=== PATIENT | male | born 1930 | race Caucasian/White ===

== ENCOUNTER → 2016-08-11 | Outpatient (CLI) | payer BC ==
[~2016-08-11] MED LIST: ACET-1256 PO; ACET650T49 PO; AMOX875T PO; ARTISOL12 OP; ASPI81TA28 PO; ATOR-22 PO; BISA-34 PO; CARB25TA12 PO; CLC100 PO; DOCU100C22 PO; ESCI10TA17 PO; FERR1TAB13 PO; FURO-85 PO; LACTCAP3 PO; METO50TA16 PO; MULTTAB5 PO; NTRGSL/4 UT; PANT40TA PO; POLYSOL4 OP; SACC250C11 PO; SENN-63 PO; TRAM-10 PO; VALA1TAB2 PO; ZNTT/150 PO
--- NOTE | 2016-08-11 11:49 | DIAGNOSTIC IMAGING REPORT ---
PET/CT WHOLE BODY CLINICAL HISTORY: PULMONARY NODULE melanoma COMPARISON STUDY: 07/05/2014, CT scan of chest dated 07/23/2016 FINDINGS: The patient was injected with 15.9 mCi of F 18 labeled FDG. Following the standard induction phase, PET/CT scanning is performed from the skull base the upper thigh region. A second acquisition of the legs was then performed. Activity within the neck is felt to be physiologic. Within the thorax, there is an intensely FDG avid 1 cm right upper lobe pulmonary nodule. This has SUV maximum of 4.6. Neoplasm is suspected. There are mildly FDG avid nonpathologically enlarged pretracheal lymph nodes demonstrate SUV maximum of 2.3. There is a nonpathologically enlarged mildly FDG avid subcarinal lymph node with SUV maximum of 3.4. There are no FDG avid hepatic masses. There are no FDG avid adrenal lesions. There is physiologic urinary tract and bowel activity within the abdomen and pelvis. The patient appears status post a prior left nephrectomy. There are minimally FDG avid left external iliac lymph nodes with SUV maximum of 2.3. The largest measures 8 mm in short axis. There are postsurgical changes of bilateral hip arthroplasties. There is a large left hip effusion. The lower legs, there is mild muscular activity, most pronounced involving the right semitendinosus muscle, as well as the medial head of the right gastrocnemius. There are no corresponding masses, and this activity is therefore unlikely to be neoplastic. IMPRESSION: 1. Moderately intense focus of increased FDG activity fusing to a 1 cm right upper lobe pulmonary nodule. This should be presumed neoplastic unless proven otherwise 2. Mildly FDG avid nonpathologically enlarged mediastinal lymph nodes 3. Minimally FDG avid nonpathologically enlarged left external iliac lymph node 4. Postsurgical changes of bilateral hip arthroplasties. Left hip effusion Electronically signed by: Danilo Cedeño M.D. 08/11/2016 11:47 AM Dictated Date/Time: 08/11/2016 11:32 AM
== END | disposition home or self-care (01) ==
LOC: C.PET 07:18
PROVIDERS: ATTEND Internal Medicine Hematology & Oncology
DX: C43.9 Malignant melanoma of skin, unspecified (principal); R91.1 Solitary pulmonary nodule

== ENCOUNTER → 2016-08-12 | Outpatient (CLI) | payer BC ==
[~2016-08-12] MED LIST changes: -AMOX875T PO; -ESCI10TA17 PO
== END | disposition home or self-care (01) ==
LOC: C.PATHSPEC 09:47
PROVIDERS: ATTEND Hospitalist
DX: C79.89 Secondary malignant neoplasm of other specified sites (principal)

== ENCOUNTER 2016-09-03 06:24 | Inpatient (IN) | payer BC, OTHER ==
[2016-08-29 15:59] VITALS: BMI 28.0
[~2016-09-03] VITALS: Ht 170.2 cm; Wt 81.9 kg
[2016-09-03] VITALS (9 sets, daily range): BP systolic 109–136; BP diastolic 60–71; PULSE 66–78; TEMP 36.8; O2SAT 95–100; Ht 170.2 cm; Wt 81.9 kg
[~2016-09-03 06:24] MED LIST changes: -ACET650T49 PO; -CLC100 PO; -DOCU100C22 PO; -FERR1TAB13 PO; +LACTATED RINGER'S 1000ML 1,000 ML IV SCH; -LACTCAP3 PO; -SENN-63 PO; -VALA1TAB2 PO
[2016-09-03] MEDS ORDERED: FENTANYL CITRATE INJ 50 MCG/1 ML 2 ML VIAL ONE ×2 (07:33→13:50)
[2016-09-03] MEDS ORDERED: CLINDAMYCIN 600 MG/54 ML D5W IV ONE (07:52)
--- NOTE | 2016-09-03 08:16 | History & Physical Bridge Note ---
H&P Re-Evaluation Bridge Note: I have examined the patient, reviewed the History & Physical and in the interval since the performance of the History & Physical I have noted the following changes of clinical significance: No changes noted
[2016-09-03] MEDS ORDERED: LIDOCAINE HCL 2% 2 ML VIAL (20MG/ML) ONE (09:13)
[2016-09-03] MEDS ORDERED: SUCCINYLCHOLINE CHLORIDE 20 MG/ML 10 ML VIAL IV ONE (09:13)
[2016-09-03] MEDS ORDERED: EpHEDrine SULFATE 50MG/5ML SYR ONE ×2 (09:13→09:56)
[2016-09-03] MEDS ORDERED: CLINDAMYCIN PHOS 150 MG/ML 2 ML VIAL ONE ×2 (09:13→12:46)
[2016-09-03] MEDS ORDERED: PROPOFOL IV EMULSION 10 MG/ML 20 ML VIAL IV ONE (09:13)
[2016-09-03] MEDS ORDERED: ROCURONIUM BROMIDE 10 MG/ML 5 ML VIAL ONE ×2 (09:13→13:24)
[2016-09-03] MEDS ORDERED: BUPIVACAINE LIPOSOME 1/3% 266 MG/20 ML VIAL INFIL ONE (11:14)
[2016-09-03] MEDS ORDERED: MIX: 266 MG EXPAREL + 40 ML INJ SALINE INJ ONE (11:50)
--- NOTE | 2016-09-03 12:19 | [facility] Operative Report ---
Operative Report Operative Date Sep 03, 2016. Pre-Operative Diagnosis Right upper lobe nodule intraoperative unsuccesful aiken catheter placement Post-Operative Diagnosis mild bladder neck contracture Procedure(s) Performed cystoscopy aiken placement over wire, difficult Surgeon Dr Morrison Special Loan Officer Surgeon(s) none Estimated Blood Loss 0mL Findings 16 fr contracture of bladder neck, small false passage posteriorly Fluids 50mL Specimens none Drains 16 fr [place] tip aiken Anesthesia GET Complication(s) None Disposition remains in OR for thoracotomy Indications I was called by Dr Talley to evaluate patient for difficult aiken. he is to have long procedure and 2 attempts at aiken placement were unsuccessful. We initially wnted to go without Aiken but Dr Marte felt intraoperative urine output monitoring was necessary prior to thoracotomy. Thus after bronch but before the thoracotomy we placed the aiken over a wire. Description of Procedure Patient was under general anesthesia and placed in supine on OR table. Exam of low abdomen reveals an old suprapubic tube scar but no incision for a prostatectomy. His genitals were prepped and draped in sterile fashion. Time out held with team. I placed an 18 fr flexible cystoscope up urethra. He has a few insignificant penile urethral strictures and a 16 fr pale stenosed bladder neck, There is some raw tissue distal and inferior to bladder neck presumably the trauma from recent aiken placements. The prostate is not notable , either very small or mostly resected. The UOs are in normal location. I placed a stiff wire thru the scope to bladder. I removed scope and placed a 16 fr [place] tip catheter over the wire with only a little resistance at bladder neck. I inflated balloon with 10mL of water. The catheter was connected to closed gravity drainage. He remains in OR for his surgery. Plan: void trial in 48-72 hours once pain is well controlled and patient as ambulatory as possible. ASA 4 clean contaminated case I attest to the content of the Intraoperative Record and any orders documented therein. Any exceptions are noted below.
[2016-09-03] MEDS ORDERED: PHENYLEPHRINE HCL INJ 10 MG/ML VIAL ONE ×2 (12:46→14:18)
[2016-09-03] MEDS ORDERED: EpHEDrine SULFATE INJ 50 MG/ML AMP ONE (12:46)
[2016-09-03] MEDS ORDERED: VASOPRESSIN 20 UNIT/ML VIAL ONE (12:46)
[2016-09-03] MEDS ORDERED: ALBUMIN HUMAN 5% 12.5 GM/250 ML VIAL IV ONE (12:58)
[2016-09-03] MEDS ORDERED: CALCIUM CHLORIDE 10% 10 ML SYR ONE (12:59)
[2016-09-03 13:12] LABS: ISTAT CREATININE 1.2 mg/dl (0.6-1.3); ISTAT HEMOGLOBIN 10.2 g/dl (14.0-18.0); ISTAT IONIZED CALCIUM 1.06 mmol/l (1.12-1.32)
[2016-09-03] MEDS ORDERED: ONDANSETRON INJ 2 MG/ML 2 ML VIAL IV PRN ×2 (14:15→14:45)
[2016-09-03] MEDS ORDERED: OXYCODONE/ACETAMINOPHEN 5-325 TAB PO PRN (14:15)
--- NOTE | 2016-09-03 14:28 | DIAGNOSTIC IMAGING REPORT ---
KUB CLINICAL HISTORY: INSTRUMENT COUNT thoracotomy COMPARISON STUDY: 10/29/2015 FINDINGS: 09/03/2016 findings a right axillar dissection as well as right-sided thoracotomy. Right-sided chest tube is noted. No radiopaque foreign bodies other than surgical clips and sternal wires. Small amount of air within the right lateral lower chest wall. Endotracheal tube 3 cm above the yulisa. Secondary to overlying left hilum. IMPRESSION: Postoperative changes as described right hemithorax. No evidence for residual surgical instruments or radiopaque foreign bodies. Electronically signed by: Wilian Clay M.D. 09/03/2016 2:26 PM Dictated Date/Time: 09/03/2016 2:24 PM
[2016-09-03 14:44] LABS: MEAN CELL VOLUME 92.2 fL (80-100); MEAN CORPUSCULAR HEMOGLOBIN 31.3 pg (25-34); MEAN PLATELET VOLUME 9.2 fL (7.4-10.4); PLATELET COUNT 166 K/uL (130-400); RED BLOOD COUNT 3.58 M/uL (4.7-6.1); WHITE BLOOD COUNT 10.61 K/uL (4.8-10.8)
[2016-09-03] MEDS ORDERED: NALOXONE HCL 0.4 MG/1 ML VIAL/CARP IV PRN (14:45)
[2016-09-03] MEDS ORDERED: EpHEDrine SULFATE INJ 50 MG/ML AMP IV PRN (14:45)
[2016-09-03] MEDS ORDERED: ATROPINE SULFATE 0.1 MG/ML 5ML SYR IV PRN (14:45)
[2016-09-03] MEDS ORDERED: PHENYLEPHRINE HCL INJ 20 MG in DEXTROSE 5% 500ML 500 ML IV PRN (14:45)
[2016-09-03 14:50] LABS: MEAN CORPUSCULAR HGB CONC 33.9 g/dl (32-36)
[2016-09-03 15:11] LABS: BUN/CREATININE RATIO 23.6 (10-20); CALCIUM 8.6 mg/dl (8.5-10.1); CREATININE 1.3 mg/dl (0.60-1.40); POTASSIUM 4.6 mmol/L (3.5-5.1)
[2016-09-03 15:18] LABS: ARTERIAL BLD GAS O2 SATURATION 94.1 % (90-95); ARTERIAL BLOOD GAS BASE EXCESS -4.1 mEq/L (-9-1.8); ARTERIAL BLOOD GAS HCO3 22 mmol/L (19-24); ARTERIAL BLOOD GAS PO2 78 mm/Hg (80-95); ARTERIAL BLOOD GAS pH 7.31 (7.35-7.45)
--- NOTE | 2016-09-03 15:18 | DIAGNOSTIC IMAGING REPORT ---
CHEST 1 VIEW FRONTAL CLINICAL HISTORY: NAVIGATIONAL BRONCH WITH FIDUCIAL MARKERS RUL COMPARISON STUDY: PET CT 08/11/2016. FINDINGS: Total fluoroscopy time was 216 seconds. A single fluoroscopic spot image was identified. Bronchoscopy was performed with fiducial markers placed within the right upper lobe adjacent to the right upper lobe nodule. IMPRESSION: Fluoroscopy provided for navigational bronchoscopy. Electronically signed by: Juan Knutson M.D. 09/03/2016 3:17 PM Dictated Date/Time: 09/03/2016 3:16 PM
[2016-09-03 15:19] LABS: O2 ADMINISTRATION 10 LITERS
[2016-09-03 15:21] LABS: BASO % 0.2 %; BASO ABS # 0.02 K/uL (0-0.2); COMPLETE YES; ECHINOCYTES 1+; EOS % 0.7 %; IG% 0.2 %; LYMPH % 8.5 %; MONO % 9.2 %; NEUT % 81.2 %
[2016-09-03] MEDS ORDERED: METOCLOPRAMIDE HCL INJ 5 MG/ML 2 ML VIAL IV. ONE (15:30)
--- NOTE | 2016-09-03 15:39 | Anesthesiology Progress Note ---
Anesthesia Post Op Note Date & Time Sep 03, 2016 at 15:37 Vital Signs Pain Intensity: 5 Vital Signs Past 12 Hours Date Time Temp Pulse Resp B/P Pulse Ox O2 Delivery O2 Flow Rate FiO2 09/03/16 15:15 67 20 94/56 97 Mask 10 96/54 09/03/16 15:10 72 20 111/64 98 Mask 10 09/03/16 15:00 69 20 109/61 98 Mask 10 09/03/16 14:55 65 20 94/56 100 Mask 10 09/03/16 14:45 69 20 87/57 98 Mask 10 09/03/16 14:40 71 20 88/52 98 Mask 10 78/55 09/03/16 14:33 36.1 71 20 85/56 99 Mask 10 09/03/16 07:16 100 Room Air Notes Mental Status: alert / awake / arousable, participated in evaluation Pt Amnestic to Procedure: Yes Nausea / Vomiting: adequately controlled Pain: adequately controlled Airway Patency, RR, SpO2: stable & adequate BP & HR: stable & adequate, see Notes Hydration State: stable & adequate Anesthetic Complications: no major complications apparent Patient on neosynephrine infusion now for BP support. H/H posttransfusion was 11.2/33. Patient being gently hydrated. Patient has pain but tolerable. Currently in stable condition and ready for transfer to ICU.
--- NOTE | 2016-09-03 15:42 | DIAGNOSTIC IMAGING REPORT ---
SINGLE VIEW CHEST CLINICAL HISTORY: Status post right-sided VATS procedure. FINDINGS: An AP, portable, upright chest radiograph is compared to study dated 10/23/2015 and correlated with chest CT dated 07/03/2016. The examination is degraded by portable technique and patient rotation. The patient is status post midline sternotomy. The heart is enlarged and there is atherosclerotic calcification of the thoracic aorta. Mild pulmonary vascular congestion is suspected. Postoperative change is suggested in the right upper lung. There is a moderate to large right apical pneumothorax with a chest tube present the medial right apex. No significant tracheal deviation is seen. Small pleural effusions are suspected and there is bibasilar atelectasis. The skeletal structures are osteopenic. Degenerative change and scoliosis are noted in the thoracic spine. Advanced arthritic change is observed in the shoulders, with surgical anchors present in the right humeral head. An IV catheter is noted in the right internal jugular vein. IMPRESSION: 1. There is a moderate to large right apical pneumothorax with a right-sided chest tube in place. 2. Cardiomegaly with mild pulmonary vascular congestion. 3. Small pleural effusions with bibasilar atelectasis. 4. Suspect postoperative change at the right apex. Electronically signed by: Vahid Alvarenga M.D. 09/03/2016 3:40 PM Dictated Date/Time: 09/03/2016 3:37 PM
[2016-09-03] MEDS ORDERED: D5W AND 1/2NSS 1,000 ML IV SCH (17:00)
[2016-09-03 17:36] LABS: INR 1.1 (0.9-1.1); PARTIAL THROMBOPLASTIN RATIO 0.9; PROTHROMBIN TIME (PATIENT) 11.7 SECONDS (9.0-12.0)
[2016-09-03] MEDS: MoRPHine SULFATE 2 MG/ML CARP IV PRN (18:10)
[2016-09-03] MEDS: METOCLOPRAMIDE HCL INJ 5 MG/ML 2 ML VIAL IV. SCH (18:22)
[2016-09-03] MEDS ORDERED: PHENYLEPHRINE HCL IV PRN (18:45)
[2016-09-03] MEDS ORDERED: DEXTROSE 5% IV PRN (18:45)
[2016-09-03] MEDS: CLINDAMYCIN IV 900 MG in DEXTROSE 5% ADD-VANTAGE 100ML 100 ML IV SCH (19:41)
[2016-09-03] MEDS: METOPROLOL TARTRATE 50 MG TAB PO SCH (21:00)
[2016-09-03] MEDS: CARBIDOPA/LEVODOPA 25/100MG TAB PO SCH (21:09)
[2016-09-03] MEDS: DOCUSATE SODIUM 100 MG CAP PO SCH (21:09)
[2016-09-03] MEDS: ACETAMINOPHEN IV 1,000 MG in EMPTY BAG 0 ML IV SCH (22:14)
[2016-09-03] MEDS ORDERED: PHARMACY GLYCEMIC MGMT CONSULT PRN (23:42)
[2016-09-03] MEDS ORDERED: NURSING VERBAL MED ORDER ONE (23:45)
[2016-09-03] MEDS: SODIUM CHLORIDE 0.45% 1000ML 1,000 ML IV SCH (23:56)
[2016-09-04] VITALS (65 sets, daily range): BP systolic 64–136; BP diastolic 43–72; PULSE 78–107; TEMP 36.8–37.7; O2SAT 92–100
[2016-09-04] MEDS: PHENYLEPHRINE HCL IV PRN ×5 (00:27→20:09)
[2016-09-04] MEDS: SODIUM CHLORIDE 0.9% IV PRN ×5 (00:27→20:09)
[2016-09-04] MEDS: INSULIN ASPART 100 UNITS/ML 3 ML PEN SC SCH ×4 (00:28→16:30)
[2016-09-04] MEDS: CLINDAMYCIN IV 900 MG in DEXTROSE 5% ADD-VANTAGE 100ML 100 ML IV SCH (00:49)
[2016-09-04] MEDS: METOCLOPRAMIDE HCL INJ 5 MG/ML 2 ML VIAL IV. SCH ×2 (00:49→08:00)
[2016-09-04] MEDS ORDERED: LACTATED RINGER'S 1000ML 1,000 ML IV ONE (01:45)
[2016-09-04] MEDS ORDERED: NORMOSOL R 1,000 ML IV ONE (02:00)
[2016-09-04 02:02] LABS: HEMATOCRIT 28.1 % (42-52); MEAN CELL VOLUME 90.4 fL (80-100); MEAN CORPUSCULAR HEMOGLOBIN 30.9 pg (25-34); MEAN CORPUSCULAR HGB CONC 34.2 g/dl (32-36); MEAN PLATELET VOLUME 9.3 fL (7.4-10.4); PLATELET COUNT 164 K/uL (130-400); RED BLOOD COUNT 3.11 M/uL (4.7-6.1); WHITE BLOOD COUNT 5.66 K/uL (4.8-10.8)
[2016-09-04 02:29] LABS: BASO % 0.2 %; BASO ABS # 0.01 K/uL (0-0.2); COMPLETE YES; EOS % 0.2 %; IG% 0.2 %; LYMPH % 15.9 %; MONO % 20.7 %; NEUT % 62.8 %
[2016-09-04 02:37] LABS: BUN/CREATININE RATIO 19.3 (10-20); CALCIUM 7.5 mg/dl (8.5-10.1); CREATININE 1.3 mg/dl (0.60-1.40); POTASSIUM 4.3 mmol/L (3.5-5.1)
[2016-09-04 03:35] LABS: ISTAT ARTERIAL BLOOD GAS HCO3 19 meq/L (19-24); ISTAT ARTERIAL BLOOD GAS PCO2 29 mmHg (35-46); ISTAT ARTERIAL BLOOD GAS PO2 56 mmHg (80-95); ISTAT ARTERIAL BLOOD GAS pH 7.42 (7.35-7.45); ISTAT CARBON DIOXIDE 20 mEq/l (24-31); ISTAT DELIVERY SYSTEM Cannula; ISTAT SITE Art Line
--- NOTE | 2016-09-04 03:56 | OPERATIVE REPORT ---
DATE OF OPERATION: 09/03/2016 PREOPERATIVE DIAGNOSES: 1. Enlarging right upper lobe mass. 2. History of melanoma. POSTOPERATIVE DIAGNOSIS: Apparent metastatic melanoma. PROCEDURE: 1. Endobronchial ultrasound with biopsy. 2. Navigational bronchoscopy with marking of right upper lobe lesion with methylene blue dye and fiducial markers. 3. Right thoracoscopy with extensive lysis of adhesions. 4. Emergent thoracotomy with control of bleeding from right internal mammary artery. 5. Wedge resection right upper lobe mass. 6. Mediastinal lymph node biopsies. SURGEON: Dr. Talley. 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 ANESTHESIA: General anesthesia with endotracheal intubation with double-lumen tube. SPECIFICS OF PROCEDURE: Mr. Razo is an 86-year-old male who has a history of melanoma which has recurred several times over the last few years. He is referred to me by Dr. Atul Steward from the cancer center as he had an enlarging mass in his right upper lobe. Interestingly enough, a PET scan showed hypermetabolic activity in lymph nodes in his mediastinum, which were not enlarged. I had a long talk about this in the office. The patient and two of his sisters and I had a long talk. He is a bit reticent to have it done. However, after discussing this with Dr. Wu as well as me, he elected to proceed. On 09/03/2016, I took the patient to the operating room and did an uncomplicated navigational bronchoscopy. The lymph nodes were tiny. I biopsied about 5 different stations including the left level 4, left level 10, level 7, and right level 10 and right level 4, but we only got lymph node tissue back on 2 of the levels. I then did a navigational bronchoscopy and marked the right upper lobe mass. I felt quite good about this as I could see on the radio ultrasound probe we were close to this. I placed a marker and then injected methylene blue dye. I then turned the patient and did a thoracoscopy and infused CO2 and I was disappointed to see that he had marked adhesions. I had to slowly get into the pleural cavity and then I made very slow but tedious work of taking down these adhesions meticulously. Using a hook cautery, I got these down quite nicely and using Harmonic scalpel. We were able to bring these down nicely, although it was time consuming. Went along the lateral aspect of the chest wall. I was quite happy because we got into very little bleeding with this. I took it down along the mediastinum and along the apex. I the upper lobe from the lower lobe. I was then working on the medial aspect of the upper lobe and we developed brisk bleeding. It was difficult to control this from our thoracoscopic incision, so I opened to my superior incision and put a Tuffier retractor in and then held pressure. This had very brisk bleeding and we lost probably a total of 1000 mL of blood. This was total blood loss for the case. The patient's pressure did drop to the 80s and I was concerned enough about this. We held pressure and got a unit of blood up. I then could see this was from the internal mammary artery, at about the 3rd or 4th interspace. I then was easily able to get clips around this. I then continued the case. With it open, I could feel the mass and wedged it out. It did appear to be a metastatic melanoma. I also dissected out level 2 and level 4 nodes. I saw very little in the way of level 7 node, which was not surprising, although I biopsied this and got lymphocytes back on the endobronchial ultrasound. He also did not have an 8 and 9 node, that was even noticeable when I took down the inferior pulmonary ligament. I meticulously took down every adhesion and then used an Exparel block from the 2nd to the 11th rib. I then closed the patient. He was awakened without difficulty in the OR and extubated. He did have an air leak but there was not a specific area. There were several small areas and he had emphysematous lungs. I think this will stop even though we did have a pneumothorax postop. We kept him on waterseal. Overall, he tolerated it well, though he was on some Ghulam-Synephrine on his way back to the ICU. PROCEDURE IN DETAIL: The patient brought to the operating room and laid in supine position. General anesthesia induced and endotracheal intubation was performed. He has poor IV access, so a central line was placed in the right neck by Dr. Kobe Jean as well as a left arterial A-line. Single lumen tube was placed, I did an endobronchial ultrasound. The patient is interesting in that the mediastinal nodes were hypermetabolic but they were not enlarged. This was seen on the PET scan. Using an endobronchial ultrasound, I could see that the lymph nodes on the right level 4 and right level 10 were not large at all and I did biopsy these. I biopsied each of these with 3 separate needle sticks as well as the level 7 I did several needle sticks. I got lymphocytes back from the level 7. I then went to the right level 10 as well as the right level 4 and biopsied these. With the endotracheal tube in place, it was difficult to get to the level 2s but they were not enlarged. We got in really no bleeding from this. I then removed the endobronchial ultrasound scope and placed a navigational bronchoscopy scope and went out to the right upper lobe mass. I went to place a fiducial marker; however, the catheter moved as we were placing it and I did not feel this was in correct position. For this reason, we placed the navigational probe back in and got out to the lesion again. This was confirmed with the radio ultrasound probe. I then carefully placed another fiducial marker and I felt that this was right where it needed to be, although it was a couple of centimeters away from the original marker. I then went past the lesion a bit and got about a centimeter from the pleura and injected 0.5 mL of methylene blue. I removed the scope and saw very little in the way of any bleeding. I sucked out both the airways and then we went to change him over to a double-lumen tube. Unfortunately, we could not get a Gross catheter in. Regular Gross catheter would not go and then 2 different sizes of coude catheters were tried. We then called Dr. Morrison from urology to perform a cystoscopy. Really did not see much in the way of abnormalities and a Gross catheter was placed. After this, we then turned the patient in the left lateral decubitus position and dressed his right chest. I made an incision at the interspace below the tip of the scapula, a little bit posterior, and then I put a Veress needle and then infused CO2, and upon placing the 5 mm scope, I could see that there were marked adhesions. It did not appear that we entered the lung here. I then was able to use the 5-mm 0-degree scope to break up some of the flimsy adhesions anteriorly. I was able to place another 10 mm port in about the 7th interspace. I then performed taking down of adhesions, much easier with a hook cautery, I was able to take down these adhesions which were fairly firm more laterally. Finally, I was able to get another 10 mm scope at about the 4th interspace. Upon taking these down, I then had to meticulously rotate the scope between the 3 port sites and spinning frame changer to a 30-degree scope and I was able to, with the use of the hook cautery and the Harmonic scalpel, take down these adhesions, although it was difficult. This was time consuming but we were finally able to get this down along the apex. I also got it down along the posterior wall. I was able to separate the lower lobe from the upper lobe as it was really a complete fissure. The lower lobe was quite stuck, however. It was also stuck medially. I was taking the upper lobe down medially as it was extremely adherent at this point. We had good visualization. As I was coming down taking the adhesions down, the hook cautery hit the internal mammary artery. We had brisk bleeding from this. Unfortunately, due to placement of the scope ports, it was difficult to get direct pressure on this. We tried to use a Kitner and simply were unable to do this. For this reason, I quickly opened the chest in the 4th interspace and then it was still a bit difficult to get exactly to the point and we had to finally get it packed and held pressure until we were able to get the chest open. We converted to an open procedure and I finally was able to see this was from the internal mammary artery at about the 3rd or 4th interspace and put Hemoclips on either side of it to stop the bleeding right away but we had lost a good deal of blood. The patient's pressure dipped. He was fluid resuscitated and given vasopressors and this improved. His saturations never dropped. I then suctioned out all the blood, and after having taken down the rest of the upper lobe, I was able to palpate the mass. I fired an Endo-YUDI three times and sent it off. Frozen section came back from Dr. Russel Mckeon and this was a poorly differentiated malignancy. It was possibly consistent with a melanoma. I then dissected out a level 2 and a level 4 node. I dissected out the bifurcation but really did not see much in the way of a node. I took down the inferior pulmonary ligament and I really did not see an 8 or 9 node. These did not really light up on the PET scan. I then meticulously took down all the adhesions between the lower lobe and the diaphragm as well as the mediastinum until we finally freed up all 3 lobes. I was afraid to leave anything attached as I did not want him to have a loculated effusion. I used the Aquamantys to control chest wall bleeding. Really had no bleeding at the conclusion of the case. A 24-Korean chest tube was placed through an inferior stab wound and directed toward the apex, held in place with a heavy silk suture. The patient had multiple small areas of leaking. There were 2 areas that I simply placed a 4-0 Vicryl to reapproximate the pleura but really did not have a major air leak, he just had several small leaks which were diffuse from the takedown of the adhesions and his emphysematous lungs. When we resumed two-lung ventilation, all 3 lobes filled nicely. I then used 266 mg of Exparel mixed in 60 mL total of saline and injected it from the 2nd interspace down to the 11th interspace with about 5 mL in each interspace going above the rib. We saw no bleeding with this. The patient had fractured one of his costicartilage and I removed about 2 cm of this and then reapproximated the ribs with #1 PDS. 0 Vicryl was then used in a running continuous fashion to reapproximate the anterior aspect of the latissimus and then the serratus muscle in 2 layers. 4-0 Monocryl was used in a running subcuticular fashion to approximate the wound edges. He did have an air leak postoperatively but it was not one I would really repair. I think this will stop as we really did not remove much lung. He was not leaking from the staple line. He was able to be extubated in the room. He was still on some inotropes but had been weaned off many. His hemoglobin was stable after 1 unit of blood. I attest to the content of the Intraoperative Record and any orders documented therein. Any exceptio ns are noted below.
[2016-09-04] MEDS: MoRPHine SULFATE 2 MG/ML CARP IV PRN ×2 (04:55→14:02)
[2016-09-04] MEDS ORDERED: NURSING VERBAL MED ORDER ONE (05:00)
[2016-09-04] MEDS ORDERED: CALCIUM GLUCONATE 10% 500 MG in SODIUM CHLORIDE 0.9% 50ML 50 ML IV STA (05:28)
[2016-09-04] MEDS: ACETAMINOPHEN IV 1,000 MG in EMPTY BAG 0 ML IV SCH ×3 (06:10→22:00)
--- NOTE | 2016-09-04 06:59 | DIAGNOSTIC IMAGING REPORT ---
CHEST ONE VIEW PORTABLE CLINICAL HISTORY: s/p thoracotomy post operative COMPARISON STUDY: 09/03/2016 FINDINGS: Near complete reinflation right lung. Small residual right apical and basilar pneumothorax. Right-sided chest tube unchanged in position. Tip is emphysematous change right lateral hemithorax is slightly rest of. Potential developing small parenchymal infiltrate left base. IMPRESSION: 1. Improving post procedural change right hemithorax. 2. Small residual right-sided pneumothorax improved from the prior study. 3. Slightly progressive subcutaneous emphysematous change of the right hemithorax. Progressive infiltrative change left base. Electronically signed by: Wilian Clay M.D. 09/04/2016 6:58 AM Dictated Date/Time: 09/04/2016 6:57 AM
[2016-09-04] MEDS: CARBIDOPA/LEVODOPA 25/100MG TAB PO SCH ×3 (07:57→20:11)
[2016-09-04] MEDS: DOCUSATE SODIUM 100 MG CAP PO SCH ×2 (07:57→20:11)
[2016-09-04] MEDS ORDERED: GLUCAGON FOR INJ 1 MG VIAL SQ PRN (08:00)
[2016-09-04] MEDS ORDERED: DEXTROSE 50% 50 ML SYR IV PRN (08:00)
[2016-09-04] MEDS ORDERED: GLUCOSE 40% GEL 15 GM TUBE PO PRN (08:00)
[2016-09-04] MEDS ORDERED: GLUCOSE 10 TABS/TUBE PO PRN (08:00)
[2016-09-04] MEDS: METOPROLOL TARTRATE 50 MG TAB PO SCH ×2 (08:07→20:13)
[2016-09-04] MEDS ORDERED: LACTATED RINGER'S 1000ML 1,000 ML IV SCH (08:30)
[2016-09-04] MEDS ORDERED: ENOXAPARIN 40 MG/0.4 ML SYR SQ SCH (09:00)
[2016-09-04] MEDS ORDERED: ROPINIROLE HCL 0.25 MG TAB PO ONE (09:14)
--- NOTE | 2016-09-04 09:15 | SURGERY PROGRESS NOTE ---
DATE: 09/04/2016 Mr. Razo was seen this morning. He is awake, alert. He is complaining of pain. Irritated that he had the procedure yesterday with an open chest; however, I feel better about him. He has had some mild temperature elevation at 37.7. His heart rate in the 80s to 90s. On 2 liters pulse oximetry, he is going between 93% and 96%. He is not tachypneic. His lungs actually sound better today. We hooked him up to suction and he has no air leak today. Chest x-ray shows resolution of the postoperative pneumothorax. He has got some pleural changes at the base, but I think it looks better actually. When he was hooked up to suction, he drained about 600 mL of fluid, but this drainage has slowed to a crawl now. He has got good urine output, in fact is pouring urine out this morning. He received another unit of blood last night, even though his hemoglobin was 9.6 because I still feel he is dehydrated, and we were still having trouble with his blood pressure as he is still on Ghulam-Synephrine, and we have been trying to wean this off. He responds to volume. Total intake yesterday was 4667, total output was 1935. His urine output has picked up considerably. ASSESSMENT AND PLAN: Postoperative day #2 status post right thoracotomy with wedge resection of a metastatic melanoma and extensive lysis of adhesions with control of bleeding. He looks very good today. Will see how much his chest tube drains. I am hopeful we can get that out in the next couple of days. Dr. Morrison did insert a Gross catheter. We will keep this Coude catheter in probably for another day or so. I would like to monitor him in the ICU and hopefully we can start removing tubes and getting him out in the next day or 2.
--- NOTE | 2016-09-04 09:18 | Critical Care Consultation ---
Critical Care Consultation Date of Consultation: Sep 04, 2016. Attending Physician: Shakeel Talley MD Reason for Consultation: Vascular Complication during VATS History of Present Illness Mr. Carlisle is an 86-year-old male with a history of recurrent melanoma ; previously resected multiple times particularly the right axilla. His most recent admission to [facility] was resection of a left renal metastasis. Dr. Steward evaluated this patient for right upper lobe mass with hyper-metabolism on a recent PET scan; concerning for metastatic melanoma. He has a significant past medical history as listed below. Most notably Parkinson' s, coronary artery disease requiring CABG, dyslipidemia, hypertension, metastatic melanoma. During his procedure in the OR the cautery HIT the internal mammary artery which began to bleed significantly. The chest had to be opened in order to stop bleeding. Patient's pressures were affected he required fluid resuscitation and vasopressors. According to the operative report oxygen saturations never dropped and his hemoglobin was stable after receiving 1 unit of packed red blood cells intraoperatively. Patient was extubated in the OR without issue and admitted to the ICU. Patient received a second unit of packed red blood cells around 5 PM that evening. Blood pressures systolically have ranged from high 70s to low 100s; requiring a Phenylephrine drip. Patient has a chest tube to the right draining with discomfort of a 6/10. He states he does have a new nonproductive cough, sore throat, and difficulty swallowing. Nursing has been working with him on his incentive spirometry. He denies fevers or chills headaches or lightheadedness. He denies chest pain or discomfort, tachyarrhythmias, shortness of breath. He states he does have minor abdominal pain most likely due to hunger; he tried eat breakfast this morning but swallowing difficulty hindered his appetite. He has no nausea or vomiting. He states his last bowel movement was around 8 PM on Thursday prior to admission. He has no discomfort from the Gross catheter that is in place. He denies numbness and tingling to any extremity. Past Medical/Surgical History Medical Problems: Alzheimers disease CAD DJD Hematuria Lung mass Malignant melanoma C. Diff Diarrhea Basal Cell Carcinoma Dudenal Ulcer with Hemorrhage CHF Renal Calculi HTN Dyslipidemia Surgical Hx: Bilateral Hip Replacement CABG Left. Radical Nephrectomy Family History Diabetes mellitus Heart disease Hypertension Fm Hx of CAD, DM, HTN, AAA, Brain Tumor, Stroke, HF, TB, Malignant Melanoma, Social History Smoking Status: Never Smoker Drug Use: none Marital Status: Housing Status: long term Occupation Status: retired Allergies Coded Allergies: Iodinated Diagnostic Agents (Verified Allergy, Intermediate, HIVES, 09/03/16 ) Promethazine (Verified Allergy, Unknown, unknown, 09/03/16) INFORMATION FROM [facility] Home Medications Scheduled Aspirin (Aspirin Ec), 81 MG PO DAILY Atorvastatin (Lipitor), 20 MG PO HS Carbidopa/Levodopa (Sinemet 25MG/100MG), 1 TAB PO TID Furosemide (Lasix), 20 MG PO QAM Metoprolol Tartrate (Lopressor) (Lopressor), 50 MG PO BID Multiple Vitamins W/ Minerals (Centrum), 1 TAB PO QAM Nitroglycerin (Nitrostat), 0.4 MG UT PRN Pantoprazole (Protonix), 40 MG PO BID Ranitidine (Zantac), 150 MG PO BID Saccharomyces Boulardii (Probiotic), 1 CAP PO QAM Scheduled PRN Acetaminophen (Tylenol), 1,000 MG PO Q4H PRN for Pain Artificial Tear Solution (Artificial Tears), 1 DROPS OP QID PRN for DRYNESS Bisacodyl (Laxative), 1 TAB PO UD PRN for Constipation Polyethylene Glycol-Propylene (Systane), 1 DROPS OP QID PRN for PRN Tramadol (Ultram), 50 MG PO BID PRN for Pain Current Inpatient Medications Current Inpatient Medications Medications (Trade) Dose Ordered Sig/Ashley Route Start Time Stop Time Status Last Admin Dose Admin Carbidopa/Levodopa (Sinemet 25/ 100MG Tab) 1 tab TID PO 09/03/16 21:00 10/03/16 20:59 09/04/16 07:57 1 TAB Metoprolol Tartrate 50 mg 50 mg BID PO 09/03/16 21:00 10/03/16 20:59 Acetaminophen/ Empty Bag (Ofirmev Iv/ Empty Iv Bag 100ml) 100 ml @ 400 mls/hr Q8H IV 09/03/16 22:00 10/03/16 14:14 09/04/16 06:10 400 MLS/HR Enoxaparin Sodium (Lovenox Inj) 40 mg DAILY SQ 09/04/16 09:00 10/04/16 08:59 09/04/16 07:58 40 MG Ondansetron HCl (Zofran Inj) 4 mg Q4H PRN IV 09/03/16 14:15 10/03/16 14:14 Docusate Sodium (coLACE CAP) 100 mg BID PO 09/03/16 21:00 10/03/16 20:59 09/04/16 07:57 100 MG Oxycodone/ Acetaminophen (Percocet 5-325mg Tab) Q3H PRN PO 09/03/16 14:15 09/17/16 14:14 09/04/16 02:38 1 TAB Morphine Sulfate (MoRPHine SULFATE INJ) Q1H PRN IV 09/03/16 14:15 09/17/16 14:14 09/04/16 04:55 2 MG Atropine Sulfate (Atropine Sulfate 0.1MG/Ml Inj) 0.5 mg Q1M PRN IV 09/03/16 14:45 09/04/16 14:44 Miscellaneous Information 1 ea 1 ea UD PRN N/A 09/03/16 23:42 10/03/16 23:41 Sodium Chloride 1,000 ml @ 100 mls/hr Q10H IV 09/03/16 23:45 10/03/16 23:44 09/03/16 23:56 100 MLS/HR Phenylephrine HCl/ Sodium Chloride (Ghulam-Synephrine Inj/Nss 1000ml) 1,004 ml @ 0 mls/hr Q0M PRN IV 09/03/16 23:45 10/03/16 23:44 09/04/16 05:02 243 MLS/HR Insulin Aspart (novoLOG ASPART) SLIDING SCALE ACHS SC 09/04/16 00:00 10/04/16 00:00 09/04/16 00:28 4 UNITS Glucose (Glucose 40% Gel) 15-30 GRAMS 15 GRAMS... UD PRN PO 09/04/16 08:00 10/04/16 07:59 Glucose (Glucose Chew Tab) 4-8 Tablets 4 Tabl... UD PRN PO 09/04/16 08:00 10/04/16 07:59 Dextrose (Dextrose 50% 50ML Syringe) 25-50ML OF 50% DW IV FOR... UD PRN IV 09/04/16 08:00 10/04/16 07:59 Glucagon 1 mg 1 mg UD PRN SQ 09/04/16 08:00 10/04/16 07:59 Lactated Ringer's (Lr 1000ml) 1,000 ml @ 999 mls/hr Q1H1M IV 09/04/16 08:30 09/04/16 09:30 Physical Exam Date Time Temp Pulse Resp B/P Pulse Ox O2 Delivery O2 Flow Rate FiO2 09/04/16 07:45 Nasal Cannula 2.0 09/04/16 06:15 37.7 81 14 116/58 93 09/04/16 05:45 37.6 80 12 101/56 94 2.0 09/04/16 05:30 37.5 79 15 119/61 93 2.0 09/04/16 05:15 37.6 97 17 104/53 96 2.0 09/04/16 05:00 37.6 90 15 104/53 93 Nasal Cannula 2.0 09/04/16 04:00 37.5 85 23 99/57 94 Nasal Cannula 2.0 09/04/16 04:00 Nasal Cannula 2.0 09/04/16 03:00 82 14 111/55 93 Nasal Cannula 2.0 09/04/16 02:00 87 23 113/55 97 Nasal Cannula 2.0 09/04/16 01:30 91 16 107/66 97 Nasal Cannula 2.0 09/04/16 01:08 94 25 85/55 99 Nasal Cannula 2.0 09/04/16 01:00 86 18 90/63 97 Nasal Cannula 2.0 09/04/16 00:00 95 Nasal Cannula 2.0 09/04/16 00:00 37.0 78 18 112/59 97 Nasal Cannula 2.0 09/03/16 23:00 77 23 111/60 95 Nasal Cannula 2.0 09/03/16 22:00 77 18 115/66 95 Nasal Cannula 2.0 09/03/16 21:00 76 12 109/64 97 Nasal Cannula 2.0 09/03/16 20:00 36.8 78 14 122/66 97 Nasal Cannula 2.0 09/03/16 20:00 97 Nasal Cannula 2.0 09/03/16 19:30 75 16 122/61 96 09/03/16 19:00 72 19 122/68 97 09/03/16 18:43 66 14 136/71 97 09/03/16 18:19 67 18 124/63 97 Nasal Cannula 3.0 09/03/16 16:00 36 64 18 118/65 94 Nasal Cannula 3 111/55 09/03/16 15:45 63 20 120/66 94 Nasal Cannula 3 112/55 09/03/16 15:35 61 20 118/59 92 Nasal Cannula 3 113/56 09/03/16 15:25 64 18 113/62 93 Nasal Cannula 3 09/03/16 15:15 67 20 94/56 97 Mask 10 96/54 09/03/16 15:10 72 20 111/64 98 Mask 10 09/03/16 15:00 69 20 109/61 98 Mask 10 09/03/16 14:55 65 20 94/56 100 Mask 10 09/03/16 14:45 69 20 87/57 98 Mask 10 09/03/16 14:40 71 20 88/52 98 Mask 10 78/55 09/03/16 14:33 36.1 71 20 85/56 99 Mask 10 Vital Signs - as noted Laboratory Data - as noted Physical Exam: General - NAD, resting in bed with Nasal Cannula in place Eyes - PERRL, EOMI in right eye only; Blindness in left eye, No icterus, gaze conjugate. ENT - Mucosa moist, no lesions or candidiasis Neck - Supple, trachea midline, no masses or lymphadenopathy, no JVD or bruits Lungs - No paradoxical chest wall movement, coarse to auscultation bilaterally, Rhonchi to left base, no wheezes, rales Heart - Reg rate and rhythm, No murmur, rubs, clicks, or gallops appreciated Abdomen - BS present, no bruits noted, tympanic to percussion, soft, mild tenderness radiating from chest incision site, nondistended, no organomegaly Extremities - No edema, pedal pulses intact Neuro - A&OX4 Strength extremities equal and appropriate bilaterally Reflexes: Bicep, brachioradialis, patellar, and plantar normal and equal CN:PERRL, EOMI, no facial asymmetry, uvula/tongue midline Laboratory Results Last 24 Hours Test 09/03/16 12:54 09/03/16 14:30 09/03/16 15:00 09/03/16 17:02 Bedside Hemoglobin 10.2 g/dl Bedside Hematocrit 30 % Bedside Sodium 143 mEq/L Bedside Potassium 3.6 mEq/L Bedside Chloride 105 mEq/L Bedside Total CO2 22 mEq/l Anion Gap 21.0 mmol/L 13.0 mmol/L Bedside Blood Urea Nitrogen 28 mg/dl Bedside Creatinine 1.2 mg/dl Bedside Glucose (other) 226 mg/dl Bedside Ionized Calcium (Esequiel) 1.06 mmol/l White Blood Count 10.61 K/uL Red Blood Count 3.58 M/uL Hemoglobin 11.2 g/dL Hematocrit 33.0 % Mean Corpuscular Volume 92.2 fL Mean Corpuscular Hemoglobin 31.3 pg Mean Corpuscular Hemoglobin Concent 33.9 g/dl Platelet Count 166 K/uL Mean Platelet Volume 9.2 fL Neutrophils (%) (Auto) 81.2 % Lymphocytes (%) (Auto) 8.5 % Monocytes (%) (Auto) 9.2 % Eosinophils (%) (Auto) 0.7 % Basophils (%) (Auto) 0.2 % Neutrophils # (Auto) 8.62 K/uL Lymphocytes # (Auto) 0.90 K/uL Monocytes # (Auto) 0.98 K/uL Eosinophils # (Auto) 0.07 K/uL Basophils # (Auto) 0.02 K/uL RDW Standard Deviation 48.6 fL RDW Coefficient of Variation 14.2 % Immature Granulocyte % (Auto) 0.2 % Immature Granulocyte # (Auto) 0.02 K/uL Echinocytes 1+ Sodium Level 142 mmol/L Potassium Level 4.6 mmol/L Chloride Level 110 mmol/L Carbon Dioxide Level 19 mmol/L Blood Urea Nitrogen 31 mg/dl Creatinine 1.30 mg/dl Est Creatinine Clear Calc Drug Dose 43.1 ml/min Estimated GFR () 58.1 Estimated GFR (Non- 50.1 BUN/Creatinine Ratio 23.6 Random Glucose 197 mg/dl Calcium Level 8.6 mg/dl Arterial Blood pH 7.31 Arterial Blood Partial Pressure CO2 44 mmHg Arterial Blood Partial Pressure O2 78 mm/Hg Arterial Blood HCO3 22 mmol/L Arterial Blood Oxygen Saturation 94.1 % Arterial Blood Base Excess -4.1 mEq/L Arterial Blood Gas Delivery 10 LITERS Gilles Test Prothrombin Time 11.7 SECONDS Prothromb Time International Ratio 1.1 Activated Partial Thromboplast Time 24.5 SECONDS Partial Thromboplastin Ratio 0.9 Test 09/03/16 23:28 09/04/16 01:51 09/04/16 03:21 09/04/16 06:30 Bedside Glucose 296 mg/dl 106 mg/dl White Blood Count 5.66 K/uL Red Blood Count 3.11 M/uL Hemoglobin 9.6 g/dL Hematocrit 28.1 % Mean Corpuscular Volume 90.4 fL Mean Corpuscular Hemoglobin 30.9 pg Mean Corpuscular Hemoglobin Concent 34.2 g/dl Platelet Count 164 K/uL Mean Platelet Volume 9.3 fL Neutrophils (%) (Auto) 62.8 % Lymphocytes (%) (Auto) 15.9 % Monocytes (%) (Auto) 20.7 % Eosinophils (%) (Auto) 0.2 % Basophils (%) (Auto) 0.2 % Neutrophils # (Auto) 3.56 K/uL Lymphocytes # (Auto) 0.90 K/uL Monocytes # (Auto) 1.17 K/uL Eosinophils # (Auto) 0.01 K/uL Basophils # (Auto) 0.01 K/uL RDW Standard Deviation 47.6 fL RDW Coefficient of Variation 14.4 % Immature Granulocyte % (Auto) 0.2 % Immature Granulocyte # (Auto) 0.01 K/uL Sodium Level 136 mmol/L Potassium Level 4.3 mmol/L Chloride Level 104 mmol/L Carbon Dioxide Level 21 mmol/L Anion Gap 11.0 mmol/L Blood Urea Nitrogen 25 mg/dl Creatinine 1.30 mg/dl Est Creatinine Clear Calc Drug Dose 43.5 ml/min Estimated GFR () 58.1 Estimated GFR (Non- 50.1 BUN/Creatinine Ratio 19.3 Random Glucose 217 mg/dl Lactic Acid Level 3.0 mmol/L Calcium Level 7.5 mg/dl Blood Gas Sample Site Art Line Bedside Blood Gas pH (LAB) 7.42 Bedside Blood Gas pCO2 (LAB) 29 mmHg Bedside Blood Gas pO2 (LAB) 56 mmHg Bedside Blood Gas HCO3 (LAB) 19 meq/L Bedside Blood Gas Total CO2 20 mEq/l Bedside Blood Gas Base Excess (LAB) -6.0 meq/L Bedside Blood Gas O2 Saturation 90.0 % Gilles Test NA Oxygen Delivery Device Cannula Diagnostic Results CHEST ONE VIEW PORTABLE CLINICAL HISTORY: s/p thoracotomy post operative COMPARISON STUDY: 09/03/2016 FINDINGS: Near complete reinflation right lung. Small residual right apical and basilar pneumothorax. Right-sided chest tube unchanged in position. Tip is emphysematous change right lateral hemithorax is slightly rest of. Potential developing small parenchymal infiltrate left base. IMPRESSION: 1. Improving post procedural change right hemithorax 2. Small residual right-sided pneumothorax improved from the prior study. 3. Slightly progressive subcutaneous emphysematous change of the right hemithorax. Progressive infiltrative change left base. Electronically signed by: Wilian Clay M.D. 09/04/2016 6:58 AM Assessment & Plan (1) Lung mass POD #1 right thoracotomy with wedge resection of a metastatic melanoma and extensive lysis of adhesions with control of bleeding Right Chest tube draining daya red drainage: Chest Tube Management Per Dr. Talley Spoke with Dr. Talley. Happy with progress. Will remain in ICU for 1 more day pending improvement of BP Incisional Pain Control * Hold Percocet while receiving IV Tylenol * Tylenol IV 1,000mg q8hrs * Morphine IV PRN Pain (2) Hypotension SBP 90's -110 Currently received 2L Lactated Ringer Fluid Bolus BP does not tolerate titration down from 2mcg of Phenylephrine Arterial Line in place and correlates with Peripheral Cuff Pt denies any symptoms Continue titration of Phenylephrine as BP allows Monitor on telemetry Avoid further fluid bolus (PMHx of CHF; Early Fluid overload per CXR) (3) Postoperative anemia Bleeding per postop report after trauma to internal mammary artery Continued bright red blood per chest tube drainage (725 mL since operation) Patient has now received 2 units of packed red blood cells admission Patient is also 6 L positive Repeat H&H this afternoon Concentrate intravenous fluids to avoid dilution Follow daily labs (4) CAD (coronary artery disease) of artery bypass graft Previous history of coronary artery bypass grafting Patient denies chest pain today Home medications include aspirin 81 mg, nitroglycerin 0.4 mg, Lopressor 50 mg, atorvastatin 20 mg 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 Morrison (6) Ulcer History of gastric ulcer with hemorrhage Home medications include Protonix 40 mg tab PO BID and Zantac 150 mg tab PO BID Restart Home Protonix Dose Diet started, advance as tolerated (7) Parkinson disease A&O x4 Continue Home Anti Parkinson Medications * Sinemet 25/100mg PO TID I.D: WBC: 5.66, TMAX 37 7 Reviewed CXR (09/04): Progressive infiltrative change left base Gross in place to gravity Right chest tube in place Multiple for referral vascular accesses: Including art line and central internal jugular line Received clindamycin 900 mg every 62 intraoperatively * Check procalcitonin/Lactic Acid with afternoon labs * Repeat CXR tomorrow a.m. * Monitor fever curve Respiratory: As Per Mass Above Pt Stable on 2L Nasal Cannula at this time * Monitor for fluid overload (hx of CHF requiring Lasix at home) Endocrine Glucose: 106-296 Monitor according to protocol Electrolytes: WNL Follow Daily Labs GI prophylaxis: Restart home Protonix dosing DVT prophylaxis: Postop day 1 avoid anticoagulation chemically; SCDs in place Access: * Right Central catheter * Left arterial line * Left AC PIV CCT: 45 minutes; Not including any billable procedures. Thank you for including us in the care of this patient. Please review Dr. Estrada's addendum for further recommendations. I have personally evaluated and examined this patient. I agree with assessment and plan of Daniel Devlin PA-C. Continued postoperative oozing, 2 units packed red blood cells, continue to monitor H&H
--- NOTE | 2016-09-04 09:28 | Anesthesiology Progress Note ---
Anesthesia Post Op Note Date & Time Sep 04, 2016 at 09:28 Vital Signs Pain Intensity: 8.0 Vital Signs Past 12 Hours Date Time Temp Pulse Resp B/P Pulse Ox O2 Delivery O2 Flow Rate FiO2 09/04/16 07:45 Nasal Cannula 2.0 09/04/16 06:15 37.7 81 14 116/58 93 09/04/16 05:45 37.6 80 12 101/56 94 2.0 09/04/16 05:30 37.5 79 15 119/61 93 2.0 09/04/16 05:15 37.6 97 17 104/53 96 2.0 09/04/16 05:00 37.6 90 15 104/53 93 Nasal Cannula 2.0 09/04/16 04:00 37.5 85 23 99/57 94 Nasal Cannula 2.0 09/04/16 04:00 Nasal Cannula 2.0 09/04/16 03:00 82 14 111/55 93 Nasal Cannula 2.0 09/04/16 02:00 87 23 113/55 97 Nasal Cannula 2.0 09/04/16 01:30 91 16 107/66 97 Nasal Cannula 2.0 09/04/16 01:08 94 25 85/55 99 Nasal Cannula 2.0 09/04/16 01:00 86 18 90/63 97 Nasal Cannula 2.0 09/04/16 00:00 95 Nasal Cannula 2.0 09/04/16 00:00 37.0 78 18 112/59 97 Nasal Cannula 2.0 09/03/16 23:00 77 23 111/60 95 Nasal Cannula 2.0 09/03/16 22:00 77 18 115/66 95 Nasal Cannula 2.0 Notes Mental Status: alert / awake / arousable, participated in evaluation Pt Amnestic to Procedure: Yes Nausea / Vomiting: adequately controlled Pain: adequately controlled Airway Patency, RR, SpO2: stable & adequate BP & HR: stable & adequate Hydration State: stable & adequate Anesthetic Complications: no major complications apparent
--- NOTE | 2016-09-04 10:15 | Pharmacy Progress Note ---
Glycemic Control Intl Consult Date of Service Sep 04, 2016. Scope Glycemic Pharmacist consulted by Dr Talley on 09/03/16 for glycemic control and to write orders per [facility] inpatient glycemic control protocol Objective Weight (Kilograms): 82.600 Accuchecks BSG (last 24hrs): Test 09/03/16 14:30 09/03/16 23:28 09/04/16 01:51 09/04/16 06:30 Random Glucose 197 mg/dl (70-99) 217 mg/dl (70-99) Bedside Glucose 296 mg/dl (70-99) 106 mg/dl (70-99) Laboratory Data (last 24hrs) Test 09/03/16 12:54 09/03/16 14:30 09/04/16 01:51 Anion Gap 21.0 mmol/L 13.0 mmol/L 11.0 mmol/L BUN/Creatinine Ratio 23.6 19.3 Blood Urea Nitrogen 31 mg/dl 25 mg/dl Creatinine 1.30 mg/dl 1.30 mg/dl Potassium Level 4.6 mmol/L 4.3 mmol/L Sodium Level 142 mmol/L 136 mmol/L White Blood Count 10.61 K/uL 5.66 K/uL Red Blood Count 3.58 M/uL 3.11 M/uL Hemoglobin 11.2 g/dL 9.6 g/dL Hematocrit 33.0 % 28.1 % Mean Corpuscular Volume 92.2 fL 90.4 fL Mean Corpuscular Hemoglobin 31.3 pg 30.9 pg Mean Corpuscular Hemoglobin Concent 33.9 g/dl 34.2 g/dl Platelet Count 166 K/uL 164 K/uL Mean Platelet Volume 9.2 fL 9.3 fL Neutrophils (%) (Auto) 81.2 % 62.8 % Lymphocytes (%) (Auto) 8.5 % 15.9 % Monocytes (%) (Auto) 9.2 % 20.7 % Eosinophils (%) (Auto) 0.7 % 0.2 % Basophils (%) (Auto) 0.2 % 0.2 % Neutrophils # (Auto) 8.62 K/uL 3.56 K/uL Lymphocytes # (Auto) 0.90 K/uL 0.90 K/uL Monocytes # (Auto) 0.98 K/uL 1.17 K/uL Eosinophils # (Auto) 0.07 K/uL 0.01 K/uL Basophils # (Auto) 0.02 K/uL 0.01 K/uL Recent Pertinent Medications Outpatient Anti-diabetic Regimen: * none The patient is currently receiving: * none at time of consult Risk Factors for Insulin Resistance: * Infection: clindamycin perioperatively * Pressors: phenylephrine gtt * IVF: D5W1/2NS @ 100mL/hr --> 1/2NSS @ 100mL around 22 @ 00:00 * Recent Surgery: POD #1 thoracic surgery with [place] * Diet: NPO --> Regular diet today Assessment & Plan ASSESSMENT: * ADA & AACE recommend a goal blood sugar range 140-180 mg/dl for the majority of critically ill & non-critically ill patients. However, more stringent targets may be selected in individual cases. 09/04/16 * No history of DM * elevated BSG on admission secondary to stress of procedure, dextrose infusion , etc * The patient received one dose of NovoLog last evening (when BSG 296mg/dL) and this AM BSG 106mg/dL with Accu-check * continue with NovoLog SSI alone at this time (prandial and basal insulin not yet required) PLAN FOR INPATIENT GLYCEMIC CONTROL: * NovoLog AC and HS * Correction factor: 35mg/dL/unit * Goal range: 140-180mg/dL per ADA recommendations * Please note that the plan above was derived based on current level of insulin resistance and hospital stress. These recommendations are appropriate for inpatient admission only. Plan of care upon discharge will need to be reassessed to avoid potential outpatient hypo/hyperglycemia. Thank you.
[2016-09-04 13:23] LABS: HEMATOCRIT 25.9 % (42-52)
--- NOTE | 2016-09-04 13:34 | Clinical Documentation Query ---
QUERY 1 OF [address] LOVE, In your clinical opinion is this patient being managed for: ( x ) Postprocedural hypovolemic shock ( ) Other explanation of clinical findings (Please Explain) ( ) Unable to determine (Please Define) ( ) Need to Discuss ( ) Not Agree The medical record reflects the following clinical findings, treatment, and risk factors. Clinical Indicators: 86 yo male presenting for treatment of metastatic melanoma. Pt had a 1000 cc EBL during surgery. Pt hypotensive required emergent thoracotomy for bleeding control. 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 Clinical Indicators: Anesthesia record indicates internal mammary artery cut Treatment: IV fluids, transfusion 2 U PRBC, IV pressors, ICU, emergent thoracotomy, O2 support, Risk Factors: thoracic surgery Please clarify and document your clinical opinion in the progress notes and discharge summary. Terms such as "probable", "suspected", "likely", "questionable", "possible", or "still to be ruled out" are acceptable. IF IN AGREEMENT, YOU MUST DOCUMENT ABOVE DIAGNOSTIC STATEMENT IN DAILY PROGRESS NOTES AND DISCHARGE SUMMARY. This document is not part of the patient's record. Thank You, Rochelle Valentino, TALITA [phone]
[2016-09-04] MEDS ORDERED: CALCIUM GLUCONATE 10% 1,000 MG in SODIUM CHLORIDE 0.9% 50ML 50 ML IV ONE (14:00)
[2016-09-04] MEDS: SODIUM CHLORIDE 0.45% 1000ML 1,000 ML IV SCH ×2 (14:08→20:08)
[2016-09-04] MEDS: PSYLLIUM 58.6% PWD PACK S\\F PO SCH (16:21)
[2016-09-04 19:56] LABS: HEMATOCRIT 23.7 % (42-52)
[2016-09-04] MEDS: PANTOprazole SOD 40 MG TAB PO SCH (20:10)
[2016-09-04] MEDS: ROPINIROLE HCL 0.25 MG TAB PO SCH (20:11)
[2016-09-04] MEDS ORDERED: CALCIUM GLUCONATE 10% 1,000 MG in SODIUM CHLORIDE 0.9% 50ML 50 ML IV STA (21:51)
[2016-09-05] VITALS (49 sets, daily range): BP systolic 82–142; BP diastolic 42–79; PULSE 87–112; TEMP 36.4–37.6; O2SAT 89–96
[2016-09-05] MEDS ORDERED: PHENYLEPHRINE HCL INJ 20 MG in SODIUM CHLORIDE 0.9% 500ML 500 ML IV PRN (01:00)
[2016-09-05 03:24] LABS: HEMATOCRIT 20.8 % (42-52)
[2016-09-05] MEDS: ACETAMINOPHEN IV 1,000 MG in EMPTY BAG 0 ML IV SCH ×4 (03:38→22:25)
--- NOTE | 2016-09-05 07:00 | DIAGNOSTIC IMAGING REPORT ---
CHEST ONE VIEW PORTABLE CLINICAL HISTORY: Postop thoracotomy. Chest tube. COMPARISON STUDY: 217 FINDINGS: The heart is borderline enlarged. There are postsurgical changes of midline sternotomy. There is no change the position right-sided chest tube. There is persistent subcutaneous emphysema present on the right. There are progressive right lung airspace opacities. An element of congestive failure/fluid overload is suspected. There is a tiny right-sided pneumothorax. There is a right internal jugular central venous catheter present.[ IMPRESSION: 1. Progressive right lung airspace opacities 2. Developing congestive failure/fluid overload. 3. No change in the position right-sided chest tube. Suspected trace right-sided pneumothorax. Electronically signed by: Danilo Cedeño M.D. 09/05/2016 6:59 AM Dictated Date/Time: 09/05/2016 6:56 AM
[2016-09-05] MEDS: INSULIN ASPART 100 UNITS/ML 3 ML PEN SC SCH (08:21)
[2016-09-05] MEDS: PANTOprazole SOD 40 MG TAB PO SCH ×2 (08:34→21:04)
[2016-09-05] MEDS: CARBIDOPA/LEVODOPA 25/100MG TAB PO SCH ×3 (08:34→21:04)
[2016-09-05] MEDS: HEPARIN SOD 5000 UNIT/0.5 ML CARP SQ SCH ×2 (09:14→13:49)
[2016-09-05] MEDS ORDERED: FUROSEMIDE INJ 20 MG in SYRINGE 0 ML IV ONE (09:15)
[2016-09-05] MEDS: DOCUSATE SODIUM 100 MG CAP PO SCH ×2 (09:16→21:04)
[2016-09-05] MEDS: SODIUM CHLORIDE 0.45% 1000ML 1,000 ML IV SCH (09:22)
--- NOTE | 2016-09-05 10:20 | DIAGNOSTIC IMAGING REPORT ---
CHEST ONE VIEW PORTABLE HISTORY: s/p thoracotomy COMPARISON: Chest 09/05/2016. FINDINGS: Right-sided chest tube terminates in the right lung apex. This remains unchanged. Suture material within the right lung apex persists. There is a basilar component to the right pneumothorax, unchanged. Right chest wall subcutaneous emphysema is stable. There are poststernotomy changes. The heart remains mildly enlarged. Left lower lobe airspace opacities and right lung airspace opacities persist. Suspect a right pleural effusion. There may be a component of mild pulmonary edema. There appears to be a right external jugular central venous catheter. This appears to terminate at the SVC. IMPRESSION: 1. No change in the right sided chest tube and suspected trace right pneumothorax. 2. Bilateral airspace opacities persist. 3. There may be component of superimposed pulmonary edema. 4. Small right pleural effusion. Electronically signed by: Juan Knutson M.D. 09/05/2016 10:19 AM Dictated Date/Time: 09/05/2016 10:16 AM
[2016-09-05] MEDS ORDERED: THIAMINE HCL 100 MG/ML 2 ML VIAL IM STA (10:30)
[2016-09-05] MEDS ORDERED: THIAMINE HCL INJ 100 MG in SODIUM CHLORIDE 0.9% 50ML 50 ML IV STA (10:39)
[2016-09-05] MEDS: PSYLLIUM 58.6% PWD PACK S\\F PO SCH ×2 (10:40→17:01)
[2016-09-05] MEDS ORDERED: METOPROLOL TARTRATE 25 MG TAB PO ONE (11:00)
[2016-09-05] MEDS: METOPROLOL TARTRATE 50 MG TAB PO SCH (11:07)
[2016-09-05 12:00] LABS: HEMATOCRIT 25.5 % (42-52); MEAN CORPUSCULAR HGB CONC 34.5 g/dl (32-36); RED BLOOD COUNT 2.93 M/uL (4.7-6.1); WHITE BLOOD COUNT 4.25 K/uL (4.8-10.8)
[2016-09-05 12:10] LABS: ANISOCYTOSIS PRESENT; BASO % 0.2 %; BASO ABS # 0.01 K/uL (0-0.2); COMPLETE YES; EOS % 2.4 %; IG% 0.2 %; LYMPH % 11.3 %; LYMPH ABS # 0.48 K/uL (1.2-3.4); MEAN PLATELET VOLUME 9.2 fL (7.4-10.4); MONO % 16.9 %; PLATELET COUNT 81 K/uL (130-400); PLT ESTIMATE DECREASED
[2016-09-05 12:17] LABS: BUN/CREATININE RATIO 14.2 (10-20); CALCIUM 7.5 mg/dl (8.5-10.1); CREATININE 1.2 mg/dl (0.60-1.40); MAGNESIUM 1.8 mg/dl (1.8-2.4); POTASSIUM 3.7 mmol/L (3.5-5.1)
[2016-09-05] MEDS: ALBUMIN 25% IV SCH ×4 (13:09→13:14)
[2016-09-05] MEDS: FUROSEMIDE IV SCH ×4 (13:09→13:14)
[2016-09-05] MEDS: MoRPHine SULFATE 2 MG/ML CARP IV PRN (14:48)
--- NOTE | 2016-09-05 15:23 | Critical Care Progress Note ---
Critical Care Progress Note Date of Service Sep 05, 2016. ICU Day ICU Day Number: [address] Sean Stanton Mr. Razo is an 86-year-old male who presented to the ICU after rupture of his internal mammary artery during thoracic surgery for metastatic melanoma lung cancer. Postoperative anemia and hypotension continue to keep Mr. Razo in the ICU. His hemoglobin continued to trend down overnight to 7.1 , he was ordered 2 units of packed red blood cells and one of cryoprecipitate. His vasopressor is turned back to 0.4 mcg/kg/m today. He is resting in bed comfortably, states he is not doing the best. He was still receiving blood this morning when I visited him. At which point he did state that he had minimal incisional pain still remaining. He denied fevers and chills denied chest pain or pressure, or awareness of tachyarrhythmias. He denied upset stomach, nausea, irritation or burning for the Gross. He did state he was experiencing some shortness of breath and he was notably edematous throughout all 4 extremities; however, he still remained on 2 L via nasal cannula with adequate saturations. He is currently +10.3 L. Patient's chest tube is still in place, output is still bloody. Output appears to have slowed from yesterday. Dr. Talley has spoken with myself and the skip operator, plans to reassess patient later this afternoon to see if he may need to go back to the operating room. 12 systems reviewed and negative other than previously mentioned in the HPI. 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 Otherwise no adventitious sounds noted Heart - Reg rate and rhythm, No murmur, rubs, clicks, or gallops appreciated Abdomen - BS present, no bruits noted, tympanic to percussion, soft, nontender, nondistended, no organomegaly Extremities -edema noted throughout all 4 extremities, pedal pulses intact Neuro - A&O X4 Strength extremities equal and appropriate bilaterally CN:PERRL, right EOMI, no facial asymmetry, uvula/tongue midline Assessment & Plan (1) Lung mass POD #2 right thoracotomy with wedge resection of a metastatic melanoma and extensive lysis of adhesions with control of bleeding Right Chest tube draining bloody drainage: 150mL since midnight; Chest Tube Management Per Dr. Gerri Talley declined taking pt back to O.R. at the present time, will revisit this afternoon * Pt was NPO, restarted diet Incisional Pain Control * Hold Percocet while receiving IV Tylenol * Tylenol IV 1,000mg q8hrs * Morphine IV PRN Pain (2) Hypotension SBP 90's -110 Currently received 3L Lactated Ringer Fluid Bolus, 4 units of packed red blood cells, 15 pack of cryoprecipitate Phenylephrine currently titrated back to 0.[address] and correlates with Peripheral Cuff Pt denies any symptoms Attempt to titrate off vasopressor Monitor on telemetry Avoid further fluid bolus (PMHx of CHF; Early Fluid overload per CXR, patient complaining of shortness of breath) (3) Postoperative anemia Bleeding per postop report after trauma to internal mammary artery Continued bloody drainage per chest tube (1120 mL since operation) Patient has now received 4 units of packed red blood cells and one (5-pack) of cryoprecipitate admission Patient is also 10.3 L positive; H&H is most likely multifactorial, plan to diurese patient as well today. 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 Morrison (6) Ulcer History of gastric ulcer with hemorrhage Home medications include Protonix 40 mg tab PO BID and Zantac 150 mg tab PO BID Restart Home Protonix Dose Full liquid Diet restarted (7) Parkinson disease A&O x4 Continue Home Anti Parkinson Medications * Sinemet 25/100mg PO TID Other Neuro: * Pain Controlled as listed above ID: Lactic acid trending down 3.5, WBCs 4.25, afebrile Received clindamycin intraoperatively Thiamine 100 mg IV now; will metabolize lactic acid Gross, chest tube, multiple peripheral vascular accesses * Monitor daily CBC and fever curve Endo: Blood sugars running 90-102 * Monitor per protocol Electrolytes: Currently within normal limits * Monitor daily PRP * Replete as necessary GI No BM for 3 days * Continue bowel regimen via Colace and Metamucil Heme H&H 8.8/25.5, plts 81K Received 4 units PRBCs, and 1 (5pck) cryoprecipitate DVT prophylaxis: * Hold Heparin pre Dr. Talley * SCDs in place Access: R EJ Single Lumen Central Line Left Artline Left PIV CCT: 45 minutes; Not including any billable procedures. Thank you for including us in the care of this patient. Please review Dr. Estrada's addendum for further recommendations. I have personally evaluated and examined this patient. I agree with assessment and plan of Daniel Devlin PA-C. Continued postoperative oozing, continue to monitor Consults & Procedures Consultants: Glycemic Control Urology: Dr. Morrison Data Medications: Current Inpatient Medications Medications (Trade) Dose Ordered Sig/Ashley Route Start Time Stop Time Status Last Admin Dose Admin Carbidopa/Levodopa (Sinemet 25/ 100MG Tab) 1 tab TID PO 09/03/16 21:00 10/03/16 20:59 09/05/16 08:34 1 TAB Metoprolol Tartrate 50 mg 50 mg BID PO 09/03/16 21:00 10/03/16 20:59 Future Hold Acetaminophen/ Empty Bag (Ofirmev Iv/ Empty Iv Bag 100ml) 100 ml @ 400 mls/hr Q8H IV 09/03/16 22:00 10/03/16 14:14 09/05/16 13:12 400 MLS/HR Ondansetron HCl (Zofran Inj) 4 mg Q4H PRN IV 09/03/16 14:15 10/03/16 14:14 Docusate Sodium (coLACE CAP) 100 mg BID PO 09/03/16 21:00 10/03/16 20:59 09/05/16 09:16 100 MG Oxycodone/ Acetaminophen (Percocet 5-325mg Tab) Q3H PRN PO 09/03/16 14:15 09/17/16 14:14 Future Hold 09/04/16 02:38 1 TAB Morphine Sulfate Q1H PRN IV 09/03/16 14:15 09/17/16 14:14 09/04/16 14:02 1 MG Sodium Chloride (08/04 Nss 1000ml) 1,000 ml @ 15 mls/hr Q24H IV 09/03/16 23:45 10/03/16 23:44 09/05/16 09:22 100 MLS/HR Glucose (Glucose 40% Gel) 15-30 GRAMS 15 GRAMS... UD PRN PO 09/04/16 08:00 10/04/16 07:59 Glucose (Glucose Chew Tab) 4-8 Tablets 4 Tabl... UD PRN PO 09/04/16 08:00 10/04/16 07:59 Dextrose (Dextrose 50% 50ML Syringe) 25-50ML OF 50% DW IV FOR... UD PRN IV 09/04/16 08:00 10/04/16 07:59 Glucagon (Glucagon Inj) 1 mg UD PRN SQ 09/04/16 08:00 10/04/16 07:59 Ropinirole HCl (Requip Tab) 0.25 mg HS PO 09/04/16 21:00 10/04/16 20:59 09/04/16 20:11 0.25 MG Pantoprazole Sodium (Protonix Tab) 40 mg BID PO 09/04/16 21:00 10/04/16 20:59 09/05/16 08:34 40 MG Psyllium Hydrophilic Mucilloid 1 pkt 1 pkt DAILY PO 09/04/16 15:15 10/04/16 15:14 09/04/16 16:21 1 PKT Phenylephrine HCl/ Sodium Chloride (Ghulam-Synephrine Inj/Nss 500ml) 502 ml @ 0 mls/hr Q0M PRN IV 09/05/16 01:00 10/05/16 00:59 09/05/16 02:58 97 MLS/HR I & O: 24-Hour Column 09/05/16 07:59 Intake Total 8701 ml Output Total 2930 ml Balance 5771 ml Vital Signs: Date Time Temp Pulse Resp B/P Pulse Ox O2 Delivery O2 Flow Rate FiO2 09/05/16 14:15 102 24 101/55 94 Nasal Cannula 2.0 09/05/16 13:30 103 22 109/65 91 Nasal Cannula 2.0 09/05/16 12:00 Nasal Cannula 2.0 91 09/05/16 12:00 36.9 97 23 93/63 91 Nasal Cannula 2.0 09/05/16 11:15 36.9 112 112/64 09/05/16 09:50 36.4 107 24 122/60 09/05/16 09:30 36.9 101 21 133/66 94 2.0 09/05/16 09:15 101 23 142/79 93 Nasal Cannula 2.0 09/05/16 09:00 37.0 103 22 135/73 95 2.0 09/05/16 08:30 37.1 103 23 92/75 95 2.0 09/05/16 08:00 37.3 104 22 134/64 94 Nasal Cannula 2.0 09/05/16 08:00 Nasal Cannula 09/05/16 08:00 Nasal Cannula 2.0 94 09/05/16 07:30 37.3 102 20 110/56 94 2.0 09/05/16 07:15 37.4 105 20 140/76 91 2.0 09/05/16 07:00 37.4 103 16 113/65 92 2.0 09/05/16 06:30 37.5 101 16 117/62 94 2.0 09/05/16 06:15 37.5 100 18 132/67 93 2.0 09/05/16 06:00 37.4 94 19 116/56 94 2.0 09/05/16 05:00 37.4 97 18 110/59 95 2.0 09/05/16 04:30 37.4 100 22 122/58 93 2.0 09/05/16 04:15 37.6 99 19 118/55 95 2.0 09/05/16 04:00 Nasal Cannula 2.0 09/05/16 03:59 37.6 104 18 113/59 94 2.0 09/05/16 03:00 99 20 111/57 92 Nasal Cannula 2.0 09/05/16 02:00 101 22 118/63 95 Nasal Cannula 2.0 09/05/16 01:00 95 17 122/62 96 Nasal Cannula 2.0 09/05/16 00:00 Nasal Cannula 2.0 09/05/16 00:00 36.9 95 18 109/55 96 Nasal Cannula 2.0 09/04/16 23:00 94 20 110/55 92 Nasal Cannula 2.0 09/04/16 22:10 91 16 119/58 96 Nasal Cannula 2.0 09/04/16 21:16 92 21 115/57 96 09/04/16 21:15 90 19 108/50 96 09/04/16 21:00 93 21 117/53 94 09/04/16 20:45 96 19 122/59 09/04/16 20:30 93 23 121/58 09/04/16 20:29 90 16 117/66 09/04/16 20:15 94 19 112/53 09/04/16 20:00 Nasal Cannula 2.0 09/04/16 20:00 36.8 94 26 120/60 09/04/16 19:30 93 20 117/58 97 09/04/16 19:15 90 23 127/62 98 09/04/16 19:00 89 17 104/54 98 09/04/16 17:58 92 18 106/58 98 Nasal Cannula 2.0 09/04/16 17:30 100 26 111/59 100 09/04/16 17:28 95 23 126/62 100 09/04/16 17:00 96 22 127/64 99 09/04/16 16:59 97 23 114/67 98 09/04/16 16:30 107 18 70/49 95 09/04/16 16:16 105 13 101/53 98 09/04/16 16:00 37.0 102 9 80/48 98 Nasal Cannula 2.0 09/04/16 16:00 Nasal Cannula 2.0 09/04/16 15:58 91 18 104/55 97 09/04/16 15:30 84 0 95/50 99 09/04/16 15:28 81 0 115/57 98 09/04/16 15:00 85 21 91/52 98 09/04/16 14:58 92 21 98/59 98 Laboratory Results: Last 24 Hours Test 09/04/16 16:26 09/04/16 19:30 09/05/16 01:47 09/05/16 08:19 Bedside Glucose 96 mg/dl 102 mg/dl Hemoglobin 8.0 g/dL 7.1 g/dL Hematocrit 23.7 % 20.8 % Troponin I 0.025 ng/ml Test 09/05/16 11:11 09/05/16 11:34 Bedside Glucose 90 mg/dl White Blood Count 4.25 K/uL Red Blood Count 2.93 M/uL Hemoglobin 8.8 g/dL Hematocrit 25.5 % Mean Corpuscular Volume 87.0 fL Mean Corpuscular Hemoglobin 30.0 pg Mean Corpuscular Hemoglobin Concent 34.5 g/dl Platelet Count 81 K/uL Mean Platelet Volume 9.2 fL Neutrophils (%) (Auto) 69.0 % Lymphocytes (%) (Auto) 11.3 % Monocytes (%) (Auto) 16.9 % Eosinophils (%) (Auto) 2.4 % Basophils (%) (Auto) 0.2 % Neutrophils # (Auto) 2.93 K/uL Lymphocytes # (Auto) 0.48 K/uL Monocytes # (Auto) 0.72 K/uL Eosinophils # (Auto) 0.10 K/uL Basophils # (Auto) 0.01 K/uL RDW Standard Deviation 52.3 fL RDW Coefficient of Variation 16.3 % Immature Granulocyte % (Auto) 0.2 % Immature Granulocyte # (Auto) 0.01 K/uL Platelet Estimate DECREASED Anisocytosis PRESENT Sodium Level 143 mmol/L Potassium Level 3.7 mmol/L Chloride Level 113 mmol/L Carbon Dioxide Level 19 mmol/L Anion Gap 11.0 mmol/L Blood Urea Nitrogen 17 mg/dl Creatinine 1.20 mg/dl Est Creatinine Clear Calc Drug Dose 47.1 ml/min Estimated GFR () 64.0 Estimated GFR (Non- 55.2 BUN/Creatinine Ratio 14.2 Random Glucose 91 mg/dl Lactic Acid Level 0.9 mmol/L Calcium Level 7.5 mg/dl Phosphorus Level 2.0 mg/dl Magnesium Level 1.8 mg/dl
[2016-09-05 16:38] LABS: HEMATOCRIT 22.9 % (42-52)
--- NOTE | 2016-09-05 17:29 | SURGERY PROGRESS NOTE ---
DATE: 09/05/2016 Mr. Razo was seen today on 09/05/16. I was very concerned about him this morning. His hemoglobin dropped. His chest x-ray looked worse. Hemoglobin went from 8.7 yesterday morning to 7.1. He put out very little to his chest tube but his chest x-ray showed increasing fluid in the right base. Held the patient n.p.o. as I was very concerned about him. He received 2 units of blood and I prepared to take him back to the operating room. However, he began improving. He get off of all alpha agents completely. He was tolerating diet. His blood pressure improved. He is still on 2 liters of O2 sat. He also appeared to be in a little bit of failure and diuresed tremendously with Lasix putting out 3700 mL since midnight last night over the last 12 hours or so. He sounds better on auscultation, although he does have decreased breath sounds on the right. I had a long talk with the patient and his family. I think he responded to cryoprecipitate. I am a bit concerned about his apparent bleeding into his chest; however, his x-ray really did not change much over several hours. As he was much more stable hemodynamically I decided to hold off. We will check labs and repeat labs and we will see what his x-ray looks like in the morning. I remain concerned about him however, he is better. On a brighter note, all of his lymph nodes are negative for metastatic melanoma. He does have metastatic melanoma of the right upper lobe with clean resection margins. I will discuss this of course with his oncologist.
[2016-09-05] MEDS ORDERED: HEPARIN SOD 5000 UNIT/0.5 ML CARP SQ SCH ×2 (18:00→22:00)
[2016-09-05 18:04] LABS: BUN/CREATININE RATIO 12.3 (10-20); CALCIUM 7.5 mg/dl (8.5-10.1); CREATININE 1.4 mg/dl (0.60-1.40); POTASSIUM 3.7 mmol/L (3.5-5.1)
[2016-09-05] MEDS: ROPINIROLE HCL 0.25 MG TAB PO SCH (21:04)
[2016-09-05] MEDS: METOPROLOL TARTRATE 25 MG TAB PO SCH (21:04)
[2016-09-05 22:16] LABS: HEMATOCRIT 23.1 % (42-52)
[2016-09-05] MEDS ORDERED: ALBUMIN 25% 50 ML with FUROSEMIDE INJ 40 MG IV STA ×2 (22:24)
[2016-09-05] MEDS ORDERED: POTASSIUM CHLORIDE 10 MEQ TABCR PO STA (22:24)
[2016-09-06] VITALS (12 sets, daily range): BP systolic 102–165; BP diastolic 51–88; PULSE 84–96; TEMP 36.4–37.6; O2SAT 92–97
[2016-09-06] MEDS: ACETAMINOPHEN IV 1,000 MG in EMPTY BAG 0 ML IV SCH ×3 (05:35→21:53)
[2016-09-06 05:45] LABS: HEMATOCRIT 23.9 % (42-52); MEAN CELL VOLUME 88.2 fL (80-100); MEAN CORPUSCULAR HEMOGLOBIN 29.9 pg (25-34); MEAN CORPUSCULAR HGB CONC 33.9 g/dl (32-36); RED BLOOD COUNT 2.71 M/uL (4.7-6.1); WHITE BLOOD COUNT 4.67 K/uL (4.8-10.8)
[2016-09-06 05:48] LABS: MEAN PLATELET VOLUME 9.4 fL (7.4-10.4); PLATELET COUNT 90 K/uL (130-400)
[2016-09-06 05:59] LABS: BUN/CREATININE RATIO 11.8 (10-20); CREATININE 1.3 mg/dl (0.60-1.40); MAGNESIUM 2.1 mg/dl (1.8-2.4); PHOSPHORUS 1.9 mg/dl (2.5-4.9); POTASSIUM 3.4 mmol/L (3.5-5.1)
[2016-09-06 06:36] LABS: BASO % 0.2 %; BASO ABS # 0.01 K/uL (0-0.2); COMPLETE YES; EOS % 4.5 %; IG% 0.2 %; LYMPH % 11.6 %; LYMPH ABS # 0.54 K/uL (1.2-3.4); MONO % 14.3 %; NEUT % 69.2 %; POLYCHROMASIA 1+
--- NOTE | 2016-09-06 07:28 | DIAGNOSTIC IMAGING REPORT ---
CHEST ONE VIEW PORTABLE CLINICAL HISTORY: thoracotomy postoperative evaluation COMPARISON STUDY: 09/05/2016 FINDINGS: Slight improvement in aeration left lung base. Unchanging postoperative changes right hemithorax. Trace subcutaneous emphysema unchanged. No significant postprocedural pneumothorax. Slight improvement in aeration right base. IMPRESSION: Slight improvement in aeration of both lung bases with unchanging postoperative changes right hemithorax. Electronically signed by: Wilian Clay M.D. 09/06/2016 7:26 AM Dictated Date/Time: 09/06/2016 7:25 AM
[2016-09-06] MEDS: CARBIDOPA/LEVODOPA 25/100MG TAB PO SCH ×3 (08:13→20:46)
[2016-09-06] MEDS: MAGNESIUM OXIDE 400 MG TAB PO SCH (08:13)
[2016-09-06] MEDS: PANTOprazole SOD 40 MG TAB PO SCH ×2 (08:13→20:46)
[2016-09-06] MEDS: METOPROLOL TARTRATE 25 MG TAB PO SCH ×2 (08:14→20:46)
[2016-09-06] MEDS ORDERED: POTASSIUM PHOS 3 MMOL/1 ML INFUSION IV STA (09:26)
[2016-09-06] MEDS ORDERED: POTASSIUM PHOSPHATE INJ 12 MMOL in SODIUM CHLORIDE 0.9% 250ML 250 ML IV ONE (10:00)
[2016-09-06] MEDS: PSYLLIUM 58.6% PWD PACK S\\F PO SCH (10:52)
[2016-09-06] MEDS: DOCUSATE SODIUM 100 MG CAP PO SCH ×2 (10:52→20:45)
--- NOTE | 2016-09-06 10:52 | SURGERY PROGRESS NOTE ---
DATE: 09/06/2016 DATE: 09/06/2016. Mr. Razo was seen today on 09/06/2016. I was very concerned about him yesterday, however he seemed to settle down. His hemoglobin has remained stable at 8 to 8.1. He has not received blood in a few days. His BUN and creatinine are 15 and 1.3. His weight is up to 83.1 kilograms. He does have decreased breath sounds on the right, but he sounds a bit better than he did yesterday. He is moving air well on the left. His heart rate has been in the 80s and 90s. Blood pressure stable off of vasopressors. Saturations 95% on 3 liters and that is an improvement. His sodium is 144, potassium 3.4, chloride 110, bicarbonate 24, BUN and creatinine are 15 and 1.3. Phosphorus is down to 1.9. His white count is 4,670, hemoglobin 8.1, platelet count is 90,000 which is actually up a bit. I thought his x-ray looked a little bit better in the base. I thought there had been some clearing in the right. Definitely still has postoperative changes. At this point I would leave his chest tube in 1 more day and I am probably going to remove it tomorrow. I will put him on waterseal today. I would like to get him up and moving. Hopefully, we will be able to get his Gross catheter and chest tube out in the next day or so and mobilize him. JUSTIN
--- NOTE | 2016-09-06 14:56 | Critical Care Progress Note ---
Critical Care Progress Note Date of Service Sep 06, 2016. ICU Day ICU Day Number: [address] Estrada Subjective No chest pain during my evaluation, shortness of breath only with exertion. 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 Otherwise no adventitious sounds noted Heart - Reg rate and rhythm, No murmur, rubs, clicks, or gallops appreciated Abdomen - BS present, no bruits noted, tympanic to percussion, soft, nontender, nondistended, no organomegaly Extremities -edema noted throughout all 4 extremities, pedal pulses intact Neuro - A&O X4 Strength extremities equal and appropriate bilaterally CN:PERRL, right EOMI, no facial asymmetry, uvula/tongue midline Assessment & Plan (1) Lung mass POD #3 right thoracotomy with wedge resection of a metastatic melanoma and extensive lysis of adhesions with control of bleeding Right Chest tube draining bloody drainage: 150mL since midnight; Chest Tube Management Per Dr. Gerri Talley declined taking pt back to O.R. at the present time, will revisit this afternoon * Pt was NPO, restarted diet Incisional Pain Control * Hold Percocet while receiving IV Tylenol * Tylenol IV 1,000mg q8hrs * Morphine IV PRN Pain (2) Hypotension SBP 90's -110 Currently received 3L Lactated Ringer Fluid Bolus, 4 units of packed red blood cells, 15 pack of cryoprecipitate Phenylephrine currently titrated back to 0.[address] and correlates with Peripheral Cuff Pt denies any symptoms Attempt to titrate off vasopressor Monitor on telemetry Avoid further fluid bolus (PMHx of CHF; Early Fluid overload per CXR, patient complaining of shortness of breath) Cough vasoactive medication, diuresis as the patient can tolerate (3) Postoperative anemia Bleeding per postop report after trauma to internal mammary artery Continued bloody drainage per chest tube (1120 mL since operation) Patient has now received 4 units of packed red blood cells and one (5-pack) of cryoprecipitate admission Patient is also 10.3 L positive; H&H is most likely multifactorial, plan to diurese patient as well today. 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 Morrison (6) Ulcer History of gastric ulcer with hemorrhage Home medications include Protonix 40 mg tab PO BID and Zantac 150 mg tab PO BID Restart Home Protonix Dose Full liquid Diet restarted (7) Parkinson disease A&O x4 Continue Home Anti Parkinson Medications * Sinemet 25/100mg PO TID Other Neuro: * Pain Controlled as listed above Goals the patient care today is to get up and out of bed, chest tube placed to waterseal. Still having trouble mobilizing his secretions, diuresis the patient can tolerate with considerations given 2 single kidney. Consults & Procedures Consultants: Glycemic Control Urology: Dr. Morrison Data Medications: Current Inpatient Medications Medications (Trade) Dose Ordered Sig/Ashley Route Start Time Stop Time Status Last Admin Dose Admin Carbidopa/Levodopa (Sinemet 25/ 100MG Tab) 1 tab TID PO 09/03/16 21:00 10/03/16 20:59 09/06/16 08:13 1 TAB Metoprolol Tartrate 50 mg 50 mg BID PO 09/03/16 21:00 10/03/16 20:59 Future Hold Acetaminophen/ Empty Bag (Ofirmev Iv/ Empty Iv Bag 100ml) 100 ml @ 400 mls/hr Q8H IV 09/03/16 22:00 10/03/16 14:14 09/06/16 05:35 400 MLS/HR Ondansetron HCl (Zofran Inj) 4 mg Q4H PRN IV 09/03/16 14:15 10/03/16 14:14 Docusate Sodium (coLACE CAP) 100 mg BID PO 09/03/16 21:00 10/03/16 20:59 09/06/16 10:52 100 MG Oxycodone/ Acetaminophen (Percocet 5-325mg Tab) Q3H PRN PO 09/03/16 14:15 09/17/16 14:14 Future Hold 09/04/16 02:38 1 TAB Morphine Sulfate Q1H PRN IV 09/03/16 14:15 09/17/16 14:14 09/05/16 14:48 2 MG Sodium Chloride (08/04 Nss 1000ml) 1,000 ml @ 15 mls/hr Q24H IV 09/03/16 23:45 10/03/16 23:44 09/05/16 09:22 100 MLS/HR Glucose (Glucose 40% Gel) 15-30 GRAMS 15 GRAMS... UD PRN PO 09/04/16 08:00 10/04/16 07:59 Glucose (Glucose Chew Tab) 4-8 Tablets 4 Tabl... UD PRN PO 09/04/16 08:00 10/04/16 07:59 Dextrose (Dextrose 50% 50ML Syringe) 25-50ML OF 50% DW IV FOR... UD PRN IV 09/04/16 08:00 10/04/16 07:59 Glucagon (Glucagon Inj) 1 mg UD PRN SQ 09/04/16 08:00 10/04/16 07:59 Ropinirole HCl (Requip Tab) 0.25 mg HS PO 09/04/16 21:00 10/04/16 20:59 09/05/16 21:04 0.25 MG Pantoprazole Sodium (Protonix Tab) 40 mg BID PO 09/04/16 21:00 10/04/16 20:59 09/06/16 08:13 40 MG Psyllium Hydrophilic Mucilloid 1 pkt 1 pkt DAILY PO 09/04/16 15:15 10/04/16 15:14 09/06/16 10:52 1 PKT Phenylephrine HCl/ Sodium Chloride (Ghulam-Synephrine Inj/Nss 500ml) 502 ml @ 0 mls/hr Q0M PRN IV 09/05/16 01:00 10/05/16 00:59 09/05/16 02:58 97 MLS/HR Metoprolol Tartrate (Lopressor Tab) 25 mg BID PO 09/05/16 21:00 10/05/16 20:59 09/06/16 08:14 25 MG Magnesium Oxide (Mag-Ox Tab) 400 mg QAM PO 09/06/16 09:00 10/06/16 08:59 09/06/16 08:13 400 MG I & O: 24-Hour Column 09/06/16 07:59 Intake Total 2427 ml Output Total 7590 ml Balance -5163 ml Vital Signs: Date Time Temp Pulse Resp B/P Pulse Ox O2 Delivery O2 Flow Rate FiO2 09/06/16 12:00 Nasal Cannula 2.0 97 09/06/16 12:00 37.0 90 16 117/56 97 Nasal Cannula 2.0 102/51 09/06/16 10:00 84 18 131/58 96 Nasal Cannula 2.0 117/56 09/06/16 08:00 Nasal Cannula 2.0 09/06/16 08:00 36.4 89 20 114/88 95 Nasal Cannula 2.0 115/54 09/06/16 06:00 95 20 110/66 95 Nasal Cannula 3.0 09/06/16 04:00 36.8 89 20 136/69 95 Nasal Cannula 4.0 09/06/16 04:00 Nasal Cannula 3.0 09/06/16 02:00 89 22 122/66 93 Nasal Cannula 4.0 09/06/16 00:01 36.8 90 20 113/57 92 Nasal Cannula 4.0 09/05/16 23:59 Nasal Cannula 4.0 09/05/16 22:00 102 24 104/52 93 09/05/16 21:45 37.1 99 22 131/61 92 4.0 09/05/16 21:00 93 22 123/52 91 09/05/16 21:00 93 22 123/52 91 4.0 09/05/16 20:00 93 22 111/53 91 4.0 09/05/16 20:00 Nasal Cannula 4.0 09/05/16 19:58 37.1 96 22 119/61 91 110/51 09/05/16 19:30 96 20 107/53 94 4.0 09/05/16 19:10 93 21 99/49 93 2/3/17 19:00 94 24 110/55 93 90/45 09/05/16 18:57 37.1 93 22 110/55 92 4.0 09/05/16 18:00 99 23 90/46 90 09/05/16 18:00 97 22 97/49 92 Nasal Cannula 4.0 09/05/16 17:58 99 19 97/49 90 09/05/16 17:00 94 24 92 09/05/16 16:00 100 23 82/42 92 09/05/16 16:00 37.0 96 22 96/50 91 Nasal Cannula 2.0 09/05/16 15:58 96 20 96/50 89 09/05/16 15:42 88 21 91 09/05/16 15:25 Nasal Cannula 2.0 92 09/05/16 15:09 96 23 101/55 91 09/05/16 15:00 99 17 98/52 90 Laboratory Results: Last 24 Hours Test 09/05/16 16:26 09/05/16 16:29 09/05/16 22:00 09/06/16 05:16 Hemoglobin 8.0 g/dL 8.0 g/dL 8.1 g/dL Hematocrit 22.9 % 23.1 % 23.9 % Sodium Level 143 mmol/L 144 mmol/L Potassium Level 3.7 mmol/L 3.4 mmol/L Chloride Level 112 mmol/L 110 mmol/L Carbon Dioxide Level 23 mmol/L 24 mmol/L Anion Gap 8.0 mmol/L 10.0 mmol/L Blood Urea Nitrogen 17 mg/dl 15 mg/dl Creatinine 1.40 mg/dl 1.30 mg/dl Est Creatinine Clear Calc Drug Dose 40.4 ml/min 43.5 ml/min Estimated GFR () 53.1 58.1 Estimated GFR (Non- 45.8 50.1 BUN/Creatinine Ratio 12.3 11.8 Random Glucose 110 mg/dl 108 mg/dl Calcium Level 7.5 mg/dl 8.0 mg/dl Bedside Glucose 114 mg/dl White Blood Count 4.67 K/uL Red Blood Count 2.71 M/uL Mean Corpuscular Volume 88.2 fL Mean Corpuscular Hemoglobin 29.9 pg Mean Corpuscular Hemoglobin Concent 33.9 g/dl Platelet Count 90 K/uL Mean Platelet Volume 9.4 fL Neutrophils (%) (Auto) 69.2 % Lymphocytes (%) (Auto) 11.6 % Monocytes (%) (Auto) 14.3 % Eosinophils (%) (Auto) 4.5 % Basophils (%) (Auto) 0.2 % Neutrophils # (Auto) 3.23 K/uL Lymphocytes # (Auto) 0.54 K/uL Monocytes # (Auto) 0.67 K/uL Eosinophils # (Auto) 0.21 K/uL Basophils # (Auto) 0.01 K/uL RDW Standard Deviation 52.8 fL RDW Coefficient of Variation 16.4 % Immature Granulocyte % (Auto) 0.2 % Immature Granulocyte # (Auto) 0.01 K/uL Polychromasia 1+ Phosphorus Level 1.9 mg/dl Magnesium Level 2.1 mg/dl
[2016-09-06] MEDS: ROPINIROLE HCL 0.25 MG TAB PO SCH (20:45)
[2016-09-07] VITALS (11 sets, daily range): BP systolic 110–156; BP diastolic 66–80; PULSE 76–99; TEMP 36.5–37; O2SAT 90–97
[2016-09-07] MEDS: ACETAMINOPHEN IV 1,000 MG in EMPTY BAG 0 ML IV SCH (05:40)
[2016-09-07 05:53] LABS: BASO % 0.2 %; BASO ABS # 0.01 K/uL (0-0.2); EOS % 7.1 %; IG% 0.2 %; LYMPH % 12.4 %; LYMPH ABS # 0.61 K/uL (1.2-3.4); MEAN CELL VOLUME 89.2 fL (80-100); MEAN CORPUSCULAR HEMOGLOBIN 29.7 pg (25-34); MEAN CORPUSCULAR HGB CONC 33.3 g/dl (32-36); MEAN PLATELET VOLUME 9.3 fL (7.4-10.4); MONO % 14.4 %; NEUT % 65.7 %; PLATELET COUNT 103 K/uL (130-400); RED BLOOD COUNT 2.69 M/uL (4.7-6.1); WHITE BLOOD COUNT 4.93 K/uL (4.8-10.8)
[2016-09-07 06:18] LABS: COMPLETE YES
[2016-09-07 06:21] LABS: BUN/CREATININE RATIO 11.7 (10-20); CREATININE 1.1 mg/dl (0.60-1.40); MAGNESIUM 2.2 mg/dl (1.8-2.4); PHOSPHORUS 2.1 mg/dl (2.5-4.9); POTASSIUM 3.6 mmol/L (3.5-5.1)
--- NOTE | 2016-09-07 06:38 | Progress Note ---
Subjective Date of Service: Sep 07, 2016. Subjective Pt evaluation today including: conversation w/ patient, physical exam, chart review Voiding: aiken catheter in place No acute events overnight. Aiken in place. Urine clear. No issues with drainage. No bleeding around catheter. No scrotal edema. Problem List Medical Problems: (1) Abscess or cellulitis of perineum Status: Acute (2) Acute urinary retention Status: Acute (3) Catheter (urine) change required Status: Acute (4) Gross hematuria Status: Acute (5) Hematuria Status: Acute (6) Hematuria Status: Acute (7) Hydronephrosis of left kidney Status: Acute (8) Left renal mass Status: Acute (9) Malfunction of Aiken catheter Status: Acute (10) Renal hemorrhage, left Status: Acute (11) Sciatica Status: Acute Social History Problems: (1) Status post biopsy of kidney Status: Acute Review of Systems All Other Systems: Reviewed and Negative Objective Vital Signs Date Time Temp Pulse Resp B/P Pulse Ox O2 Delivery O2 Flow Rate FiO2 09/07/16 06:00 77 20 156/77 97 Nasal Cannula 2.0 09/07/16 04:00 Nasal Cannula 2.0 09/07/16 04:00 36.9 79 20 131/72 94 Nasal Cannula 2.0 09/07/16 02:00 76 16 137/71 95 Nasal Cannula 3.0 09/07/16 00:01 37.0 78 20 116/66 93 Nasal Cannula 3.0 09/06/16 23:59 Nasal Cannula 3.0 09/06/16 22:00 84 20 128/77 92 Nasal Cannula 3.0 09/06/16 20:00 37.6 96 20 159/77 93 Nasal Cannula 3.0 09/06/16 20:00 Nasal Cannula 3.0 09/06/16 18:00 96 22 142/72 94 Nasal Cannula 4.0 154/74 09/06/16 16:00 Nasal Cannula 4.0 95 09/06/16 16:00 37.0 90 16 141/77 97 Nasal Cannula 2.0 165/76 09/06/16 14:00 84 18 131/58 96 Nasal Cannula 2.0 117/56 09/06/16 12:00 Nasal Cannula 2.0 97 09/06/16 12:00 37.0 90 16 117/56 97 Nasal Cannula 2.0 102/51 09/06/16 10:00 84 18 131/58 96 Nasal Cannula 2.0 117/56 09/06/16 08:00 Nasal Cannula 2.0 09/06/16 08:00 36.4 89 20 114/88 95 Nasal Cannula 2.0 115/54 Physical Exam General Appearance: no apparent distress Skin: normal color Comments: Aiken in place. Urine clear. No edema. Laboratory Results Last 24 Hours Test 09/07/16 05:36 White Blood Count 4.93 K/uL Red Blood Count 2.69 M/uL Hemoglobin 8.0 g/dL Hematocrit 24.0 % Mean Corpuscular Volume 89.2 fL Mean Corpuscular Hemoglobin 29.7 pg Mean Corpuscular Hemoglobin Concent 33.3 g/dl Platelet Count 103 K/uL Mean Platelet Volume 9.3 fL Neutrophils (%) (Auto) 65.7 % Lymphocytes (%) (Auto) 12.4 % Monocytes (%) (Auto) 14.4 % Eosinophils (%) (Auto) 7.1 % Basophils (%) (Auto) 0.2 % Neutrophils # (Auto) 3.24 K/uL Lymphocytes # (Auto) 0.61 K/uL Monocytes # (Auto) 0.71 K/uL Eosinophils # (Auto) 0.35 K/uL Basophils # (Auto) 0.01 K/uL RDW Standard Deviation 51.6 fL RDW Coefficient of Variation 16.1 % Immature Granulocyte % (Auto) 0.2 % Immature Granulocyte # (Auto) 0.01 K/uL Nucleated RBC Absolute Count (auto) 0.02 K/uL Nucleated Red Blood Cells % 0.4 % Red Blood Cell Morphology Unremarkable Sodium Level 143 mmol/L Potassium Level 3.6 mmol/L Chloride Level 108 mmol/L Carbon Dioxide Level 26 mmol/L Anion Gap 9.0 mmol/L Blood Urea Nitrogen 13 mg/dl Creatinine 1.10 mg/dl Est Creatinine Clear Calc Drug Dose 51.2 ml/min Estimated GFR () 71.1 Estimated GFR (Non- 61.3 BUN/Creatinine Ratio 11.7 Random Glucose 104 mg/dl Calcium Level 8.0 mg/dl Phosphorus Level 2.1 mg/dl Magnesium Level 2.2 mg/dl Assessment and Plan (1) BPH (benign prostatic hypertrophy) Status: Acute (2) Aiken catheter problem s/p cysto in OR to place aiken. Rec leaving aiken in place until more stable. Can irrigate PRN with 60cc of NS if there is limited drainage.
--- NOTE | 2016-09-07 07:03 | DIAGNOSTIC IMAGING REPORT ---
CHEST ONE VIEW PORTABLE CLINICAL HISTORY: CHF postoperative evaluation COMPARISON STUDY: 09/06/2016 FINDINGS: Right-sided chest tube unchanged in position. Diffuse increase in density right hemithorax in general similar. Slight accentuation left basilar markings unchanged. No postprocedural pneumothorax. Post right axillary dissection. Trace subcutaneous emphysema unchanged. IMPRESSION: Unchanging postoperative evaluation of the chest. Electronically signed by: Wilian Clay M.D. 09/07/2016 7:02 AM Dictated Date/Time: 09/07/2016 7:01 AM
[2016-09-07] MEDS: CARBIDOPA/LEVODOPA 25/100MG TAB PO SCH ×3 (08:39→20:44)
[2016-09-07] MEDS: PANTOprazole SOD 40 MG TAB PO SCH ×2 (08:40→20:44)
[2016-09-07] MEDS: MAGNESIUM OXIDE 400 MG TAB PO SCH (08:41)
[2016-09-07] MEDS: DOCUSATE SODIUM 100 MG CAP PO SCH ×2 (08:41→20:43)
[2016-09-07] MEDS: PSYLLIUM 58.6% PWD PACK S\\F PO SCH (08:41)
[2016-09-07] MEDS: METOPROLOL TARTRATE 25 MG TAB PO SCH (08:41)
[2016-09-07] MEDS ORDERED: BISACODYL 5 MG TABEC PO PRN (10:15)
[2016-09-07] MEDS ORDERED: NITROGLYCERIN 0.4 MG SL PER TAB CHARGE UT PRN (10:15)
--- NOTE | 2016-09-07 10:59 | DIAGNOSTIC IMAGING REPORT ---
CHEST ONE VIEW PORTABLE CLINICAL HISTORY: s/p chest tube removal dyspnea COMPARISON STUDY: 09/07/2016 6:49 AM FINDINGS: Interval removal right-sided chest tube. No evidence for significant postprocedural pneumothorax. All remaining findings are similar. IMPRESSION: No significant pneumothorax status post right-sided chest tube removal Electronically signed by: Wilian Clay M.D. 09/07/2016 10:57 AM Dictated Date/Time: 09/07/2016 10:57 AM
--- NOTE | 2016-09-07 11:07 | SURGERY PROGRESS NOTE ---
DATE: 09/07/2016 Mr. Razo was seen today on 09/07/2016. He looks much better. Chest x-ray has not really changed. He drained very little. I removed the chest tube at bedside. His incisions are all clean. We removed his Gross catheter, his arterial line and his monitor. We are going to move him up to third floor. We stood him up at the bedside and he is much stronger. Physical and occupational therapy will be paramount in this man's recovery. I have ordered the nurses to ambulate him in the hallway every shift. He may require stay at a rehab center, but overall I am happy that we have gotten him to this point. We will check a chest x-ray and labs again tomorrow. His hemoglobin has been stable.
[2016-09-07] MEDS: ATORVASTATIN 20 MG TAB PO SCH (20:43)
[2016-09-07] MEDS: RANITIDINE HCL 150 MG TAB PO SCH (20:43)
[2016-09-07] MEDS: ROPINIROLE HCL 0.25 MG TAB PO SCH (20:44)
[2016-09-07] MEDS ORDERED: PANTOprazole SOD 40 MG TAB PO SCH (21:00)
[2016-09-08] MEDS: TRAMADOL HCL 50 MG TAB PO PRN ×2 (00:04→17:00)
[2016-09-08 07:53] VITALS: BP 131/74; PULSE 88; TEMP 36.6; O2SAT 95
[2016-09-08 07:56] VITALS: O2SAT 95
[2016-09-08] MEDS: SACCHAROMYCES BOUL (FLORASTOR) 250 MG CAP PO SCH (08:38)
[2016-09-08] MEDS: ASPIRIN 81 MG ECTAB PO SCH (08:38)
[2016-09-08] MEDS: MAGNESIUM OXIDE 400 MG TAB PO SCH (08:39)
[2016-09-08] MEDS: CEROVITE ADV FORMULA TAB PO SCH (08:39)
[2016-09-08] MEDS: POLYETHYLENE (MIRALAX) 17 GM PACK PO SCH (08:39)
[2016-09-08] MEDS: FUROSEMIDE 20 MG TAB PO SCH (08:39)
[2016-09-08] MEDS: PSYLLIUM 58.6% PWD PACK S\\F PO SCH (08:39)
[2016-09-08] MEDS: PANTOprazole SOD 40 MG TAB PO SCH ×2 (08:39→20:50)
[2016-09-08] MEDS: DOCUSATE SODIUM 100 MG CAP PO SCH ×2 (08:39→20:50)
[2016-09-08] MEDS: CARBIDOPA/LEVODOPA 25/100MG TAB PO SCH ×3 (08:40→20:50)
[2016-09-08] MEDS: RANITIDINE HCL 150 MG TAB PO SCH ×2 (08:40→20:50)
--- NOTE | 2016-09-08 09:30 | DIAGNOSTIC IMAGING REPORT ---
CHEST 2 VIEWS ROUTINE CLINICAL HISTORY: s/p lung resection postoperative evaluation COMPARISON STUDY: 09/07/2016 FINDINGS: Unchanging increase in density right hemithorax. No postprocedural pneumothorax. Stable postoperative changes right axilla. Left lung remains clear. IMPRESSION: Stable postoperative change with unchanging increase in density right hemithorax. No postprocedural pneumothorax. Electronically signed by: Wilian Clay M.D. 09/08/2016 9:28 AM Dictated Date/Time: 09/08/2016 9:28 AM
[2016-09-08] MEDS: ENOXAPARIN 40 MG/0.4 ML SYR SQ SCH (10:00)
[2016-09-08 15:26] VITALS: BP 131/85; PULSE 94; TEMP 36.8; O2SAT 98
[2016-09-08] MEDS: ATORVASTATIN 20 MG TAB PO SCH (20:50)
[2016-09-08] MEDS: ROPINIROLE HCL 0.25 MG TAB PO SCH (20:50)
[2016-09-08 21:10] VITALS: BP 134/83; PULSE 96; TEMP 36.7; O2SAT 94
[2016-09-08 23:41] VITALS: BP 130/73; PULSE 97; TEMP 36.8; O2SAT 93
[2016-09-09 08:03] VITALS: BP 144/73; TEMP 36.7; O2SAT 92
--- NOTE | 2016-09-09 08:10 | SURGERY PROGRESS NOTE ---
DATE: 09/09/2016 Mr. Razo was seen this morning. He is off of oxygen. His right side sounds much better on auscultation. His chest x-ray shows some clearing, although he still has postoperative changes which are significant on the right. We are going to check labs on him again today. I hope to get him to [facility] or another rehabilitation center later this week. JUSTIN
--- NOTE | 2016-09-09 08:12 | DIAGNOSTIC IMAGING REPORT ---
CHEST ONE VIEW PORTABLE CLINICAL HISTORY: Status post thoracotomy. COMPARISON STUDY: Chest radiograph September 08, 2016. FINDINGS: There are median sternotomy wires. Postsurgical findings within the right hemithorax are noted. No pneumothorax is identified. There is gas within the right chest wall. Skin aj within the right chest wall are noted. Asymmetric right lung airspace opacity persists. There is also a small to moderate right pleural effusion which may be loculated. IMPRESSION: 1. Persistent asymmetric right lung airspace opacity which may reflect consolidation or atelectasis. 2. Small to moderate right pleural effusion which may be loculated. Possible slight interval decrease in size since prior exam. 3. No pneumothorax identified. Electronically signed by: Luis Angel Reyes M.D. 09/09/2016 8:10 AM Dictated Date/Time: 09/09/2016 8:05 AM
--- NOTE | 2016-09-09 08:17 | SURGERY PROGRESS NOTE ---
DATE: 09/09/2016 Mr. Razo was seen today on 09/08/2016. His vital signs have been stable. He has been afebrile. He is on 1 liter of oxygen. He did sleep a bit better being on the floor. He still has decreased breath sounds in the right. His incisions are clean. We are going to get him up and moving today. He is probably going to require rehabilitation and will have him evaluated for such prior to going home. He lives alone.
[2016-09-09 08:22] VITALS: O2SAT 93
[2016-09-09 08:48] LABS: BASO % 0.4 %; BASO ABS # 0.02 K/uL (0-0.2); EOS % 8.4 %; HEMATOCRIT 26.1 % (42-52); IG% 0.4 %; LYMPH % 12.4 %; LYMPH ABS # 0.66 K/uL (1.2-3.4); MEAN CELL VOLUME 89.4 fL (80-100); MEAN CORPUSCULAR HEMOGLOBIN 30.1 pg (25-34); MEAN PLATELET VOLUME 8.8 fL (7.4-10.4); MONO % 12.9 %; NEUT % 65.5 %; PLATELET COUNT 134 K/uL (130-400); RED BLOOD COUNT 2.92 M/uL (4.7-6.1); WHITE BLOOD COUNT 5.33 K/uL (4.8-10.8)
[2016-09-09 09:02] LABS: BUN/CREATININE RATIO 16.4 (10-20); CALCIUM 8.1 mg/dl (8.5-10.1); CREATININE 1.1 mg/dl (0.60-1.40); MAGNESIUM 2.4 mg/dl (1.8-2.4)
[2016-09-09] MEDS: FUROSEMIDE 20 MG TAB PO SCH (09:25)
[2016-09-09] MEDS: DOCUSATE SODIUM 100 MG CAP PO SCH (09:25)
[2016-09-09] MEDS: ASPIRIN 81 MG ECTAB PO SCH (09:25)
[2016-09-09] MEDS: CARBIDOPA/LEVODOPA 25/100MG TAB PO SCH ×2 (09:25→13:29)
[2016-09-09] MEDS: CEROVITE ADV FORMULA TAB PO SCH (09:25)
[2016-09-09] MEDS: SACCHAROMYCES BOUL (FLORASTOR) 250 MG CAP PO SCH (09:25)
[2016-09-09] MEDS: PANTOprazole SOD 40 MG TAB PO SCH (09:25)
[2016-09-09] MEDS: RANITIDINE HCL 150 MG TAB PO SCH (09:25)
[2016-09-09] MEDS: MAGNESIUM OXIDE 400 MG TAB PO SCH (09:25)
[2016-09-09] MEDS: PSYLLIUM 58.6% PWD PACK S\\F PO SCH (09:26)
[2016-09-09] MEDS: POLYETHYLENE (MIRALAX) 17 GM PACK PO SCH (09:26)
[2016-09-09] MEDS: ENOXAPARIN 40 MG/0.4 ML SYR SQ SCH (09:26)
[2016-09-09 09:35] LABS: COMPLETE YES; MEAN CORPUSCULAR HGB CONC 33.7 g/dl (32-36)
[2016-09-09 09:52] LABS: POLYCHROMASIA 1+
[2016-09-09 10:58] VITALS: BP 115/69; PULSE 118; O2SAT 95
--- NOTE | 2016-09-09 13:30 | DIAGNOSTIC IMAGING REPORT ---
LEFT WRIST 2 VIEW CLINICAL HISTORY: Left wrist pain COMPARISON: None. DISCUSSION: There are no acute fractures. There is an 8 mm subchondral cyst within the distal ulna. There is chondrocalcinosis. There is calcific debris posterior to the proximal carpal row. There is dorsal soft tissue swelling. IMPRESSION: 1. No acute fractures. 2. Chondrocalcinosis and arthritic change. 3. Dorsal soft tissue swelling Electronically signed by: Danilo Cedeño M.D. 09/09/2016 1:29 PM Dictated Date/Time: 09/09/2016 1:28 PM
[2016-09-09 15:38] VITALS: BP 135/78; PULSE 103; TEMP 37.7; O2SAT 90
[2016-09-09] MEDS: TRAMADOL HCL 50 MG TAB PO PRN (15:47)
[2016-09-09 16:00] VITALS: O2SAT 90
[2016-09-09] MEDS: MoRPHine SULFATE 2 MG/ML CARP IV PRN ×2 (17:01→18:30)
[2016-09-09 23:03] VITALS: BP 126/62; PULSE 104; TEMP 37.2; O2SAT 93
[2016-09-10] MEDS: MoRPHine SULFATE 2 MG/ML CARP IV PRN (00:51)
[2016-09-10] MEDS: PANTOprazole SOD 40 MG TAB PO SCH ×3 (03:02→21:30)
[2016-09-10] MEDS: ATORVASTATIN 20 MG TAB PO SCH ×2 (03:02→21:29)
[2016-09-10] MEDS: DOCUSATE SODIUM 100 MG CAP PO SCH ×3 (03:02→21:29)
[2016-09-10] MEDS: ROPINIROLE HCL 0.25 MG TAB PO SCH ×2 (03:03→21:30)
[2016-09-10] MEDS: CARBIDOPA/LEVODOPA 25/100MG TAB PO SCH ×4 (03:03→21:30)
[2016-09-10] MEDS: RANITIDINE HCL 150 MG TAB PO SCH ×3 (03:04→21:29)
[2016-09-10 08:03] VITALS: BP 146/66; PULSE 110; TEMP 36.9; O2SAT 94
[2016-09-10 08:10] VITALS: O2SAT 94
[2016-09-10] MEDS: MAGNESIUM OXIDE 400 MG TAB PO SCH (09:53)
[2016-09-10] MEDS: TRAMADOL HCL 50 MG TAB PO PRN ×2 (09:53→14:16)
[2016-09-10] MEDS: ASPIRIN 81 MG ECTAB PO SCH (09:54)
[2016-09-10] MEDS: FUROSEMIDE 20 MG TAB PO SCH (09:54)
[2016-09-10] MEDS: CEROVITE ADV FORMULA TAB PO SCH (09:54)
[2016-09-10] MEDS: ENOXAPARIN 40 MG/0.4 ML SYR SQ SCH (09:54)
[2016-09-10] MEDS: SACCHAROMYCES BOUL (FLORASTOR) 250 MG CAP PO SCH (09:54)
[2016-09-10] MEDS: PSYLLIUM 58.6% PWD PACK S\\F PO SCH (09:55)
[2016-09-10] MEDS: POLYETHYLENE (MIRALAX) 17 GM PACK PO SCH (09:55)
--- NOTE | 2016-09-10 15:05 | Psychiatric Consultation ---
Consultation Identifying Data 86-year-old white male with a history of 86-year-old white male who lives alone in [facility], has no psychiatric history, but multiple medical problems including coronary artery disease, congestive heart failure, Parkinson's disease, and current admission for right thoracotomy with wedge resection of the metastatic melanoma, which was performed on 09/04/2016. Psychiatry was consulted for depression. Chief Complaint "I'm depressed and here, I wasn't before I came in". History of Present Illness The patient was admitted 09/03/2016 for resection of a right upper lobe nodule, thought to be metastatic melanoma, as he has a history of recurrent melanoma. Outpatient records indicate that he was not initially sure whether he wanted to go through with the surgical procedure, but that extensive discussion was held with the patient and his 2 sisters, and he ultimately decided to proceed. During his procedure there was significant bleeding, his chest had to be opened , and he had to receive a transfusion. He has been hypotensive in the hospital , and has a chest tube which has been painful. His mobility is increasing, and he has been accepted to [facility] for inpatient rehabilitation. My assessment, the patient admits that his mood is down, and attributes this to being in the hospital and being in pain. He states that his mood was good and stable prior to his hospitalization. He also reports poor sleep here in the hospital, limited by pain. He reports low energy and has been tearful at times. He denies thoughts of suicide, impaired focus, distractibility, and anhedonia. He reports hope that his mood will improve as his physical condition improves. He states that he enjoys spending time with family, going to his nephew's farm, and has had visits from family here. He denies symptoms of angela, panic attacks, OCD, PTSD, and psychosis. He does worry about his medical problems, but does not feel the worry is excessive or uncontrollable. He is glad that he is alive, and glad that he survived his surgery. Past Psychiatric History Current OP Treatment: no current treatment Prior OP Treatment: no prior treatment No history of mental illness, psychiatric hospitalization, suicide attempts, self-injurious behavior, or violence to others. 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 He has never been on psychotropic medications. 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 (6) BPH (benign prostatic hypertrophy) (7) Ulcer Allergies Allergies: Coded Allergies: Iodinated Diagnostic Agents (Verified Allergy, Intermediate, HIVES, 09/03/16 ) Promethazine (Verified Allergy, Unknown, unknown, 09/03/16) INFORMATION FROM [facility] Home Medications Scheduled Aspirin (Aspirin Ec), 81 MG PO DAILY Atorvastatin (Lipitor), 20 MG PO HS Carbidopa/Levodopa (Sinemet 25MG/100MG), 1 TAB PO TID Furosemide (Lasix), 20 MG PO QAM Metoprolol Tartrate (Lopressor) (Lopressor), 50 MG PO BID Multiple Vitamins W/ Minerals (Centrum), 1 TAB PO QAM Nitroglycerin (Nitrostat), 0.4 MG UT PRN Pantoprazole (Protonix), 40 MG PO BID Ranitidine (Zantac), 150 MG PO BID Saccharomyces Boulardii (Probiotic), 1 CAP PO QAM Scheduled PRN Acetaminophen (Tylenol), 1,000 MG PO Q4H PRN for Pain Artificial Tear Solution (Artificial Tears), 1 DROPS OP QID PRN for DRYNESS Bisacodyl (Laxative), 1 TAB PO UD PRN for Constipation Polyethylene Glycol-Propylene (Systane), 1 DROPS OP QID PRN for PRN Tramadol (Ultram), 50 MG PO BID PRN for Pain Family History Diabetes mellitus Heart disease Hypertension No family history of mental illness, substance abuse, or suicide. Alcohol Use Alcohol Use In Past 12 Months: No Substance History Substance Use Past 12 Months: Hx of Inhalent Use: No Hx of Organic Substance Use: No Hx of Illegal/Street Drug Use: No Hx of Over the Counter Med Use: No Hx of Prescription Med Use: No Has never used tobacco products. 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 Was for 27 years, in 1999 (although told the liaison nurse he was still ?) ( ex-?) lives at [facility], while he lives alone in [place]. Has good support from 2 sisters and nephews Review of Systems Constitutional: see HPI Cardiovascular: reports: chest pain Respiratory: reports: short of breath Musculoskeletal: joint pain Examination Vital Signs Vital Signs Past 12 Hours Date Time Temp Pulse Resp B/P Pulse Ox O2 Delivery O2 Flow Rate FiO2 09/10/16 08:54 Room Air 09/10/16 08:10 94 Room Air 09/10/16 08:03 36.9 110 12 146/66 94 Room Air Mental Examination During interview pt is: alert and oriented, cooperative Appearance: appropriately dressed (gown), appropriately groomed, appeared stated age Eye contact is: good Motor behavior is: no abnormal motor movements Speech: normal in rate, rhythm & volume Affect: blunted Mood is: depressed Thought process: goal directed, clear, coherent Thought content: reality based without delusions Suicidal thought are: denied Homicidal thoughts are: denied Hallucinations: denies auditory, denies visual Cognition: memory grossly intact, attention grossly intact, language grossly intact Intelligence estimated to be: average Insight: fair Judgement: fair Impression / Recommendations Impression 86-year-old white male with no psychiatric history who is admitted after wedge resection of metastatic melanoma; psychiatry consulted for a question of depression. Patient admits to depressed mood, however states that this developed over the past week in the context of hospitalization and postoperative pain. He does not meet criteria for clinical depression at this time and psychotropic medications are not indicated, although his mood symptoms certainly warrant ongoing monitoring. Recommendations (1) Adjustment disorder with depressed mood Patient reports about one week of depressive symptoms, including low mood, energy, decreased sleep, tearfulness, and decreased appetite in the context of hospitalization and surgery. He denies that he was having any of the symptoms prior to hospitalization, and is hopeful that things will improve as his physical state improves. He does not meet criteria for major depressive disorder, and antidepressant medication is not indicated at this time. If his mood and neurovegetative symptoms did not improve as his pain and physical symptoms improved, recommend reevaluation, which could occur at [facility] if he is there for rehabilitation.
[2016-09-10 15:13] VITALS: BP 156/86; PULSE 104; TEMP 36.7; O2SAT 96
--- NOTE | 2016-09-10 15:52 | SURGERY PROGRESS NOTE ---
DATE: 09/10/2016 DATE: 09/10/2016. Mr. Razo was seen today on 09/10/2016. One week ago I did a thoracoscopic wedge resection and we developed bleeding. Eventually got over this, however he is elderly at 86. He is complaining of terrible wrist pain today. His A-a gradient has been getting better. His saturation is 96% on room air. His heart rate is in the low 100s. He has been afebrile. He is making good urine. He has moved his bowels. Problem is he is so weak he is not walking well. They tried to get him up to walk today and it has been an issue. We are going to continue to push Mr. Razo in physical therapy.
[2016-09-10 16:30] VITALS: O2SAT 96
[2016-09-10 16:44] VITALS: BP 115/73; PULSE 104
[2016-09-10 23:34] VITALS: BP 137/72; PULSE 105; TEMP 37.1; O2SAT 92
[2016-09-11] MEDS: TRAMADOL HCL 50 MG TAB PO PRN ×2 (00:22→18:29)
[2016-09-11] MEDS: ACETAMINOPHEN 500 MG TAB PO PRN (04:28)
[2016-09-11 07:13] VITALS: BP 112/65; PULSE 92; TEMP 36.7; O2SAT 93
[2016-09-11] MEDS: SACCHAROMYCES BOUL (FLORASTOR) 250 MG CAP PO SCH (07:31)
[2016-09-11] MEDS: PANTOprazole SOD 40 MG TAB PO SCH ×2 (07:31→20:41)
[2016-09-11] MEDS: POLYETHYLENE (MIRALAX) 17 GM PACK PO SCH (07:31)
[2016-09-11] MEDS: CARBIDOPA/LEVODOPA 25/100MG TAB PO SCH ×3 (07:31→20:40)
[2016-09-11] MEDS: MAGNESIUM OXIDE 400 MG TAB PO SCH (07:31)
[2016-09-11] MEDS: PSYLLIUM 58.6% PWD PACK S\\F PO SCH (07:31)
[2016-09-11] MEDS: FUROSEMIDE 20 MG TAB PO SCH (07:32)
[2016-09-11] MEDS: ASPIRIN 81 MG ECTAB PO SCH (07:32)
[2016-09-11] MEDS: RANITIDINE HCL 150 MG TAB PO SCH ×2 (07:32→20:40)
[2016-09-11] MEDS: CEROVITE ADV FORMULA TAB PO SCH (07:32)
[2016-09-11] MEDS: DOCUSATE SODIUM 100 MG CAP PO SCH ×2 (07:32→20:40)
[2016-09-11] MEDS: ENOXAPARIN 40 MG/0.4 ML SYR SQ SCH (07:33)
--- NOTE | 2016-09-11 08:49 | SURGERY PROGRESS NOTE ---
DATE: 09/11/2016 Mr. Razo was seen today. He is better today. Psychiatry saw him and feel this is a reactive depression, which does not need medications. He sounds better to me. His oxygenation is better. We are going to check a chest x-ray on him tomorrow and then let him go to [facility]. He needs rehab before he goes home. He did walk yesterday, which is a definite improvement.
[2016-09-11 08:54] LABS: BASO % 0.4 %; BASO ABS # 0.02 K/uL (0-0.2); EOS % 8.4 %; HEMATOCRIT 24.1 % (42-52); IG% 0.5 %; LYMPH % 13.5 %; LYMPH ABS # 0.74 K/uL (1.2-3.4); MEAN CELL VOLUME 89.6 fL (80-100); MEAN CORPUSCULAR HEMOGLOBIN 29.7 pg (25-34); MEAN PLATELET VOLUME 8.9 fL (7.4-10.4); MONO % 10.7 %; NEUT % 66.5 %; PLATELET COUNT 177 K/uL (130-400); RED BLOOD COUNT 2.69 M/uL (4.7-6.1)
[2016-09-11 08:55] LABS: MEAN CORPUSCULAR HGB CONC 33.2 g/dl (32-36)
[2016-09-11 09:21] LABS: COMPLETE YES; POLYCHROMASIA 1+
[2016-09-11 09:38] LABS: BUN/CREATININE RATIO 17.1 (10-20); CALCIUM 7.7 mg/dl (8.5-10.1); CREATININE 1.3 mg/dl (0.60-1.40); MAGNESIUM 2.5 mg/dl (1.8-2.4); POTASSIUM 4.2 mmol/L (3.5-5.1)
--- NOTE | 2016-09-11 11:46 | ORTHOPEDIC CONSULTATION REPORT ---
DATE OF CONSULTATION: 09/11/2016 CHIEF COMPLAINT: Left wrist pain. HISTORY OF PRESENT ILLNESS: The patient is an 86-year-old gentleman who has been hospitalized since 09/03/16. He had thoracoscopy by Dr. Talley and has been an inpatient since that time. Apparently, more recently the patient has been complaining of left wrist pain. An orthopedics consult was asked for. Currently, the patient is resting in bed, appears fairly comfortable. He is alert and oriented and has appropriate conversation. There is an Sam wrap around the left wrist/hand region which is causing some obvious swelling distally in the fingers. He denies any recent trauma or fall. He denies any history of gout. The Sam wrap was removed and the wrist looks fairly benign. There is no significant swelling or erythema. There is some diffuse ecchymosis on the volar forearm region which I am not sure is related to his wrist or just this current hospitalization. He does have discomfort with any attempted flexion/extension or pronation/supination of the wrist. He seems to localize the pain more in the mid wrist region. The Sam wrap was reapplied after the examination. His x-rays were reviewed. There does not appear to be any acute findings. He does have an approximately 1 cm cyst in the distal ulna. He does have some degenerative changes at the distal radial ulnar joint. ASSESSMENT: Nonspecific left wrist pain. PLAN: I reassured the patient that there does not appear to be a significant issue at this time. There does not appear to be any acute septic wrist. I will discuss this with Dr. Edwards and ask him to evaluate the patient as well. Possible consideration for intraarticular wrist injection if indicated.
[2016-09-11 15:29] VITALS: BP 136/75; PULSE 93; TEMP 36.8; O2SAT 96
[2016-09-11] MEDS: ROPINIROLE HCL 0.25 MG TAB PO SCH (20:40)
[2016-09-11] MEDS: ATORVASTATIN 20 MG TAB PO SCH (20:40)
[2016-09-11 23:32] VITALS: BP 116/66; PULSE 101; TEMP 36.8; O2SAT 91
[2016-09-12] VITALS (7 sets, daily range): BP systolic 100–135; BP diastolic 64–79; PULSE 89–93; TEMP 36.6–36.9; O2SAT 91–95
[2016-09-12 06:48] LABS: CREATININE 1.3 mg/dl (0.60-1.40)
--- NOTE | 2016-09-12 08:00 | DIAGNOSTIC IMAGING REPORT ---
CHEST ONE VIEW PORTABLE CLINICAL HISTORY: thorac edwin postoperative evaluation COMPARISON STUDY: 09/09/2016 FINDINGS: Improved aeration right mid and lower lung. Small right lateral basilar pneumothorax. Postoperative changes right axilla. Left lung remains clear. IMPRESSION: Improved aeration right hemithorax. Small right basilar pneumothorax. Electronically signed by: Wilian Clay M.D. 09/12/2016 7:59 AM Dictated Date/Time: 09/12/2016 7:58 AM
[2016-09-12] MEDS ORDERED: CLC100 PO (08:21)
--- NOTE | 2016-09-12 08:27 | Discharge Instructions ---
Discharge Instructions Admission Reason for Admission: Right Lung Nodule, Mediastinal Adenopathy Discharge Discharge Diagnosis / Problem: Metastatic Melanoma Discharge Goals Goal(s): Learn about illness Activity Recommendations Activity Level: Up Ad Melissa, Assistance Required Therapies: Physical Therapy, Weight Bearing Status (as tolerated), Occupational Therapy Lifting Limitations: none 1. Pt. may shower and clean incisions with soap and water. No tub baths. 2. Do not fly until cleared to do so by Dr. Talley. . Additional Information Patient informed of condition: Yes Advance Directives: No DNR: No Level of Care: Acute Rehab Communicable Disease: No Prognosis: Improving Aiken Catheter: No Instructions / Follow-Up Instructions / Follow-Up 1. Appointment with Dr. Talley in 1-2 weeks. Office will call with date and time of appointment. A chest x-ray should be obtained prior to appointment. Current Hospital Diet Patient's current hospital diet: Diabetes Type 2 Diet Discharge Diet Recommended Diet: Regular Diet Procedures Procedures Performed: Endobronchial Ultrasound, Navigational Bronchoscopy with Fiducial Markers and Dye, Right Video Assisted Thoracoscopy for Extensive Lysis of Adhesions with Right Upper Lobe Wedge Resection and Lymph Node Biopsy, Emergent Thoracotomy control bleeding of Mammary Artery Cystoscopy difficulty aiken placement by Dr Morrison Pending Studies Studies pending at discharge: no Physician Orders On Transfer Dressing Changes: 1. If any drainage noted from incision, pleased cover with aquacel and dry sterile dressing, otherwise they may be left open to air. Additional Orders: 1. Please check a CBC on Thursday, September 15, 2016. Medical Emergencies . Who to Call and When: Medical Emergencies: If at any time you feel your situation is an emergency, please call 911 immediately. . Non-Emergent Contact Non-Emergency issues call your: Surgeon Call Non-Emergent contact if: temperature is above 101, your pain is not controlled, wound has increased drainage . . "Provider Documentation" section prepared by Thomas Medley. Core Measure Problem Core Measures: None
--- NOTE | 2016-09-12 08:57 | DISCHARGE SUMMARY ---
DATE OF DISCHARGE: 09/12/2016. DISCHARGE DIAGNOSES: 1. Metastatic melanoma right upper lobe. 2. Anemia of blood loss. 3. History of metastatic melanoma. HOSPITAL COURSE: Orestes Razo is a delightful 86-year-old male who has a history of melanoma with multiple resections and in fact had a partial nephrectomy done for metastatic disease to his kidney. He came in with a metastatic lesion to his right upper lobe and surprisingly had hypermetabolic mediastinal lymph nodes, but really had no enlargement of these nodes. I took the patient to the operating room and did endobronchial ultrasound and we saw no evidence of malignancy in these nodes. I then marked this mass and turned the patient and did a right thoracoscopy. He had marked adhesions. We meticulously took these adhesions down. However, we developed bleeding from the internal mammary artery on the right and we had to do a limited anterior thoracotomy to control the bleeding from this. We then completed the case and wedged this mass out and indeed this was a metastatic melanoma and we had clean resection margins. I removed level 2 and level 4 nodes and these were negative for carcinoma. The patient was extubated in the room. We did not have to give him some blood. He did not really put out any blood from his chest tube, but I was concerned about his findings on x-ray. Eventually he settled down and he got his chest tube out. His x-ray continued to improve and in fact the day of discharge looked quite good with very little in the way of a pleural effusion. He is going to be discharged to [facility] for further rehab as he is 86 and lives by himself. I inspected his incision the day of discharge and he does not need any dressings. His incision is clean. The most important thing for him to ambulate him. We will see him back in the office in 2 weeks with a chest x-ray.
[2016-09-12] MEDS: SACCHAROMYCES BOUL (FLORASTOR) 250 MG CAP PO SCH (09:02)
[2016-09-12] MEDS: PANTOprazole SOD 40 MG TAB PO SCH ×2 (09:03→20:45)
[2016-09-12] MEDS: DOCUSATE SODIUM 100 MG CAP PO SCH ×2 (09:03→20:44)
[2016-09-12] MEDS: MAGNESIUM OXIDE 400 MG TAB PO SCH (09:03)
[2016-09-12] MEDS: FUROSEMIDE 20 MG TAB PO SCH (09:04)
[2016-09-12] MEDS: POLYETHYLENE (MIRALAX) 17 GM PACK PO SCH (09:05)
[2016-09-12] MEDS: ASPIRIN 81 MG ECTAB PO SCH (09:05)
[2016-09-12] MEDS: PSYLLIUM 58.6% PWD PACK S\\F PO SCH (09:06)
[2016-09-12] MEDS: CEROVITE ADV FORMULA TAB PO SCH (09:07)
[2016-09-12] MEDS: CARBIDOPA/LEVODOPA 25/100MG TAB PO SCH ×3 (09:11→20:47)
[2016-09-12] MEDS: RANITIDINE HCL 150 MG TAB PO SCH ×2 (09:12→20:46)
[2016-09-12] MEDS: ENOXAPARIN 40 MG/0.4 ML SYR SQ SCH (09:36)
--- NOTE | 2016-09-12 10:43 | Psychiatric Progress Notes ---
Psychiatric Progress Note Date of Service Sep 12, 2016. Notes ID: Patient reviewed with liaison nurse. Initial consult by Dr. Katz completed on 09/10, felt primarily adjustment issues to CA dx. CC: "I'm OK" HPI: denies issues over night, states he is feeling a bit better over past 24 hours and is hoping to be discharged soon. ROS: denies pain, sleep was a bit restless, still some sore throat pain from tube, poor appetite MSE: alert, cooperative, thoughts organized, oriented, no evidence of SI/HI/gregory Imp: adjustment disorder bordering on unspecified depression Plan: continue to monitor mood, likely Remeron candidate if appetite doesn't improve.
[2016-09-12] MEDS: TRAMADOL HCL 50 MG TAB PO PRN ×2 (11:05→20:45)
[2016-09-12] MEDS: ACETAMINOPHEN 500 MG TAB PO PRN (14:20)
[2016-09-12] MEDS: ATORVASTATIN 20 MG TAB PO SCH (20:45)
[2016-09-12] MEDS: ROPINIROLE HCL 0.25 MG TAB PO SCH (20:46)
[2016-09-13 07:57] VITALS: BP 144/75; PULSE 93; TEMP 36.3; O2SAT 95
[2016-09-13] MEDS: ENOXAPARIN 40 MG/0.4 ML SYR SQ SCH (08:59)
[2016-09-13] MEDS: CEROVITE ADV FORMULA TAB PO SCH (08:59)
[2016-09-13] MEDS: PANTOprazole SOD 40 MG TAB PO SCH (08:59)
[2016-09-13] MEDS: ASPIRIN 81 MG ECTAB PO SCH (09:00)
[2016-09-13] MEDS: PSYLLIUM 58.6% PWD PACK S\\F PO SCH (09:00)
[2016-09-13] MEDS: FUROSEMIDE 20 MG TAB PO SCH (09:00)
[2016-09-13] MEDS: DOCUSATE SODIUM 100 MG CAP PO SCH (09:00)
[2016-09-13] MEDS: POLYETHYLENE (MIRALAX) 17 GM PACK PO SCH (09:00)
[2016-09-13] MEDS: SACCHAROMYCES BOUL (FLORASTOR) 250 MG CAP PO SCH (09:00)
[2016-09-13] MEDS: CARBIDOPA/LEVODOPA 25/100MG TAB PO SCH ×2 (09:01→13:30)
[2016-09-13] MEDS: MAGNESIUM OXIDE 400 MG TAB PO SCH (09:01)
[2016-09-13] MEDS: RANITIDINE HCL 150 MG TAB PO SCH (09:01)
[2016-09-13 10:46] VITALS: BP 144/75; PULSE 93; TEMP 36.3; O2SAT 95
--- NOTE | 2016-09-13 12:48 | DISCHARGE SUMMARY ---
Mr. Razo was seen today on postop day #11. He looks much better. He walked more yesterday. His left wrist still hurts but feels better. He has no edema of his hand at all today. His lungs sound better. His incisions are clean without dressings. He does have some swelling at the incision sites and probably has some postoperative swelling and hematoma, but this is stable. I was very happy with his x-ray yesterday. [facility] states they will take the patient today. He is being discharged today. For specifics of his hospital course, please refer to my discharge summary from 09/12/2016.
== END 2016-09-13 14:10 | DRG 164 ==
LOC: ENRESERVTM → ENRESERVDT → C.ACU 06:24 → C.MSICU 14:11 → UNDOADMIN 14:11 → C.MSN 09-07 10:41
PROVIDERS: ADMIT Surgery; ATTEND Surgery
PROC: 0BNN4ZZ Release Right Pleura, Percutaneous Endoscopic Approach (ICD-10-PCS; principal; 2016-09-03 08:00)
PROC: 0BJ08ZZ Inspection of Tracheobronchial Tree, Via Natural or Artificial Opening Endoscopic (ICD-10-PCS; principal; 2016-09-03 08:00)
PROC: 07B73ZX Excision of Thorax Lymphatic, Percutaneous Approach, Diagnostic (ICD-10-PCS; principal; 2016-09-03 08:00)
PROC: 0W9930Z Drainage of Right Pleural Cavity with Drainage Device, Percutaneous Approach (ICD-10-PCS; principal; 2016-09-03 08:00)
PROC: 0BBC0ZX Excision of Right Upper Lung Lobe, Open Approach, Diagnostic (ICD-10-PCS; principal; 2016-09-03 08:00)
PROC: 0T7C8ZZ Dilation of Bladder Neck, Via Natural or Artificial Opening Endoscopic (ICD-10-PCS; 2016-09-03 08:00)
PROC: 0T9B70Z Drainage of Bladder with Drainage Device, Via Natural or Artificial Opening (ICD-10-PCS; 2016-09-03 08:00)
PROC: 0T7D8ZZ Dilation of Urethra, Via Natural or Artificial Opening Endoscopic (ICD-10-PCS; 2016-09-03 08:00)
DX: C78.01 Secondary malignant neoplasm of right lung (principal); D62 Acute posthemorrhagic anemia; J94.8 Other specified pleural conditions; J95.811 Postprocedural pneumothorax; Z53.32 Thoracoscopic surgical procedure converted to open procedure; R93.8 Abnormal findings on diagnostic imaging of other specified body structures; N32.0 Bladder-neck obstruction; F43.21 Adjustment disorder with depressed mood; N35.014 Post-traumatic urethral stricture, male, unspecified; I95.9 Hypotension, unspecified; M25.532 Pain in left wrist; I25.10 Atherosclerotic heart disease of native coronary artery without angina pectoris; I50.9 Heart failure, unspecified; I11.0 Hypertensive heart disease with heart failure; E78.5 Hyperlipidemia, unspecified; N40.0 Benign prostatic hyperplasia without lower urinary tract symptoms; K21.9 Gastro-esophageal reflux disease without esophagitis; G20 Parkinson's disease; Z79.899 Other long term (current) drug therapy; Z85.820 Personal history of malignant melanoma of skin; Z85.528 Personal history of other malignant neoplasm of kidney; Z98.890 Other specified postprocedural states; Z95.1 Presence of aortocoronary bypass graft; Z91.81 History of falling; Z87.11 Personal history of peptic ulcer disease; Z91.89 Other specified personal risk factors, not elsewhere classified; Z80.8 Family history of malignant neoplasm of other organs or systems; Z82.49 Family history of ischemic heart disease and other diseases of the circulatory system; Z83.3 Family history of diabetes mellitus; Z82.3 Family history of stroke; Z83.1 Family history of other infectious and parasitic diseases; Z84.89 Family history of other specified conditions

== ENCOUNTER → 2016-09-23 | Outpatient (CLI) | payer OTHER, BC ==
[~2016-09-23] MED LIST changes: +ACET650T49 PO; +AMOX875T PO; +CLC100 PO; +DOCU100C22 PO; +ESCI10TA17 PO; +FERR1TAB13 PO; -LACTATED RINGER'S 1000ML 1,000 ML IV SCH; +LACTCAP3 PO; +SENN-63 PO; +VALA1TAB2 PO
--- NOTE | 2016-09-23 10:53 | DIAGNOSTIC IMAGING REPORT ---
CHEST 2 VIEWS ROUTINE CLINICAL HISTORY: Metastatic melanoma. Recent thoracotomy. COMPARISON STUDY: Chest radiograph September 12, 2016. FINDINGS: Mediastinal surgical clips, median sternotomy wires and right axillary surgical clips are noted. There are post surgical findings within the right hemithorax. No pneumothorax is identified. A small right pleural effusion is slightly decreased in size. Hazy multifocal right lung airspace opacity is noted. This has slightly improved. There is no evidence of pulmonary edema. Mild cardiomegaly is unchanged. IMPRESSION: Resolving postsurgical findings within the right hemithorax with interval decrease in the right pleural effusion and improved right lung aeration. No pneumothorax identified. Electronically signed by: Luis Angel Reyes M.D. 09/23/2016 10:52 AM Dictated Date/Time: 09/23/2016 10:45 AM
== END | disposition home or self-care (01) ==
LOC: C.RAD 10:15
PROVIDERS: ATTEND Surgery
DX: C79.9 Secondary malignant neoplasm of unspecified site (principal); R59.1 Generalized enlarged lymph nodes

== ENCOUNTER → 2016-09-30 | Outpatient (CLI) | payer BC ==
--- NOTE | 2016-09-30 15:43 | DIAGNOSTIC IMAGING REPORT ---
TWO VIEW CHEST CLINICAL HISTORY: Dyspnea. Recent right thoracotomy. FINDINGS: PA and lateral chest radiographs are compared to study dated 09/23/2016 and correlated with chest CT dated 07/23/2016. The PA view is degraded by patient rotation. The patient is status post midline sternotomy. The heart is enlarged and there is atherosclerotic calcification of the thoracic aorta. The pulmonary vasculature is noncongested. Postoperative change is again noted in the right upper lung with suture material projecting over the right apex. There is pleural fluid at the right lung base and bibasilar atelectasis. No left pleural effusion is seen. A calcified granuloma is again noted in the right upper lobe. No pneumothorax is identified. Retrosternal density seen on the lateral view is unchanged. The skeletal structures are osteopenic. Degenerative change and scoliosis are noted in the thoracic spine. Arthritic changes present in the shoulders, with surgical anchors seen in the right humeral head. Surgical clips are noted in the right axilla. IMPRESSION: 1. Again seen are post surgical changes in the right hemithorax with pleural fluid at the right lung base. This is similar in appearance to the 09/23/2016 examination. 2. There is no evidence of superimposed pneumonia. 3. Cardiomegaly without radiographic evidence of congestive failure. Electronically signed by: Vahid Alvarenga M.D. 09/30/2016 3:41 PM Dictated Date/Time: 09/30/2016 3:36 PM
== END | disposition home or self-care (01) ==
LOC: C.RAD1850 15:26
PROVIDERS: ATTEND Internal Medicine
DX: R06.00 Dyspnea, unspecified (principal); I51.7 Cardiomegaly; Z98.890 Other specified postprocedural states

== ENCOUNTER → 2016-09-30 | Outpatient (CLI) | payer BC ==
[2016-09-30 17:34] LABS: ALT/SGPT 31 U/L (12-78); BASO % 0.5 %; BASO ABS # 0.03 K/uL (0-0.2); BLOOD UREA NITROGEN 26 mg/dl (7-18); BUN/CREATININE RATIO 18.9 (10-20); CALCIUM 8.7 mg/dl (8.5-10.1); CARBON DIOXIDE 24 mmol/L (21-32); CHLORIDE 104 mmol/L (98-107); CHOLESTEROL 84 mg/dl (0-200); COMPLETE YES; GLUCOSE 104 mg/dl (70-99); HEMATOCRIT 32.4 % (42-52); IG% 0.3 %; LYMPH % 19.2 %; LYMPH ABS # 1.25 K/uL (1.2-3.4); MEAN CELL VOLUME 90.3 fL (80-100); MEAN CORPUSCULAR HEMOGLOBIN 28.7 pg (25-34); MEAN CORPUSCULAR HGB CONC 31.8 g/dl (32-36); MEAN PLATELET VOLUME 9.3 fL (7.4-10.4); MONO % 12.4 %; NEUT % 57.6 %; PLATELET COUNT 329 K/uL (130-400); POTASSIUM 4.1 mmol/L (3.5-5.1); RED BLOOD COUNT 3.59 M/uL (4.7-6.1); SODIUM 138 mmol/L (136-145); WHITE BLOOD COUNT 6.52 K/uL (4.8-10.8)
[2016-09-30 17:37] LABS: ALB/GLOB RATIO 0.7 (0.9-2); ALKALINE PHOSPHATASE 58 U/L (45-117); AST/SGOT 27 U/L (15-37); CHOLESTEROL/HDL RATIO 2.7; HDL CHOLESTEROL 31 mg/dl; LDL CHOLESTEROL CALCULATED 35 mg/dl; TRIGLYCERIDES 88 mg/dl (0-150); VERY LOW DENSITY LIPOPROT CALC 18 mg/dl
== END | disposition home or self-care (01) ==
LOC: C.LABBFT 14:42
PROVIDERS: ATTEND Internal Medicine
DX: I25.10 Atherosclerotic heart disease of native coronary artery without angina pectoris (principal); D64.9 Anemia, unspecified; R06.00 Dyspnea, unspecified; I51.7 Cardiomegaly; Z98.890 Other specified postprocedural states

== ENCOUNTER 2016-10-12 16:26 | Emergency (ER) | payer BC ==
[~2016-10-12] VITALS: Ht 172.7 cm; Wt 77.7 kg
[~2016-10-12 16:26] MED LIST changes: -ACET650T49 PO; -AMOX875T PO; -DOCU100C22 PO; -ESCI10TA17 PO; -FERR1TAB13 PO; -LACTCAP3 PO; -SENN-63 PO; -VALA1TAB2 PO
[2016-10-12 16:30] VITALS: Ht 172.7 cm; Wt 77.7 kg
[2016-10-12] MEDS ORDERED: SODIUM CHLORIDE 0.9% 1000ML 1,000 ML IV STA (16:56)
[2016-10-12] MEDS ORDERED: SODIUM CHLORIDE 0.9% 1000ML 250 ML IV STA (16:56)
--- NOTE | 2016-10-12 17:02 | EMERGENCY ROOM VISIT NOTE ---
History Report prepared by Sandy: Adelso Marcial Under the Supervision of: Dr. Kobe Pearson M.D. First contact with patient: 16:45 Chief Complaint: ABDOMINAL PAIN Stated Complaint: BLACK STOOL, SLIGHT ABDOMINAL PAIN History of Present Illness The patient is a 86 year old male who presents to the Emergency Room with complaints of abdominal pain that began 2 weeks ago. He rates his pain a 3/10 in severity. The patient has a history of melanoma that metastasized to his lymph which spread to his left kidney and upper right lobe in his lung. He has had both of these organs removed. His lung surgery was one month ago. While he was at rehabilitation two weeks ago, he began to have darkening stools which have progressed to melena. This has only ever happened after his kidney surgery. He had a stomach ulcer that was darkening his stools. He had two bowel movements today that he stated were hard. He denies any lightheadedness, dizziness, or pain or swelling in his legs. The patient also has a past medical history of Parkinson's, a CABG, and HTN. He has been using Tylenol to help his pain. Source of History: patient Onset: 2 weeks ago Position: abdomen Symptom Intensity: 3/10 Quality: sharp Timing: worsening Modifying Factors (Relieving): tylenol Associated Symptoms: + melena Note: He denies any lightheadedness, dizziness, or pain or edema in his legs. Review of Systems See HPI for pertinent positives & negatives. A total of 10 systems reviewed and were otherwise negative. Past Medical & Surgical Medical Problems: (1) Adjustment disorder with depressed mood (2) Alzheimers disease (3) CAD (coronary artery disease) of artery bypass graft (4) Degenerative joint disease (5) Gross catheter problem (6) Heart disease (7) Hematuria (8) Hypercholesterolemia (9) Hypertension (10) Hypotension (11) Lung mass (12) Malignant melanoma (13) Parkinson disease (14) Postoperative anemia (15) Stomach problems (16) Ulcer Old medical records were reviewed. Nurse's notes were reviewed and I agree with. Family History Diabetes mellitus Heart disease Hypertension Social History Smoking Status: Never Smoker Alcohol Use: none Drug Use: none Marital Status: Housing Status: prison Occupation Status: retired Current/Historical Medications Scheduled Acetaminophen (Arthritis Pain Relief), 1,300 MG PO BID Artificial Tear Solution (Artificial Tears), 1 DROPS OP BID Aspirin (Aspirin Ec), 81 MG PO DAILY Atorvastatin (Lipitor), 20 MG PO HS Carbidopa/Levodopa (Sinemet 25MG/100MG), 1 TAB PO TID Docusate Sodium (Docqlace), 100 MG PO BID Ferrous Sulfate (Kp Ferrous Sulfate), 1 TAB PO BID Furosemide (Lasix), 20 MG PO 3XWK Lactobacillus (Acidophilus), 1 CAP PO QDB Metoprolol Tartrate (Lopressor) (Lopressor), 50 MG PO BID Multiple Vitamins W/ Minerals (Centrum), 1 TAB PO QAM Nitroglycerin (Nitrostat), 0.4 MG UT PRN Pantoprazole (Protonix), 40 MG PO BID Ranitidine (Zantac), 150 MG PO BID Scheduled PRN Acetaminophen (Tylenol), 1,000 MG PO Q4H PRN for Pain Sennosides (Senokot), 1 TAB PO DAILY PRN for Constipation Tramadol (Ultram), 50 MG PO Q12 PRN for Pain Allergies Coded Allergies: Iodinated Diagnostic Agents (Verified Allergy, Intermediate, HIVES, ) Promethazine (Verified Allergy, Unknown, unknown, 10/12/16) INFORMATION FROM [facility] Physical Exam Vital Signs Date Time Temp Pulse Resp B/P Pulse Ox O2 Delivery O2 Flow Rate FiO2 10/12/16 19:56 36.5 62 20 145/65 98 10/12/16 19:32 62 20 145/65 98 Room Air 10/12/16 19:01 60 20 129/82 98 Room Air 10/12/16 18:19 63 20 142/78 98 Room Air 10/12/16 17:51 65 10/12/16 16:30 36.5 71 20 104/49 98 Room Air Physical Exam General: Non-ill appearing older male. Well developed well nourished in no acute distress, breathing comfortably on room air. Normal speech. HEENT: Normal cephalic atraumatic. Pupils are equal round and reactive to light. Extraocular movements are intact. However, left eye has decreased movement secondary to childhood injury. Oropharynx is pink with moist mucous membranes. No swelling of the mouth lips or tongue. Neck: Supple with a midline trachea. No meningeal signs or stiffness, no JVD or bruits. No Stridor. Chest: Clear to auscultation bilaterally. No wheezes or rhonchi. No increased work of breathing. Heart: regular rate and rhythm. Well healing scars from recent surgery. No evidence of infection. Abdomen: Soft, minimal tenderness to the central abdomen, nondistended without rebound guarding or rigidity. Extremities: No cyanosis clubbing or edema. No calf tenderness or assymetry Rectum: Dark stool, guaiac negative. Spine/Back. Non tender to palpation. No CVA tenderness Skin: Good turgor without rashes. Neurologic exam: Cranial nerves two through 12 are intact. Motor and sensation are intact and symmetrical throughout. Medical Decision & Procedures ER Provider Diagnostic Interpretation: X-ray results as stated below per interpretation by me and the radiologist: SINGLE VIEW CHEST CLINICAL HISTORY: Atypical chest pain. FINDINGS: An AP, portable, upright chest radiograph is compared to study dated 09/30/2016 and correlated with chest CT dated 07/23/2016. The examination is degraded by portable technique and patient rotation. The patient is status post midline sternotomy. The heart is enlarged and there is atherosclerotic calcification of the thoracic aorta. The pulmonary vasculature is noncongested. Postoperative change is again noted in the right upper lung with suture material projecting over the right apex. There is pleural fluid at the right lung base and bibasilar atelectasis. No left pleural effusion is seen. A fiducial is again noted in the right suprahilar region. A calcified granuloma is again noted in the right upper lobe. No pneumothorax is identified. The skeletal structures are osteopenic. Degenerative change and scoliosis are noted in the thoracic spine. Arthritic changes present in the shoulders, with surgical anchors seen in the right humeral head. Surgical clips are noted in the right axilla. IMPRESSION: 1. Again seen are post surgical changes in the right hemithorax with pleural fluid at the right lung base. This is similar in appearance to the 09/30/2016 examination. 2. There is no evidence of superimposed pneumonia. 3. Cardiomegaly without radiographic evidence of congestive failure. Electronically signed by: Vahid Alvarenga M.D. 10/12/2016 6:57 PM Dictated Date/Time: 10/12/2016 6:54 PM Laboratory Results 10/12/16 17:20 Red Blood Count 3.62, Mean Corpuscular Volume 89.2, Mean Corpuscular Hemoglobin 28.5, Mean Corpuscular Hemoglobin Concent 31.9, Mean Platelet Volume 8.8, Neutrophils (%) (Auto) 63.7, Lymphocytes (%) (Auto) 16.0, Monocytes (%) (Auto) 12.8, Eosinophils (%) (Auto) 6.9, Basophils (%) (Auto) 0.4, Neutrophils # (Auto ) 3.23, Lymphocytes # (Auto) 0.81, Monocytes # (Auto) 0.65, Eosinophils # (Auto ) 0.35, Basophils # (Auto) 0.02 10/12/16 17:20 Test 10/12/16 17:20 10/12/16 17:35 White Blood Count 5.07 K/uL (4.8-10.8) Red Blood Count 3.62 M/uL (4.7-6.1) Hemoglobin 10.3 g/dL (14.0-18.0) Hematocrit 32.3 % (42-52) Mean Corpuscular Volume 89.2 fL (80-100) Mean Corpuscular Hemoglobin 28.5 pg (25-34) Mean Corpuscular Hemoglobin Concent 31.9 g/dl (32-36) Platelet Count 199 K/uL (130-400) Mean Platelet Volume 8.8 fL (7.4-10.4) Neutrophils (%) (Auto) 63.7 % Lymphocytes (%) (Auto) 16.0 % Monocytes (%) (Auto) 12.8 % Eosinophils (%) (Auto) 6.9 % Basophils (%) (Auto) 0.4 % Neutrophils # (Auto) 3.23 K/uL (1.4-6.5) Lymphocytes # (Auto) 0.81 K/uL (1.2-3.4) Monocytes # (Auto) 0.65 K/uL (0.11-0.59) Eosinophils # (Auto) 0.35 K/uL (0-0.5) Basophils # (Auto) 0.02 K/uL (0-0.2) RDW Standard Deviation 57.0 fL (36.4-46.3) RDW Coefficient of Variation 17.3 % (11.5-14.5) Immature Granulocyte % (Auto) 0.2 % Immature Granulocyte # (Auto) 0.01 K/uL (0.00-0.02) Prothrombin Time 10.7 SECONDS (9.0-12.0) Prothromb Time International Ratio 1.0 (0.9-1.1) Activated Partial Thromboplast Time 26.1 SECONDS (21.0-31.0) Partial Thromboplastin Ratio 1.0 Anion Gap 11.0 mmol/L (3-11) Est Creatinine Clear Calc Drug Dose 40.9 ml/min Estimated GFR () 58.1 Estimated GFR (Non- 50.1 BUN/Creatinine Ratio 16.6 (10-20) Calcium Level 8.8 mg/dl (8.5-10.1) Total Bilirubin 0.7 mg/dl (0.2-1) Direct Bilirubin 0.2 mg/dl (0-0.2) Aspartate Amino Transf (AST/SGOT) 18 U/L (15-37) Alanine Aminotransferase (ALT/SGPT) 6 U/L (12-78) Alkaline Phosphatase 49 U/L (45-117) Total Protein 7.1 gm/dl (6.4-8.2) Albumin 3.1 gm/dl (3.4-5.0) Lipase 102 U/L (73-393) Urine Color YELLOW Urine Appearance CLEAR (CLEAR) Urine pH 5.0 (4.5-7.5) Urine Specific [place] 1.024 (1.000-1.030) Urine Protein NEG (NEG) Urine Glucose (UA) NEG (NEG) Urine Ketones TRACE (NEG) Urine Occult Blood NEG (NEG) Urine Nitrite NEG (NEG) Urine Bilirubin NEG (NEG) Urine Urobilinogen NEG (NEG) Urine Leukocyte Esterase TRACE (NEG) Urine WBC (Auto) 1-5 /hpf (0-5) Urine RBC (Auto) 0-4 /hpf (0-4) Urine Hyaline Casts (Auto) 1-5 /lpf (0-5) Urine Epithelial Cells (Auto) 5-10 /lpf (0-5) Urine Bacteria (Auto) NEG (NEG) Laboratory studies as stated above per my review. Medications Administered Medications (Trade) Dose Ordered Sig/Ashley Route Start Time Stop Time Status Last Admin Dose Admin Sodium Chloride 250 ml @ 999 mls/hr Q16M STAT IV 10/12/16 16:56 10/12/16 17:11 DC 10/12/16 17:31 999 MLS/HR Sodium Chloride (Nss 1000ml) 1,000 ml @ 100 mls/hr Q10H STAT IV 10/12/16 16:56 10/12/16 20:07 DC 10/12/16 17:31 100 MLS/HR ECG Indication: abdominal pain Rate (beats per minute): 66 Rhythm: normal sinus Findings: no acute ischemic change, no ectopy Comparison ECG Date: 05 Sep 2016 Change: no significant change ED Course 1644: Past medical records reviewed. The patient was evaluated in room B11B, and a complete history and physical examination were performed. 1655: Ordered Sodium Chloride 1000 ml @ 100 mls/hr IV, Sodium Chloride 250 ml @ 999 mls/hr IV 1925: The patient told me that he is taking iron supplements. His rectal exam was guaiac negative. 1944: Upon reevaluation, the patient is resting. I discussed the results and treatment plan with him. He verbalized agreement of the treatment plan. The patient was discharged home. Medical Decision Differentials include, but are not limited to; GI bleed, UTI, infection, colitis , and electrolyte or metabolic abnormality. This patient comes in as described above. He was placed in room B 11. He comes in after having dark stool. He looks well . he's had 2 hard stools today' s had no diarrhea. He is not on any blood thinners . he does have a history of peptic ulcer disease in the past. IV access established and blood work was obtained. EKG was obtained he was hydrated with IV normal saline and a rectal exam was also performed. Stool did look dark/melanotic however he was guaiac negative. I reviewed his med list and he is on iron. This is most likely was causing this. His hemoglobin is stable at 10 when I compared to the old labs. His chest x-ray has stable findings status post surgery. He has no acute electrolyte or metabolic abnormalities. He has no white count or fever to suggest sepsis. His abdomen is benign. He feels good and would like to go home. I encouraged him to follow-up with his regular doctor this week for recheck. At this point, he has no evidence of any significant GI bleed. He will follow-up with his doctor this week for recheck. Impression Primary Impression: Melena Additional Impressions: Iron Use Guaiac negative stool Scribe Attestation The scribe's documentation has been prepared under my direction and personally reviewed by me in its entirety. I confirm that the note above accurately reflects all work, treatment, procedures, and medical decision making performed by me. Departure Information Dispostion Home / Self-Care Referrals Burton Wu M.D. (PCP) Forms HOME CARE DOCUMENTATION FORM, IMPORTANT VISIT INFORMATION Patient Instructions My [facility] [address] Additional Instructions Rest. Drink plenty of fluids. Return if: Increasing pain, shortness of breath, chest pain, lightheadedness or dizziness, fever, worsening of symptoms, fever or chills, any new problems or concerns Follow-up with doctor this week for recheck Problem Qualifiers
[2016-10-12] MEDS ORDERED: DOCU100C22 PO (17:16)
[2016-10-12] MEDS ORDERED: LACTCAP3 PO (17:16)
[2016-10-12] MEDS ORDERED: ACET650T49 PO (17:16)
[2016-10-12] MEDS ORDERED: SENN-63 PO (17:16)
[2016-10-12] MEDS ORDERED: FERR1TAB13 PO (17:16)
[2016-10-12 17:42] LABS: BASO % 0.4 %; BASO ABS # 0.02 K/uL (0-0.2); COMPLETE YES; EOS % 6.9 %; HEMATOCRIT 32.3 % (42-52); IG% 0.2 %; LYMPH ABS # 0.81 K/uL (1.2-3.4); MEAN CELL VOLUME 89.2 fL (80-100); MEAN CORPUSCULAR HEMOGLOBIN 28.5 pg (25-34); MEAN CORPUSCULAR HGB CONC 31.9 g/dl (32-36); MEAN PLATELET VOLUME 8.8 fL (7.4-10.4); MONO % 12.8 %; NEUT % 63.7 %; PLATELET COUNT 199 K/uL (130-400); RED BLOOD COUNT 3.62 M/uL (4.7-6.1); WHITE BLOOD COUNT 5.07 K/uL (4.8-10.8)
[2016-10-12 17:49] LABS: URINE APPEARANCE CLEAR (CLEAR); URINE BILIRUBIN NEG (NEG); URINE COLOR YELLOW; URINE NITRITE NEG (NEG); URINE SPECIFIC GRAVITY 1.024 (1.000-1.030); UROBILINOGEN NEG (NEG)
[2016-10-12 17:51] LABS: MANUAL MICROSCOPIC REQUIRED? NO; REVIEW REQ? NO
[2016-10-12 17:52] LABS: PROTHROMBIN TIME (PATIENT) 10.7 SECONDS (9.0-12.0)
[2016-10-12 17:57] LABS: BUN/CREATININE RATIO 16.6 (10-20); CALCIUM 8.8 mg/dl (8.5-10.1); CREATININE 1.3 mg/dl (0.60-1.40); POTASSIUM 4.4 mmol/L (3.5-5.1)
--- NOTE | 2016-10-12 18:59 | DIAGNOSTIC IMAGING REPORT ---
SINGLE VIEW CHEST CLINICAL HISTORY: Atypical chest pain. FINDINGS: An AP, portable, upright chest radiograph is compared to study dated 09/30/2016 and correlated with chest CT dated 07/23/2016. The examination is degraded by portable technique and patient rotation. The patient is status post midline sternotomy. The heart is enlarged and there is atherosclerotic calcification of the thoracic aorta. The pulmonary vasculature is noncongested. Postoperative change is again noted in the right upper lung with suture material projecting over the right apex. There is pleural fluid at the right lung base and bibasilar atelectasis. No left pleural effusion is seen. A fiducial is again noted in the right suprahilar region. A calcified granuloma is again noted in the right upper lobe. No pneumothorax is identified. The skeletal structures are osteopenic. Degenerative change and scoliosis are noted in the thoracic spine. Arthritic changes present in the shoulders, with surgical anchors seen in the right humeral head. Surgical clips are noted in the right axilla. IMPRESSION: 1. Again seen are post surgical changes in the right hemithorax with pleural fluid at the right lung base. This is similar in appearance to the 09/30/2016 examination. 2. There is no evidence of superimposed pneumonia. 3. Cardiomegaly without radiographic evidence of congestive failure. Electronically signed by: Vahid Alvarenga M.D. 10/12/2016 6:57 PM Dictated Date/Time: 10/12/2016 6:54 PM
[2016-10-12 19:56] VITALS: BP 145/65; PULSE 62; TEMP 36.5; O2SAT 98
== END 2016-10-12 19:58 | disposition home or self-care (01) ==
LOC: C.EDB 16:29
DX: K92.1 Melena (principal); E78.00 Pure hypercholesterolemia, unspecified; I25.10 Atherosclerotic heart disease of native coronary artery without angina pectoris; M19.90 Unspecified osteoarthritis, unspecified site; G20 Parkinson's disease; F02.80 Dementia in other diseases classified elsewhere, unspecified severity, without behavioral disturbance, psychotic disturbance, mood disturbance, and anxiety; G30.9 Alzheimer's disease, unspecified; I10 Essential (primary) hypertension; Z87.11 Personal history of peptic ulcer disease; Z85.820 Personal history of malignant melanoma of skin; Z85.118 Personal history of other malignant neoplasm of bronchus and lung; Z85.528 Personal history of other malignant neoplasm of kidney; Z90.2 Acquired absence of lung [part of]; Z90.5 Acquired absence of kidney; Z95.1 Presence of aortocoronary bypass graft; Z79.82 Long term (current) use of aspirin; Z83.3 Family history of diabetes mellitus; Z82.49 Family history of ischemic heart disease and other diseases of the circulatory system; Z79.899 Other long term (current) drug therapy

== ENCOUNTER → 2016-10-22 | Outpatient (CLI) | payer BC ==
[~2016-10-22] MED LIST changes: +ACET650T49 PO; +AMOX875T PO; -BISA-34 PO; -CLC100 PO; +DOCU100C22 PO; +ESCI10TA17 PO; +FERR1TAB13 PO; +LACTCAP3 PO; -POLYSOL4 OP; -SACC250C11 PO; +SENN-63 PO; +VALA1TAB2 PO
[2016-10-22 08:49] LABS: MEAN CORPUSCULAR HGB CONC 31.6 g/dl (32-36); MEAN PLATELET VOLUME 10.1 fL (7.4-10.4); PLATELET COUNT 201 K/uL (130-400); RED BLOOD COUNT 3.48 M/uL (4.7-6.1); WHITE BLOOD COUNT 4.14 K/uL (4.8-10.8)
--- NOTE | 2016-10-28 10:42 | CODING QUERY NO DIAGNOSIS ---
TREATMENT RENDERED WITHOUT A DIAGNOSIS To promote full compliance with coding requirements relating to patient care, physician participation is requested in all cases of certified procedural coder uncertainty. Please assist us with providing a diagnosis/symptom for the test(s) below: A diagnosis/symptom was not documented on your Order. A valid diagnosis/symptom is required to bill all insurances. Please remember that we are unable to code a diagnosis of rule out, probable, possible, questionable, or suspected. Tests that require a diagnosis: * CBC W/O DIFF DIAGNOSIS: Provider Signature: Date: Thank you Jigna [facility] [employer] Once completed, please kindly fax back to [phone] For questions please call [phone]
== END | disposition home or self-care (01) ==
LOC: C.LABSPEC 07:55
PROVIDERS: ATTEND Nurse Practitioner
DX: D64.9 Anemia, unspecified (principal)

== ENCOUNTER → 2016-11-13 | Outpatient (CLI) | payer BC ==
--- NOTE | 2016-11-13 09:24 | DIAGNOSTIC IMAGING REPORT ---
CHEST 2 VIEWS ROUTINE CLINICAL HISTORY: J90 Pleural effusion on [id number] dyspnea COMPARISON STUDY: 10/12/2016 FINDINGS: Improved aeration both lung bases. Unchanging parenchymal density right pulmonary apex. Left lung is considered clear. IMPRESSION: Stable postoperative change. Improved aeration both lung bases Electronically signed by: Wilian Clay M.D. 11/13/2016 9:22 AM Dictated Date/Time: 11/13/2016 9:16 AM
[2016-11-13 10:21] LABS: BASO % 0.7 %; BASO ABS # 0.04 K/uL (0-0.2); COMPLETE YES; EOS % 6.3 %; HEMATOCRIT 39.2 % (42-52); IG% 0.2 %; LYMPH % 22.3 %; MEAN CELL VOLUME 92.2 fL (80-100); MEAN CORPUSCULAR HEMOGLOBIN 30.1 pg (25-34); MEAN CORPUSCULAR HGB CONC 32.7 g/dl (32-36); MEAN PLATELET VOLUME 9.8 fL (7.4-10.4); MONO % 14.9 %; NEUT % 55.6 %; PLATELET COUNT 195 K/uL (130-400); RED BLOOD COUNT 4.25 M/uL (4.7-6.1); WHITE BLOOD COUNT 5.37 K/uL (4.8-10.8)
== END | disposition home or self-care (01) ==
LOC: C.RAD1850 09:01
PROVIDERS: ATTEND Internal Medicine
DX: J90 Pleural effusion, not elsewhere classified (principal); D64.9 Anemia, unspecified

== ENCOUNTER → 2017-01-20 | Outpatient (CLI) | payer BC ==
--- NOTE | 2017-01-20 11:13 | DIAGNOSTIC IMAGING REPORT ---
CHEST CT WITHOUT CONTRAST CT DOSE: 270.85 mGycm HISTORY: Melanoma. MELANOMA TECHNIQUE: Multiaxial CT images of the chest were performed without contrast. COMPARISON: 07/23/2016 FINDINGS: Interval resection of a nodular density right upper lung. Moderate surrounding postprocedural scarring. Central associated nodularity transaxial image 13 measuring 1 cm which may be postoperative versus recurrent disease. Interval 3 mm nodular density superior segment right lower lobe. Postprocedural scarring versus potential additional nodularity peripheral aspect right midlung. Mild chronic bibasilar parenchymal scarring. Potential pleural-based nodule measuring 2 mm transaxial image 34 lateral aspect right midlung. Moderate stable cardiomegaly. Prior median sternotomy. No significant mediastinal or hilar adenopathy. IMPRESSION: 1. Interval resection of the nodular density right pulmonary apex. 2. Postoperative parenchymal scarring versus recurrent nodularity right pulmonary apex and lateral right midlung. 3. Possible early micronodularity at several additional sites. Electronically signed by: Wilian Clay M.D. 01/20/2017 11:12 AM Dictated Date/Time: 01/20/2017 11:04 AM
--- NOTE | 2017-01-20 11:16 | DIAGNOSTIC IMAGING REPORT ---
CORRECTED REPORT CT SCAN OF THE ABDOMEN AND PELVIS WITHOUT CONTRAST CLINICAL HISTORY: MELANOMA HISTORY OF LEFT NEPHRECTOMY COMPARISON STUDY: 07/23/2016 TECHNIQUE: CT scan of the abdomen and pelvis was performed from the lung bases to the proximal femurs. Images are reviewed in the axial, sagittal, and coronal planes. IV contrast was not administered for this examination. CT DOSE: 715.52 mGycm FINDINGS: Lower chest: The heart is enlarged. There are bibasal atelectatic changes. Liver: There are few too small to characterize tiny hepatic hypodensities Gallbladder: Cholelithiasis Spleen: Normal in size and attenuation. Pancreas: Unremarkable. Adrenal glands: Unremarkable. Kidneys: The left kidney is surgically absent. There is a punctate nonobstructing lower pole right renal calculus. No right renal masses are visualized on this noncontrast study. There is no hydronephrosis Bowel: There are no transition zones indicate bowel obstruction. The appendix appears normal. There is moderate colonic diverticulosis. No acute peridiverticular inflammatory changes are visualized. Peritoneum: There is no intraperitoneal free air or abdominal ascites. Vasculature: The abdominal aorta is normal in course and caliber. Adenopathy: None. Pelvic viscera: Visualization of the pelvis is limited due to artifact from bilateral hip prostheses. Skeletal structures: There is a left hip joint effusion. There is fluid within the left iliopsoas bursa. There is also fluid posterior to the left hip which could be extracapsular. There are bony lytic changes anterior to the acetabular cup. IMPRESSION: 1. There are few tiny too small to characterize hepatic hypodensities 2. Cholelithiasis 3. Surgically absent left kidney 4. Diverticulosis. No evidence of acute diverticulitis 5. Punctate lower pole right renal calculus 6. Left hip joint effusion. Iliopsoas bursal fluid collection. Fluid collection posterior to the left hip which could be extracapsular. These collections remain similar. There are lytic changes anterior to the left acetabular cup Electronically signed by: Danilo Cedeño M.D. 01/20/2017 11:30 AM Dictated Date/Time: 01/20/2017 11:06 AM
== END | disposition home or self-care (01) ==
LOC: C.CTS 08:58
PROVIDERS: ATTEND Internal Medicine Hematology & Oncology
DX: C43.9 Malignant melanoma of skin, unspecified (principal); R93.2 Abnormal findings on diagnostic imaging of liver and biliary tract; Z90.5 Acquired absence of kidney; K57.90 Diverticulosis of intestine, part unspecified, without perforation or abscess without bleeding; N20.0 Calculus of kidney; M25.452 Effusion, left hip

== ENCOUNTER 2017-03-14 05:28 | Emergency (ER) | payer BC ==
[~2017-03-14] VITALS: Ht 172.7 cm; Wt 77.8 kg
[~2017-03-14 05:28] MED LIST changes: -AMOX875T PO; -ESCI10TA17 PO; -VALA1TAB2 PO
[2017-03-14 05:33] VITALS: BP 145/77; PULSE 77; TEMP 36.6; O2SAT 98; Ht 172.7 cm; Wt 77.8 kg
[2017-03-14] MEDS ORDERED: VALA1TAB2 PO (05:50)
--- NOTE | 2017-03-14 05:55 | EMERGENCY ROOM VISIT NOTE ---
History Report prepared by Sandy: Fred Araujo Under the Supervision of: Dr. Lawson Drake M.D. First contact with patient: 05:37 Chief Complaint: SKIN PROBLEM Stated Complaint: ITCHY ALL OVER History of Present Illness The patient is a 86 year old male who presents to the Emergency Room with complaints of worsening itchiness for the past couple of weeks. The patient states that he has been itching on his head, eyes, ears, and nose. He states that the itching is on both sides, and it itches so much that he has started to bleed from the scratching. He additionally states that he feels like there is a rash on his head. The patient states that he is no diabetic. He states that he took Benadryl, and it has not helped. Source of History: patient Onset: three weeks ago Position: head, ear, eye Quality: other (itching) Timing: worsening Associated Symptoms: + rash Review of Systems See HPI for pertinent positives & negatives. A total of 10 systems reviewed and were otherwise negative. Past Medical & Surgical Medical Problems: (1) Adjustment disorder with depressed mood (2) Alzheimers disease (3) CAD (coronary artery disease) of artery bypass graft (4) Degenerative joint disease (5) Gross catheter problem (6) Heart disease (7) Hematuria (8) Hypercholesterolemia (9) Hypertension (10) Hypotension (11) Lung mass (12) Malignant melanoma (13) Parkinson disease (14) Postoperative anemia (15) Stomach problems (16) Ulcer Family History Diabetes mellitus Heart disease Hypertension Social History Smoking Status: Never Smoker Alcohol Use: none Drug Use: none Marital Status: Housing Status: pen[facility]entiary Occupation Status: retired Current/Historical Medications Scheduled Acetaminophen (Arthritis Pain Relief), 1,300 MG PO BID Artificial Tear Solution (Artificial Tears), 1 DROPS OP BID Aspirin (Aspirin Ec), 81 MG PO DAILY Atorvastatin (Lipitor), 20 MG PO HS Carbidopa/Levodopa (Sinemet 25MG/100MG), 1 TAB PO TID Docusate Sodium (Docqlace), 100 MG PO BID Ferrous Sulfate (Kp Ferrous Sulfate), 1 TAB PO BID Furosemide (Lasix), 20 MG PO 3XWK Lactobacillus (Acidophilus), 1 CAP PO QDB Metoprolol Tartrate (Lopressor) (Lopressor), 50 MG PO BID Multiple Vitamins W/ Minerals (Centrum), 1 TAB PO QAM Nitroglycerin (Nitrostat), 0.4 MG UT PRN Pantoprazole (Protonix), 40 MG PO BID Ranitidine (Zantac), 150 MG PO BID Valacyclovir Hcl (Valtrex), 1,000 MG PO TID Scheduled PRN Acetaminophen (Tylenol), 1,000 MG PO Q4H PRN for Pain Sennosides (Senokot), 1 TAB PO DAILY PRN for Constipation Tramadol (Ultram), 50 MG PO Q12 PRN for Pain Allergies Coded Allergies: Iodinated Diagnostic Agents (Verified Allergy, Intermediate, HIVES, ) Promethazine (Verified Allergy, Unknown, unknown, 10/12/16) INFORMATION FROM [facility] Physical Exam Vital Signs Date Time Temp Pulse Resp B/P (MAP) Pulse Ox O2 Delivery O2 Flow Rate FiO2 03/14/17 05:33 36.6 77 18 145/77 98 Room Air Physical Exam GENERAL: Patient is a healthy-appearing well-nourished male HEAD: Normocephalic atraumatic EYES: Ocular movements intact pupils equal and react to light OROPHARYNX mucous membranes are moist no exudates present no erythema or edema present NECK: Supple no nuchal rigidity CHEST: Good equal expansion LUNGS: Clear and equal to auscultation CARDIAC: Normal S1 and S2 ABDOMEN: Soft nontender no guarding BACK: No CVA tenderness EXTREMITIES: No pain upon palpation normal muscle strength in all groups no clubbing cyanosis or edema NEURO: Patient is following commands and answering questions appropriately. Alert and oriented x3 Cranial Nerves 2-12 grossly intact SKIN: Blister-like rash that does not cross the midline to the right side of his head. Medical Decision & Procedures Medications Administered Medications (Trade) Dose Ordered Sig/Ashley Route Start Time Stop Time Status Last Admin Dose Admin Valacyclovir HCl (Valtrex Tab) 1,000 mg NOW STAT PO 03/14/17 05:48 03/14/17 05:50 DC 03/14/17 05:53 1,000 MG ED Course 0537: Past medical records reviewed. The patient was evaluated in room B10. A complete history and physical examination was performed. 0548: Valtrex Tab 1000mg PO 0557: Upon reexamination the patient is feeling well. I discussed results and treatment plan with the patient. He verbalizes agreement and understanding. The patient is ready for discharge. Medical Decision Differential diagnosis: Etiologies such as contact dermatitis, viral exanthem, urticaria, allergic reaction, León-Praneeth syndrome, toxic epidermal necrolysis, erythema multiforme, cellulitis, scabies, HSV, varicella, zoster, eczema, staph scalded skin syndrome, fungal infection, as well as others were entertained. This is an 86-year-old male who presents emergency department with a blisterlike rash to the back of his head. The patient appears to have shingles on examination. For this reason I will place the patient on Valtrex. 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 I do feel he is well enough to be discharged home until that follow-up. Patient was in agreement with the treatment plan. Medication Reconcilliation Current Medication List: was personally reviewed by me Blood Pressure Screening Patient's blood pressure: Elevated blood pressure Blood pressure disposition: Referred to PCP Impression Primary Impression: Shingles Scribe Attestation The scribe's documentation has been prepared under my direction and personally reviewed by me in its entirety. I confirm that the note above accurately reflects all work, treatment, procedures, and medical decision making performed by me. Departure Information Dispostion Home / Self-Care Prescriptions Valacyclovir Hcl (VALTREX) 1 Gm Tab 1000 MG PO TID, #21 TAB Prov: Lawson Drake MD 03/14/17 Referrals Burton Wu M.D. (PCP) Forms HOME CARE DOCUMENTATION FORM, IMPORTANT VISIT INFORMATION, WORK / SCHOOL INSTRUCTIONS Patient Instructions My [facility] Additional Instructions Follow up with Utilization Management Manager Follow up with PCP for elevated BP. You have been examined and treated today on an emergency basis only. This is not a substitute for, or an effort to provide, complete comprehensive medical care. It is impossible to recognize and treat all injuries or illnesses in a single emergency department visit. It is therefore important that you follow up closely with Dr Wu. Call as soon as possible for an appointment. Thank you for your time and consideration. I look forward to speaking with you again soon. Please don't hesitate to call us if you have any questions. Problem Qualifiers Primary Impression: Shingles Herpes zoster complications: without complications Qualified Codes: B02.9 - Zoster without complications
== END 2017-03-14 05:58 | disposition home or self-care (01) ==
LOC: C.EDB 05:28
DX: B02.9 Zoster without complications (principal); F43.21 Adjustment disorder with depressed mood; G30.9 Alzheimer's disease, unspecified; I25.10 Atherosclerotic heart disease of native coronary artery without angina pectoris; M19.90 Unspecified osteoarthritis, unspecified site; E78.00 Pure hypercholesterolemia, unspecified; I10 Essential (primary) hypertension; Z85.820 Personal history of malignant melanoma of skin; Z83.3 Family history of diabetes mellitus; Z82.49 Family history of ischemic heart disease and other diseases of the circulatory system; Z79.82 Long term (current) use of aspirin; Z79.899 Other long term (current) drug therapy; G20 Parkinson's disease

== ENCOUNTER → 2017-04-09 | Outpatient (CLI) | payer BC ==
[~2017-04-09] MED LIST changes: +AMOX875T PO; +ESCI10TA17 PO
--- NOTE | 2017-04-09 12:48 | DIAGNOSTIC IMAGING REPORT ---
CT SCAN OF THE ABDOMEN AND PELVIS WITHOUT IV CONTRAST CLINICAL HISTORY: Malignant melanoma. COMPARISON STUDY: Prior abdominal CT scans, most recently dated 01/20/2017. TECHNIQUE: CT scan of the abdomen and pelvis is performed from the lung bases to the proximal femora. Images are reviewed in the axial, sagittal, and coronal planes. IV contrast was not administered for this examination as per the referring clinician. Note that the examination was performed in suboptimal fashion without IV contrast. Automated dose control exposure was utilized. CT DOSE: 927.19 mGycm FINDINGS: Lung bases: The patient is status post midline sternotomy. The heart is enlarged and without pericardial effusion. The coronary arteries are densely calcified. There is a small hiatal hernia. Chronic changes are present at the lung bases. No airspace consolidation or pleural effusion is identified. Liver: The unenhanced liver is normal in size, contour, and attenuation. There is no intrahepatic biliary ductal dilatation. Scattered subcentimeter hepatic hypodensities may represent cysts but are too small for definitive characterization. Gallbladder: There are calcified gallstones. There is no CT evidence of cholecystitis. Spleen: Normal in size and attenuation. There are calcified splenic granulomas. Pancreas: Atrophic. Adrenal glands: Unremarkable. Kidneys: The left kidney is not identified and presumed surgically absent. The unenhanced right kidney demonstrates mild cortical atrophy and is without hydronephrosis. There is a 3 mm nonobstructing calculus in the right lower pole. There is no evidence of contour deforming renal mass.. Abdominal vasculature: The abdominal aorta is normal in course and caliber noting moderate to advanced atherosclerotic calcification. Bowel: The small bowel and colon are normal in course and caliber. There is mild to moderate sigmoid diverticulosis without CT evidence of acute diverticulitis. The appendix is well-visualized and normal. Peritoneum: There is no intraperitoneal free air or abdominal ascites. Lymphadenopathy: None. Pelvic viscera: Evaluation of the pelvis is significantly degraded by streak artifact from bilateral hip arthroplasties. The bladder is grossly unremarkable but not well assessed. The prostate gland is not visualized. There is a fat-containing left inguinal hernia. There is asymmetric atrophy of the left iliopsoas and gluteal musculature as compared to the right. Skeletal structures: The skeletal structures are osteopenic. No lytic or blastic lesions are seen. There is mild to moderate lumbosacral spondylosis and scoliosis. Degenerative changes are seen involving the sacroiliac joints. Bilateral hip arthroplasties are in place. A left hip joint effusion is identified. Extensive bursal fluid surrounds the left hip, and extends into the left iliopsoas musculature as well as the left hip musculature. IMPRESSION: 1. Suboptimal examination without IV contrast. 2. There is no evidence of metastatic disease in the abdomen and pelvis on this unenhanced examination. 3. Cholelithiasis without CT evidence of acute cholecystitis. 4. The left kidney is not identified and presumed surgically absent. 5. Mild to moderate sigmoid diverticulosis without CT evidence of acute diverticulitis. 6. Cardiomegaly. 7. Nonobstructing right renal calculus. 8. Left hip joint effusion and bursal fluid surrounding the left hip are similar to previous. 9. Additional changes as above. Electronically signed by: Vahid Alvarenga M.D. 04/09/2017 12:47 PM Dictated Date/Time: 04/09/2017 12:40 PM
--- NOTE | 2017-04-09 12:56 | DIAGNOSTIC IMAGING REPORT ---
(CHEST) THORAX WITHOUT CT DOSE: 492.06 mGycm CLINICAL HISTORY: 86 years-old Male with history of metastatic melanoma with prior resection. TECHNIQUE: Multiaxial CT images of the chest were performed without contrast. A dose lowering technique was utilized adhering to the principles of ALARA. COMPARISON: CT chest 01/20/[address] 08/11/2016. FINDINGS: No focal thyroid nodule. Heart is moderately enlarged with coronary arterial calcifications, evidence of prior CABG. Prior median sternotomy. Mildly enlarged subcarinal lymph node is again seen, 10 mm in short axis which is unchanged and nonspecific. No new adenopathy about the chest is identified. There is moderate atherosclerotic plaquing of the thoracic aorta and proximal great vessels. There is no pneumothorax or pleural effusion. Bibasilar atelectatic changes are noted. There is evidence of prior wedge resection of the right upper lobe. Focal spiculated nodularity surrounding the suture material is again seen, 1.8 x 1.1 cm as seen on image 92 of series 4, previously 2.0 x 1.3 cm on study dated 01/20/2017. Additionally, there is nodularity along the minor fissure on the right measuring up to 4 mm transversely, unchanged from 01/20/2017 suggesting perifissural lymph nodes. No new focal pulmonary nodules are identified. The central airways are patent. 5 mm area of nodularity is seen involving the proximal aspect of the left mainstem bronchus on image 146 which is new from prior study suggesting mucosal debris. Air is seen at the base of this focus. Imaged upper abdominal structures demonstrate no acute abnormality. Gallstones are seen within the gallbladder lumen. Soft tissues are unremarkable. Postsurgical changes involve the right humeral head. No suspicious lytic bone lesions are seen to suggest metastasis. There is convex right curvature of the midthoracic spine. IMPRESSION: 1. Evidence of prior wedge resection of the right upper lobe with persistent spiculated nodularity surrounding the suture material measuring up to 1.8 cm, unchanged from 01/20/2017. Pleural parenchymal scarring versus recurrent or residual disease are again differential considerations. Close attention at follow-up is recommended. 2. Areas of nodularity involving the fissures on the right are compatible with perifissural lymph nodes and are unchanged. 3. No suspicious appearing adenopathy. 4. Cardiomegaly with prior median sternotomy and CABG. 5. Cholelithiasis. Electronically signed by: Zay Hurt M.D. 04/09/2017 12:55 PM Dictated Date/Time: 04/09/2017 12:39 PM
== END | disposition home or self-care (01) ==
LOC: C.CTS 12:06
PROVIDERS: ATTEND Internal Medicine Hematology & Oncology
DX: C43.9 Malignant melanoma of skin, unspecified (principal); K80.20 Calculus of gallbladder without cholecystitis without obstruction; I51.7 Cardiomegaly; N20.0 Calculus of kidney; M25.452 Effusion, left hip; Z90.2 Acquired absence of lung [part of]; Z95.1 Presence of aortocoronary bypass graft

== ENCOUNTER 2017-04-30 04:02 | Emergency (ER) | payer BC ==
[~2017-04-30] VITALS: Ht 172.7 cm; Wt 82.0 kg
[~2017-04-30 04:02] MED LIST changes: -AMOX875T PO; -ESCI10TA17 PO
[2017-04-30 04:08] VITALS: TEMP 36.8; Ht 172.7 cm; Wt 82.0 kg
[2017-04-30 04:39] LABS: BASO % 0.4 %; BASO ABS # 0.02 K/uL (0-0.2); COMPLETE YES; EOS % 5.7 %; HEMATOCRIT 41.7 % (42-52); IG% 0.2 %; LYMPH % 26.4 %; LYMPH ABS # 1.21 K/uL (1.2-3.4); MEAN CELL VOLUME 95.6 fL (80-100); MEAN CORPUSCULAR HEMOGLOBIN 33.3 pg (25-34); MEAN CORPUSCULAR HGB CONC 34.8 g/dl (32-36); MEAN PLATELET VOLUME 9.6 fL (7.4-10.4); MONO % 11.6 %; NEUT % 55.7 %; PLATELET COUNT 119 K/uL (130-400); RED BLOOD COUNT 4.36 M/uL (4.7-6.1); WHITE BLOOD COUNT 4.58 K/uL (4.8-10.8)
--- NOTE | 2017-04-30 04:39 | EMERGENCY ROOM VISIT NOTE ---
History Report prepared by Sandy: Bogdan Max Under the Supervision of: Dr. Lizz Crocker M.D. First contact with patient: 04:13 Chief Complaint: HYPERTENSION Stated Complaint: HYPERTENSION History of Present Illness The patient is an 86 year old male who presents to the Emergency Room with complaints of constant hypertension beginning prior to arrival. The patient states he woke up in the night with a headache and sweats. He reports he took his blood pressure, and it was 198/98. The patient notes EMS did not give him anything. He states his headache has resolved after two hours because his blood pressure lowered slightly. The patient reports he started cutting his Lopressor in half this weekend, and he started Effexor for his nerves. He denies chest pain. The patient notes he sleeps with an air conditioner. He states he has a history of melanoma and has had multiple surgeries. Source of History: patient Onset: prior to arrival Position: other (global) Quality: other (HTN) Timing: constant Associated Symptoms: + headache, No chest pain Note: Associated symptoms: sweats Review of Systems See HPI for pertinent positives & negatives. A total of 10 systems reviewed and were otherwise negative. Past Medical & Surgical Medical Problems: (1) Adjustment disorder with depressed mood (2) Alzheimers disease (3) CAD (coronary artery disease) of artery bypass graft (4) Degenerative joint disease (5) Gross catheter problem (6) Heart disease (7) Hematuria (8) Hypercholesterolemia (9) Hypertension (10) Hypotension (11) Lung mass (12) Malignant melanoma (13) Parkinson disease (14) Postoperative anemia (15) Stomach problems (16) Ulcer Family History Diabetes mellitus Heart disease Hypertension Social History Smoking Status: Never Smoker Alcohol Use: none Drug Use: none Marital Status: Housing Status: senior care Occupation Status: retired Current/Historical Medications Scheduled Acetaminophen (Arthritis Pain Relief), 1,300 MG PO BID Artificial Tear Solution (Artificial Tears), 1 DROPS OP BID Aspirin (Aspirin Ec), 81 MG PO DAILY Atorvastatin (Lipitor), 20 MG PO HS Carbidopa/Levodopa (Sinemet 25MG/100MG), 1 TAB PO TID Docusate Sodium (Docqlace), 100 MG PO BID Ferrous Sulfate (Kp Ferrous Sulfate), 1 TAB PO BID Furosemide (Lasix), 20 MG PO 3XWK Lactobacillus (Acidophilus), 1 CAP PO QDB Metoprolol Tartrate (Lopressor) (Lopressor), 50 MG PO BID Multiple Vitamins W/ Minerals (Centrum), 1 TAB PO QAM Nitroglycerin (Nitrostat), 0.4 MG UT PRN Pantoprazole (Protonix), 40 MG PO BID Ranitidine (Zantac), 150 MG PO BID Scheduled PRN Acetaminophen (Tylenol), 1,000 MG PO Q4H PRN for Pain Sennosides (Senokot), 1 TAB PO DAILY PRN for Constipation Tramadol (Ultram), 50 MG PO Q12 PRN for Pain Allergies Coded Allergies: Iodinated Diagnostic Agents (Verified Allergy, Intermediate, HIVES, ) Promethazine (Verified Allergy, Unknown, unknown, 04/30/17) INFORMATION FROM [facility] Physical Exam Vital Signs Date Time Temp Pulse Resp B/P (MAP) Pulse Ox O2 Delivery O2 Flow Rate FiO2 04/30/17 06:20 62 18 155/89 98 Room Air 04/30/17 05:27 59 18 164/82 98 Room Air 04/30/17 04:08 36.8 67 18 172/88 98 Room Air 04/30/17 04:07 64 Physical Exam Vital signs reviewed. General: Well-appearing 86 year old male, in no significant distress. Noted to be hypertension. HEENT: No scleral icterus, PERRLA, neck supple. Atraumatic. Cardiovascular: Regular rate and rhythm, no extra sounds. Pulmonary: Clear to auscultation bilaterally, normal work of breathing. Abdomen: Soft, nontender, nondistended, positive bowel sounds. Musculoskeletal: Atraumatic, no peripheral edema. Neurologic: Patient awake alert and oriented x 3, full strength in all 4 extremities. Cranial nerves 2 through 12 grossly intact. Skin: Warm, dry, no rash Medical Decision & Procedures ER Provider Diagnostic Interpretation: X-ray results as stated below per interpretation by me: One view chest: Post-surgical change noted, right perihilar density - consistent with previous images, chronic change noted. No failure or evidence of new infiltrate. Laboratory Results 04/30/17 04:20 Red Blood Count 4.36, Mean Corpuscular Volume 95.6, Mean Corpuscular Hemoglobin 33.3, Mean Corpuscular Hemoglobin Concent 34.8, Mean Platelet Volume 9.6, Neutrophils (%) (Auto) 55.7, Lymphocytes (%) (Auto) 26.4, Monocytes (%) (Auto) 11.6, Eosinophils (%) (Auto) 5.7, Basophils (%) (Auto) 0.4, Neutrophils # (Auto ) 2.55, Lymphocytes # (Auto) 1.21, Monocytes # (Auto) 0.53, Eosinophils # (Auto ) 0.26, Basophils # (Auto) 0.02 04/30/17 04:20 Test 04/30/17 04:20 White Blood Count 4.58 K/uL (4.8-10.8) Red Blood Count 4.36 M/uL (4.7-6.1) Hemoglobin 14.5 g/dL (14.0-18.0) Hematocrit 41.7 % (42-52) Mean Corpuscular Volume 95.6 fL (80-100) Mean Corpuscular Hemoglobin 33.3 pg (25-34) Mean Corpuscular Hemoglobin Concent 34.8 g/dl (32-36) Platelet Count 119 K/uL (130-400) Mean Platelet Volume 9.6 fL (7.4-10.4) Neutrophils (%) (Auto) 55.7 % Lymphocytes (%) (Auto) 26.4 % Monocytes (%) (Auto) 11.6 % Eosinophils (%) (Auto) 5.7 % Basophils (%) (Auto) 0.4 % Neutrophils # (Auto) 2.55 K/uL (1.4-6.5) Lymphocytes # (Auto) 1.21 K/uL (1.2-3.4) Monocytes # (Auto) 0.53 K/uL (0.11-0.59) Eosinophils # (Auto) 0.26 K/uL (0-0.5) Basophils # (Auto) 0.02 K/uL (0-0.2) RDW Standard Deviation 47.4 fL (36.4-46.3) RDW Coefficient of Variation 13.5 % (11.5-14.5) Immature Granulocyte % (Auto) 0.2 % Immature Granulocyte # (Auto) 0.01 K/uL (0.00-0.02) Anion Gap 9.0 mmol/L (3-11) Est Creatinine Clear Calc Drug Dose 40.9 ml/min Estimated GFR () 58.1 Estimated GFR (Non- 50.1 BUN/Creatinine Ratio 18.6 (10-20) Calcium Level 8.5 mg/dl (8.5-10.1) Magnesium Level 2.2 mg/dl (1.8-2.4) Total Bilirubin 0.9 mg/dl (0.2-1) Direct Bilirubin 0.2 mg/dl (0-0.2) Aspartate Amino Transf (AST/SGOT) 17 U/L (15-37) Alanine Aminotransferase (ALT/SGPT) 16 U/L (12-78) Alkaline Phosphatase 52 U/L (45-117) Total Creatine Kinase 70 U/L (39-308) Creatine Kinase MB 1.3 ng/ml (0.5-3.6) Creatine Kinase MB Ratio 1.9 (0-3.0) Troponin I < 0.015 ng/ml (0-0.045) Total Protein 7.3 gm/dl (6.4-8.2) Albumin 3.8 gm/dl (3.4-5.0) Laboratory results per my review. Medications Administered Medications (Trade) Dose Ordered Sig/Ashley Route Start Time Stop Time Status Last Admin Dose Admin Metoprolol Tartrate (Lopressor Tab) 50 mg NOW STAT PO 04/30/17 06:03 04/30/17 06:04 DC 04/30/17 06:30 50 MG Carbidopa/Levodopa (Sinemet 25/ 100MG Tab) 1 tab NOW STAT PO 04/30/17 06:03 04/30/17 06:04 DC 04/30/17 06:29 1 TAB Pantoprazole Sodium (Protonix Tab) 40 mg NOW STAT PO 04/30/17 06:03 04/30/17 06:04 DC 04/30/17 06:29 40 MG ECG Indication: other (hypertension) Rate (beats per minute): 62 Rhythm: sinus rhythm Findings: PAC, no acute ischemic change, other (Poor quality baseline for interpretation) ED Course 0429: Past medical records reviewed. The patient was evaluated in room B11B. A complete history and physical examination was performed. 0603: Ordered Protonix Tab 40mg PO, Carbidopa/Levodopa 1 tab PO, Lopressor Tab 50mg PO 0628: Upon reevaluation, the patient appeared to have improvement of his symptoms. I discussed findings with him. He verbalized agreement of the treatment plan. The patient was discharged home. Medical Decision Differential diagnosis includes: Intracranial hemorrhage, intracranial mass, migraine headache, tension headache , sinusitis, meningitis, hypertension urgency. This patient was evaluated and appeared to be in no significant distress. IV access was obtained and laboratory work was drawn. The patient was placed on the cardiac surgeon. Patient recently cut his metoprolol in half. He was advised to go back to his usual metoprolol tartrate 50 mg twice a day. He was given a dose now along with his Sinemet and Protonix per his request. The patient's headache has resolved. Chest x-ray is negative for acute findings. EKG reveals no evidence of acute ischemia. The patient was advised to follow- up with his physician this week. They may need to adjust the metoprolol and added a new agent if symptoms persist. For now the patient is stable and will be discharged. He will return to the ER for worsening of symptoms or any medical concerns. Medication Reconcilliation Current Medication List: was personally reviewed by me Blood Pressure Screening Patient's blood pressure: Elevated blood pressure Blood pressure disposition: Referred to PCP Impression Primary Impression: Hypertension Scribe Attestation The scribe's documentation has been prepared under my direction and personally reviewed by me in its entirety. I confirm that the note above accurately reflects all work, treatment, procedures, and medical decision making performed by me. Departure Information Dispostion Home / Self-Care Referrals Burton Wu M.D. (PCP) Forms HOME CARE DOCUMENTATION FORM, IMPORTANT VISIT INFORMATION, WORK / SCHOOL INSTRUCTIONS Patient Instructions My [facility] Additional Instructions Diagnosis: Hypertension Please resume your full dose of blood pressure medication, metoprolol tartrate 50 mg twice daily. Continue other medications as prescribed. Contact your doctor today to schedule a follow-up blood pressure check. Return to the emergency department for worsening of symptoms or any medical concerns.
[2017-04-30 04:57] LABS: BUN/CREATININE RATIO 18.6 (10-20); CALCIUM 8.5 mg/dl (8.5-10.1); CREATININE 1.3 mg/dl (0.60-1.40); MAGNESIUM 2.2 mg/dl (1.8-2.4); POTASSIUM 4.1 mmol/L (3.5-5.1)
[2017-04-30 05:00] LABS: CKMB/CK RATIO 1.9 (0-3.0)
[2017-04-30] MEDS ORDERED: METOPROLOL TARTRATE 50 MG TAB PO STA (06:03)
[2017-04-30] MEDS ORDERED: CARBIDOPA/LEVODOPA 25/100MG TAB PO STA (06:03)
[2017-04-30] MEDS ORDERED: PANTOprazole SOD 40 MG TAB PO STA (06:03)
[2017-04-30 06:20] VITALS: BP 155/89; PULSE 62; O2SAT 98
--- NOTE | 2017-04-30 07:31 | DIAGNOSTIC IMAGING REPORT ---
CHEST ONE VIEW PORTABLE CLINICAL HISTORY: 86 years-old Male presenting with HTN, diaphoresis. TECHNIQUE: Portable upright AP view of the chest was obtained. COMPARISON: 11/13/2016. FINDINGS: Median sternotomy wires and mediastinal surgical clips again noted. Atherosclerosis of aortic arch. Cardiac silhouette normal in size. Calcified granuloma suspected in the right upper lung. Minimal linear irregular opacities in the peripheral right mid and upper lung, unchanged. Minimal left basilar opacity, unchanged. No new focal infiltrate. Right axillary surgical clips noted. Anchors noted in the right humeral head. Upper abdomen normal. IMPRESSION: 1. Few scattered areas of scarring, unchanged from prior. No new focal infiltrate to suggest acute cardiopulmonary disease.. Electronically signed by: Vineet Giordano M.D. 04/30/2017 7:08 AM Dictated Date/Time: 04/30/2017 7:06 AM
== END 2017-04-30 06:43 | disposition home or self-care (01) ==
LOC: EDBD 04:02 → C.EDB 04:04
DX: I10 Essential (primary) hypertension (principal); F43.21 Adjustment disorder with depressed mood; G30.9 Alzheimer's disease, unspecified; F02.80 Dementia in other diseases classified elsewhere, unspecified severity, without behavioral disturbance, psychotic disturbance, mood disturbance, and anxiety; I25.10 Atherosclerotic heart disease of native coronary artery without angina pectoris; M19.90 Unspecified osteoarthritis, unspecified site; E78.5 Hyperlipidemia, unspecified; R91.8 Other nonspecific abnormal finding of lung field; G20 Parkinson's disease; Z85.820 Personal history of malignant melanoma of skin; Z83.3 Family history of diabetes mellitus; Z82.49 Family history of ischemic heart disease and other diseases of the circulatory system; Z79.82 Long term (current) use of aspirin

== ENCOUNTER 2017-05-04 21:04 | Emergency (ER) | payer BC ==
[~2017-05-04] VITALS: Ht 172.7 cm; Wt 78.1 kg
[2017-05-04 21:07] VITALS: TEMP 36.4; Ht 172.7 cm; Wt 78.1 kg
--- NOTE | 2017-05-04 21:31 | EMERGENCY ROOM VISIT NOTE ---
History Report prepared by Heronibpatricio: Pamella Dozier Under the Supervision of: Dr. Kyle Cruz D.O. First contact with patient: 21:10 Chief Complaint: RESPIRATORY PROBLEMS Stated Complaint: CAN'T BREATHE Nursing Triage Summary: Pt states he has been feeling more SOB the last several weeks History of Present Illness The patient is a 86 year old male who presents to the Emergency Room with complaints of worsening respiratory problems for the past several weeks. He states he tries to cough and "bring something up" but is not always able too. He has not noticed any hemoptysis. He admits to some shortness of breath while laying flat. He denies any symptoms on exertion. He denies any recent fevers or pain or swelling in his legs. He also complains of a sore throat, rating his pain as an 8/10 in severity. The patient was recently seen here in the ED for his blood pressure and states he had his hypertension medication dose "cut in half" by his PCP on follow up. He notes he has undergone a right sided lobectomy in the past due to a history of lung cancer. He denies any history of COPD. He did receive a flu shot this year. He denies any new medication changes. Source of History: patient Onset: past several weeks [employer] Position: chest Timing: worsening Associated Symptoms: + sorethroat, + cough, No fevers Review of Systems See HPI for pertinent positives & negatives. A total of 10 systems reviewed and were otherwise negative. Past Medical & Surgical Medical Problems: (1) Adjustment disorder with depressed mood (2) Alzheimers disease (3) CAD (coronary artery disease) of artery bypass graft (4) Degenerative joint disease (5) Gross catheter problem (6) Heart disease (7) Hematuria (8) Hypercholesterolemia (9) Hypertension (10) Hypotension (11) Lung mass (12) Malignant melanoma (13) Parkinson disease (14) Postoperative anemia (15) Stomach problems (16) Ulcer Family History Diabetes mellitus Heart disease Hypertension Social History Smoking Status: Never Smoker Alcohol Use: none Drug Use: none Marital Status: Housing Status: lives with family Occupation Status: retired Current/Historical Medications Scheduled Amoxicillin & Pot Clavulanate (Augmentin 875-125 mg), 875 MG PO BID Artificial Tear Solution (Artificial Tears), 1 DROPS OP BID Aspirin (Aspirin Ec), 81 MG PO DAILY Atorvastatin (Lipitor), 20 MG PO HS Carbidopa/Levodopa (Sinemet 25MG/100MG), 1 TAB PO TID Escitalopram (Lexapro), 10 MG PO DAILY Ferrous Sulfate (Kp Ferrous Sulfate), 325 MG PO BID Furosemide (Lasix), 20 MG PO 3XWK Lactobacillus (Acidophilus), 1 CAP PO QDB Metoprolol Tartrate (Lopressor) (Lopressor), 50 MG PO BID Multiple Vitamins W/ Minerals (Centrum), 1 TAB PO QAM Nitroglycerin (Nitrostat), 0.4 MG UT PRN Pantoprazole (Protonix), 40 MG PO BID Ranitidine (Zantac), 150 MG PO BID Scheduled PRN Acetaminophen (Tylenol), 1,000 MG PO Q4H PRN for Pain Docusate Sodium (Docqlace), 100 MG PO BID PRN for Constipation Sennosides (Senokot), 1 TAB PO DAILY PRN for Constipation Tramadol (Ultram), 50 MG PO Q12 PRN for Pain Allergies Coded Allergies: Iodinated Diagnostic Agents (Verified Allergy, Intermediate, HIVES, ) Promethazine (Verified Allergy, Unknown, unknown, 04/30/17) INFORMATION FROM [facility] Physical Exam Vital Signs Date Time Temp Pulse Resp B/P (MAP) Pulse Ox O2 Delivery O2 Flow Rate FiO2 05/05/17 00:11 55 18 153/90 96 05/04/17 23:05 52 18 144/74 98 Room Air 05/04/17 22:27 60 05/04/17 22:15 95 Room Air 05/04/17 22:15 Room Air 05/04/17 21:17 Room Air 99 05/04/17 21:07 36.4 83 22 146/78 98 Room Air Physical Exam GENERAL: Patient is awake, alert, in no acute distress, patient is resting comfortably and showing no signs of anxiety EYES: The conjunctivae are clear. The pupils are round and reactive. EARS, NOSE, MOUTH AND THROAT: The nose is without any evidence of any deformity. Mucous membranes are moist, tongue is midline NECK: The neck is nontender and supple. RESPIRATORY: Lung sounds diminished in the right lung field. Rales at the right base, no significant tachypnea or conversational dyspnea. CARDIOVASCULAR: Regular rate and rhythm noted, there are no murmurs, rubs or gallops normal S1 normal S2 GASTROINTESTINAL: The abdomen is soft. Bowel sounds are present in all quadrants. Abdomen is nontender MUSCULOSKELETAL/EXTREMITIES: There is no evidence of gross deformity full range of motion is noted in the hips and shoulders SKIN: There is no obvious evidence of any rash. There are no petechiae, pallor or cyanosis noted. NEUROLOGIC: Patient is awake alert and oriented x3 Medical Decision & Procedures ER Provider Diagnostic Interpretation: Radiology results as stated below per my review and radiologist interpretation: CHEST ONE VIEW PORTABLE CLINICAL HISTORY: Respiratory distress. Dyspnea. COMPARISON STUDY: Chest CT April 09, 2017 and chest radiograph April 30, 2017. FINDINGS: There are median sternotomy wires and clips from bypass grafting. Right apical nodular opacity is unchanged since exam of April 30, 2017. Lower lung interstitial thickening is noted. There is no evidence for pulmonary edema. Mild cardiomegaly is unchanged. There is no pneumothorax or pleural effusion. Old right-sided rib fractures are noted as well as right axillary surgical clips. IMPRESSION: 1. Mild lower lung interstitial thickening which likely reflects atelectasis. An infectious process could appear similar although is considered less likely. 2. Stable cardiomegaly without evidence of pulmonary edema. 3. No change in the right apical nodular opacity which could reflect postsurgical change however should be assessed on subsequent exams to ensure stability. Electronically signed by: Luis Angel Reyes M.D. 05/04/2017 9:54 PM SOFT TISSUE NECK CLINICAL HISTORY: Sore throat. Difficulty swallowing. COMPARISON STUDY: PET/CT August 11, 2016. FINDINGS: Epiglottis is normal. Prevertebral soft tissues are unremarkable by radiography. There is moderate vascular calcification. Post surgical changes within the right lung apex with associated nodular opacity is better depicted on the chest radiograph performed concurrently. IMPRESSION: No significant abnormality within the neck by radiography. Electronically signed by: Luis Angel Reyes M.D. 05/04/2017 9:59 PM Laboratory Results 05/04/17 21:50 Red Blood Count 4.07, Mean Corpuscular Volume 96.6, Mean Corpuscular Hemoglobin 32.7, Mean Corpuscular Hemoglobin Concent 33.8, Mean Platelet Volume 9.5, Neutrophils (%) (Auto) 54.1, Lymphocytes (%) (Auto) 24.2, Monocytes (%) (Auto) 15.2, Eosinophils (%) (Auto) 5.9, Basophils (%) (Auto) 0.4, Neutrophils # (Auto ) 2.66, Lymphocytes # (Auto) 1.19, Monocytes # (Auto) 0.75, Eosinophils # (Auto ) 0.29, Basophils # (Auto) 0.02 05/04/17 21:50 Test 05/04/17 21:50 05/04/17 22:17 White Blood Count 4.92 K/uL (4.8-10.8) Red Blood Count 4.07 M/uL (4.7-6.1) Hemoglobin 13.3 g/dL (14.0-18.0) Hematocrit 39.3 % (42-52) Mean Corpuscular Volume 96.6 fL (80-100) Mean Corpuscular Hemoglobin 32.7 pg (25-34) Mean Corpuscular Hemoglobin Concent 33.8 g/dl (32-36) Platelet Count 126 K/uL (130-400) Mean Platelet Volume 9.5 fL (7.4-10.4) Neutrophils (%) (Auto) 54.1 % Lymphocytes (%) (Auto) 24.2 % Monocytes (%) (Auto) 15.2 % Eosinophils (%) (Auto) 5.9 % Basophils (%) (Auto) 0.4 % Neutrophils # (Auto) 2.66 K/uL (1.4-6.5) Lymphocytes # (Auto) 1.19 K/uL (1.2-3.4) Monocytes # (Auto) 0.75 K/uL (0.11-0.59) Eosinophils # (Auto) 0.29 K/uL (0-0.5) Basophils # (Auto) 0.02 K/uL (0-0.2) RDW Standard Deviation 49.0 fL (36.4-46.3) RDW Coefficient of Variation 13.9 % (11.5-14.5) Immature Granulocyte % (Auto) 0.2 % Immature Granulocyte # (Auto) 0.01 K/uL (0.00-0.02) Prothrombin Time 10.6 SECONDS (9.0-12.0) Prothromb Time International Ratio 1.0 (0.9-1.1) Activated Partial Thromboplast Time 26.8 SECONDS (21.0-31.0) Partial Thromboplastin Ratio 1.0 Anion Gap 9.0 mmol/L (3-11) Est Creatinine Clear Calc Drug Dose 28.0 ml/min Estimated GFR () 36.7 Estimated GFR (Non- 31.7 BUN/Creatinine Ratio 17.7 (10-20) Calcium Level 9.0 mg/dl (8.5-10.1) Total Bilirubin 0.6 mg/dl (0.2-1) Aspartate Amino Transf (AST/SGOT) 17 U/L (15-37) Alanine Aminotransferase (ALT/SGPT) 8 U/L (12-78) Alkaline Phosphatase 51 U/L (45-117) Troponin I < 0.015 ng/ml (0-0.045) Total Protein 7.3 gm/dl (6.4-8.2) Albumin 3.7 gm/dl (3.4-5.0) Globulin 3.6 gm/dl (2.5-4.0) Albumin/Globulin Ratio 1.0 (0.9-2) Urine Color DK YELLOW Urine Appearance CLEAR (CLEAR) Urine pH 5.0 (4.5-7.5) Urine Specific [place] 1.026 (1.000-1.030) Urine Protein NEG (NEG) Urine Glucose (UA) NEG (NEG) Urine Ketones TRACE (NEG) Urine Occult Blood NEG (NEG) Urine Nitrite NEG (NEG) Urine Bilirubin NEG (NEG) Urine Urobilinogen NEG (NEG) Urine Leukocyte Esterase NEG (NEG) Laboratory results per my review. Medications Administered Medications (Trade) Dose Ordered Sig/Ashley Route Start Time Stop Time Status Last Admin Dose Admin Sodium Chloride 500 ml @ 999 mls/hr Q31M STAT IV 05/04/17 23:10 05/04/17 23:40 DC 05/04/17 23:23 999 MLS/HR Amoxicillin/ Clavulanate Potassium (Augmentin 875MG Home Pack) 1 homepack UD ONCE PO 05/04/17 23:45 05/04/17 23:46 DC 05/05/17 00:05 1 HOMEPACK Amoxicillin/ Clavulanate Potassium (Augmentin Tab) 875 mg NOW ONCE PO 05/04/17 23:45 05/04/17 23:46 DC 05/05/17 00:05 875 MG ED Course 8: The patient was evaluated in room B12. A complete history and physical examination were performed. 2310: NSS 500 ml @ 999 mls/hr IV. 2330: I reevaluated the patient. He is feeling well and resting comfortably. I discussed his results and discharge instructions and he verbalized complete understanding and agreement. 2345: Augmentin 875 mg PO, Augmentin 875 mg 1 homepack PO. Medical Decision Prior records/ancillary studies reviewed. Triage Nursing notes reviewed. The patient's history was concerning for respiratory difficulties. Differential diagnosis: Etiologies such as infections, reactive airway disease, pneumonia, pneumothorax , COPD, CHF, cardiac ischemia, pulmonary embolism, musculoskeletal, gastrointestinal, as well as others were entertained. The patient is an 86-year-old male who presented to the emergency department for evaluation of cough and sore throat. The patient did not have significant dyspnea or hypoxia. The patient was treated with IV fluids in the emergency department. He was also started on an oral antibiotic. I discussed the patient' s laboratory and radiographic studies with him. I recommended that he continue all medications as prescribed and follow-up with his primary care physician this week. He was also encouraged to rest and avoid any strenuous activity. He was also encouraged to return the emergency Department immediately if symptoms change worsen or the need arises. Medication Reconcilliation Current Medication List: was personally reviewed by me Blood Pressure Screening Patient's blood pressure: Normal blood pressure Blood pressure disposition: Did not require urgent referral Impression Primary Impression: SINGH (acute kidney injury) Additional Impression: Bronchitis Scribe Attestation The scribe's documentation has been prepared under my direction and personally reviewed by me in its entirety. I confirm that the note above accurately reflects all work, treatment, procedures, and medical decision making performed by me. Departure Information Dispostion Home / Self-Care Prescriptions Amoxicillin & Pot Clavulanate (Augmentin 875-125 mg) 1 Tab Tab 875 MG PO BID for 7 Days, #14 TAB Prov: Kyle Cruz, DO 05/04/17 Referrals Burton Wu M.D. (PCP) Patient Instructions Bronchitis Acute, My [facility] Additional Instructions Continue all medications as prescribed. Drink plenty clear liquids. Follow-up with your family this week for reevaluation. Return to the emergency department immediately if symptoms change worsen or the need arises. Problem Qualifiers
[2017-05-04] MEDS ORDERED: ESCI10TA17 PO (21:35)
--- NOTE | 2017-05-04 21:55 | DIAGNOSTIC IMAGING REPORT ---
CHEST ONE VIEW PORTABLE CLINICAL HISTORY: Respiratory distress. Dyspnea. COMPARISON STUDY: Chest CT April 09, 2017 and chest radiograph April 30, 2017. FINDINGS: There are median sternotomy wires and clips from bypass grafting. Right apical nodular opacity is unchanged since exam of April 30, 2017. Lower lung interstitial thickening is noted. There is no evidence for pulmonary edema. Mild cardiomegaly is unchanged. There is no pneumothorax or pleural effusion. Old right-sided rib fractures are noted as well as right axillary surgical clips. IMPRESSION: 1. Mild lower lung interstitial thickening which likely reflects atelectasis. An infectious process could appear similar although is considered less likely. 2. Stable cardiomegaly without evidence of pulmonary edema. 3. No change in the right apical nodular opacity which could reflect postsurgical change however should be assessed on subsequent exams to ensure stability. Electronically signed by: Luis Angel Reyes M.D. 05/04/2017 9:54 PM Dictated Date/Time: 05/04/2017 9:51 PM
--- NOTE | 2017-05-04 22:00 | DIAGNOSTIC IMAGING REPORT ---
SOFT TISSUE NECK CLINICAL HISTORY: Sore throat. Difficulty swallowing. COMPARISON STUDY: PET/CT August 11, 2016. FINDINGS: Epiglottis is normal. Prevertebral soft tissues are unremarkable by radiography. There is moderate vascular calcification. Post surgical changes within the right lung apex with associated nodular opacity is better depicted on the chest radiograph performed concurrently. IMPRESSION: No significant abnormality within the neck by radiography. Electronically signed by: Luis Angel Reyes M.D. 05/04/2017 9:59 PM Dictated Date/Time: 05/04/2017 9:57 PM
[2017-05-04 22:04] LABS: BASO % 0.4 %; BASO ABS # 0.02 K/uL (0-0.2); COMPLETE YES; EOS % 5.9 %; HEMATOCRIT 39.3 % (42-52); IG% 0.2 %; LYMPH % 24.2 %; LYMPH ABS # 1.19 K/uL (1.2-3.4); MEAN CELL VOLUME 96.6 fL (80-100); MEAN CORPUSCULAR HEMOGLOBIN 32.7 pg (25-34); MEAN CORPUSCULAR HGB CONC 33.8 g/dl (32-36); MEAN PLATELET VOLUME 9.5 fL (7.4-10.4); MONO % 15.2 %; NEUT % 54.1 %; PLATELET COUNT 126 K/uL (130-400); RED BLOOD COUNT 4.07 M/uL (4.7-6.1); WHITE BLOOD COUNT 4.92 K/uL (4.8-10.8)
[2017-05-04 22:14] LABS: PROTHROMBIN TIME (PATIENT) 10.6 SECONDS (9.0-12.0)
[2017-05-04 22:15] VITALS: O2SAT 95
[2017-05-04 22:21] LABS: ALT/SGPT 8 U/L (12-78); BLOOD UREA NITROGEN 34 mg/dl (7-18); BUN/CREATININE RATIO 17.7 (10-20); CARBON DIOXIDE 24 mmol/L (21-32); CHLORIDE 106 mmol/L (98-107); GLUCOSE 114 mg/dl (70-99); POTASSIUM 4.1 mmol/L (3.5-5.1); SODIUM 139 mmol/L (136-145)
[2017-05-04 22:26] LABS: ALKALINE PHOSPHATASE 51 U/L (45-117); AST/SGOT 17 U/L (15-37)
[2017-05-04 22:37] LABS: URINE APPEARANCE CLEAR (CLEAR); URINE BILIRUBIN NEG (NEG); URINE COLOR DK YELLOW; URINE NITRITE NEG (NEG); URINE SPECIFIC GRAVITY 1.026 (1.000-1.030); UROBILINOGEN NEG (NEG)
[2017-05-04 22:38] LABS: MANUAL MICROSCOPIC REQUIRED? NO; REVIEW REQ? NO
[2017-05-04] MEDS ORDERED: SODIUM CHLORIDE 0.9% 500ML 500 ML IV STA (23:10)
[2017-05-04] MEDS ORDERED: AMOX875T PO (23:39)
[2017-05-04] MEDS ORDERED: AMOXICILLIN/CLAVULANATE TAB 875 MG TAB PO ONE (23:45)
[2017-05-04] MEDS ORDERED: AMOXICIL/CLAVU 875MG HOME PACK PO ONE (23:45)
[2017-05-05 00:11] VITALS: BP 153/90; PULSE 55; O2SAT 96
== END 2017-05-05 00:13 | disposition home or self-care (01) ==
LOC: C.EDB 21:06
DX: N17.9 Acute kidney failure, unspecified (principal); J40 Bronchitis, not specified as acute or chronic; Z85.118 Personal history of other malignant neoplasm of bronchus and lung; Z90.2 Acquired absence of lung [part of]; G30.9 Alzheimer's disease, unspecified; F02.80 Dementia in other diseases classified elsewhere, unspecified severity, without behavioral disturbance, psychotic disturbance, mood disturbance, and anxiety; M19.90 Unspecified osteoarthritis, unspecified site; E78.00 Pure hypercholesterolemia, unspecified; I10 Essential (primary) hypertension; Z85.820 Personal history of malignant melanoma of skin; G20 Parkinson's disease; Z83.3 Family history of diabetes mellitus; Z82.49 Family history of ischemic heart disease and other diseases of the circulatory system; Z79.82 Long term (current) use of aspirin; Z79.899 Other long term (current) drug therapy

== ENCOUNTER → 2017-05-25 | Outpatient (CLI) | payer BC ==
[~2017-05-25] MED LIST changes: -ACET650T49 PO; +ESCI10TA17 PO
[2017-05-25 12:14] LABS: BASO % 0.2 %; BASO ABS # 0.01 K/uL (0-0.2); COMPLETE YES; EOS % 6.5 %; HEMATOCRIT 42.1 % (42-52); LYMPH % 23.1 %; LYMPH ABS # 1.11 K/uL (1.2-3.4); MEAN CELL VOLUME 97.9 fL (80-100); MEAN CORPUSCULAR HEMOGLOBIN 33.3 pg (25-34); MEAN PLATELET VOLUME 10.2 fL (7.4-10.4); MONO % 14.2 %; PLATELET COUNT 141 K/uL (130-400)
[2017-05-25 12:42] LABS: ALT/SGPT 17 U/L (12-78); AST/SGOT 15 U/L (15-37); BLOOD UREA NITROGEN 30 mg/dl (7-18); BUN/CREATININE RATIO 20.5 (10-20); CALCIUM 8.9 mg/dl (8.5-10.1); CARBON DIOXIDE 25 mmol/L (21-32); CHLORIDE 109 mmol/L (98-107); CREATININE 1.47 mg/dl (0.60-1.40); GLUCOSE 106 mg/dl (70-99); POTASSIUM 4.9 mmol/L (3.5-5.1); SODIUM 141 mmol/L (136-145)
[2017-05-25 12:45] LABS: ALKALINE PHOSPHATASE 47 U/L (45-117); CHOLESTEROL 100 mg/dl (0-200); CHOLESTEROL/HDL RATIO 2.4; HDL CHOLESTEROL 41 mg/dl; LDL CHOLESTEROL CALCULATED 40 mg/dl; TRIGLYCERIDES 94 mg/dl (0-150); VERY LOW DENSITY LIPOPROT CALC 19 mg/dl
== END | disposition home or self-care (01) ==
LOC: C.LABBFT 07:42
PROVIDERS: ATTEND Internal Medicine
DX: I25.10 Atherosclerotic heart disease of native coronary artery without angina pectoris (principal)

== ENCOUNTER → 2017-07-14 | Outpatient (CLI) | payer BC ==
--- NOTE | 2017-07-14 11:05 | DIAGNOSTIC IMAGING REPORT ---
CT SCAN OF THE ABDOMEN AND PELVIS WITHOUT CONTRAST CLINICAL HISTORY: MELANOMA COMPARISON STUDY: 04/09/2017 TECHNIQUE: CT scan of the abdomen and pelvis was performed from the lung bases to the proximal femurs. Images are reviewed in the axial, sagittal, and coronal planes. IV contrast was not administered for this examination. A dose lowering technique was utilized adhering to the principles of ALARA. CT DOSE: FINDINGS: Lower chest: The heart is enlarged. There are coronary artery calcifications. There are dependent atelectatic changes. Liver: The unenhanced liver is normal in size, contour, and attenuation. There is no intrahepatic biliary ductal dilatation. Gallbladder: Cholelithiasis Spleen: Normal in size and attenuation. Pancreas: Unremarkable. Adrenal glands: Unremarkable. Kidneys: The left kidney is surgically absent. No right renal masses are visualized in this noncontrast study. There are nonobstructing right renal calculi Bowel: There are no transition zones indicate bowel obstruction. There is colonic diverticulosis. There are no acute peridiverticular inflammatory changes. The appendix appears normal. Peritoneum: There is no intraperitoneal free air or abdominal ascites. Vasculature: There is ectasia of the infrarenal abdominal aorta which measures 20 mm in maximal diameter. Adenopathy: None. Pelvic viscera: Imaging of the pelvis is limited due to beam hardening artifact from bilateral total hip arthroplasties. Skeletal structures: There are postsurgical changes of bilateral total hip arthroplasties. There are large fluid collections adjacent to the left hip. Posteriorly, the collection measures in excess of 9 cm. Anteriorly, the fluid collection extends into the iliopsoas. It is bilobed and measures 8 cm in transverse diameter. IMPRESSION: 1. No evidence of metastatic disease given the limitations of a noncontrast study 2. Cholelithiasis 3. Surgically absent left kidney 4. Diverticulosis. No evidence of acute diverticulitis 5. Right-sided nephrolithiasis. 6. Persistent left hip joint effusion. There is fluid in the left iliopsoas bursa. There is also fluid posterior to the left hip which could be extracapsular. There are persistent lytic changes involving the bone anterior to the acetabular cup Electronically signed by: Danilo Cedeño M.D. 07/14/2017 11:04 AM Dictated Date/Time: 07/14/2017 10:56 AM
--- NOTE | 2017-07-14 11:11 | DIAGNOSTIC IMAGING REPORT ---
(CHEST) THORAX WITHOUT CT DOSE: 1316.23 mGy.cm CLINICAL HISTORY: 87 years-old Male with MELANOMA. Follow-up study in a patient with prior wedge resection of the right upper lobe TECHNIQUE: Multiaxial CT images of the chest were performed without contrast. A dose lowering technique was utilized adhering to the principles of ALARA. COMPARISON: CT abdomen and pelvis of same day, CT chest 04/09/2017, CT chest 01/20/2017. FINDINGS: No dominant thyroid nodule identified. Scattered calcified mediastinal and hilar lymph nodes redemonstrated. Mildly enlarged subcarinal lymph node measures 10 mm in short axis, image 141 series 6 which is unchanged. Heart is moderately enlarged with coronary arterial calcifications. Prior median sternotomy and CABG. Moderate atherosclerotic plaquing of the thoracic aorta. No pneumothorax or pleural effusion. Mild dependent bibasilar atelectasis. Mild biapical pleural-parenchymal scarring. Calcified granuloma the right upper lobe is again noted, unchanged. Benign-appearing Perifissural lymph nodes are seen adjacent to the right upper lobe on image 137 series 6 measuring up to 5 mm which are unchanged. Postoperative changes compatible with prior wedge resection of the right upper lobe redemonstrated with persistent spiculated soft tissue attenuating nodularity with ill-defined margins again seen surrounding the suture material measuring up to 2.0 x 1.4 cm which appears generally stable in size and appearance dating back to 01/20/2017. These findings are nicely seen on image 66 series 6. There is associated pleural-parenchymal scarring within this distribution. Central airways are patent. No acute process of the imaged upper abdomen. Soft tissues are unremarkable. No suspicious lytic or blastic bony lesions to suggest metastasis. Postsurgical changes of the right humeral head. Initial scoliosis of the thoracic spine. IMPRESSION: 1. Stable exam with evidence of prior wedge resection of the right upper lobe with persistent spiculated soft tissue attenuating nodularity surrounding the suture material measuring up to 2.0 cm. This appears generally stable in size and appearance dating back to study dated 01/20/2017. This would favor pleural-parenchymal scarring, however continued follow-up is recommended to exclude residual or recurrent disease. 2. No acute intrathoracic abnormality identified. 3. No suspicious appearing adenopathy. 4. Cardiomegaly with prior median sternotomy and CABG. Electronically signed by: Zay Hurt M.D. 07/14/2017 11:10 AM Dictated Date/Time: 07/14/2017 10:56 AM
== END | disposition home or self-care (01) ==
LOC: C.CTS 07:54
PROVIDERS: ATTEND Internal Medicine Hematology & Oncology
DX: C43.9 Malignant melanoma of skin, unspecified (principal); K80.20 Calculus of gallbladder without cholecystitis without obstruction; Z90.5 Acquired absence of kidney; N20.0 Calculus of kidney; M25.452 Effusion, left hip

== ENCOUNTER → 2017-07-17 | Outpatient (CLI) | payer BC ==
[2017-07-17 12:20] LABS: BASO % 0.3 %; BASO ABS # 0.02 K/uL (0-0.2); COMPLETE YES; HEMATOCRIT 43.3 % (42-52); IG% 0.2 %; LYMPH % 20.1 %; LYMPH ABS # 1.25 K/uL (1.2-3.4); MEAN CELL VOLUME 101.2 fL (80-100); MEAN CORPUSCULAR HEMOGLOBIN 33.6 pg (25-34); MEAN CORPUSCULAR HGB CONC 33.3 g/dl (32-36); MEAN PLATELET VOLUME 10.2 fL (7.4-10.4); MONO % 16.1 %; NEUT % 59.3 %; PLATELET COUNT 155 K/uL (130-400); RED BLOOD COUNT 4.28 M/uL (4.7-6.1); WHITE BLOOD COUNT 6.21 K/uL (4.8-10.8)
[2017-07-17 12:39] LABS: ALKALINE PHOSPHATASE 49 U/L (45-117); ALT/SGPT 12 U/L (12-78); AST/SGOT 18 U/L (15-37); BLOOD UREA NITROGEN 35 mg/dl (7-18); BUN/CREATININE RATIO 23.5 (10-20); CALCIUM 9.3 mg/dl (8.5-10.1); CARBON DIOXIDE 26 mmol/L (21-32); CHLORIDE 106 mmol/L (98-107); GLUCOSE 76 mg/dl (70-99); SODIUM 136 mmol/L (136-145)
== END | disposition home or self-care (01) ==
LOC: C.LABBFT 08:41
PROVIDERS: ATTEND Internal Medicine Hematology & Oncology
DX: C43.9 Malignant melanoma of skin, unspecified (principal)

== ENCOUNTER 2017-09-17 11:08 | Emergency (ER) | payer BC ==
[~2017-09-17] VITALS: Ht 171.5 cm; Wt 77.2 kg
[~2017-09-17 11:08] MED LIST changes: -ARTISOL12 OP; +ARTISOL12 OPB; +RANI150T85 PO; -ZNTT/150 PO
[2017-09-17 11:34] VITALS: Ht 171.5 cm; Wt 77.2 kg
--- NOTE | 2017-09-17 12:41 | DIAGNOSTIC IMAGING REPORT ---
CHEST 2 VIEWS ROUTINE HISTORY: 87 years-old Male eval for pna acute cough with flulike symptoms COMPARISON: Chest radiograph 05/04/2017, chest CT 07/14/2017 TECHNIQUE: PA and lateral views of the chest FINDINGS: Cardiac silhouette is again enlarged. Atherosclerosis of the aorta. Mild pulmonary vascular congestion. Prior median sternotomy and CABG. Calcified granuloma the right upper lobe is noted. Biapical pleural-parenchymal scarring is again seen without pneumothorax, pleural effusion or focal airspace consolidation. Chronic bibasilar reticular opacities again noted suggesting comminution of atelectasis and scarring. Suture material with fiducial marker is noted within the right upper lobe with persistent focal ill-defined opacity. The bones appear grossly intact. Postsurgical changes of the right humeral head. Surgical clips project over the right axilla. IMPRESSION: 1. Cardiomegaly with mild pulmonary vascular congestion. 2. Unchanged interstitial opacities of the bilateral lung bases suggest combination of atelectasis and fibrosis. 3. Suture material and fiducial marker of the right upper lobe with persistent focal ill-defined opacity, better seen on comparison chest CT 07/14/2017. The above report was generated using voice recognition software. It may contain grammatical, syntax or spelling errors. Electronically signed by: Zay Hurt M.D. 09/17/2017 12:39 PM Dictated Date/Time: 09/17/2017 12:36 PM
[2017-09-17 13:21] VITALS: BP 133/75; PULSE 88; TEMP 37.2; O2SAT 98
[2017-09-17 13:28] LABS: INFLUENZA A PCR POS for Influ A (NEG); INFLUENZA B PCR Neg for Influ B (NEG)
[2017-09-17] MEDS ORDERED: OSELTAMIVIR PHOSPHATE 75 MG CAP PO STA (13:36)
[2017-09-17] MEDS ORDERED: OSEL75CA23 PO (13:38)
--- NOTE | 2017-09-17 18:28 | EMERGENCY ROOM VISIT NOTE ---
History Report prepared by Sandy: Fred Araujo Under the Supervision of: Dr. Long Urias M.D. First contact with patient: 12:09 Chief Complaint: FLU LIKE SX Stated Complaint: FLU LIKE History of Present Illness The patient is an 87 year old male who presents to the Emergency Room with complaints of persistent flu like symptoms starting yesterday. The patient is complaining of body aches, self-reported fever, cough, congestion, and a headache. He denies any vomiting, diarrhea, abdominal pain, and problems urinating. The patient reports that he got his flu shot this year. Source of History: patient Onset: yesterday Position: other (global) Symptom Intensity: moderate Quality: other (flu like symptoms) Timing: other (persistent) Associated Symptoms: + headache, + cough, No vomiting, No abdominal pain, No diarrhea Note: Associated symptoms: Body ache and congestion Review of Systems See HPI for pertinent positives & negatives. A total of 10 systems reviewed and were otherwise negative. Past Medical & Surgical Medical Problems: (1) Adjustment disorder with depressed mood (2) Alzheimers disease (3) CAD (coronary artery disease) of artery bypass graft (4) Degenerative joint disease (5) Gross catheter problem (6) Heart disease (7) Hematuria (8) Hypercholesterolemia (9) Hypertension (10) Hypotension (11) Lung mass (12) Malignant melanoma (13) Parkinson disease (14) Postoperative anemia (15) Stomach problems (16) Ulcer Family History Diabetes mellitus Heart disease Hypertension Social History Smoking Status: Never Smoker Alcohol Use: none Drug Use: none Marital Status: Housing Status: lives with family Occupation Status: retired Current/Historical Medications Scheduled Artificial Tear Solution (Artificial Tears), 1 DROPS OPB BID Aspirin (Aspirin Ec), 81 MG PO QAM Atorvastatin (Lipitor), 20 MG PO HS Carbidopa/Levodopa (Sinemet 25MG/100MG), 1 TAB PO TID Docusate Sodium (Docqlace), 100 MG PO HS Escitalopram (Lexapro), 10 MG PO QAM Ferrous Sulfate (Kp Ferrous Sulfate), 325 MG PO BID Furosemide (Lasix), 20 MG PO 3XWK Metoprolol Tartrate (Lopressor) (Lopressor), 50 MG PO BID Multiple Vitamins W/ Minerals (Centrum), 1 TAB PO QAM Nitroglycerin (Nitrostat), 0.4 MG UT PRN Oseltamivir Phosphate (Tamiflu), 75 MG PO BID Pantoprazole (Protonix), 40 MG PO BID Scheduled PRN Acetaminophen (Tylenol), 1,000 MG PO Q4H PRN for Pain Sennosides (Senokot), 1 TAB PO DAILY PRN for Constipation Allergies Coded Allergies: Iodinated Diagnostic Agents (Verified Allergy, Intermediate, HIVES, ) Promethazine (Verified Allergy, Unknown, unknown, 09/17/17) INFORMATION FROM [facility] Physical Exam Vital Signs Date Time Temp Pulse Resp B/P (MAP) Pulse Ox O2 Delivery O2 Flow Rate FiO2 09/17/17 13:21 37.2 88 16 133/75 98 Room Air 09/17/17 11:34 36.5 88 20 144/85 97 Room Air Physical Exam Constitutional: Vital signs reviewed. Eyes: Pupils are equal round reactive to light. Conjunctiva are noninjected. ENT: Pharynx is clear without erythema or exudate. Mucous membranes are moist. Neck supple without meningeal signs. Respiratory: Clear to auscultation bilaterally. Breath sounds are equal bilaterally. Cardiovascular: Regular rate and rhythm. No rubs or gallops. GI: Soft, nondistended and nontender. Bowel sounds are present. Musculoskeletal: No peripheral edema. No lower extremity tenderness. Integumentary: No cyanosis. Neurological: The patient is awake and alert. No focal deficits. Psychiatric: Normal affect. Medical Decision & Procedures ER Provider Diagnostic Interpretation: Radiology results as stated below per my review and the radiologist's interpretation: CHEST 2 VIEWS ROUTINE HISTORY: 87 years-old Male eval for pna acute cough with flulike symptoms COMPARISON: Chest radiograph 05/04/2017, chest CT 07/14/2017 TECHNIQUE: PA and lateral views of the chest FINDINGS: Cardiac silhouette is again enlarged. Atherosclerosis of the aorta. Mild pulmonary vascular congestion. Prior median sternotomy and CABG. Calcified granuloma the right upper lobe is noted. Biapical pleural-parenchymal scarring is again seen without pneumothorax, pleural effusion or focal airspace consolidation. Chronic bibasilar reticular opacities again noted suggesting comminution of atelectasis and scarring. Suture material with fiducial marker is noted within the right upper lobe with persistent focal ill-defined opacity. The bones appear grossly intact. Postsurgical changes of the right humeral head. Surgical clips project over the right axilla. IMPRESSION: 1. Cardiomegaly with mild pulmonary vascular congestion. 2. Unchanged interstitial opacities of the bilateral lung bases suggest combination of atelectasis and fibrosis. 3. Suture material and fiducial marker of the right upper lobe with persistent focal ill-defined opacity, better seen on comparison chest CT 07/14/2017. The above report was generated using voice recognition software. It may contain grammatical, syntax or spelling errors. Electronically signed by: Zay Hurt M.D. 09/17/2017 12:39 PM Dictated Date/Time: 09/17/2017 12:36 PM Laboratory Results Test 09/17/17 12:10 Influenza Type A (RT-PCR) POS for Influ A (NEG) Influenza Type B (RT-PCR) Neg for Influ B (NEG) Laboratory results as reviewed by me. Medications Administered Medications (Trade) Dose Ordered Sig/Ashley Route Start Time Stop Time Status Last Admin Dose Admin Oseltamivir Phosphate (Tamiflu Cap) 75 mg NOW STAT PO 09/17/17 13:36 09/17/17 13:37 DC 09/17/17 13:36 75 MG ED Course 1209: The patient was evaluated in room A2. A complete history and physical exam was performed. 1336: Tamiflu Cap 75mg PO 1339: I reevaluated the patient and discussed his test results with him. The patient is ready for discharge. Medical Decision This is an 87-year-old male presents with flulike symptoms. Differential diagnosis includes influenza, viral syndrome, bronchitis, pneumonia. I did perform a limited focused review of portions of the patient's old chart on the electronic medical record. The patient has had no recent pertinent visits to this hospital. I did evaluate the patient as noted above. The patient is presenting with very typical flulike symptoms. I did order and personally review the patient's chest x-ray as described above. This did not show any evidence of pneumonia. I did obtain a PCR flu test which was positive for influenza A. I did discuss the test results with the patient. He was treated with Tamiflu and discharged with a prescription for Tamiflu. He was advised to follow-up with his doctor and discharged in good condition. Medication Reconcilliation Current Medication List: was personally reviewed by me Blood Pressure Screening Patient's blood pressure: Elevated blood pressure Blood pressure disposition: Elevated BP felt to be situational Impression Primary Impression: Influenza A Scribe Attestation The scribe's documentation has been prepared under my direct and personally reviewed by me in its entirety. I confirm that the note above accurately reflects all work, treatment, procedures, and medical decision making performed by me. Departure Information Dispostion Home / Self-Care Prescriptions Oseltamivir Phosphate (Tamiflu) 75 Mg Cap 75 MG PO BID, #10 CAP Prov: Long Urias M.D. 09/17/17 Referrals Burton Wu M.D. (PCP) Forms HOME CARE DOCUMENTATION FORM, IMPORTANT VISIT INFORMATION Patient Instructions ED Flu, My [facility] Additional Instructions You have been examined and treated today on an emergency basis only. This is not a substitute for, or an effort to provide, complete comprehensive medical care. It is impossible to recognize and treat all injuries or illnesses in a single emergency department visit. It is therefore important that you follow up closely with your physician. Call as soon as possible for an appointment. Return for worsening symptoms or if you develop chest pain, shortness of breath , vomiting, or any other concerning symptoms.
== END 2017-09-17 13:49 | disposition home or self-care (01) ==
LOC: C.EDB 11:11 → C.EDA 13:49
DX: J11.1 Influenza due to unidentified influenza virus with other respiratory manifestations (principal); F43.21 Adjustment disorder with depressed mood; G30.9 Alzheimer's disease, unspecified; F02.80 Dementia in other diseases classified elsewhere, unspecified severity, without behavioral disturbance, psychotic disturbance, mood disturbance, and anxiety; G20 Parkinson's disease; M19.90 Unspecified osteoarthritis, unspecified site; I25.10 Atherosclerotic heart disease of native coronary artery without angina pectoris; E78.00 Pure hypercholesterolemia, unspecified; I10 Essential (primary) hypertension; Z85.820 Personal history of malignant melanoma of skin; Z79.82 Long term (current) use of aspirin; Z83.3 Family history of diabetes mellitus; Z82.49 Family history of ischemic heart disease and other diseases of the circulatory system

== ENCOUNTER → 2017-09-24 | Outpatient (CLI) | payer BC ==
[~2017-09-24] MED LIST changes: -LACTCAP3 PO; +OSEL75CA23 PO; -RANI150T85 PO; -TRAM-10 PO
--- NOTE | 2017-09-24 15:14 | DIAGNOSTIC IMAGING REPORT ---
ULTRASOUND RIGHT LOWER EXTREMITY VENOUS CLINICAL HISTORY: Right lower extremity hematoma. COMPARISON STUDY: No priors. TECHNIQUE: Real-time, grayscale, and color Doppler sonography of the deep veins of the right lower extremity was performed from the inguinal crease to the calf. Compression and augmentation were utilized. FINDINGS: There is no sonographic evidence of deep venous thrombosis identified in the right lower extremity. The common femoral, superficial femoral, and popliteal veins are patent and normally compressible. The greater saphenous vein and the profunda femoris vein at the junction with the common femoral vein are clear. The visualized calf veins are patent. There is a complex nonvascular hypoechoic fluid collection seen in the distal inner thigh. This measures 4.7 x 1.9 x 2.0 cm. IMPRESSION: 1. There is no sonographic evidence of deep venous thrombosis identified in the right lower extremity. 2. A complex nonvascular fluid collection in the inner thigh likely represents a small hematoma as clinically suspected. Clinical follow-up to resolution is recommended. Electronically signed by: Vahid Alvarenga M.D. 09/24/2017 3:13 PM Dictated Date/Time: 09/24/2017 3:12 PM
[2017-09-24 15:36] LABS: BASO % 0.2 %; BASO ABS # 0.01 K/uL (0-0.2); EOS % 2.9 %; EOS ABS # 0.17 K/uL (0-0.5); HEMATOCRIT 38.2 % (42-52); HEMOGLOBIN 13.1 g/dL (14.0-18.0); LYMPH % 20.4 %; LYMPH ABS # 1.19 K/uL (1.2-3.4); MEAN CELL VOLUME 97.4 fL (80-100); MEAN CORPUSCULAR HEMOGLOBIN 33.4 pg (25-34); MEAN CORPUSCULAR HGB CONC 34.3 g/dl (32-36); MEAN PLATELET VOLUME 9.6 fL (7.4-10.4); MONO % 14.6 %; MONO ABS # 0.85 K/uL (0.11-0.59); NEUT % 61.9 %; PLATELET COUNT 176 K/uL (130-400); RED CELL DISTRIBUTION WIDTH CV 13.1 % (11.5-14.5); WHITE BLOOD COUNT 5.82 K/uL (4.8-10.8)
[2017-09-24 16:00] LABS: ALBUMIN 3.8 gm/dl (3.4-5.0); ALT/SGPT 17 U/L (12-78); AST/SGOT 20 U/L (15-37); BLOOD UREA NITROGEN 27 mg/dl (7-18); CALCIUM 9.4 mg/dl (8.5-10.1); CARBON DIOXIDE 27 mmol/L (21-32); CREATININE 1.39 mg/dl (0.60-1.40); GLUCOSE 102 mg/dl (70-99); POTASSIUM 4.4 mmol/L (3.5-5.1); SODIUM 136 mmol/L (136-145)
[2017-09-24 16:02] LABS: ALKALINE PHOSPHATASE 41 U/L (45-117); TOTAL PROTEIN 7.9 gm/dl (6.4-8.2)
--- NOTE | 2017-10-02 13:24 | CODING QUERY MEDICAL NECESSITY ---
SUPPORTING DIAGNOSIS NEEDED A supporting diagnosis is required for the test/procedure performed on this patient in order for us to be reimbursed by the patient's insurance. Please provide a supporting diagnosis for the following test/procedure listed below next to the test name along with your signature. *If there is no additional diagnosis for this patient that would support the following test/procedure please document that below next to the test/procedure. Test(s)/Procedure(s) that require a supporting diagnosis: DOS: 09/24/17 * US VENOUS UNIL LWR EXT DOPPLER DIAGNOSIS: Provider Signature: Date: Thank you Jigna Quiros [employer] Information Management Once completed, please kindly fax back to [phone] For questions please call [phone]
== END | disposition home or self-care (01) ==
LOC: C.ULTR 14:16
PROVIDERS: ATTEND Physician Assistant Medical
DX: S80.10XA Contusion of unspecified lower leg, initial encounter (principal); X58.XXXA Exposure to other specified factors, initial encounter

== ENCOUNTER → 2017-10-08 | Outpatient (CLI) | payer BC ==
--- NOTE | 2017-10-08 08:56 | DIAGNOSTIC IMAGING REPORT ---
CHEST 2 VIEWS ROUTINE HISTORY: Cough. COMPARISON: Chest 09/17/2017. FINDINGS: Emphysema. The heart remains borderline enlarged. There are post sternotomy changes. Right basilar hazy airspace opacity has resolved. Improved aeration within the left basilar hazy airspace opacity. No new focal lung consolidations. No evidence for pulmonary edema. Focal right upper lobe density persists. Lucency within the right lateral chest wall is likely due to overlapping soft tissues. Old, healed right-sided rib fractures. No pneumothorax. Suture material and a fiducial marker again noted within the right upper lobe. Stable blunting of the right lateral costophrenic sulcus. This may represent a trace right pleural effusion. IMPRESSION: 1. Improved aeration within the lung bases. No new focal lung consolidations to suggest pneumonia. 2. Postoperative changes within the right hemithorax are again noted. Stable focal density within the right lung apex which is better appreciated on the prior chest CT. 3. Suspect a trace right pleural effusion. Electronically signed by: Juan Knutson M.D. 10/08/2017 8:54 AM Dictated Date/Time: 10/08/2017 8:50 AM
== END | disposition home or self-care (01) ==
LOC: C.RAD1850 08:29
PROVIDERS: ATTEND Physician Assistant Medical
DX: R05 Cough (principal)

== ENCOUNTER → 2017-10-12 | Outpatient (CLI) | payer BC ==
[2017-10-12 17:37] LABS: BASO % 0.3 %; BASO ABS # 0.02 K/uL (0-0.2); EOS % 2.7 %; EOS ABS # 0.16 K/uL (0-0.5); HEMATOCRIT 41.3 % (42-52); HEMOGLOBIN 13.8 g/dL (14.0-18.0); IG# 0.02 K/uL (0.00-0.02); LYMPH % 23.5 %; LYMPH ABS # 1.38 K/uL (1.2-3.4); MEAN CELL VOLUME 100.5 fL (80-100); MEAN CORPUSCULAR HEMOGLOBIN 33.6 pg (25-34); MEAN CORPUSCULAR HGB CONC 33.4 g/dl (32-36); MEAN PLATELET VOLUME 9.8 fL (7.4-10.4); MONO % 12.8 %; MONO ABS # 0.75 K/uL (0.11-0.59); NEUT % 60.4 %; NEUT ABS # 3.54 K/uL (1.4-6.5); PLATELET COUNT 216 K/uL (130-400); RED CELL DISTRIBUTION WIDTH CV 14.1 % (11.5-14.5); RED CELL DISTRIBUTION WIDTH SD 51.4 fL (36.4-46.3); WHITE BLOOD COUNT 5.87 K/uL (4.8-10.8)
[2017-10-12 17:47] LABS: ALBUMIN 3.6 gm/dl (3.4-5.0); ALT/SGPT 14 U/L (12-78); BLOOD UREA NITROGEN 25 mg/dl (7-18); CARBON DIOXIDE 26 mmol/L (21-32); CREATININE 1.63 mg/dl (0.60-1.40); GLUCOSE 107 mg/dl (70-99); POTASSIUM 4.3 mmol/L (3.5-5.1); SODIUM 137 mmol/L (136-145)
[2017-10-12 17:49] LABS: ALKALINE PHOSPHATASE 45 U/L (45-117); AST/SGOT 17 U/L (15-37); TOTAL PROTEIN 7.7 gm/dl (6.4-8.2)
== END | disposition home or self-care (01) ==
LOC: C.LABBFT 12:03
PROVIDERS: ATTEND Internal Medicine Hematology & Oncology
DX: C43.9 Malignant melanoma of skin, unspecified (principal)

== ENCOUNTER → 2017-10-13 | Outpatient (CLI) | payer BC ==
--- NOTE | 2017-10-13 07:55 | DIAGNOSTIC IMAGING REPORT ---
CT SCAN OF THE CHEST WITHOUT IV CONTRAST CLINICAL HISTORY: Melanoma. COMPARISON STUDY: Chest CT scans dated 07/14/2017 and 04/17/2014. TECHNIQUE: CT scan of the thorax was performed from the thoracic inlet to the upper abdomen. Images are reviewed in the axial, sagittal, and coronal planes. IV contrast was not administered for this examination as per the referring clinician. Note that the examination was performed in suboptimal fashion without IV contrast. A dose lowering technique was utilized adhering to the principles of ALARA. CT DOSE: 675.99 mGy.cm FINDINGS: Thyroid: Imaged portions of the thyroid gland are normal in size and attenuation. Thoracic aorta: There is atherosclerotic calcification of the thoracic aorta. There is ectasia of the ascending thoracic aorta which measures up to 4.6 cm in diameter. The remainder of the thoracic aorta is normal in caliber. The arch demonstrates standard 3-vessel anatomy. Heart: The patient is status post midline sternotomy. The heart is enlarged and without pericardial effusion. The coronary arteries are densely calcified. The main pulmonary arteries appear dilated suggesting pulmonary artery hypertension. Lungs and pleural spaces: There is biapical scarring. Postoperative change is again seen at the right apex. Numerous small calcified granulomas are identified. Patchy airspace consolidation nodularity is seen at the left lung base. No pleural effusion is identified. Foci of perifissural nodularity in the right lung (image #140) is unchanged from previous. Mediastinum: There are scattered subcentimeter mediastinal lymph nodes. These are not pathologically enlarged by size criteria. Several of these nodes contain coarse calcifications. Caitlin: Not well assessed without IV contrast. Axillae: There is no axillary lymphadenopathy. Surgical clips are seen in the right axilla. Upper abdomen: There is a 2.5 x 1.9 cm lesion in the left upper quadrant below the diaphragm seen on image #254. A calcified splenic granuloma is noted. Skeletal structures: The skeletal structures are osteopenic. No lytic or blastic bony lesions are seen. Postoperative change is noted in the right shoulder. Degenerative change and kyphoscoliosis are noted in the thoracic spine. Advanced arthritic change is present in both shoulders. Calcified joint bodies are suggested on the left. There are healed right-sided rib fractures. IMPRESSION: 1. There is a new 2.5 cm lesion identified below the left hemidiaphragm. This should be considered metastatic disease until proven otherwise. 2. There is patchy consolidative change with nodularity identified at the left lung base. Correlate clinically for evidence of pneumonia/aspiration pneumonitis. Follow-up chest CT in 3 months time is recommended to document resolution. 3. Postoperative change with surrounding scarring is again seen at the right apex, and perifissural nodularity in the right lung is similar to previous. No new pulmonary lesion is identified. 4. Cardiomegaly. 5. Ectasia of the ascending thoracic aorta measuring up to 4.6 cm is similar to previous. 6. Additional findings as above. Electronically signed by: Vahid Alvarenga M.D. 10/13/2017 7:53 AM Dictated Date/Time: 10/13/2017 7:41 AM
--- NOTE | 2017-10-13 07:56 | DIAGNOSTIC IMAGING REPORT ---
ABDOMEN AND PELVIS CT WITHOUT CONTRAST HISTORY: Melanoma follow-up. MELONOMA TECHNIQUE: Multiaxial CT images of the abdomen and pelvis were performed without contrast. A dose lowering technique was utilized adhering to the principles of ALARA. COMPARISON STUDY: CT abdomen and pelvis 07/14/2017, CT chest of same day, CT abdomen and pelvis 04/09/2017. FINDINGS: Scattered groundglass and nodular opacities of the imaged lung base are seen with nodules measuring up to 12 mm. Minimal right basilar dependent subsegmental atelectasis. There is no pneumatosis or pneumoperitoneum identified. The imaged inferior cardiac chambers are unremarkable. Coronary arterial disease with prior median sternotomy. Cholelithiasis without CT evidence of acute cholecystitis. Liver appears unremarkable without intrahepatic biliary ductal dilation or focal hepatic mass lesion. There is a 2.2 x 1.6 cm ovoid soft tissue attenuating lesion of the left upper abdomen interposed between the left diaphragmatic dalton and medial aspect of the spleen, nicely seen on image 83 of series 7, previously measuring 0.8 x 0.8 cm. This lesion appears to be superior to the left adrenal gland which is seen on image 123 of series 7. The right adrenal gland is unremarkable. Moderate generalized pancreatic atrophy. Scattered punctate calcifications throughout the spleen suggest prior granulomatous disease. Nonobstructing punctate calculus of the inferior pole right kidney. No ureteral calculi or obstructive uropathy. Left kidney is surgically absent. The urinary bladder appears partially decompressed. Pelvic structures are not well seen secondary to streak artifact from bilateral hip arthroplasties. Moderate atherosclerosis of the aorta without aneurysm. Ectasia of the infrarenal abdominal aorta measures 2.4 x 2.6 cm. There is no bowel obstruction or focal bowel wall thickening identified. Moderate colonic diverticulosis without CT evidence of acute diverticulitis. Appendix appears normal. Fluid distending the left iliopsoas bursa redemonstrated measuring up to 6.4 cm in greatest dimension compatible with iliopsoas bursitis. Fluid collections lateral and posterior to the left hip are also redemonstrated, measuring up to 8.0 x 3.6 cm laterally and measuring up to 5.1 x 2.7 cm posteriorly. No suspicious lytic or blastic bony lesions are identified. The bones appear mildly demineralized. Levoscoliosis of the lumbar spine with multilevel discogenic degenerative changes. Remodeling changes noted about the bilateral hip arthroplasties. IMPRESSION: 1. Circumscribed ovoid soft tissue attenuating lesion of the left upper abdomen adjacent to the medial spleen measuring up to 2.2 cm is suspicious for a metastatic nodule, possibly reflecting a lymph node. No definite additional evidence of metastatic disease within the abdomen or pelvis. 2. Groundglass and nodular opacities of the left lung base with nodules measuring up to 12 mm. Differential considerations include infectious or inflammatory pneumonitis or metastatic disease. Please see separately dictated CT of the chest of same day for further details. 3. Left hip iliopsoas bursitis with unchanged fluid collections about the lateral and posterior left hip. 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 4. Cholelithiasis without CT evidence of acute cholecystitis. 5. Colonic diverticulosis without diverticulitis. 6. Surgically absent left kidney. Electronically signed by: Zay Hurt M.D. 10/13/2017 7:54 AM Dictated Date/Time: 10/13/2017 7:36 AM
== END | disposition home or self-care (01) ==
LOC: C.CTS 07:09
PROVIDERS: ATTEND Internal Medicine Hematology & Oncology
DX: C43.9 Malignant melanoma of skin, unspecified (principal); R19.00 Intra-abdominal and pelvic swelling, mass and lump, unspecified site; R91.8 Other nonspecific abnormal finding of lung field; M76.12 Psoas tendinitis, left hip; Z96.642 Presence of left artificial hip joint; K80.20 Calculus of gallbladder without cholecystitis without obstruction; K57.90 Diverticulosis of intestine, part unspecified, without perforation or abscess without bleeding; Z90.5 Acquired absence of kidney; I51.7 Cardiomegaly; I77.810 Thoracic aortic ectasia

== ENCOUNTER → 2017-10-21 | Outpatient (CLI) | payer BC ==
--- NOTE | 2017-10-21 11:21 | DIAGNOSTIC IMAGING REPORT ---
PET/CT FULL BODY HISTORY: Melanoma MALIGNANT MELOMA TECHNIQUE: PET/CT was performed from the base of the skull through the pelvis following the intravenous administration of mCi of F18-FDG. Non-contrast CT imaging was performed over the same range without breath-hold for attenuation correction of PET images and anatomic correlation, but not for primary interpretation as it is not of standard diagnostic quality. CT DOSE: COMPARISON: 08/11/2016 FINDINGS: HEAD AND NECK: There is no FDG-avid disease or significant lymphadenopathy in the imaged portions of the head and the neck. CHEST: Interval resection of a right apical nodule. Moderate postprocedural scar formation combined with a postoperative suture line. This demonstrates an increase in SUV to 1.5 which is unremarkable and a postoperative state. Mild degenerative activity of the right shoulder and anterior chest wall presumably secondary to a combination of degenerative change and muscle motion during the study. Mild increase in hilar activity bilaterally felt to be secondary to atherosclerotic change of the pulmonary vasculature.. Subcarinal nodes continue to demonstrate a minimal increase in activity to an SUV of 2.9. This is slightly increased in the prior study. Several small hilar nodes are present at these are at the limits of resolution of the scanner. Small focus of mild increased activity medial aspect left arm with no anatomic correlate. This potentially is muscular. Left posterior chest wall activity image -530.5 and 24.8 SUV. A poorly defined soft tissue nodule may be present. Mildly progressive interstitial and nodular changes primarily at the left base showing only a minimal increase in SUV activity to 2.7. ABDOMEN/PELVIS: Nodular density medial to the spleen. A be an interval finding. This measures 2.4 cm at maximum and has an increased SUV to 4.8. Unremarkable urinary tracts and bowel activity. Bilateral total hip arthroplasties. Muscular activity about the soft tissue pelvis. MUSCULOSKELETAL: There is no FDG-avid or destructive bone lesion. Lower extremities: Diffuse muscular activity bilaterally. This presumably secondary to patient motion. Interval development of a soft tissue mass posterior to the distal right femur. This measures 2.3 cm maximum dimension with SUV characteristics of 5.8 IMPRESSION: 1. Developing/progressive metastatic disease within the chest, chest wall, abdomen, and lower right thigh. 2. There are findings of somewhat progressive pulmonary nodularity, stable mediastinal and hilar adenopathy, nodularity medial to the spleen, scattered abnormal soft tissue foci of the chest and abdominal wall, as well as a 2.3 cm mass posterior to the distal femur. 3. Interval resection of the patient's right apical nodule with moderate residual postoperative scar. The above report was generated using voice recognition software. It may contain grammatical, syntax or spelling errors. Electronically signed by: Wilian Caly M.D. 10/21/2017 11:19 AM Dictated Date/Time: 10/21/2017 10:51 AM
== END | disposition home or self-care (01) ==
LOC: C.PET 08:08
PROVIDERS: ATTEND Internal Medicine Hematology & Oncology
DX: C43.9 Malignant melanoma of skin, unspecified (principal)

== ENCOUNTER → 2017-12-22 | Outpatient (CLI) | payer BC ==
[2017-12-22 12:18] LABS: BASO % 0.4 %; BASO ABS # 0.02 K/uL (0-0.2); EOS % 4.4 %; EOS ABS # 0.24 K/uL (0-0.5); HEMATOCRIT 41.9 % (42-52); IG# 0.01 K/uL (0.00-0.02); LYMPH % 22.3 %; LYMPH ABS # 1.22 K/uL (1.2-3.4); MEAN CELL VOLUME 97.9 fL (80-100); MEAN CORPUSCULAR HEMOGLOBIN 32.7 pg (25-34); MEAN CORPUSCULAR HGB CONC 33.4 g/dl (32-36); MONO % 14.5 %; MONO ABS # 0.79 K/uL (0.11-0.59); NEUT % 58.2 %; NEUT ABS # 3.18 K/uL (1.4-6.5); PLATELET COUNT 172 K/uL (130-400); RED CELL DISTRIBUTION WIDTH CV 13.6 % (11.5-14.5); RED CELL DISTRIBUTION WIDTH SD 48.7 fL (36.4-46.3); WHITE BLOOD COUNT 5.46 K/uL (4.8-10.8)
[2017-12-22 12:33] LABS: ALBUMIN 3.6 gm/dl (3.4-5.0); ALKALINE PHOSPHATASE 53 U/L (45-117); ALT/SGPT 13 U/L (12-78); AST/SGOT 17 U/L (15-37); BLOOD UREA NITROGEN 21 mg/dl (7-18); CARBON DIOXIDE 29 mmol/L (21-32); CREATININE 1.34 mg/dl (0.60-1.40); GLUCOSE 91 mg/dl (70-99); POTASSIUM 4.7 mmol/L (3.5-5.1); SODIUM 137 mmol/L (136-145); TOTAL PROTEIN 7.6 gm/dl (6.4-8.2)
== END | disposition home or self-care (01) ==
LOC: C.LABBFT 09:32
PROVIDERS: ATTEND Internal Medicine Hematology & Oncology
DX: C43.9 Malignant melanoma of skin, unspecified (principal)

== ENCOUNTER → 2018-03-17 | Outpatient (CLI) | payer BC ==
[~2018-03-17] MED LIST changes: -ARTISOL12 OPB; -DOCU100C22 PO; -ESCI10TA17 PO; -FERR1TAB13 PO; +LACT1CAP6 PO; -OSEL75CA23 PO; +POLY1SOL6 OPB; +RANI150T3 PO; +SENN-61 PO
[2018-03-17 12:45] LABS: BASO % 0.4 %; BASO ABS # 0.02 K/uL (0-0.2); EOS % 3.5 %; EOS ABS # 0.19 K/uL (0-0.5); HEMATOCRIT 42.1 % (42-52); HEMOGLOBIN 13.7 g/dL (14.0-18.0); IG# 0.01 K/uL (0.00-0.02); LYMPH % 23.6 %; LYMPH ABS # 1.27 K/uL (1.2-3.4); MEAN CELL VOLUME 96.8 fL (80-100); MEAN CORPUSCULAR HEMOGLOBIN 31.5 pg (25-34); MEAN CORPUSCULAR HGB CONC 32.5 g/dl (32-36); MEAN PLATELET VOLUME 10.4 fL (7.4-10.4); MONO % 16.5 %; MONO ABS # 0.89 K/uL (0.11-0.59); NEUT % 55.8 %; NEUT ABS # 3.01 K/uL (1.4-6.5); PLATELET COUNT 169 K/uL (130-400); RED CELL DISTRIBUTION WIDTH CV 13.8 % (11.5-14.5); RED CELL DISTRIBUTION WIDTH SD 49.3 fL (36.4-46.3); WHITE BLOOD COUNT 5.39 K/uL (4.8-10.8)
[2018-03-17 13:20] LABS: ALBUMIN 3.8 gm/dl (3.4-5.0); ALKALINE PHOSPHATASE 51 U/L (45-117); ALT/SGPT 15 U/L (12-78); AST/SGOT 17 U/L (15-37); BLOOD UREA NITROGEN 25 mg/dl (7-18); CALCIUM 9.3 mg/dl (8.5-10.1); CARBON DIOXIDE 27 mmol/L (21-32); CREATININE 1.33 mg/dl (0.60-1.40); GLUCOSE 92 mg/dl (70-99); POTASSIUM 4.7 mmol/L (3.5-5.1); SODIUM 137 mmol/L (136-145); TOTAL PROTEIN 7.8 gm/dl (6.4-8.2)
== END | disposition home or self-care (01) ==
LOC: C.LABBFT 10:08
PROVIDERS: ATTEND Internal Medicine Hematology & Oncology
DX: C43.9 Malignant melanoma of skin, unspecified (principal)

== ENCOUNTER 2019-02-02 20:41 | Observation (INO) ==
[2019-02-02] MEDS ORDERED: methylPREDNISolone 125 MG/2 ML VIAL IV STA (22:23)
[2019-02-02] MEDS ORDERED: DiphenhydrAMINE HCL 50 MG/ML VIAL IV STA (22:23)
[2019-02-02] MEDS: SODIUM CHLORIDE 0.9% 1000ML 1,000 ML IV SCH (22:27)
[2019-02-02 22:29] LABS: Basophils # (auto) 0.02 K/uL (0-0.2); Basophils % (auto) 0.3 %; Eosinophils # (auto) 0.08 K/uL (0-0.5); Hematocrit (blood only) 37.6 % (42-52); Hemoglobin 12.2 g/dL (14.0-18.0); Immature Granulocytes # (auto) 0.03 K/uL (0.00-0.02); Immature Granulocytes % (auto) 0.4 %; Mean Corpuscular Hgb Conc 32.4 g/dL (32-36); Mean Corpuscular Volume 103.6 fL (80-100); Mean Platelet Volume 9.4 fL (7.4-10.4); Monocytes % (auto) 12.5 %; Neutrophils # (auto) 6.04 K/uL (1.4-6.5); Neutrophils % (auto) 75.8 %; Nucleated RBC # (auto) 0.03 K/uL (0-0); Nucleated RBC % (auto) 0.4 %; Platelet Count 189 K/uL (130-400); RDW Coefficient of Variation 16.8 % (11.5-14.5); RDW Standard Deviation 63.2 fL (36.4-46.3); Red Blood Count 3.63 M/uL (4.7-6.1); White Blood Count 7.97 K/uL (4.8-10.8)
[2019-02-02 22:49] LABS: Alanine Aminotransferase 9 U/L (12-78); Albumin Level 3.3 gm/dl (3.4-5.0); BUN Creatinine Ratio 19.6 (10-20); Blood Urea Nitrogen 35 mg/dl (7-18); Calcium 8.8 mg/dl (8.5-10.1); Carbon Dioxide 28 mmol/L (21-32); Chloride 102 mmol/L (98-107); Est GFR (African American) 39.2; Est GFR (Non-African American) 33.8; Glucose 93 mg/dl (70-99); Sodium 142 mmol/L (136-145)
[2019-02-02 22:59] LABS: Albumin Globulin Ratio 0.9 (0.9-2); Alkaline Phosphatase 41 U/L (45-117); Bilirubin,Total 1.3 mg/dl (0.2-1); Globulin 3.7 gm/dl (2.5-4.0); NT Pro B Type Natriuretic Pept 1044 pg/ml (0-1800); Troponin I 0.021 ng/ml (0-0.045)
[2019-02-02 23:02] LABS: Potassium 4.2 mmol/L (3.5-5.1)
[2019-02-02 23:07] LABS: Aspartate Aminotransferase 56 U/L (15-37); Magnesium 2.4 mg/dl (1.8-2.4)
[2019-02-02] MEDS ORDERED: OPTIRAY 320 125ml IV PRN (23:54)
--- NOTE | 2019-02-03 03:12 | History & Physical Report ---
Date of Service February 03, 2019 Assessment & Plan (1) Lower abdominal pain: 88-year-old male was admitted on 03 February 2019 for lower abdominal pain. Lower abdominal pain: Reportedly beginning the evening of arrival. Mild nausea, no vomiting, and a question of some loose stools. - In ED, afebrile, not tachycardic, mildly hypertensive. WBC 8. POC lactate 2.23. Minimal elevations of LFTs. Overnight CT a/p read mentions 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 Enlarging mesenteric large mass in the left lower abdomen and pelvis up to 15.1 cm. Large mass in left lower chest wall measuring up to 17.8 cm. No free air or free fluid, no bowel obstruction, positive diverticulosis without evidence of diverticulitis. - Patient's symptoms apparently spontaneously resolved without acute pain meds in the ED. Minimally ttp in bilateral lower quadrants. - Monitor for now. Recheck lactate in a.m. Shortness of breath: Reported mild exertional SOB earlier in the evening. History of right pulmonary nodule resection in September 2016. - In ED, not tachypneic and normal room SpO2. TNI 0.021. BNP 1044. Overnight CTA chest read mentions no evidence of PE; 2.7 cm right upper lobe mass that is new; Likely concurrent atelectasis; Right apex postsurgical scarring; 4.3 cm ascending aortic aneurysm and 4.1 cm descending aorta without evidence of dissection. - In ED, treated with Benadryl, Solu-Medrol, and normal saline IVF. At time of H&P, patient was speaking comfortably on room air with no shortness of breath. - Monitor for now. Acute on chronic renal failure: Admit Cr 1.78, increased from baseline roughly Cr 1.5. BUN 35. History of left kidney hemorrhage now s/p nephrectomy. Patient admits to decreased fluid intake due to difficulties with baseline ambulation. - Provided IVF in ED, will maintain maintenance IVF. Recheck creatinine in a.m. Metastatic melanoma: Unknown primary, diagnosed in 2013. 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 Has had radiation therapy. Is previously declined further therapy. Sees palliative monthly as outpatient. Chronic pain controlled at home with fentanyl patch and oxycodone. Restarted chemotherapy, third round on 02Jul. Gets it through a PIV. - Consult palliative care. Elevated TSH: Admit TSH 5.2. Unclear if any history of thyroid dysfunction. Ongoing medical issues: - Hypertension, hyperlipidemia, CAD s/p CABG: Continue home atorvastatin, metoprolol. 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 On chronic dexamethasone. - Chronic peripheral edema: Thought to be due to chronic dexamethasone therapy. Continue home Lasix. - GERD, history of gastric ulcer and GI bleed: Continue home pantoprazole, ranitidine. - Chronic anemia: Admit Hb 12, MCV 103. - Parkinsonism: Continue home carbidopa levodopa. - Dysphasia, lumbar radiculopathy, varicose veins, diverticulosis, blind in left eye, urinary retention, lumbar spinal stenosis. Code status: Confirmed with patient that he is DNR/DNI. Diet: Heart healthy. DVT prophy: Lovenox. PT/OT: Deferred. Disbo: Admit to med surg for observation. Usually lives in [facility]. (2) Shortness of breath: (3) Acute on chronic renal failure: (4) Malignant melanoma: (5) Metastatic disease: (6) Elevated TSH: (7) Hypertension: (8) Hypercholesterolemia: (9) CAD (coronary artery disease) of artery bypass graft: (10) Adrenal hemorrhage: (11) Peripheral edema: (12) GERD (gastroesophageal reflux disease): (13) History of gastric ulcer: (14) History of GI bleed: (15) Chronic anemia: (16) Parkinsonism: History of Present Illness Primary Care Provider: [facility], [facility] 88-year-old male presented to the emergency department initially complaining of some worsening generalized lower abdominal pain that began around 1600 on the evening of arrival. Per the ED note, the patient's accompanying friend mentioned that he was more short of breath after a brief exertion which is new for him. There is also some report of some loose stools a period of constipation. For this H&P, found patient a bit tired now after midnight. He wakes easily and is pleasantly conversational. He states that his previous abdominal bloating feeling has resolved. Continues to say that his [pointing to] low bilateral lower abdominal quadrants are still uncomfortable. He says he had some mild nausea but at this time denies he ever had any vomiting or diarrhea. Regarding the shortness of breath, he says right now his breathing is "pretty good" and denies any difficulties. Denies any current chest pain. Says he had a little bit of a cough. No known recent fevers or illness. He does not volunteer any other particular complaints. - Past medical history includes metastatic melanoma, hypertension, hyperlipidemia, CAD, left adrenal hemorrhage, chronic peripheral edema, GERD, gastric ulcer, GI bleed, chronic anemia, parkinsonism, dysphasia, lumbar radiculopathy, varicose veins, diverticulosis, left eye blindness, urinary retention, lumbar spinal stenosis. - Past surgical history includes left nephrectomy, bilateral total hip arthroplasties, four-vessel CABG 2001, cataracts, thoracotomy with right lung wedge resection, right axillary lymph node dissection. - Social history includes never smoked. Retired. . Allergies Allergy/AdvReac Type Severity Reaction Status Date / Time Iodinated Contrast- Oral and Allergy Intermediate HIVES Verified 02/03/19 02:14 IV Dye promethazine Allergy Unknown unknown Verified 02/03/19 02:14 Home Medications Home Medications Medication Instructions Recorded Confirmed Type acetaminophen [Acetaminophen Extra 1,000 mg PO Q8H PRN 04/21/18 02/03/19 History Strength] atorvastatin [Lipitor] 20 mg PO QPM 04/21/18 02/03/19 History carbidopa-levodopa 1 tab PO TID 04/21/18 02/03/19 History furosemide 40 mg PO DAILY 04/21/18 02/03/19 History metoprolol tartrate 50 mg PO BID 04/21/18 02/03/19 History nitroglycerin 1 tab SUBLINGUAL Q5M PRN 04/21/18 02/03/19 History pantoprazole 40 mg PO BID 04/21/18 02/03/19 History ranitidine HCl 150 mg PO QAM 04/21/18 02/03/19 History sennosides 8.6 mg PO DAILY 04/21/18 02/03/19 History fentanyl 1 patch TRANSDERMAL Q3D 07/09/18 02/03/19 History ondansetron HCl 8 mg PO Q8H PRN 07/09/18 02/03/19 History polyethylene glycol 3350 [Miralax] 17 g PO QAM 07/09/18 02/03/19 History Systane (PF) 1 drp OPB QAM 11/02/18 02/03/19 History dexamethasone 0.5 tab PO QAM 11/02/18 02/03/19 History hydroxyzine HCl 25 mg PO BID PRN 11/02/18 02/03/19 History oxycodone 5 mg PO Q6H PRN 11/02/18 02/03/19 History Therems-M 1 tab PO QAM 11/17/18 02/03/19 History magnesium hydroxide 400 mg/5 mL 30 ml PO .COMPLEX 01/06/19 02/03/19 History oral suspension bromfenac 1 drp OPR DAILY 02/03/19 02/03/19 History prednisolone acetate 1 drp OPR DAILY 02/03/19 02/03/19 History sennosides 8.6 mg PO DAILY PRN 02/03/19 02/03/19 History Past Med/Surg History Medical History Alzheimer disease (Chronic) BPH (benign prostatic hyperplasia) (Chronic) CAD (coronary artery disease) (Chronic) MULTIPLE VESSEL, S/P CABG 2001. HOWELL-LAD, SVG-LCx, 1st marginal and OM bridge graft, SVG-LAD and Dx. Normal EF, negative stress echo in 2006. 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 Orig dx 2013, had lymphadenectomy and 9 radiation treatments. Has now spread significantly, and patient has elected to forgo further treatment except for palliative care. Fentanyl patch for abdominal pain, Decadron daily for appetite stimulation. Abdominal mass, LUQ (left upper quadrant) Metastatic melanoma, found on CT 04/2018. Anemia Anxiety Axillary mass Bladder neck contracture Cerebrovascular disease Denies h/o CVA Claustrophobia Dyspnea GERD (gastroesophageal reflux disease) Hydronephrosis LEFT KIDNEY Renal dysfunction Urinary retention Surgical History History of cataract surgery LEFT Status post excisional biopsy LEFT FLANK, [facility], 12/10/18, [facility] H/O radical nephrectomy 2/2 mets from melanoma History of bronchoscopy History of colonoscopy History of hip surgery EMELINA and revision History of lung surgery R lung nodule wedge resection 08/2016 Hx of CABG PER DR. CARO RECORDS Family History Other No pertinent family history Social History Preferred Language: Urdu Communication Ability: Effective Beliefs That Will Affect Care: None marital status: / Current Living Situation: Personal Care Facility Current Living Situation Comment: [facility] current occupational status: retired Feels Safe at Home: Yes Smoking Status: Never smoker Cigarettes Per Day: 0 Second Hand Exposure: No Hx Alcohol Use: No Hx Substance Use: No Review of Systems Review of Systems: ROS is limited due to the patient's current fatigue, but is as noted in the HPI. Physical Exam Physical Exam: GENERAL: Appears appropriately tired for this time of day. Awakens easily, alert, oriented, and does not appear in any acute distress. HENT: Normocephalic, atraumatic. Oropharynx dry. Left eye remains closed. EYES: Normal conjunctiva. Sclera non-icteric. NECK: Inspection normal. Non-tender. Supple and full ROM. CARDIAC: +S1S2 RRR, no murmurs. Well-healed sternotomy scar. RESPIRATORY: Clear to auscultation. No wheezes or rales. Normal respiratory effort. GI: +BS, soft, non-distended. Very mild tenderness to palpation in the bilateral low lower quadrants. No rebound or guarding. EXTREMITIES: 3+ bilateral burdick edema. No noted acute erythema or obvious breaks in the skin. Right upper extremity venous access restricted due to history of right axillary lymph node dissection. NEURO: No gross neuro deficits. Results & Data Vital Signs (Past 12 Hours) Vital Signs Temp Pulse Pulse Resp BP Pulse Ox 02/03/19 02:26 71 18 107/66 94 02/03/19 00:58 83 18 108/62 94 02/03/19 00:06 79 18 97/56 L 94 02/02/19 20:59 36.9 C 89 16 93 Laboratory Results 02/02/19 02/02/19 02/02/19 Range/Units 22:25 22:20 22:20 WBC 7.97 (4.8-10.8) K/uL RBC 3.63 L (4.7-6.1) M/uL Hgb 12.2 L (14.0-18.0) g/dL Hct 37.6 L (42-52) % MCV 103.6 H (80-100) fL MCH 33.6 (25-34) pg MCHC 32.4 (32-36) g/dL RDW Std Deviation 63.2 H (36.4-46.3) fL RDW Coeff of Shiva 16.8 H (11.5-14.5) % Plt Count 189 (130-400) K/uL MPV 9.4 (7.4-10.4) fL Immature Gran % (Auto) 0.4 % Neut % (Auto) 75.8 % Lymph % (Auto) 10.0 % Mccracken % (Auto) 12.5 % Eos % (Auto) 1.0 % Baso % (Auto) 0.3 % Immature Gran # (Auto) 0.03 H (0.00-0.02) K/uL Neut # (Auto) 6.04 (1.4-6.5) K/uL Lymph # (Auto) 0.80 L (1.2-3.4) K/uL Mccracken # (Auto) 1.00 H (0.11-0.59) K/uL Eos # (Auto) 0.08 (0-0.5) K/uL Baso # (Auto) 0.02 (0-0.2) K/uL Absolute Nucleated RBC 0.03 H (0-0) K/uL Nucleated RBC % (auto) 0.4 % Sodium 142 (136-145) mmol/L Potassium 4.2 (3.5-5.1) mmol/L Chloride 102 (98-107) mmol/L Carbon Dioxide 28 (21-32) mmol/L Anion Gap 12.0 H (3-11) BUN 35 H (7-18) mg/dl Creatinine 1.78 H (0.6-1.4) mg/dl Est Cr Clr Drug Dosing Not Reportable Est GFR ( Amer) 39.2 Est GFR (Non-Af Amer) 33.8 BUN/Creatinine Ratio 19.6 (10-20) Glucose 93 (70-99) mg/dl POC Lactic Acid Brendan 2.23 H (0.90-1.70) mmol/L Calcium 8.8 (8.5-10.1) mg/dl Magnesium 2.4 (1.8-2.4) mg/dl Total Bilirubin 1.3 H (0.2-1) mg/dl AST 56 H (15-37) U/L ALT 9 L (12-78) U/L Alkaline Phosphatase 41 L (45-117) U/L Troponin I 0.021 (0-0.045) ng/ml NT-Pro-B Natriuret Pep 1044 (0-1800) pg/ml Total Protein 7.0 (6.4-8.2) gm/dl Albumin 3.3 L (3.4-5.0) gm/dl Globulin 3.7 (2.5-4.0) gm/dl Albumin/Globulin Ratio 0.9 (0.9-2) Lipase 63 L (73-393) U/L TSH 5.260 H (0.300-4.500) uIu/ml Medications Administered Sodium Chloride (Nss 1000ml) 1,000 mls @ 200 mls/hr IV .Q5H DEXTER Stop: 03/04/19 21:59 Last Admin: 02/02/19 22:27 Dose: 200 mls/hr Documented by: [id number] Ioversol (Optiray 320 125ml) 119 ml IV ONCE PRN PRN Reason: Interaction Checking Stop: 02/06/19 23:53 Last Admin: 02/02/19 23:54 Dose: 119 ml Documented by: [id number] Discontinued Medications Diphenhydramine HCl (Benadryl) 25 mg IV NOW STA Stop: 02/02/19 22:24 Last Admin: 02/02/19 23:20 Dose: 25 mg Documented by: [id number] Methylprednisolone (Solumedrol) 60 mg IV NOW STA Stop: 02/02/19 22:24 Last Admin: 02/02/19 23:21 Dose: 60 mg Documented by: [id number] Code Status & VTE Plan Code Status DNR/DNI VTE Prophylaxis Plan VTE Prophylaxis will be ordered: Yes Supervising Physician Co-Signing Physician Notes Patient seen and examined, chart reviewed, case discussed with Dr. Farias and I agree with his assessment and plan as documented above. PG Care Time/CCT Total # of Minutes Spent Total Time Spent with Patient: Total time spent is greater than 50% in coordination of care (as documented) at patient's floor/unit and/or counseling patient: Resident Activity Tracking Resident Involvement: Resident Care Provided Care Provided: Adult Hospital Medicine
[2019-02-03] MEDS ORDERED: OXYCODONE HCL IR 5 MG TAB (IMMEDIATE RELEASE) PO PRN (04:35)
[2019-02-03] MEDS ORDERED: SENNA 8.6 MG TAB PO PRN (04:35)
[2019-02-03] MEDS ORDERED: ONDANSETRON 8 MG TABLET PO PRN (04:35)
[2019-02-03] MEDS ORDERED: LACTATED RINGER'S 1,000 ML IV SCH (04:35)
[2019-02-03] MEDS ORDERED: NITROGLYCERIN SL 0.4 MG/TAB TAB SL PRN (04:35)
[2019-02-03] MEDS ORDERED: ACETAMINOPHEN 500 MG TAB PO PRN (04:35)
[2019-02-03] MEDS ORDERED: ACETAMINOPHEN 325 MG TAB PO PRN (04:35)
[2019-02-03 05:51] LABS: INR 1.1 (0.9-1.1); Prothrombin Time 10.8 Seconds (9.0-12.0)
[2019-02-03 06:05] LABS: BUN Creatinine Ratio 22.6 (10-20); Calcium 8.3 mg/dl (8.5-10.1); Creatinine Clr Calc Pharmacy 39.6 ml/min; Est GFR (African American) 51.5; Est GFR (Non-African American) 44.4; Potassium 4.4 mmol/L (3.5-5.1)
[2019-02-03 06:58] LABS: Appearance Urine Clear (Clear); Bacteria Urine Automated Negative (Negative); Bilirubin Urine Negative (Negative); Blood Urine Negative (Negative); Cast Urine Automated 0 /lpf (0-5); Color Urine Dark Yellow; Glucose Urine UA Negative (Negative); Ketones Urine Trace (Negative); Leukocyte Esterase Urine Negative (Negative); Nitrite Urine Negative (Negative); Protein Urine 1+ (Negative); RBC Urine Automated 0-4 /hpf (0-4); Specific Gravity Urine > 1.045 (1.000-1.030); Urobilinogen Urine Negative (Negative); pH Urine 6.5 (4.5-7.5)
[2019-02-03] MEDS ORDERED: PNEUMOCOCCAL ADMINISTRATION CHARGE ONE (07:45)
[2019-02-03] MEDS ORDERED: PNEUMOCOCCAL POLYSACCHARIDES 25 MCG/0.5 ML VIAL/SYR IM ONE (07:45)
[2019-02-03] MEDS ORDERED: BROMFENAC~ORDER AWAITING ACTION SCH (08:00)
[2019-02-03] MEDS: CARBIDOPA/LEVODOPA 25/100MG TAB PO SCH ×2 (08:16→14:27)
[2019-02-03] MEDS ORDERED: CEROVITE ADV FORMULA TAB PO SCH (09:00)
[2019-02-03] MEDS ORDERED: prednisoLONE acetate 1% OP SUSP 5 ML BTL OPR SCH (09:00)
[2019-02-03] MEDS ORDERED: POLYETHYLENE (MIRALAX) 17 GM PACK PO SCH (09:00)
[2019-02-03] MEDS ORDERED: ARTIFICIAL TEARS OPB SCH (09:00)
[2019-02-03] MEDS ORDERED: dexAMETHasone 1 MG TAB PO SCH (09:00)
[2019-02-03] MEDS ORDERED: fentaNYL 25 MCG/HR TDSY TD SCH (09:00)
[2019-02-03] MEDS ORDERED: ENOXAPARIN INJ 30 MG/0.3 ML SYR SQ SCH (09:00)
[2019-02-03] MEDS ORDERED: METOPROLOL TARTRATE 50 MG TAB PO SCH (09:00)
[2019-02-03] MEDS ORDERED: FUROSEMIDE 40 MG TAB PO SCH (09:00)
[2019-02-03] MEDS ORDERED: SENNA 8.6 MG TAB PO SCH (09:00)
[2019-02-03] MEDS ORDERED: PANTOprazole 40 MG TAB PO SCH (09:00)
[2019-02-03] MEDS: SODIUM CHLORIDE 0.9% 1000ML 1,000 ML IV SCH (10:02)
--- NOTE | 2019-02-03 10:44 | CT Scan Report ---
CT angio chest PE protocol, CT abd pelvis IV con only CT DOSE: 1924.77 mGy.cm HISTORY: 88 years-old Male with PE. Acute shortness of breath with acute generalized abdominal pain and known malignancy TECHNIQUE: Multiple CTA images of the chest were obtained after the intravenous administration of 119 ml Optiray 320. Coronal and sagittal MIPS were obtained from the axial data set and were submitted for review. CT abdomen and pelvis was also obtained with IV contrast only. All measurements were obta ined according to NASCET criteria. A dose lowering technique was utilized adhering to the principles of ALARA. COMPARISON: CT chest, abdomen and pelvis 12/06/2018 FINDINGS: CTA: Moderate cardiomegaly. Median sternotomy and CABG. Extensive three-vessel distribution of coronary arterial calcifications. Fusiform aneurysmal dilation about the ascending thoracic aorta measures up to 4.2 cm. Ascending thor acic aorta measures up to 4.1 cm. No definite dissection, however evaluation is limited secondary to contrast bolus timing. Patency of the imaged great vessels. Pulmonary arterial tree is opacified to t he level of the segmental branches and demonstrates no focal filling defects to suggest pulmonary thr omboembolic disease. CT CHEST: No new mediastinal or hilar adenopathy identified. Prominent subcarinal lymph nodes are present measu ring up to 9 mm. There is a 1.4 x 1.0 cm subpleural nodule in the left, image 66 series 4 suggestive of a pathologic lymph node. Large left posterior lateral chest wall mass is again noted measuring up to approximate 17.8 x 6.5 cm, previously measuring up to 15.7 x 5.4 cm. Central airways appear patent . There is no pneumothorax or pleural effusion. Pleural-parenchymal scarring with postoperative mcgee es of the right lung apex appears unchanged. 2.6 x 2.4 cm ovoid circumscribed solid nodule of the rig ht upper lobe, image 140 series 4 previously measured 2.3 x 2.0 cm. Subsegmental bibasilar opacities suggest atelectasis. No definite new metastasis identified. No overt pulmonary edema or definite evid ence of pneumonia. Secretions are noted about the right mainstem bronchus. No definite suspicious lyt ic or blastic bony lesions. Degenerative changes of the shoulders and spine. Postoperative changes of the right humeral head. CT ABDOMEN/PELVIS: No pneumatosis or pneumoperitoneum. Indeterminate 5 mm hypodense lesion of the right hepatic lobe, im age 18 series 5. Cholelithiasis with mild gallbladder distention. No significant biliary ductal dilat ion or gallbladder wall thickening. Scattered calcified granulomata about the spleen. Pancreas and ri ght adrenal gland appear normal. There is a large heterogeneous mass of the abdominal left upper quadrant demonstrating enhancing mura l nodularity and central necrosis overall measuring approximately 11.8 x 10.0 x 11.0 cm in AP, transv erse and craniocaudal dimensions. On prior study from 12/06/2018 this mass measured 10.1 x 8.6 x 8.5 cm . The mass abuts the fundus and proximal gastric body with possible loss of the fat plane. Large mass of the left lower quadrant mesentery demonstrating solid enhancement and central necrosis redemonstr ated, 11.7 x 8.6 x 12.6 cm, previously measuring 13.0 x 8.0 x 8.5 cm. Probable cyst of the superior p ole right kidney. Left kidney appears surgically absent. No hydronephrosis. Streak artifact from hip arthroplasties limits evaluation of the pelvic structures. Urinary bladder is unremarkable. There is a small fat filled hernia about the abdominal left lower quadrant. Inguinal canal. Extensive calcifie d plaque of the abdominal aorta with ectasia measuring up to 2.5 cm. No bowel obstruction. Colonic diverticulosis without acute diverticulitis. Possible additional mass o f the abdominal right lower quadrant measuring 2.3 cm. Tiny fat filled periumbilical hernia. Deminera lized appearance of the bones. No new suspicious bone lesions. Complex collection surrounding the lef t hip total joint arthroplasty is unchanged. Asymmetric atrophy of the left psoas and iliopsoas muscu lature is also on a chronic basis. IMPRESSION: 1. Fusiform aneurysmal dilation of the ascending thoracic aorta with cardiomegaly. No dissection or e vidence of pulmonary thromboembolic disease. 2. No bowel obstruction or pneumoperitoneum. 3. Findings compatible with progressive metastatic disease which includes enlargement of the right up per lobe nodule, left posterior lateral flank soft tissue mass, left upper quadrant abdominal mass an d lower mesenteric mass as described above. 4. Cholelithiasis without CT evidence of acute cholecystitis. 5. Additional findings as above. The above report was generated using voice recognition software. It may contain grammatical, syntax o r spelling errors. Electronically signed by: Zay Hurt M.D. 02/03/2019 10:42 AM
--- NOTE | 2019-02-03 14:41 | Discharge Summary ---
Date of Service February 03, 2019 Admission HPI Per Admitting Provider 88-year-old male presented to the emergency department initially complaining of some worsening generalized lower abdominal pain that began around 1600 on the evening of arrival. Per the ED note, the patient's accompanying friend mentioned that he was more short of breath after a brief exertion which is new for him. There is also some report of some loose stools a period of constipation. For this H&P, found patient a bit tired now after midnight. He wakes easily and is pleasantly conversational. He states that his previous abdominal bloating feeling has resolved. Continues to say that his [pointing to] low bilateral lower abdominal quadrants are still uncomfortable. He says he had some mild nausea but at this time denies he ever had any vomiting or diarrhea. Regarding the shortness of breath, he says right now his breathing is "pretty good" and denies any difficulties. Denies any current chest pain. Says he had a little bit of a cough. No known recent fevers or illness. He does not volunteer any other particular complaints. - Past medical history includes metastatic melanoma, hypertension, hyperlipidemia, CAD, left adrenal hemorrhage, chronic peripheral edema, GERD, gastric ulcer, GI bleed, chronic anemia, parkinsonism, dysphasia, lumbar radiculopathy, varicose veins, diverticulosis, left eye blindness, urinary retention, lumbar spinal stenosis. - Past surgical history includes left nephrectomy, bilateral total hip arthroplasties, four-vessel CABG 2001, cataracts, thoracotomy with right lung wedge resection, right axillary lymph node dissection. - Social history includes never smoked. Retired. . Admission Exam Per Admitting Provider GENERAL: Appears appropriately tired for this time of day. Awakens easily, alert, oriented, and does not appear in any acute distress. HENT: Normocephalic, atraumatic. Oropharynx dry. Left eye remains closed. EYES: Normal conjunctiva. Sclera non-icteric. NECK: Inspection normal. Non-tender. Supple and full ROM. CARDIAC: +S1S2 RRR, no murmurs. Well-healed sternotomy scar. RESPIRATORY: Clear to auscultation. No wheezes or rales. Normal respiratory e ffort. GI: +BS, soft, non-distended. Very mild tenderness to palpation in the bilateral low lower quadrants. No rebound or guarding. EXTREMITIES: 3+ bilateral burdick edema. No noted acute erythema or obvious breaks in the skin. Right upper extremity venous access restricted due to history of right axillary lymph node dissection. NEURO: No gross neuro deficits. Principal Diagnosis Abdominal Pain, Resolved Discharge Exam Constitutional cooperative and comfortable; no acute distress Resting comfortably sitting on edge of the bed drinking coffee Respiratory Breathing easily, saturating well on room air, equal chest expansion, Difficult to auscultate on left lung base due to deformation from tumor but otherwise vesicular breath sounds throughout. Cardiovascular Heart Sounds dual, no murmurs, rubs, skips, or gallops appreciated. Regular rate and rhythm Gastrointestinal (Abdomen) Soft non tender abdomen Discharge Data Allergies Allergy/AdvReac Type Severity Reaction Status Date / Time Iodinated Contrast- Oral and Allergy Intermediate HIVES Verified 02/03/19 02:14 IV Dye promethazine Allergy Unknown unknown Verified 02/03/19 02:14 Consultations 02/03/19 01:21 ED Decision to Admit Stat 02/03/19 04:35 Consult Case Management - Discharge Planning Routine Consult Palliative Care Stat Ordered Studies 02/02/19 21:56 CT abd pelvis IV con only Urgent CT angio chest PE protocol Urgent Hospital Course (1) Elevated TSH: Orestes Razo presented initially for abdominal pain which appeared to improve on admission Abdominal Pain Likely secondary to tumor burden in his abdomen, vs constipation/gas Completely improved without pain medication by time of discharge with benign exam Already on heavy pain regimen at home with fentanyl, oxycodone, and tylenol Melanoma Patient with widely metastatic melanoma, large tumors in abdomen CT a/p read mentions 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 Enlarging mesenteric large mass in the left lower abdomen and pelvis up to 15.1 cm. Large mass in left lower chest wall measuring up to 17.8 cm. No free air or free fluid, no bowel obstruction, positive diverticulosis without evidence of diverticulitis. TSH TSH elevated from previous TSH measurement which was only two days ago 5.26 from 1.09 may be erroneous measurement Free T4 is within normal limits Recheck TSH as outpatient. (2) Lower abdominal pain: Total Time Total Time Spent Total Time Spent (In Minutes): 30 Total Time Includes: Examination of the Patient, Discharge Planning, Medication Reconciliation and Communication With Other Providers Discharge Plan Discharge Items Patient Disposition: Home - Self-Care Reason For Visit: ABD PAIN,SOB,ACUTE RENAL FAILURE Discharge Diagnosis: Abdominal Pain Resolved Discharge Goals: Decrease discomfort Activity: Resume your previous activity Non-emergency contact: Primary Care Provider Call non-emergency contact if: your symptoms worsen, your pain is not controlled and your temperature is above 100.5 Follow-up/Referrals: [facility] [Primary Care Provider] - Diet: Regular Addtl Provider Instructions: Anastasiia Danni, it was our pleasure to evaluate you here at [facility]. You unfortunately had some bad abdominal pain that we believe is due to your abdominal tumors from your melanoma. The fact that it has been completely resolved all day makes me confident in discharging you back to home on your current pain regimen of fentanyl, tylenol and oxycodone. If you have further issues do not hesitate to contact your primary care doctor and return to medical care. Prescriptions: Continued fentanyl 25 mcg/hr patch 72 hour 1 patch Transdermal Q3D RF: 0 polyethylene glycol 3350 [Miralax] 17 gram Powder In Packet 17 g PO QAM RF: 0 ondansetron HCl 8 mg tablet 8 mg PO Q8H PRN (Reason: Nausea) RF: 0 dexamethasone 4 mg Tablet 0.5 tab PO QAM RF: 0 hydroxyzine HCl 25 mg Tablet 25 mg PO BID PRN (Reason: Anxiety) RF: 0 oxycodone 5 mg Tablet 5 mg PO Q6H PRN (Reason: Breakthrough Pain) RF: 0 Systane (PF) 0.4-0.3 % Dropperette 1 drp OPB QAM RF: 0 magnesium hydroxide [Milk of Magnesia] 400 mg/5 mL suspension 30 ml PO .COMPLEX RF: 0 sennosides 8.6 mg Tablet 8.6 mg PO DAILY PRN (Reason: Constipation) RF: 0 prednisolone acetate 1 % drops,suspension 1 drp OPR DAILY RF: 0 bromfenac 0.09 % drops 1 drp OPR DAILY RF: 0 sennosides 8.6 mg Tablet 8.6 mg PO DAILY RF: 0 atorvastatin [Lipitor] 20 mg tablet 20 mg PO QPM RF: 0 acetaminophen [Acetaminophen Extra Strength] 500 mg Tablet 1,000 mg PO Q8H PRN (Reason: Pain) RF: 0 pantoprazole 20 mg tablet,delayed release (DR/EC) 40 mg PO BID RF: 0 ranitidine HCl 150 mg Tablet 150 mg PO QAM RF: 0 metoprolol tartrate 50 mg tablet 50 mg PO BID RF: 0 nitroglycerin 0.4 mg tablet, sublingual 1 tab Sublingual Q5M PRN (Reason: Chest Pain) RF: 0 furosemide 20 mg tablet 40 mg PO DAILY RF: 0 carbidopa-levodopa 25-100 mg tablet 1 tab PO TID RF: 0 Therems-M 27-0.4 mg Tablet 1 tab PO QAM RF: 0 Stand-Alone Forms: [facility] Discharge Orders: Discharge Order (Routine); Ordered 02/03/19 Ordered By: Jj Adam Admission Data Admit Date/Time: 02/03/19 03:07 Attending Provider: Angelica Hardin Admit Provider: Zay Farias Primary Care Provider: William Gould,[facility] Other Providers: Rosanna Keller ; Alexandra aCn Service: Medical Other Interventions: Discharge Summary Assessment (RN) Last Done: 02/03/19 14:17 DC Date/Time DO NOT enter until pt leaves facility: 02/03/19 15:10 Supervising Physician Co-Signing Physician Notes Resident Physician Supervision Note: I independently interviewed and examined the patient and verified the ortiz history and physical, reviewed labs and image studies, discussed the case with the resident Dr. Adam and agree with the findings and care plan. Resident Activity Tracking Resident Involvement: Resident Care Provided Care Provided: Adult Hospital Medicine
[2019-02-03] MEDS ORDERED: CHECK FENTANYL PATCH PLACEMENT SCH (16:00)
[2019-02-03] MEDS ORDERED: ATORVASTATIN 20 MG TAB PO SCH (21:00)
--- NOTE | 2019-02-04 00:33 | Emergency Department Note ---
Entered by Fiona Sheikh acting as a scribe for History of Present Illness General Chief complaint: Shortness of Breath/Dyspnea Stated complaint: SOB, NOT FEELING WELL, HAD CANCER TREATMENT YESTER Time Seen by Provider: 02/02/19 21:26 Source: patient and friends History of Present Illness Onset (ago): hour(s) (5.5) Location: abdomen (lower) Pain Consistency: + other (persistent ) Maximum Pain Intensity: 7 Quality: + other (soreness) Associated symptoms: + nausea/vomiting (positive nausea; negative vomiting), + shortness of breath and + other (positive bloating; positive intermittent leg swelling; negative change in urination; positive difficulty with urination; positive lower abdominal pain with urination); no chest pain and no fever/chills The patient is a 88 year old male who presents to the Emergency Room with complaints of persistent lower abdominal pain that began at about 1600 today, about 5.5 hours prior to arrival. The patient describes this pain as soreness. He states that he feels bloated. The patient reports feeling nauseous today, but denies vomiting. Per the patient's friend, the patient became short of breath today after walking five steps. The patient's friend states that the patient is usually able to walk on his own, but states that he was not able to today. The patient reports intermittent leg swelling. The patient denies fever, chills, chest pain, and change in urination. The patient states that he has not been drinking as much as he should today. He states that he had his third chemotherapy treatment yesterday, and states that he gets these treatments every 3 weeks. The patient states that he had his third chemotherapy treatment yesterday, and states that he is initially constipated followed by diarrhea. The patient states that he has not had a bowel movement since before his chemotherapy treatment yesterday. Per the patient's friend, the patient was in [place] about one year ago for internal bleeding following a procedure. The patient states that he has difficulty and pain in his lower abdomen with urination that has been going on for several months. The patient states that his PCP is reducing his water pills. The patient denies prostate issues. Home Medications Home Medications Medication Instructions Recorded Confirmed Type acetaminophen [Acetaminophen Extra 1,000 mg PO Q8H PRN 04/21/18 02/03/19 History Strength] atorvastatin [Lipitor] 20 mg PO QPM 04/21/18 02/03/19 History carbidopa-levodopa 1 tab PO TID 04/21/18 02/03/19 History furosemide 40 mg PO DAILY 04/21/18 02/03/19 History metoprolol tartrate 50 mg PO BID 04/21/18 02/03/19 History nitroglycerin 1 tab SUBLINGUAL Q5M PRN 04/21/18 02/03/19 History pantoprazole 40 mg PO BID 04/21/18 02/03/19 History ranitidine HCl 150 mg PO QAM 04/21/18 02/03/19 History sennosides 8.6 mg PO DAILY 04/21/18 02/03/19 History fentanyl 1 patch TRANSDERMAL Q3D 07/09/18 02/03/19 History ondansetron HCl 8 mg PO Q8H PRN 07/09/18 02/03/19 History polyethylene glycol 3350 [Miralax] 17 g PO QAM 07/09/18 02/03/19 History Systane (PF) 1 drp OPB QAM 11/02/18 02/03/19 History dexamethasone 0.5 tab PO QAM 11/02/18 02/03/19 History hydroxyzine HCl 25 mg PO BID PRN 11/02/18 02/03/19 History oxycodone 5 mg PO Q6H PRN 11/02/18 02/03/19 History Therems-M 1 tab PO QAM 11/17/18 02/03/19 History magnesium hydroxide 400 mg/5 mL 30 ml PO .COMPLEX 01/06/19 02/03/19 History oral suspension bromfenac 1 drp OPR DAILY 02/03/19 02/03/19 History prednisolone acetate 1 drp OPR DAILY 02/03/19 02/03/19 History sennosides 8.6 mg PO DAILY PRN 02/03/19 02/03/19 History Allergies Allergy/AdvReac Type Severity Reaction Status Date / Time Iodinated Contrast- Oral and Allergy Intermediate HIVES Verified 02/03/19 02:14 IV Dye promethazine Allergy Unknown unknown Verified 02/03/19 02:14 Past Med/Surg History Medical History Alzheimer disease (Chronic) BPH (benign prostatic hyperplasia) (Chronic) CAD (coronary artery disease) (Chronic) MULTIPLE VESSEL, S/P CABG 2002. HOWELL-LAD, SVG-LCx, 1st marginal and OM bridge graft, SVG-LAD and Dx. Normal EF, negative stress echo in 2006. 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 Orig dx 2013, had lymphadenectomy and 9 radiation treatments. Has now spread significantly, and patient has elected to forgo further treatment except for palliative care. Fentanyl patch for abdominal pain, Decadron daily for appetite stimulation. Abdominal mass, LUQ (left upper quadrant) Metastatic melanoma, found on CT 04/2018. Anemia Anxiety Axillary mass Bladder neck contracture Cerebrovascular disease Denies h/o CVA Claustrophobia Dyspnea GERD (gastroesophageal reflux disease) Hydronephrosis LEFT KIDNEY Renal dysfunction Urinary retention Surgical History History of cataract surgery LEFT Status post excisional biopsy LEFT FLANK, [facility], 12/10/18, [facility] H/O radical nephrectomy 2/2 mets from melanoma History of bronchoscopy History of colonoscopy History of hip surgery EMELINA and revision History of lung surgery R lung nodule wedge resection 08/2016 Hx of CABG PER DR. CARO RECORDS Family History Other No pertinent family history Social History Preferred Language: Uzbek Communication Ability: Effective Beliefs That Will Affect Care: None marital status: / Current Living Situation: [facility] Current Living Situation Comment: [facility] [place] current occupational status: retired Feels Safe at Home: Yes Smoking Status: Never smoker Cigarettes Per Day: 0 Second Hand Exposure: No Hx Alcohol Use: No Hx Substance Use: No Review of Systems See HPI for pertinent positives & negatives. and A total of 10 systems reviewed and were otherwise negative Physical Exam Vital Signs Vital Signs - 24 hr 02/03/19 00:58 02/03/19 02:26 Pulse Rate [Right Finger] 83 71 Respiratory Rate 18 18 Blood Pressure [Left Arm] 108/62 107/66 Blood Pressure Mean [Left Arm] 77 79 Pulse Oximetry 94 94 GENERAL: alert, well appearing, well nourished, no distress, non-toxic EYE EXAM: normal conjunctiva, PERRL and EOM's grossly intact OROPHARYNX: no exudate, no erythema, lips, buccal mucosa, and tongue normal and mucous membranes are very dry. NECK: supple, no nuchal rigidity, no adenopathy, non-tender LUNGS: Clear to auscultation. Normal chest wall mechanics, no w/r/r HEART: no murmurs, S1 normal and S2 normal ABDOMEN: abdomen soft, normo-active bowel sounds, no masses, no rebound or guarding. Lower abdominal tenderness. Dull to percussion. BACK: Back is symmetrical on inspection and there is no deformity, no midline tenderness, no CVA tenderness. SKIN: no rashes and no bruising, no petechia UPPER EXTREMITIES: upper extremities are grossly normal. FROM, nml pulses b/l. LOWER EXTREMITIES: No pitting edema. 3+ bilateral lower extremity edema. Nml pulses b/l. NEURO EXAM: Normal sensorium, cranial nerves II-XII grossly intact, normal speech, no gross weakness of arms, no gross weakness of legs. Course 2132: Past medical records reviewed. The patient was evaluated in room C6. A complete history and physical exam was performed. 0053: I updated the patient on all test results. 0121: I discussed the case with Dr. Keller [facility] Hospitalist who accepts the patient for further evaluation. Consultations Consultation #1: I discussed the case with Dr. Keller [facility] Hospitalist who accepts the patient for further evaluation. Time: 01:21 Administered Medications Discontinued Medications Acetaminophen (Tylenol) 650 mg PO Q4H PRN PRN Reason: pain/fever Stop: 03/05/19 04:34 Last Admin: 02/03/19 05:45 Dose: 650 mg Documented by: [id number] Artificial Tears (Artificial Tears) 1 drops OPB QAM [facility] Stop: 03/05/19 08:59 Last Admin: 02/03/19 11:24 Dose: Not Given Documented by: [id number] Carbidopa/Levodopa (Sinemet 25/100 Mg) 1 tab PO TID [facility] Stop: 03/05/19 08:59 Last Admin: 02/03/19 14:27 Dose: 1 tab Documented by: [id number] Admin: 02/03/19 08:16 Dose: 1 tab Documented by: [id number] Dexamethasone (Decadron) 2 mg PO QAM [facility] Stop: 03/05/19 08:59 Last Admin: 02/03/19 08:17 Dose: 2 mg Documented by: [id number] Diphenhydramine HCl (Benadryl) 25 mg IV NOW STA Stop: 02/02/19 22:24 Last Admin: 02/02/19 23:20 Dose: 25 mg Documented by: [id number] Enoxaparin Sodium (Lovenox) 30 mg SQ Q24H [facility] Stop: 03/05/19 08:59 Last Admin: 02/03/19 14:27 Dose: Not Given Documented by: [id number] Fentanyl (Duragesic) 25 mcg TD Q3D@0900 [facility] Stop: 02/17/19 08:59 Last Admin: 02/03/19 09:27 Dose: 25 mcg Documented by: [id number] Furosemide (Lasix) 40 mg PO DAILY [facility] Stop: 03/05/19 08:59 Last Admin: 02/03/19 08:16 Dose: 40 mg Documented by: [id number] Sodium Chloride (Nss 1000ml) 1,000 mls @ 200 mls/hr IV .Q5H [facility] Stop: 03/04/19 21:59 Last Admin: 02/03/19 10:02 Dose: Not Given Documented by: [id number] Infusion: 02/03/19 03:24 Dose: 0 mls/hr Documented by: [id number] Admin: 02/02/19 22:27 Dose: 200 mls/hr Documented by: [id number] Lactated Ringer's (Lr) 1,000 mls @ 80 mls/hr IV .[id number] [facility] Stop: 03/05/19 04:34 Last Infusion: 02/03/19 06:10 Dose: 80 mls/hr Documented by: [id number] Admin: 02/03/19 05:43 Dose: 80 mls/hr Documented by: [id number] Ioversol (Optiray 320 125ml) 119 ml IV ONCE PRN PRN Reason: Interaction Checking Stop: 02/06/19 23:53 Last Admin: 02/02/19 23:54 Dose: 119 ml Documented by: [id number] Methylprednisolone (Solumedrol) 60 mg IV NOW STA Stop: 02/02/19 22:24 Last Admin: 02/02/19 23:21 Dose: 60 mg Documented by: [id number] Metoprolol Tartrate (Lopressor) 50 mg PO BID [facility] Stop: 03/05/19 08:59 Last Admin: 02/03/19 08:17 Dose: 50 mg Documented by: [id number] Miscellaneous (Order Awaiting Action) 1 ea N/A QS [facility] Stop: 03/05/19 07:59 Last Admin: 02/03/19 08:21 Dose: Not Given Documented by: [id number] Miscellaneous (Fentanyl Patch Remove & Waste) 1 ea N/A Q3D@0859 [facility] Stop: 03/05/19 08:58 Last Admin: 02/03/19 09:27 Dose: 1 ea Documented by: [id number] Cosigned by: [id number] Multivitamins/Minerals (Multivitamin W/ Minerals Tab) 1 tab PO QAM [facility] Stop: 03/05/19 08:59 Last Admin: 02/03/19 08:16 Dose: 1 tab Documented by: [id number] Pantoprazole Sodium (Protonix) 40 mg PO BID [facility] Stop: 03/05/19 08:59 Last Admin: 02/03/19 08:17 Dose: 40 mg Documented by: [id number] Polyethylene Glycol (Miralax Powder Packet) 17 gm PO QAM [facility] Stop: 03/05/19 08:59 Last Admin: 02/03/19 08:15 Dose: 17 gm Documented by: [id number] Prednisolone Acetate (Pred Forte 1%) 1 drops OPR DAILY [facility] Stop: 03/05/19 08:59 Last Admin: 02/03/19 08:20 Dose: 1 drops Documented by: [id number] Ranitidine HCl (Zantac) 150 mg PO QAM [facility] Stop: 03/05/19 08:59 Last Admin: 02/03/19 08:16 Dose: 150 mg Documented by: [id number] Sennosides (Senokot) 8.6 mg PO DAILY [facility] Stop: 03/05/19 08:59 Last Admin: 02/03/19 08:17 Dose: 8.6 mg Documented by: [id number] Medical Decision Making Differential Diagnosis Differential diagnosis: Etiologies such as infections, reactive airway disease, pneumonia, pneumothorax, COPD, CHF, cardiac ischemia, pulmonary embolism, musculoskeletal, gastrointestin al, appendicitis, diverticulitis, PUD, biliary pathology, UTI, pancreatitis, obstruction, mesenteric ischemia, aortic pathology, infections, inflammatory bowel disease, renal colic, as well as others were entertained. Medical Records Attestation: I reviewed the patient's medical records. Home Medications Current Medication List: was personally reviewed by me Laboratory Data Attestation: I reviewed the patient's lab results. Result diagrams: 02/02/19 22:20 02/03/19 05:25 Lab Results 02/02/19 02/02/19 02/02/19 Range/Units 22:20 22:20 22:25 WBC 7.97 (4.8-10.8) K/uL RBC 3.63 L (4.7-6.1) M/uL Hgb 12.2 L (14.0-18.0) g/dL Hct 37.6 L (42-52) % MCV 103.6 H (80-100) fL MCH 33.6 (25-34) pg MCHC 32.4 (32-36) g/dL RDW Std Deviation 63.2 H (36.4-46.3) fL RDW Coeff of Shiva 16.8 H (11.5-14.5) % Plt Count 189 (130-400) K/uL MPV 9.4 (7.4-10.4) fL Immature Gran % (Auto) 0.4 % Neut % (Auto) 75.8 % Lymph % (Auto) 10.0 % Edmonson % (Auto) 12.5 % Eos % (Auto) 1.0 % Baso % (Auto) 0.3 % Immature Gran # (Auto) 0.03 H (0.00-0.02) K/uL Neut # (Auto) 6.04 (1.4-6.5) K/uL Lymph # (Auto) 0.80 L (1.2-3.4) K/uL Edmonson # (Auto) 1.00 H (0.11-0.59) K/uL Eos # (Auto) 0.08 (0-0.5) K/uL Baso # (Auto) 0.02 (0-0.2) K/uL Absolute Nucleated RBC 0.03 H (0-0) K/uL Nucleated RBC % (auto) 0.4 % Sodium 142 (136-145) mmol/L Potassium 4.2 (3.5-5.1) mmol/L Chloride 102 (98-107) mmol/L Carbon Dioxide 28 (21-32) mmol/L Anion Gap 12.0 H (3-11) BUN 35 H (7-18) mg/dl Creatinine 1.78 H (0.6-1.4) mg/dl Est Cr Clr Drug Dosing Not Reportable Est GFR ( Amer) 39.2 Est GFR (Non-Af Amer) 33.8 BUN/Creatinine Ratio 19.6 (10-20) Glucose 93 (70-99) mg/dl POC Lactic Acid Brendan 2.23 H (0.90-1.70) mmol/L Calcium 8.8 (8.5-10.1) mg/dl Magnesium 2.4 (1.8-2.4) mg/dl Total Bilirubin 1.3 H (0.2-1) mg/dl AST 56 H (15-37) U/L ALT 9 L (12-78) U/L Alkaline Phosphatase 41 L (45-117) U/L Troponin I 0.021 (0-0.045) ng/ml NT-Pro-B Natriuret Pep 1044 (0-1800) pg/ml Total Protein 7.0 (6.4-8.2) gm/dl Albumin 3.3 L (3.4-5.0) gm/dl Globulin 3.7 (2.5-4.0) gm/dl Albumin/Globulin Ratio 0.9 (0.9-2) Lipase 63 L (73-393) U/L TSH 5.260 H (0.300-4.500) uIu/ml Imaging Data Radiologist's Impression: Radiology results as stated below per my review and the radiologist's interpretation: CTA CHEST: Comparison: CT chest 10/13/17 No evidence of pulmonary embolism. 2.7 cm right upper lobe mass is new from prior and likely represents metastatic disease. Moderate atelectasis and/or airspace disease at left lung base. Atelectasis favored. Mild scarring/atelectasis elsewhere. Postsurgical change and scarring at right apex, similar to prior right upper lobe calcified granuloma. Post-CABG. Cardiomegaly. 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 No evidence of dissection, but evaluation limited by timing of contrast bolus. No effusion or pneumothorax. Healed rib fractures. Degenerative changes of spine and exaggerated kyphosis /dextroscoliosis. CT ABDOMEN & PELVIS With Contrast: Comparison: CT and pelvis 07/19/18 Left renal/adrenal mass is enlarged from prior, measuring up to 11.9 cm. It demonstrates mass effect on the superior aspect of the stomach and may invade the stomach wall as there is loss of intervening fat plane. It also abuts the spleen. Left kidney is absent. Enlarging mesenteric large mass, now in left lower abdomen/pelvis, measuring up to 15.1 cm Large mass in left lower chest wall posterior laterally, measuring up to 17.[address] evidence of acute cholecystitis. No biliary ductal dilatation. Calcified granulomas in spleen. Small right renal cysts. No free air or free fluid. No bowel obstruction. colonic diverticulosis without evidence of acute diverticulitis. Normal appendix. Post-bilateral total hip arthroplasties. Collection posterior to left hip arthroplasty is similar to prior. Degenerative changes of spine. Radiologist: Sergei Lowe MD. Study ready at 00:04 and initial results transmitted at 00:45. ECG Data Attestation: I personally reviewed and interpreted this ECG as follows: Indication: SOB/dyspnea Rate (beats per minute): 87 Rhythm: sinus rhythm Findings: + other (normal axis; normal intervals; baseline artifact) and + PVC; no acute ischemic change Blood Pressure Blood Pressure Findings: Normal blood pressure MDM Narrative Patient ill-appearing here with concern for market clinical dehydration, increased generalized weakness, dyspnea on exertion. Patient sent for CT jazmin ging after labs drawn. CT reveals worsening metastatic disease with new metastases in the patient's lungs which likely is contributing to his dyspnea on exertion. The increasing size of the abdominal malignancy is likely contributing to his increased lower abdominal pain. Patient afebrile here. Patient was given gentle IV hydration given the marketed lower extremity edema. No evidence of worsening renal failure or CHF. Lower extremity edema more likely due to tumor bulk compression against his lymphatic and venous return. Patient made aware of all results at bedside, and given concern for need for additional treatment and support at this time as well as concern for safe discharge and follow-up given the holiday, discussed with him additional inpatient management. He verbalized understanding and was in agreement. Case discussed with hospitalist for additional inpatient evaluation and treatment. No evidence of bacteremia/sepsis, no evidence of postobstructive pneumonia, I do not suspect PE. Impression & Plan Lower abdominal pain, Dyspnea on exertion, Generalized weakness, Metastatic disease, Acute dehydration Discharge Plan Visit Data *Final* Discharge Date/Time: 02/03/19 04:07 Chief Complaint: Shortness of Breath/Dyspnea Stated Complaint: SOB, NOT FEELING WELL, HAD CANCER TREATMENT YESTER ED Provider: Manda Ruvalcaba Discharge Problem: Lower abdominal pain, Dyspnea on exertion, Generalized weakness, Metastatic disease, Acute dehydration Patient Disposition: Admitted As Inpatient Discharge Instructions Interventions: ED Discharge Assessment Last Done: 02/03/19 04:07 The scribe's documentation has been prepared under my direction and personally reviewed by me in its entirety. I confirm that the note above accurately reflects all work, treatment, procedures, and medical decision making performed by me.
--- NOTE | 2019-02-04 07:54 | Palliative Care Progress Note ---
Date of Service February 04, 2019 Subjective Consult placed on 02/02, patient discharged 02/03 prior to palliative care consultation being completed. PG Care Time/CCT Total # of Minutes Spent Total Time Spent with Patient: Total time spent is greater than 50% in coordination of care (as documented) at patient's floor/unit and/or counseling patient:
[2019-02-04] MEDS ORDERED: MAGNESIUM HYDROXIDE SUSP 30 ML UDC PO SCH (09:00)
== END 2019-02-03 15:10 | disposition home or self-care (01) ==
LOC: ED 20:41 → 4E 20:41 → SUATTDRO 02-03 03:07 → 4E 02-03 04:07

== ENCOUNTER 2019-03-27 05:02 | Inpatient (IN) ==
[2019-03-27] MEDS ORDERED: ACETAMINOPHEN 500 MG TAB PO STA (05:39)
[2019-03-27 05:48] LABS: Basophils # (auto) 0.01 K/uL (0-0.2); Basophils % (auto) 0.1 %; Eosinophils # (auto) 0.01 K/uL (0-0.5); Eosinophils % (auto) 0.1 %; Hematocrit (blood only) 35.3 % (42-52); Hemoglobin 11.5 g/dL (14.0-18.0); Immature Granulocytes # (auto) 0.01 K/uL (0.00-0.02); Immature Granulocytes % (auto) 0.1 %; Lymphocytes # (auto) 0.85 K/uL (1.2-3.4); Lymphocytes % (auto) 11.8 %; Mean Corpuscular Hemoglobin 32.3 pg (25-34); Mean Corpuscular Hgb Conc 32.6 g/dL (32-36); Mean Corpuscular Volume 99.2 fL (80-100); Mean Platelet Volume 8.9 fL (7.4-10.4); Monocytes # (auto) 0.77 K/uL (0.11-0.59); Monocytes % (auto) 10.7 %; Neutrophils # (auto) 5.53 K/uL (1.4-6.5); Neutrophils % (auto) 77.2 %; Platelet Count 200 K/uL (130-400); RDW Coefficient of Variation 17.1 % (11.5-14.5); RDW Standard Deviation 61.8 fL (36.4-46.3); Red Blood Count 3.56 M/uL (4.7-6.1); White Blood Count 7.18 K/uL (4.8-10.8)
[2019-03-27 06:04] LABS: Albumin Level 3.2 gm/dl (3.4-5.0); Calcium 8.9 mg/dl (8.5-10.1); Creatinine Clr Calc Pharmacy 42.5 ml/min; Est GFR (African American) 55.7; Est GFR (Non-African American) 48.1; Potassium 3.8 mmol/L (3.5-5.1)
[2019-03-27 06:07] LABS: Albumin Globulin Ratio 0.9 (0.9-2); Bilirubin,Total 1.1 mg/dl (0.2-1); Globulin 3.5 gm/dl (2.5-4.0); Total Protein 6.7 gm/dl (6.4-8.2)
[2019-03-27] MEDS ORDERED: SODIUM CHLORIDE 0.9% 500 ML IV SCH ×2 (06:30→11:45)
[2019-03-27] MEDS ORDERED: IMIPENEM/CILASTATIN SODIUM 500 MG in DEXTROSE 5% 100 ML IV STA (07:06)
[2019-03-27] MEDS ORDERED: DAPTOmycin 500 MG in SYRINGE 0 ML IV STA (07:06)
--- NOTE | 2019-03-27 07:14 | Ultrasound Report ---
US venous doppler LE LT HISTORY: 88 years-old Male eval for DVT acute pain and swelling of the left lower extremity COMPARISON: None available TECHNIQUE: Multiple real-time sonographic images of the left lower extremity deep venous structures w ere obtained assessing grayscale appearance, color and spectral flow FINDINGS: Normal flow, compressibility, phasicity and augmentation of the left lower extremity deep venous stru ctures. IMPRESSION: No sonographic evidence of deep venous thrombosis. The above report was generated using voice recognition software. It may contain grammatical, syntax o r spelling errors. Electronically signed by: Zay Hurt M.D. 03/27/2019 7:12 AM
[2019-03-27] MEDS ORDERED: fentaNYL citrate 100 MCG/2 ML VIAL IV ONE (07:22)
[2019-03-27] MEDS ORDERED: SODIUM CHLORIDE 0.9% 250 ML IV ONE (07:22)
--- NOTE | 2019-03-27 07:55 | Emergency Department Note ---
Entered by Bogdan Max acting as a scribe for Katelin Membreno DO History of Present Illness General Chief complaint: Leg Injury/Pain Stated complaint: LEG PAIN Time Seen by Provider: 03/27/19 05:08 Source: patient History of Present Illness Onset (ago): minute(s) ([employer]) Location: lower extremity and left Severity: severe Pain Consistency: + constant Associated symptoms: + denies other symptoms (right leg pain) and + other (chronic abdominal pain) The patient is an 88 y/o male who presents to the ED w/ CC of constant, severe, left leg pain beginning just [employer]. The patient states he woke up in the night with severe left lower leg pain. He reports he was not able to go back to sleep. The patient notes he tried putting ketoconazole cream on his leg, but it did not help. He states he does not have a history of this pain. The patient reports it is still hurting. He notes he thinks he is dehydrated because he has not been drinking much in the heat. The patient states he has abdominal pain but notes it is chronic. He reports he takes a lot of pain medication, so he normally is constipated. The patient notes he normally walks short distances with a walker but anything over that he uses a wheelchair. He denies current right leg pain and a history of blood clots. Nursing staff notes the patient went to sleep and felt completely fine. Home Medications Home Medications Medication Instructions Recorded Confirmed Type atorvastatin [Lipitor] 20 mg PO QPM 04/21/18 03/27/19 History carbidopa-levodopa 1 tab PO TID 04/21/18 03/27/19 History metoprolol tartrate 50 mg PO BID 04/21/18 03/27/19 History ranitidine HCl 150 mg PO QAM 04/21/18 03/27/19 History fentanyl 1 patch TRANSDERMAL Q3D 07/09/18 03/27/19 History polyethylene glycol 3350 [Miralax] 17 g PO QAM 07/09/18 03/27/19 History Systane (PF) 1 drp OPB QAM 11/02/18 03/27/19 History dexamethasone 2 mg PO QAM 11/02/18 03/27/19 History hydroxyzine HCl 25 mg PO BID PRN 11/02/18 03/27/19 History oxycodone 5 mg PO Q6H PRN 11/02/18 03/27/19 History sennosides 8.6 mg PO DAILY PRN 02/03/19 03/27/19 History ondansetron HCl 8 mg tablet 8 mg PO Q8H PRN #90 tab 02/21/19 03/27/19 Rx furosemide 40 mg tablet 40 mg PO DAILY 03/08/19 03/27/19 History pantoprazole 40 mg tablet,delayed 40 mg PO BID #180 tab 03/24/19 03/27/19 Rx release Allergies Allergy/AdvReac Type Severity Reaction Status Date / Time Iodinated Contrast- Oral and Allergy Intermediate HIVES Verified 03/27/19 07:17 IV Dye promethazine Allergy Unknown unknown Verified 03/27/19 07:17 Past Med/Surg History Medical History Alzheimer disease (Chronic) BPH (benign prostatic hyperplasia) (Chronic) CAD (coronary artery disease) (Chronic) MULTIPLE VESSEL, S/P CABG 2001. HOWELL-LAD, SVG-LCx, 1st marginal and OM bridge graft, SVG-LAD and Dx. Normal EF, negative stress echo in 2006. 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 Orig dx 2013, had lymphadenectomy and 9 radiation treatments. Has now spread significantly, and patient has elected to forgo further treatment except for palliative care. Fentanyl patch for abdominal pain, Decadron daily for appetite stimulation. Abdominal mass, LUQ (left upper quadrant) Metastatic melanoma, found on CT 04/2018. Anemia Anxiety Axillary mass Bladder neck contracture Cerebrovascular disease Denies h/o CVA Claustrophobia Dyspnea GERD (gastroesophageal reflux disease) Hydronephrosis LEFT KIDNEY Renal dysfunction Urinary retention Surgical History H/O radical nephrectomy 2/2 mets from melanoma History of bronchoscopy History of cataract surgery LEFT History of colonoscopy History of hip surgery EMELINA and revision History of lung surgery R lung nodule wedge resection 08/2016 Hx of CABG PER DR. CARO RECORDS Status post excisional biopsy LEFT FLANK, [facility], 12/10/18, [facility] Family History Other No pertinent family history Social History Preferred Language: Thai Communication Ability: Effective Loan Service Officer Required: No Beliefs That Will Affect Care: None marital status: / Current Living Situation: Skilled Nursing Current Living Situation Comment: [facility] current occupational status: retired Feels Safe at Home: Yes Smoking Status: Never smoker Cigarettes Per Day: 0 ; Second Hand Exposure: No ; Hx Alcohol Use: No Hx Substance Use: No Review of Systems See HPI for pertinent positives & negatives. and A total of 10 systems reviewed and were otherwise negative Physical Exam Vital Signs Vital Signs - 24 hr 03/27/19 05:10 03/27/19 06:37 03/27/19 06:44 Temperature 37.3 C Temperature Source Oral Sepsis Recent Fever Within 48 Hours No Sepsis Action Taken by Nursing No Action Required Pulse Rate 112 H Pulse Rate [Finger] 102 H Respiratory Rate 18 18 Respiratory Depth Normal Normal Blood Pressure 138/83 Blood Pressure [Left Arm] 86/54 L 91/56 L Blood Pressure Mean 101 Blood Pressure Mean [Left Arm] 64 67 Pulse Oximetry 95 95 Oxygen Delivery Method Room Air Room Air 03/27/19 07:14 03/27/19 07:54 Temperature Temperature Source Sepsis Recent Fever Within 48 Hours Sepsis Action Taken by Nursing Pulse Rate Pulse Rate [Finger] 95 H 103 H Respiratory Rate 16 16 Respiratory Depth Blood Pressure Blood Pressure [Left Arm] 92/61 L 100/43 L Blood Pressure Mean Blood Pressure Mean [Left Arm] 71 62 Pulse Oximetry 97 95 Oxygen Delivery Method Room Air Room Air HEENT: Head - normocephalic and atraumatic Pupils are equal, round, and reactive to light. Extraocular eye muscles are intact, and sclera are anicteric. Nose - moist nasal mucosa without discharge. Mouth - moist buccal mucosa. Oropharynx is nonerythematous and there is no tonsillar exudate or edema noted. Neck: Supple; no JVD, nuchal rigidity, cervical lymphadenopathy. Heart: Regular rate and rhythm. There is a normal S1 and S2 with no murmurs, clicks, or gallops appreciated. Lungs: Clear to auscultation bilaterally with no wheezes, rales, or rhonchi. Abdomen: Soft, distended with suprapubic tenderness to palpation, with good bowel sounds. There are no palpable pulsatile masses or hepatosplenomegaly. There is no guarding, rigidity, or rebound noted. Extremities: No evidence of cyanosis or clubbing. There are easily palpable peripheral pulses. There is significant edema to the left foot, erythema to the left tib/fib region surrounding an open wound extending up to the left mid-thigh with tenderness to palpation posteriorly. Skin: warm and dry with good turgor. Course 0513: The patient was evaluated in room B09. A complete history and physical e xamination were performed. Nursing notes and previous electronic medical records were reviewed. IV lock was established and labs were drawn as above. 0539: Ordered Tylenol 1000mg PO 0629: I attempted to reevaluate the patient. He is at ultrasound. 0630: Ordered Sodium Chloride 500 ml @ 125 mls/hr IV. Blood cultures and a lactic acid were ordered 0706: Ordered Daptomycin 500 mg in syringe 10 mls @ 5 mls/min, Imipenem/Cilastatin Sodium 500 mg in dextrose 110 mls @ 100mls/hr IV. The patient was hypotensive and will receive an additional IV fluid bolus. 0722: Ordered Fentanyl Citrate 50 mcg IV, Sodium Chloride 250 ml @ 999 mls/hr IV. 0726: Upon reevaluation, I discussed findings and results with him. He verbalized agreement of the treatment plan. The patient will be evaluated for further management and care. 0728: I spoke with Dr. Alves of the [facility] Hospitalist Service. The patient will be evaluated for further management and care. Administered Medications Sodium Chloride (Nss) 500 mls @ 125 mls/hr IV .Q4H DEXTER Stop: 04/26/19 06:29 Last Admin: 03/27/19 06:35 Dose: 125 mls/hr Documented by: [id number] Imipenem/Cilastatin Sodium 500 (mg/ Dextrose) 110 mls @ 100 mls/hr IV NOW STA; Protocol Stop: 03/27/19 08:11 Last Admin: 03/27/19 07:55 Dose: 100 mls/hr Documented by: [id number] Discontinued Medications Acetaminophen (Tylenol) 1,000 mg PO NOW STA Stop: 03/27/19 05:40 Last Admin: 03/27/19 05:42 Dose: 1,000 mg Documented by: [id number] Fentanyl Citrate (Fentanyl Citrate) 50 mcg IV NOW ONE Stop: 03/27/19 07:23 Last Admin: 03/27/19 07:28 Dose: 50 mcg Documented by: [id number] Daptomycin 500 mg/ Syringe 10 mls @ 5 mls/min IV NOW STA; Protocol Stop: 03/27/19 07:07 Last Admin: 03/27/19 07:54 Dose: 5 mls/min Documented by: [id number] Sodium Chloride (Nss) 250 mls @ 999 mls/hr IV .Q16M ONE Stop: 03/27/19 07:37 Last Admin: 03/27/19 07:29 Dose: 999 mls/hr Documented by: [id number] Medical Decision Making Differential Diagnosis Differential diagnosis includes: DVT, cellulitis, infected skin wound, lymphedema Medical Records Attestation: I reviewed the patient's medical records. Home Medications Current Medication List: was personally reviewed by me Laboratory Data Attestation: I reviewed the patient's lab results. Result diagrams: 03/27/19 05:42 03/27/19 05:42 Lab Results 03/27/19 03/27/19 Range/Units 05:42 05:42 WBC 7.18 (4.8-10.8) K/uL RBC 3.56 L (4.7-6.1) M/uL Hgb 11.5 L (14.0-18.0) g/dL Hct 35.3 L (42-52) % MCV 99.2 (80-100) fL MCH 32.3 (25-34) pg MCHC 32.6 (32-36) g/dL RDW Std Deviation 61.8 H (36.4-46.3) fL RDW Coeff of Shiva 17.1 H (11.5-14.5) % Plt Count 200 (130-400) K/uL MPV 8.9 (7.4-10.4) fL Immature Gran % (Auto) 0.1 % Neut % (Auto) 77.2 % Lymph % (Auto) 11.8 % [place] % (Auto) 10.7 % Eos % (Auto) 0.1 % Baso % (Auto) 0.1 % Immature Gran # (Auto) 0.01 (0.00-0.02) K/uL Neut # (Auto) 5.53 (1.4-6.5) K/uL Lymph # (Auto) 0.85 L (1.2-3.4) K/uL [place] # (Auto) 0.77 H (0.11-0.59) K/uL Eos # (Auto) 0.01 (0-0.5) K/uL Baso # (Auto) 0.01 (0-0.2) K/uL Sodium 141 (136-145) mmol/L Potassium 3.8 (3.5-5.1) mmol/L Chloride 104 (98-107) mmol/L Carbon Dioxide 29 (21-32) mmol/L Anion Gap 8.0 (3-11) BUN 33 H (7-18) mg/dl Creatinine 1.33 (0.6-1.4) mg/dl Est Cr Clr Drug Dosing 42.5 ml/min Est GFR ( Amer) 55.7 Est GFR (Non-Af Amer) 48.1 BUN/Creatinine Ratio 25.0 H (10-20) Glucose 94 (70-99) mg/dl Calcium 8.9 (8.5-10.1) mg/dl Total Bilirubin 1.1 H (0.2-1) mg/dl AST 51 H (15-37) U/L ALT 21 (12-78) U/L Alkaline Phosphatase 44 L (45-117) U/L Total Protein 6.7 (6.4-8.2) gm/dl Albumin 3.2 L (3.4-5.0) gm/dl Globulin 3.5 (2.5-4.0) gm/dl Albumin/Globulin Ratio 0.9 (0.9-2) Imaging Data Radiologist's Impression: Radiology results as stated below per my review and the radiologist's interpretation: US venous doppler LE LT HISTORY: 88 years-old Male eval for DVT acute pain and swelling of the left lower extremity COMPARISON: None available TECHNIQUE: Multiple real-time sonographic images of the left lower extremity deep venous structures were obtained assessing grayscale appearance, color and spectral flow FINDINGS: Normal flow, compressibility, phasicity and augmentation of the left lower extremity deep venous structures. IMPRESSION: No sonographic evidence of deep venous thrombosis. The above report was generated using voice recognition software. It may contain grammatical, syntax or spelling errors. Electronically signed by: Zay uHrt M.D. 03/27/2019 7:12 AM Blood Pressure Blood Pressure Findings: Low blood pressure Blood Pressure Disposition: further management by hospitalist MDM Narrative The patient is an 88 y/o male who presents to the ED w/ CC of constant, severe, left leg pain beginning just [employer]. The patient has a history of metastatic melanoma and presents with pain, swelling and redness to the left leg. Duplex of the left leg was negative for DVT. Patient does have a small open wound to the anterior lower tib-fib region which is most likely the source of his cellulitis. The patient has lymphangitic spread up to the left lateral thigh. He was started on IV antibiotics. The patient did have some hypotension which was tr eated with IV normal saline solution. I discussed the case with the [facility] Hospitalist group and they will evaluate for further management. Impression & Plan Cellulitis of left leg Discharge Plan Visit Data Chief Complaint: Leg Injury/Pain Stated Complaint: LEG PAIN ED Provider: Katelin Membreno Discharge Problem: Cellulitis of left leg Patient Disposition: Being Evaluated by Hospitalist Forms Stand Alone Forms: My [facility] Prescriptions Prescriptions: No Action ondansetron HCl 8 mg tablet 8 mg PO Q8H PRN (Reason: Nausea) Qty: 90 RF: 3 pantoprazole 40 mg tablet,delayed release (DR/EC) 40 mg PO BID Qty: 180 RF: 3 furosemide 40 mg tablet 40 mg PO DAILY RF: 0 fentanyl 25 mcg/hr patch 72 hour 1 patch Transdermal Q3D RF: 0 polyethylene glycol 3350 [Miralax] 17 gram Powder In Packet 17 g PO QAM RF: 0 dexamethasone 4 mg Tablet 2 mg PO QAM RF: 0 hydroxyzine HCl 25 mg Tablet 25 mg PO BID PRN (Reason: Anxiety) RF: 0 oxycodone 5 mg Tablet 5 mg PO Q6H PRN (Reason: Breakthrough Pain) RF: 0 Systane (PF) 0.4-0.3 % Dropperette 1 drp OPB QAM RF: 0 sennosides 8.6 mg Tablet 8.6 mg PO DAILY PRN (Reason: Constipation) RF: 0 atorvastatin [Lipitor] 20 mg tablet 20 mg PO QPM RF: 0 ranitidine HCl 150 mg Tablet 150 mg PO QAM RF: 0 metoprolol tartrate 50 mg tablet 50 mg PO BID RF: 0 carbidopa-levodopa 25-100 mg tablet 1 tab PO TID RF: 0 Referrals Referrals: [facility] [Primary Care Provider] - The scribe's documentation has been prepared under my direction and personally reviewed by me in its entirety. I confirm that the note above accurately reflects all work, treatment, procedures, and medical decision making performed by me.
--- NOTE | 2019-03-27 08:18 | History & Physical Report ---
Date of Service March 27, 2019 Assessment & Plan (1) Cellulitis of left leg: - Admit to med surg -Continue IV daptomycin, already received 1 dose of daptomycin and imipenem/cilastatin while in the ER -Blood cultures x2, follow -Follow urine culture -No WBC, subjective fever at home, afebrile here -Lactic acid was initially elevated at 3.0, recheck to show clearance -PT/OT consult -Continue NSS +20 mEq KCl at 125 ml/hr (2) CAD (coronary artery disease) of artery bypass graft: -S/P CABG x4 -Holding antihypertensives for now as patient initially was hypotensive including beta-blockade (3) Hypertension: -Hold Lasix 40 mg daily, metoprolol tartrate 50 mg twice daily (4) Hypercholesterolemia: -Continue atorvastatin 20 mg QPM (5) Malignant melanoma: -Originally diagnosed 2013 -Lung, left kidney, multiple regions in the abdomen, back, lymph nodes Status post multiple surgeries and resections including a left nephrectomy, left lung wedge resection, R axillary lymph node dissection -patient is not seeking any aggressive treatments, continue palliative measures -Continue fentanyl patch, oxycodone -On dexamethasone at home, will stress dose steroids with hydrocortisone 50 mg grams IV Q8H -Continue bowel regimen for intermittent constipation (6) Metastatic disease: (7) Peripheral edema: -Chronic, worse with left leg cellulitis as above (8) Acute on chronic renal failure: -Creatinine appears to be 1.3, baseline after receiving NSS in the ER. -Follow a.m. PRP (9) GERD (gastroesophageal reflux disease): -Continue pantoprazole 40 mg BID and ranitidine 150 every morning (10) Alzheimers disease: (11) Parkinsonism: -Continue carbidopa levodopa 1 tab p.o. TID (12) Chronic anemia: -Noted, hemoglobin 11.5 upon admission, appears to be around baseline which is 1112 (13) BPH (benign prostatic hypertrophy): -Continue bladder scans prn, patient reports has been urinating without difficulty recently (14) Degenerative joint disease: -Continue chronic opioids for pain (15) DVT prophylaxis: -Teds, Lovenox subcu Disposition: Patient from [facility], admit, likely to remain in hospital x2 days History of Present Illness Primary Care Provider: [facility], [facility] [address] This is an 88 yo M with PMHx of CAD s/p CABG x 4, HTN, HLD, left adrenal hemorrhage, gastric ulcers, GI bleed, chronic anemia, parkinsonism, lumbar radiculopathy, urinary retention, constipation, 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 Pt notes he was getting into a truck and slipped on the foot bench when getting up and scraped his legs about 4-5 weeks ago. He notes that since that time abrasion has just not healed. Last seen patient noticed increased redness, warmth and swelling. He had difficulty putting any weight on it today and presented to the ER due to pain. He admits to fevers and chills which started last night. He did not take any Tylenol. He has not been putting anything on the wound topically at home. Patient is from [facility]. He has not taken any of his morning medications. Patient was slightly hypotensive upon presentation and required volume resuscitation with IV fluids. He has been started on IV daptomycin and imipenem/cilastatin. Allergies Allergy/AdvReac Type Severity Reaction Status Date / Time Iodinated Contrast- Oral and Allergy Intermediate HIVES Verified 03/27/19 07:17 IV Dye promethazine Allergy Unknown unknown Verified 03/27/19 07:17 Home Medications Home Medications Medication Instructions Recorded Confirmed Type atorvastatin [Lipitor] 20 mg PO QPM 04/21/18 03/27/19 History carbidopa-levodopa 1 tab PO TID 04/21/18 03/27/19 History metoprolol tartrate 50 mg PO BID 04/21/18 03/27/19 History ranitidine HCl 150 mg PO QAM 04/21/18 03/27/19 History fentanyl 1 patch TRANSDERMAL Q3D 07/09/18 03/27/19 History polyethylene glycol 3350 [Miralax] 17 g PO QAM 07/09/18 03/27/19 History Systane (PF) 1 drp OPB QAM 11/02/18 03/27/19 History dexamethasone 2 mg PO QAM 11/02/18 03/27/19 History hydroxyzine HCl 25 mg PO BID PRN 11/02/18 03/27/19 History oxycodone 5 mg PO Q6H PRN 11/02/18 03/27/19 History sennosides 8.6 mg PO DAILY PRN 02/03/19 03/27/19 History ondansetron HCl 8 mg tablet 8 mg PO Q8H PRN #90 tab 02/21/19 03/27/19 Rx furosemide 40 mg tablet 40 mg PO DAILY 03/08/19 03/27/19 History pantoprazole 40 mg tablet,delayed 40 mg PO BID #180 tab 03/24/19 03/27/19 Rx release Past Med/Surg History Medical History Alzheimer disease (Chronic) BPH (benign prostatic hyperplasia) (Chronic) CAD (coronary artery disease) (Chronic) MULTIPLE VESSEL, S/P CABG 2001. HOWELL-LAD, SVG-LCx, 1st marginal and OM bridge graft, SVG-LAD and Dx. Normal EF, negative stress echo in 2006. 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 Orig dx 2013, had lymphadenectomy and 9 radiation treatments. Has now spread significantly, and patient has elected to forgo further treatment except for palliative care. Fentanyl patch for abdominal pain, Decadron daily for appe tite stimulation. Abdominal mass, LUQ (left upper quadrant) Metastatic melanoma, found on CT 04/2018. Anemia Anxiety Axillary mass Bladder neck contracture Cerebrovascular disease Denies h/o CVA Claustrophobia Dyspnea GERD (gastroesophageal reflux disease) Hydronephrosis LEFT KIDNEY Renal dysfunction Urinary retention Surgical History H/O radical nephrectomy 2/2 mets from melanoma History of bronchoscopy History of cataract surgery LEFT History of colonoscopy History of hip surgery EMELINA and revision History of lung surgery R lung nodule wedge resection 08/2016 Hx of CABG PER DR. CARO RECORDS Status post excisional biopsy LEFT FLANK, [facility], 12/10/18, [facility] Family History Other No pertinent family history Social History Preferred Language: Turkmen Communication Ability: Effective Overlock Collar Setter Required: No Beliefs That Will Affect Care: None marital status: Current Living Situation: Skilled Nursing Current Living Situation Comment: Patient resides at [facility] current occupational status: retired Other Information That Helps Us Care for You: No Feels Safe at Home: Yes Safety Concerns: Feels Safe At This Time Smoking Status: Never smoker Cigarettes Per Day: 0 ; Second Hand Exposure: No ; Hx Alcohol Use: No Hx Substance Use: No Review of Systems Review of Systems: Constitutional: +fever and sweats, no chills Eyes: No diplopia, no worsening or blurred vision ENT: normal hearing, no trouble swallowing Respiratory: No cough, sputum, dyspnea at rest or on exertion Cardiovascular: No chest pain, tightness or palpitations Abdomen: No pain, nausea, vomiting, + chronic constipation due to pain medication, last BM yesterday Musculoskeletal: As per HPI. Otherwise No joint pain, calf pain, swelling Neurologic: No weakness, numbness/tingling, or balance problems Psychiatric: No anxiety or depression Skin: No rash or itch Physical Exam Physical Exam: General: awake, alert, no apparent distress, + palor Head: Normocephalic, atraumatic ENT: PERRL, EOMI, no pharyngeal exudate, mucous membranes moist Chest: Clear to auscultation, on room air, no adventitious breath sounds Cardiac: irregular, intermittently tachycardic, no murmur, no JVD, normal peripheral pulses, good capillary refill Abdominal: NABS x 4 quadrants, soft, +slightly distended, nontender to palpation, no rebound, guarding or tenderness Back: Large melanoma overlying the left shoulder blade, nontender, no discoloration. Other melanoma lesions but much smaller on the right back region. Extremities: +LLE with abraision measuring about 2cm in length over anterior aspect of the tibia, + surrounding erythema, + warmth, extends around the calf laterally. Edema involving the entire foot. Othersiwe extremities with normal inspection, no peripheral edema or erythema. Psych: Normal mood and affect Neuro: AAO x 3, no gross motor deficits, speech is clear, no peripheral sensory deficits Results & Data Vital Signs (Past 12 Hours) Vital Signs Temp Pulse Pulse Resp BP BP Pulse Ox 03/27/19 07:54 103 H 16 100/43 L 95 03/27/19 07:14 95 H 16 92/61 L 97 03/27/19 06:44 102 H 18 91/56 L 95 03/27/19 06:37 86/54 L 03/27/19 05:10 37.3 C 112 H 18 138/83 95 Diagnostic Findings US venous doppler LE LT HISTORY: 88 years-old Male eval for DVT acute pain and swelling of the left lower extremity COMPARISON: None available TECHNIQUE: Multiple real-time sonographic images of the left lower extremity deep venous structures were obtained assessing grayscale appearance, color and spectral flow FINDINGS: Normal flow, compressibility, phasicity and augmentation of the left lower extremity deep venous structures. IMPRESSION: No sonographic evidence of deep venous thrombosis. ECG Additional Comments: 27-MAR-2019 08:47:33 [facility]-EDSTAT ROUTINE RETRIEVAL Sinus tachycardia with Blocked Premature atrial complexes Nonspecific ST and T wave abnormality Prolonged QT Abnormal ECG When compared with ECG of 02-FEB-2019 21:22, Premature ventricular complexes are no longer Present Premature atrial complexes are now Present Nonspecific T wave abnormality now evident in Anterior leads 25mm/s 10mm/mV 150Hz 9.0.9 12SL 241 GILBERT: 10 Referred by: [facility] Unconfirmed Vent. rate 98 BPM CO interval 148 ms QRS duration 84 ms QT/QTc 376/480 ms P-R-T axes 30 46 80 Code Status & VTE Plan Code Status DNR- discussed with pt at bedside VTE Prophylaxis Plan VTE Prophylaxis will be ordered: Yes Supervising Physician Co-Signing Physician Notes Patient seen and examined with Kady CARRILLO. I agree with her HPI, history, ROS, physical exam and A/P. Case was discussed with her as well as the ortiz points in treatment. I personally reviewed the lab work and imaging and other diagnostic studies. Case discussed with ED physician at the time of admission. 88 yo male with h/o met melanoma, who recently injured left burdick about 3 weeks ago. Developed sudden pain and redness in left lower leg last night. So sever that he had difficult time walking. No fever or chills. Admits that left lower leg always a little more swollen due to h/o CABG and vein removal on left side. - Cellulitis: treat with Daptomycin IV, WBC is normal anticipate converting to PO in several days - Lactic acidosis: likely due to low blood pressure responded well to IV fluids continue to hydrate aggressively peaked at 4.0, trending back down to 3.7 repeat in the morning - Hypotension: due to cellulitis and dehydration also on Decadron so could have a degree of adrenal insufficiency in setting of acute illness stress dose Hydrocortisone until illness improves PG Care Time/CCT Total # of Minutes Spent Total Time Spent with Patient: Total time spent is greater than 50% in coordination of care (as documented) at patient's floor/unit and/or counseling patient:
[2019-03-27] MEDS ORDERED: HYDROCORTISONE SOD SUCCINATE 100 MG/2 ML VIAL IV STA (09:54)
[2019-03-27] MEDS ORDERED: ACETAMINOPHEN 325 MG TAB PO PRN (09:54)
[2019-03-27] MEDS ORDERED: ONDANSETRON INJ 2 MG/ML 2 ML VIAL IV PRN (09:54)
[2019-03-27] MEDS ORDERED: HYDROCORTISONE SOD 50 MG in SYRINGE 0 ML IV ONE (10:30)
[2019-03-27] MEDS: fentaNYL 25 MCG/HR TDSY TD SCH (11:15)
[2019-03-27] MEDS: NSS + 20MEQ KCL 20 MEQ/1,000 ML BAG IV SCH ×2 (11:16→20:06)
[2019-03-27] MEDS: PANTOprazole 40 MG TAB PO SCH ×2 (11:43→21:27)
[2019-03-27] MEDS: CARBIDOPA/LEVODOPA 25/100MG TAB PO SCH ×3 (11:43→21:28)
[2019-03-27] MEDS: ENOXAPARIN INJ 40 MG/0.4 ML SYR SQ SCH (11:44)
[2019-03-27] MEDS: HYDROCORTISONE SOD 50 MG in SYRINGE 0 ML IV SCH ×2 (14:32→21:27)
[2019-03-27] MEDS: CHECK FENTANYL PATCH PLACEMENT SCH (16:30)
[2019-03-27 17:14] LABS: Appearance Urine Clear (Clear); Bacteria Urine Automated Negative (Negative); Bilirubin Urine Negative (Negative); Blood Urine Negative (Negative); Cast Urine Automated 0 /lpf (0-5); Color Urine Dark Yellow; Epithelial Cell Urine Auto 0-5 /lpf (0-5); Glucose Urine UA Negative (Negative); Ketones Urine Trace (Negative); Leukocyte Esterase Urine Negative (Negative); Nitrite Urine Negative (Negative); Protein Urine Trace (Negative); RBC Urine Automated 0-4 /hpf (0-4); Specific Gravity Urine 1.025 (1.000-1.030); Urobilinogen Urine Negative (Negative)
[2019-03-27] MEDS: ATORVASTATIN 20 MG TAB PO SCH (21:27)
[2019-03-28] MEDS: CHECK FENTANYL PATCH PLACEMENT SCH ×3 (00:41→16:47)
[2019-03-28] MEDS: NSS + 20MEQ KCL 20 MEQ/1,000 ML BAG IV SCH ×3 (04:34→22:42)
[2019-03-28] MEDS: HYDROCORTISONE SOD 50 MG in SYRINGE 0 ML IV SCH ×3 (06:07→21:50)
[2019-03-28 06:42] LABS: Hematocrit (blood only) 28.2 % (42-52); Immature Granulocytes # (auto) 0.01 K/uL (0.00-0.02); Immature Granulocytes % (auto) 0.2 %; Lymphocytes # (auto) 0.49 K/uL (1.2-3.4); Lymphocytes % (auto) 9.4 %; Mean Corpuscular Hemoglobin 32.1 pg (25-34); Mean Corpuscular Hgb Conc 31.9 g/dL (32-36); Mean Corpuscular Volume 100.7 fL (80-100); Mean Platelet Volume 9.3 fL (7.4-10.4); Monocytes # (auto) 0.54 K/uL (0.11-0.59); Monocytes % (auto) 10.3 %; Neutrophils # (auto) 4.19 K/uL (1.4-6.5); Neutrophils % (auto) 80.1 %; Platelet Count 153 K/uL (130-400); RDW Coefficient of Variation 17.6 % (11.5-14.5); RDW Standard Deviation 64.9 fL (36.4-46.3); White Blood Count 5.23 K/uL (4.8-10.8)
[2019-03-28 07:17] LABS: BUN Creatinine Ratio 23.9 (10-20); Creatinine Clr Calc Pharmacy 58.9 ml/min; Est GFR (African American) 81.6; Est GFR (Non-African American) 70.4; Potassium 4.4 mmol/L (3.5-5.1)
[2019-03-28] MEDS: DAPTOmycin 275 MG in SYRINGE 0 ML IV SCH (08:59)
[2019-03-28] MEDS: CARBIDOPA/LEVODOPA 25/100MG TAB PO SCH ×3 (09:00→20:40)
[2019-03-28] MEDS: PANTOprazole 40 MG TAB PO SCH ×2 (09:00→20:39)
[2019-03-28] MEDS: ENOXAPARIN INJ 40 MG/0.4 ML SYR SQ SCH (12:14)
--- NOTE | 2019-03-28 17:14 | XRay Report ---
XR shoulder RT min 2V routine CLINICAL HISTORY: pain; h/o melanoma COMPARISON: 11/14/2018 DISCUSSION: No complete loss of the acromiohumeral space. This is secondary evidence for a full-thick ness rotator cuff tear. Moderate degenerative change of the glenohumeral as well as acromioclavicular joints. Several surgical clips involving the right high right axilla. Right perihilar nodular density this burciaga s been described previously IMPRESSION: 1. Complete loss of the acromiohumeral space suggesting full-thickness rotator cuff tear. 2. Right perihilar nodule which has been described previously. The above report was generated using voice recognition software. It may contain grammatical, syntax or spelling errors. Electronically signed by: Wilian Clay M.D. 03/28/2019 5:13 PM
[2019-03-28] MEDS: DICLOFENAC SOD 1% GEL 100 GM TUBE EXT SCH ×2 (18:24→20:40)
--- NOTE | 2019-03-28 19:28 | Hospitalist Progress Note ---
Date of Service March 28, 2019 Assessment & Plan (1) Cellulitis of left leg: Stable. Currently on daptomycin IV. Continue for now. No contraindication to using vancomycin if necessary (in ivette of dapto). Add gram negative coverage if needed. (2) Degenerative joint disease: right shoulder. x-rays today w/ severe DJD and evidence of rotator cuff tear. clinically has rotator cuff tear as well given the atrophy of supraspinatus muscle, weakness, etc. voltaren gel qid. no mets on x-rays today. not a candidate for surgery for this issue. (3) CAD (coronary artery disease) of artery bypass graft: S/P CABG x 4 vessel years ago no ischemic sx's at this time (4) Hypertension: Holding Lasix and metoprolol given low BP (5) Hypercholesterolemia: hold statin while on daptomycin (6) Malignant melanoma: Originally diagnosed 2014 stage 4 with mets to Lung, left kidney, multiple regions in the abdomen, back, lymph nodes Status post multiple surgeries and resections including a left nephrectomy, left lung wedge resection, R axillary lymph node dissection Continue fentanyl patch, oxycodone for pain relief On dexamethasone at home, will continue stress dose steroids with hydrocortisone 50 mg grams IV Q8H (7) Metastatic disease: as above (8) Peripheral edema: Chronic resume lasix when able (9) Acute on chronic renal failure: acute kidney injury resolved likely stop fluids in am (10) GERD (gastroesophageal reflux disease): Continue pantoprazole 40 mg BID and ranitidine 150 every morning (11) Alzheimers disease: noted no delirium at present (12) Parkinsonism: Continue carbidopa levodopa 1 tab p.o. TID (13) Chronic anemia: hemoglobin at baseline (1112) (14) BPH (benign prostatic hypertrophy): no issues at this time (15) DVT prophylaxis: lovenox Disposition: Patient from [facility] PT, OT gus to ensure safe d/c to there when ready Subjective left leg cellulitis unchanged main complaint is that of several months of worsening right shoulder pain and inability to raise the arm saw ortho for this several years ago - told nothing could be done to "Fix it" denies any dyspnea, diarrhea, abd pain appetite fair Review of Systems Constitutional: no fever and no chills Respiratory: no cough and no dyspnea Cardiovascular: + edema; no chest pain, no orthopnea and no paroxysmal nocturnal dyspnea Physical Exam Constitutional: no acute distress and no altered mental status ENMT: external ear and nose normal, oropharynx normal Respiratory: normal respiratory effort, lungs clear to auscultation Cardiovascular: Rate/Rhythm: regular rate and regular rhythm Heart Sounds: normal S1 and normal S2 Vessels: posterior tibial pulses present and dorsalis pedis pulses present; no JVD Extremities: + edema (L>R leg) Chest (Breasts): Additional Comments: large mass protruding from left flank Gastrointestinal (Abdomen): normal bowel sounds, soft, nontender, no hepatosplenomegaly Musculoskeletal: atrophy of supraspinatus muscle, right shoulder; crepitus with passive ROM; +impingement signs with abduction and external rotation. Skin: anterior burdick with large irregular area of cellulitis - warm to touch, erythematous; old cut present on burdick that is covered with scab; medial aspect of lower leg with scar from prior vein harvesting; this scar is mildly pink in color Psychiatric: A+Ox3, euthymic affect Results & Data Vital Signs (Past 12 Hours) Vital Signs Temp Pulse Resp BP Pulse Ox 03/28/19 14:53 36.4 C L 76 18 100/53 L 94 03/28/19 11:53 36.6 C 78 18 113/70 96 Laboratory Results Cr 0.9 WBC 5 PG Care Time/CCT Total # of Minutes Spent Total Time Spent with Patient: Total time spent is greater than 50% in coordination of care (as documented) at patient's floor/unit and/or counseling patient: (1) CAD (coronary artery disease) of artery bypass graft [place] vs. transplanted heart: [place] heart Associated angina: without angina Qualified Code(s): I25.810 - Atherosclerosis of coronary artery bypass graft(s) without angina pectoris (2) Hypertension Hypertension type: essential hypertension Qualified Code(s): I10 - Essential (primary) hypertension (3) Malignant melanoma Melanoma location: unspecified site Qualified Code(s): C43.9 - Malignant melanoma of skin, unspecified (4) Acute on chronic renal failure Chronic kidney disease stage: stage 3 (moderate) Acute renal failure type: unspecified Qualified Code(s): N17.9 - Acute kidney failure, unspecified; N18.3 - Chronic kidney disease, stage 3 (moderate) (5) GERD (gastroesophageal reflux disease) Esophagitis presence: esophagitis presence not specified Qualified Code(s): K21.9 - Gastro-esophageal reflux disease without esophagitis (6) Alzheimers disease Alzheimer's disease onset: unspecified onset Dementia behavioral disturbance: without behavioral disturbance Qualified Code(s): G30.9 - Alzheimer's disease, unspecified; F02.80 - Dementia in other diseases classified elsewhere without behavioral disturbance (7) Parkinsonism Parkinsonism type: unspecified Qualified Code(s): G20 - Parkinson's disease (8) BPH (benign prostatic hypertrophy) Lower urinary tract symptom presence: symptoms absent Qualified Code(s): N40.0 - Benign prostatic hyperplasia without lower urinary tract symptoms (9) Degenerative joint disease Osteoarthritis location: shoulder Osteoarthritis type: primary Laterality: right Qualified Code(s): M19.011 - Primary osteoarthritis, right shoulder
[2019-03-28] MEDS: ATORVASTATIN 20 MG TAB PO SCH (20:40)
[2019-03-29] MEDS: CHECK FENTANYL PATCH PLACEMENT SCH ×4 (01:03→23:43)
[2019-03-29] MEDS: HYDROCORTISONE SOD 50 MG in SYRINGE 0 ML IV SCH (05:47)
[2019-03-29] MEDS: NSS + 20MEQ KCL 20 MEQ/1,000 ML BAG IV SCH (07:20)
[2019-03-29] MEDS: DAPTOmycin 275 MG in SYRINGE 0 ML IV SCH (08:08)
[2019-03-29] MEDS: CARBIDOPA/LEVODOPA 25/100MG TAB PO SCH ×3 (08:09→20:18)
[2019-03-29] MEDS: DICLOFENAC SOD 1% GEL 100 GM TUBE EXT SCH ×4 (08:09→20:19)
[2019-03-29] MEDS: PANTOprazole 40 MG TAB PO SCH ×2 (08:09→20:19)
[2019-03-29] MEDS: ARTIFICIAL TEARS OPB SCH (08:14)
[2019-03-29] MEDS: ENOXAPARIN INJ 40 MG/0.4 ML SYR SQ SCH (12:41)
[2019-03-29] MEDS: HYDROCORTISONE SOD 25 MG in SYRINGE 0 ML IV SCH ×2 (13:39→22:09)
[2019-03-29] MEDS: ATORVASTATIN 20 MG TAB PO SCH (20:19)
--- NOTE | 2019-03-29 21:44 | Hospitalist Progress Note ---
Date of Service March 29, 2019 Assessment & Plan (1) Cellulitis of left leg: IMPROVING nicely. Currently on daptomycin IV. Continue for now; can likely d/c in am and change to PO abx. Would Rx for total 10 days. (2) Degenerative joint disease: right shoulder. x-rays w/ severe DJD and evidence of rotator cuff tear. clinically has rotator cuff tear as well given the atrophy of supraspinatus muscle, weakness, etc. voltaren gel qid. no mets on x-rays. (3) CAD (coronary artery disease) of artery bypass graft: S/P CABG x 4 vessel years ago no ischemic sx's at this time (4) Hypertension: resume lasix in am for edema and BPs also improved (5) Hypercholesterolemia: hold statin while on daptomycin (6) Malignant melanoma: Originally diagnosed 2014 stage 4 with mets to Lung, left kidney, multiple regions in the abdomen, back, lymph nodes Status post multiple surgeries and resections including a left nephrectomy, left lung wedge resection, R axillary lymph node dissection Continue fentanyl patch, oxycodone for pain relief On dexamethasone at home, will continue stress dose steroids with hydrocortisone but lower to 25 mg grams IV Q8H then can resume decadron tomorrow (7) Metastatic disease: as above (8) Peripheral edema: Chronic resume lasix in AM (9) Acute on chronic renal failure: acute kidney injury resolved repeat BMP am (10) GERD (gastroesophageal reflux disease): Continue pantoprazole 40 mg BID and ranitidine 150 every morning (11) Alzheimers disease: noted no delirium at present (12) Parkinsonism: Continue carbidopa levodopa 1 tab p.o. TID (13) Chronic anemia: hemoglobin at baseline (1112) (14) BPH (benign prostatic hypertrophy): no issues at this time (15) DVT prophylaxis: lovenox Disposition: Patient from [facility] home PT, OT evals requested; PT states they hope he can return to Personal care awaiting OT eval Subjective right shoulder feels better with voltaren gel. left leg cellulitis looks better and feels better today. minimal soreness. eating well. no new complaints. tele with numerous runs of PAT but no a.fib. Review of Systems Constitutional: no fever Respiratory: no cough and no dyspnea Cardiovascular: no chest pain Gastrointestinal: no abdominal pain and no diarrhea/loose stools Physical Exam Constitutional: no acute distress and no altered mental status ENMT: external ear and nose normal, oropharynx normal Respiratory: normal respiratory effort, lungs clear to auscultation Cardiovascular: Rate/Rhythm: regular rate and + irregularly irregular Heart Sounds: normal S1 and normal S2 Vessels: posterior tibial pulses present and dorsalis pedis pulses present; no JVD Extremities: + edema (L>R leg; 2+ on right, 3+ on left) Gastrointestinal (Abdomen): normal bowel sounds, soft, nontender, no hepatosplenomegaly Skin: cellulitis anterior left burdick much improved today; no warmth; redness receding; red color is starting to lighten; no tenderness to palpation Psychiatric: A+Ox3, euthymic affect Results & Data Vital Signs (Past 12 Hours) Vital Signs Temp Pulse Pulse Resp BP Pulse Ox 03/29/19 18:48 36.6 C 74 20 117/74 93 03/29/19 16:00 120 H 03/29/19 15:16 36.6 C 93 H 18 113/62 97 03/29/19 11:03 36.4 C L 61 18 122/62 98 03/29/19 10:09 95 PG Care Time/CCT Total # of Minutes Spent Total Time Spent with Patient: Total time spent is greater than 50% in coordination of care (as documented) at patient's floor/unit and/or counseling patient: (1) BPH (benign prostatic hypertrophy) Lower urinary tract symptom presence: symptoms absent Qualified Code(s): N40.0 - Benign prostatic hyperplasia without lower urinary tract symptoms (2) Alzheimers disease Alzheimer's disease onset: unspecified onset Dementia behavioral disturbance: without behavioral disturbance Qualified Code(s): G30.9 - Alzheimer's disease, unspecified; F02.80 - Dementia in other diseases classified elsewhere without behavioral disturbance (3) Malignant melanoma Melanoma location: unspecified site Qualified Code(s): C43.9 - Malignant melanoma of skin, unspecified (4) CAD (coronary artery disease) of artery bypass graft Associated angina: without angina [place] vs. transplanted heart: [place] heart Qualified Code(s): I25.810 - Atherosclerosis of coronary artery bypass graft(s) without angina pectoris (5) Degenerative joint disease Laterality: right Osteoarthritis location: shoulder Osteoarthritis type: primary Qualified Code(s): M19.011 - Primary osteoarthritis, right shoulder (6) Parkinsonism Parkinsonism type: unspecified Qualified Code(s): G20 - Parkinson's disease (7) GERD (gastroesophageal reflux disease) Esophagitis presence: esophagitis presence not specified Qualified Code(s): K21.9 - Gastro-esophageal reflux disease without esophagitis (8) Acute on chronic renal failure Acute renal failure type: unspecified Chronic kidney disease stage: stage 3 (moderate) Qualified Code(s): N17.9 - Acute kidney failure, unspecified; N18.3 - Chronic kidney disease, stage 3 (moderate) (9) Hypertension Hypertension type: essential hypertension Qualified Code(s): I10 - Essential (primary) hypertension
[2019-03-30] MEDS ORDERED: DOCUSATE SODIUM 100 MG CAP PO PRN (02:47)
[2019-03-30] MEDS ORDERED: POLYETHYLENE (MIRALAX) 17 GM PACK PO PRN (02:47)
[2019-03-30] MEDS: HYDROCORTISONE SOD 25 MG in SYRINGE 0 ML IV SCH (05:41)
[2019-03-30] MEDS: OXYCODONE HCL IR 5 MG TAB (IMMEDIATE RELEASE) PO PRN ×2 (05:42→17:31)
[2019-03-30 07:51] LABS: BUN Creatinine Ratio 25.8 (10-20); Calcium 8.1 mg/dl (8.5-10.1); Creatinine Clr Calc Pharmacy 53.6 ml/min; Est GFR (African American) 72.5; Est GFR (Non-African American) 62.5; Potassium 3.9 mmol/L (3.5-5.1)
[2019-03-30] MEDS: PANTOprazole 40 MG TAB PO SCH ×2 (07:51→20:35)
[2019-03-30] MEDS: DICLOFENAC SOD 1% GEL 100 GM TUBE EXT SCH ×4 (07:52→20:35)
[2019-03-30] MEDS: CARBIDOPA/LEVODOPA 25/100MG TAB PO SCH ×3 (07:52→20:35)
[2019-03-30] MEDS: ARTIFICIAL TEARS OPB SCH (07:54)
[2019-03-30] MEDS: CHECK FENTANYL PATCH PLACEMENT SCH ×2 (07:54→16:04)
[2019-03-30] MEDS: DAPTOmycin 275 MG in SYRINGE 0 ML IV SCH (07:55)
[2019-03-30] MEDS: dexAMETHasone 4 MG TAB PO SCH ×2 (08:13→20:34)
[2019-03-30] MEDS: FUROSEMIDE 40 MG TAB PO SCH (08:13)
[2019-03-30] MEDS ORDERED: METOPROLOL TARTRATE 50 MG TAB PO STA (09:36)
[2019-03-30] MEDS: ENOXAPARIN INJ 40 MG/0.4 ML SYR SQ SCH (11:21)
[2019-03-30] MEDS: fentaNYL 25 MCG/HR TDSY TD SCH (11:21)
[2019-03-30] MEDS ORDERED: AMIODARONE / D5W 150 MG/100 ML BAG IV STA (12:15)
[2019-03-30] MEDS ORDERED: AMIODARONE / D5W 360 MG/200 ML BAG IV SCH (12:15)
[2019-03-30] MEDS ORDERED: AMIODARONE IV BOLUS / DRIP IV STA (12:15)
--- NOTE | 2019-03-30 12:31 | Cardiology Consultation ---
Date of Consultation March 30, 2019 Assessment & Plan (1) PAT (paroxysmal atrial tachycardia): Review of his telemetry records suggest that this is a paroxysmal atrial tachycardia. Although it might be a multifocal atrial tachycardia it is hard to determine whether he has 3 P wave morphologies and for the most part it does not appear to be that irregular although at times it is somewhat irregular. At other times it is very regular but still appears to be an atrial tachycardia. It does not appear to be a reentrant rhythm. It is relatively new based on prior electrocardiograms, it has not been identified before and given the frequency of it this admission I suspect it is a relatively new finding. He is unaware of it so we cannot determine when it started based on his symptoms. He does not have a smoking history. I am concerned that this may represent metastatic disease to his pericardium, although it may just be idiopathic but it would be unusual to suddenly start at his age without a specific cause. Given the rapid heart rate and the frequency of this arrhythmia I think we should try to treat it. We could try calcium or beta blockers but they are not likely to work and I would prefer to go directly to amiodarone. We can try intravenous amiodarone which is the most likely drug to work, if it does not work I am not sure there is any other medication that is worth trying. If it does work we could send him home on oral amiodarone. 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 He has metastatic melanoma, I would not be surprised if this has (3) CAD (coronary artery disease) of artery bypass graft: He has significant coronary artery disease including bypass surgery in the past, he does not have symptoms of angina but it is worrisome with his heart rate as fast as it is. I think we should make some attempt to control it. History of Present Illness Reason for Consultation: Atrial tachycardia Attending Physician: Shubham Vigil History of Present Illness This is an 88-year-old male who has a history of coronary artery disease including bypass surgery in the past, hypertension as well as metastatic melanoma. His melanoma has been metastatic to his kidneys, lung adrenal gland and mediastinum. His initial diagnosis was 2019 and he has had a lot of treatment however more recently he has had recurrence and he is now on hospice as he does not want any further treatment. He was admitted with a cellulitis and leg swelling, however he was observed to have frequent rapid episodes of atrial arrhythmias. He has no cardiovascular symptoms currently. Even though he has very frequent, sometimes almost incessant, atrial arrhythmias he does not seem to feel them and often they are quite rapid, approaching 200 bpm. He denies lightheadedness or dizziness, he denies chest discomfort. He does not seem to have a history of these arrhythmias. Allergies Allergy/AdvReac Type Severity Reaction Status Date / Time Iodinated Contrast- Oral and Allergy Intermediate HIVES Verified 03/27/19 07:17 IV Dye promethazine Allergy Unknown unknown Verified 03/27/19 07:17 Home Medications Home Medications Medication Instructions Recorded Confirmed Type atorvastatin [Lipitor] 20 mg PO QPM 04/21/18 03/27/19 History carbidopa-levodopa 1 tab PO TID 04/21/18 03/27/19 History metoprolol tartrate 50 mg PO BID 04/21/18 03/27/19 History ranitidine HCl 150 mg PO QAM 04/21/18 03/27/19 History fentanyl 1 patch TRANSDERMAL Q3D 07/09/18 03/27/19 History polyethylene glycol 3350 [Miralax] 17 g PO QAM 07/09/18 03/27/19 History Systane (PF) 1 drp OPB QAM 11/02/18 03/27/19 History dexamethasone 2 mg PO QAM 11/02/18 03/27/19 History hydroxyzine HCl 25 mg PO BID PRN 11/02/18 03/27/19 History oxycodone 5 mg PO Q6H PRN 11/02/18 03/27/19 History sennosides 8.6 mg PO DAILY PRN 02/03/19 03/27/19 History ondansetron HCl 8 mg tablet 8 mg PO Q8H PRN #90 tab 02/21/19 03/27/19 Rx furosemide 40 mg tablet 40 mg PO DAILY 03/08/19 03/27/19 History pantoprazole 40 mg tablet,delayed 40 mg PO BID #180 tab 03/24/19 03/27/19 Rx release Patient History Medical History Alzheimer disease (Chronic) BPH (benign prostatic hyperplasia) (Chronic) CAD (coronary artery disease) (Chronic) MULTIPLE VESSEL, S/P CABG 2001. HOWELL-LAD, SVG-LCx, 1st marginal and OM bridge graft, SVG-LAD and Dx. Normal EF, negative stress echo in 2006. 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 Orig dx 2013, had lymphadenectomy and 9 radiation treatments. Has now spread significantly, and patient has elected to forgo further treatment except for palliative care. Fentanyl patch for abdominal pain, Decadron daily for appetite stimulation. Abdominal mass, LUQ (left upper quadrant) Metastatic melanoma, found on CT 04/2018. Anemia Anxiety Axillary mass Bladder neck contracture Cerebrovascular disease Denies h/o CVA Claustrophobia Dyspnea GERD (gastroesophageal reflux disease) Hydronephrosis LEFT KIDNEY Renal dysfunction Urinary retention Surgical History H/O radical nephrectomy 2/2 mets from melanoma History of bronchoscopy History of cataract surgery LEFT History of colonoscopy History of hip surgery EMELINA and revision History of lung surgery R lung nodule wedge resection 08/2016 Hx of CABG PER DR. 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 Beliefs That Will Affect Care: None marital status: Current Living Situation: Assisted Current Living Situation Comment: Patient resides at [facility] current occupational status: retired Other Information That Helps Us Care for You: No Feels Safe at Home: Yes Safety Concerns: Feels Safe At This Time Smoking Status: Never smoker Cigarettes Per Day: 0 ; Second Hand Exposure: No ; Hx Alcohol Use: No Hx Substance Use: No Review of Systems Review of Systems: All systems reviewed & are unremarkable except as noted in HPI & below Physical Exam Physical Exam: Constitutional: Alert, cooperative and in no distress. HEENT: Unremarkable Neck: No jugular venous distention, carotid pulses are irregular but otherwise normal and equal bilaterally without bruits. Pulmonary: Clear to auscultation bilaterally. Cardiac: Irregular rhythm with no murmur, gallop or rub. Abdomen: Soft, nontender with normal bowel sounds. Extremities: +3 bilateral pretibial edema. Distal pulses intact. Neurologic: No focal findings. Gait not tested. Skin: Erythema of right lower extremity. Results & Data Vital Signs (Past 12 Hours) Vital Signs Temp Pulse Pulse Resp BP Pulse Ox 03/30/19 11:04 36.5 C 134 H 18 104/76 98 03/30/19 07:14 90 03/30/19 07:01 36.6 C 90 18 156/80 H 96 03/30/19 04:56 86 03/30/19 03:42 36.4 C L 87 18 118/75 98 PG Care Time/CCT Total # of Minutes Spent Total Time Spent with Patient: Total time spent is greater than 50% in coordination of care (as documented) at patient's floor/unit and/or counseling patient: (1) CAD (coronary artery disease) of artery bypass graft [place] vs. transplanted heart: [place] heart Associated angina: without angina Qualified Code(s): I25.810 - Atherosclerosis of coronary artery bypass graft(s) without angina pectoris
[2019-03-30] MEDS: SENNA 8.6 MG TAB PO SCH (14:48)
[2019-03-30] MEDS: AMIODARONE / D5W 360 MG/200 ML BAG IV SCH (19:04)
[2019-03-30] MEDS: ATORVASTATIN 20 MG TAB PO SCH (20:35)
--- NOTE | 2019-03-30 20:52 | Hospitalist Progress Note ---
Date of Service March 30, 2019 Assessment & Plan (1) PAT (paroxysmal atrial tachycardia): I consulted Dr Killian from cardiology. Rates still poor after resuming his metoprolol this am. Dr Killian recommending amiodarone infusion and echo. He needed transfer to PCU for the amiodarone drip. If he responds to amiodarone then at d/c will place on oral amio. No a.fib suspected thus anticoagulation not indicated. (2) Cellulitis of left leg: IMPROVING nicely. d/c daptomycin IV. transition to po keflex/doxy tomorrow AM. plan 7 days of each oral abx. this would give total of 10 days abx between IV/PO. (3) Degenerative joint disease: right shoulder. pain improved w/ voltaren gel QID. x-rays w/ severe DJD and evidence of rotator cuff tear. clinically has rotator cuff tear as well given the atrophy of supraspinatus muscle, weakness, etc. no mets on x-rays. (4) CAD (coronary artery disease) of artery bypass graft: S/P CABG x 4 vessel years ago no ischemic sx's at this time (5) Hypertension: resumed lasix and metoprolol (6) Hypercholesterolemia: can resume statin since off daptomycin however, since going back on hospice, I don't think it is necessary to continue such (7) Malignant melanoma: Originally diagnosed 2014 stage 4 with mets to Lung, left kidney, multiple regions in the abdomen, back, lymph nodes Status post multiple surgeries and resections including a left nephrectomy, left lung wedge resection, R axillary lymph node dissection Continue fentanyl patch, oxycodone for pain relief On dexamethasone at home, will continue at 4mg BID and taper back to prior home dosing over next few days (8) Metastatic disease: as above (9) Peripheral edema: Chronic resumed lasix today (10) Acute on chronic renal failure: acute kidney injury resolved baseline CrCl <60 c/w CKD stage 3 (11) GERD (gastroesophageal reflux disease): Continue pantoprazole 40 mg BID and ranitidine 150 every morning (12) Alzheimers disease: noted no delirium at present (13) Parkinsonism: Continue carbidopa levodopa 1 tab p.o. TID (14) Chronic anemia: hemoglobin at baseline (1112) (15) BPH (benign prostatic hypertrophy): no issues at this time (16) DVT prophylaxis: lovenox Disposition: Patient from [facility] will return there with hospice if doing well tomorrow perhaps d/c then Subjective called by nursing staff this am that patient was having a very rapid rhythm on tele. went to monitor room - like yesterday has been having intermittent PAT but this am it was sustained with rates up to 170s with walking. upon arrival in his room he was sitting in chair. denied palpitations/heart racing/dyspnea/cp. reported mild discomfort in left foot overnight but now resolved. denied left burdick pain. Review of Systems Constitutional: no fever and no chills Respiratory: no cough and no dyspnea Cardiovascular: + edema; no chest pain, no orthopnea, no paroxysmal nocturnal dyspnea and no palpitations Gastrointestinal: no abdominal pain Physical Exam Constitutional: no acute distress and no altered mental status ENMT: external ear and nose normal, oropharynx normal Respiratory: normal respiratory effort, lungs clear to auscultation Cardiovascular: Rate/Rhythm: + tachycardic and + irregularly irregular Heart Sounds: normal S1 and normal S2 Vessels: posterior tibial pulses present and dorsalis pedis pulses present; no JVD Extremities: + edema (L>R leg; 1+ on right, 2+ on left) Gastrointestinal (Abdomen): normal bowel sounds, soft, nontender, no hepatosplenomegaly Skin: left burdick cellulitis continues to resolve; leading edges of erythema cont to recede from previous demarkation lines Psychiatric: A+Ox3, euthymic affect Results & Data Vital Signs (Past 12 Hours) Vital Signs Temp Pulse Pulse Resp BP BP Pulse Ox 03/30/19 19:33 36.9 C 88 18 136/69 95 03/30/19 16:49 101 H 03/30/19 15:21 36.5 C 82 18 112/68 98 03/30/19 13:40 36.6 C 98 H 16 126/76 98 03/30/19 11:04 36.5 C 134 H 18 104/76 98 Laboratory Results Laboratory Results - last 24 hr 03/30/19 03/30/19 06:57 06:57 Sodium 145 Potassium 3.9 Chloride 116 H Carbon Dioxide 21 Anion Gap 8.0 BUN 28 H Creatinine 1.07 Est Cr Clr Drug Dosing 53.6 Est GFR ( Amer) 72.5 Est GFR (Non-Af Amer) 62.5 BUN/Creatinine Ratio 25.8 H Glucose 92 Calcium 8.1 L Magnesium 2.4 PG Care Time/CCT Total # of Minutes Spent Total Time Spent with Patient: Total time spent is greater than 50% in coordination of care (as documented) at patient's floor/unit and/or counseling patient: (1) BPH (benign prostatic hypertrophy) Lower urinary tract symptom presence: symptoms absent Qualified Code(s): N40.0 - Benign prostatic hyperplasia without lower urinary tract symptoms (2) Alzheimers disease Alzheimer's disease onset: unspecified onset Dementia behavioral disturbance: without behavioral disturbance Qualified Code(s): G30.9 - Alzheimer's disease, unspecified; F02.80 - Dementia in other diseases classified elsewhere without behavioral disturbance (3) Malignant melanoma Melanoma location: unspecified site Qualified Code(s): C43.9 - Malignant melanoma of skin, unspecified (4) CAD (coronary artery disease) of artery bypass graft Associated angina: without angina [place] vs. 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, right shoulder (6) Parkinsonism Parkinsonism type: unspecified Qualified Code(s): G20 - Parkinson's disease (7) GERD (gastroesophageal reflux disease) Esophagitis presence: esophagitis presence not specified Qualified Code(s): K21.9 - Gastro-esophageal reflux disease without esophagitis (8) Acute on chronic renal failure Acute renal failure type: unspecified Chronic kidney disease stage: stage 3 (moderate) Qualified Code(s): N17.9 - Acute kidney failure, unspecified; N18.3 - Chronic kidney disease, stage 3 (moderate) (9) Hypertension Hypertension type: essential hypertension Qualified Code(s): I10 - Essential (primary) hypertension
[2019-03-31] MEDS: CHECK FENTANYL PATCH PLACEMENT SCH ×3 (00:09→16:17)
[2019-03-31] MEDS: AMIODARONE / D5W 360 MG/200 ML BAG IV SCH ×2 (06:00→18:12)
[2019-03-31] MEDS: DOXYCYCLINE HYCLATE 100 MG CAP PO SCH ×2 (08:32→21:35)
[2019-03-31] MEDS: CARBIDOPA/LEVODOPA 25/100MG TAB PO SCH ×3 (08:32→21:35)
[2019-03-31] MEDS: PANTOprazole 40 MG TAB PO SCH ×2 (08:32→21:35)
[2019-03-31] MEDS: FUROSEMIDE 40 MG TAB PO SCH (08:33)
[2019-03-31] MEDS: DICLOFENAC SOD 1% GEL 100 GM TUBE EXT SCH ×4 (08:33→21:35)
[2019-03-31] MEDS: dexAMETHasone 4 MG TAB PO SCH ×2 (08:33→21:35)
[2019-03-31] MEDS: SENNA 8.6 MG TAB PO SCH (08:33)
[2019-03-31] MEDS ORDERED: cephALEXin 500 MG CAP PO SCH (09:00)
[2019-03-31] MEDS: ARTIFICIAL TEARS OPB SCH (09:02)
[2019-03-31] MEDS: ENOXAPARIN INJ 40 MG/0.4 ML SYR SQ SCH (11:12)
--- NOTE | 2019-03-31 20:40 | Hospitalist Progress Note ---
Date of Service March 31, 2019 Assessment & Plan (1) PAT (paroxysmal atrial tachycardia): Improving. Cont amio drip - transition to PO amiodarone tomorrow? Cont BB. (2) Cellulitis of left leg: IMPROVING nicely. s/p 3 days daptomycin. transitioned to po keflex/doxy today. plan 7 days of each oral abx. interestingly his wound cx is growing pseudomonas but the cellulitis is improving WITHOUT pseudomonas coverage calling into question if the pseudomonas is contributing to the infection. follow. (3) Degenerative joint disease: right shoulder. pain improved w/ voltaren gel QID. x-rays w/ severe DJD and evidence of rotator cuff tear. clinically has rotator cuff tear as well given the atrophy of supraspinatus muscle, weakness, etc. no mets on x-rays. (4) CAD (coronary artery disease) of artery bypass graft: S/P CABG x 4 vessel years ago no ischemic sx's at this time (5) Hypertension: cont lasix and metoprolol controlled (6) Hypercholesterolemia: since going back on hospice would d/c statin (7) Malignant melanoma: Originally diagnosed 2014 stage 4 with mets to Lung, left kidney, multiple regions in the abdomen, back, lymph nodes Status post multiple surgeries and resections including a left nephrectomy, left lung wedge resection, R axillary lymph node dissection Continue fentanyl patch, oxycodone for pain relief On dexamethasone at home; taper to 2mg BID tomorrow (8) Metastatic disease: as above (9) Peripheral edema: Chronic lasix (10) Acute on chronic renal failure: acute kidney injury resolved baseline CrCl <60 c/w CKD stage 3 (11) GERD (gastroesophageal reflux disease): Continue pantoprazole 40 mg BID and ranitidine 150 every morning (12) Alzheimers disease: noted no delirium at present (13) Parkinsonism: Continue carbidopa levodopa 1 tab p.o. TID (14) Chronic anemia: hemoglobin at baseline (1112) (15) BPH (benign prostatic hypertrophy): no issues at this time (16) DVT prophylaxis: lovenox Disposition: Patient from [facility] will return there with hospice tomorrow for d/c? brother updated by phone today Subjective tele - rates of PAT improved overnight. still having frequent runs but HRs not as high. denies any complaints. eating well. no pain any location. Review of Systems Constitutional: no fever Respiratory: no cough and no dyspnea Cardiovascular: no chest pain Gastrointestinal: no abdominal pain and no diarrhea/loose stools Physical Exam Constitutional: no acute distress and no altered mental status ENMT: external ear and nose normal, oropharynx normal Respiratory: normal respiratory effort, lungs clear to auscultation Cardiovascular: Rate/Rhythm: regular rate and + irregularly irregular Heart Sounds: normal S1 and normal S2 Vessels: posterior tibial pulses present and dorsalis pedis pulses present; no JVD Extremities: + edema (<1+ on right, 2+ on left) Gastrointestinal (Abdomen): normal bowel sounds, soft, nontender, no hepatosplenomegaly Skin: cellulitis continues to fade in intensity of color and continues to shrink from original demarkation lines; linear laceration from prior trauma clean, exuding clear serous fluid Psychiatric: A+Ox3, euthymic affect Results & Data Vital Signs (Past 12 Hours) Vital Signs Temp Pulse Pulse Resp BP Pulse Ox 03/31/19 19:11 36.6 C 87 20 134/78 97 03/31/19 15:59 113 H 03/31/19 15:21 36.3 C L 98 H 22 141/74 H 92 03/31/19 11:09 36.4 C L 88 20 144/79 H 99 PG Care Time/CCT Total # of Minutes Spent Total Time Spent with Patient: Total time spent is greater than 50% in coordination of care (as documented) at patient's floor/unit and/or counseling patient: (1) BPH (benign prostatic hypertrophy) Lower urinary tract symptom presence: symptoms absent Qualified Code(s): N40.0 - Benign prostatic hyperplasia without lower urinary tract symptoms (2) Alzheimers disease Alzheimer's disease onset: unspecified onset Dementia behavioral disturbance: without behavioral disturbance Qualified Code(s): G30.9 - Alzheimer's disease, unspecified; F02.80 - Dementia in other diseases classified elsewhere without behavioral disturbance (3) Malignant melanoma Melanoma location: unspecified site Qualified Code(s): C43.9 - Malignant melanoma of skin, unspecified (4) CAD (coronary artery disease) of artery bypass graft Associated angina: without angina [place] vs. transplanted heart: [place] heart Qualified Code(s): I25.810 - Atherosclerosis of coronary artery bypass graft(s) without angina pectoris (5) Degenerative joint disease Laterality: right Osteoarthritis location: shoulder Osteoarthritis type: primary Qualified Code(s): M19.011 - Primary osteoarthritis, right shoulder (6) Parkinsonism Parkinsonism type: unspecified Qualified Code(s): G20 - Parkinson's disease (7) GERD (gastroesophageal reflux disease) Esophagitis presence: esophagitis presence not specified Qualified Code(s): K21.9 - Gastro-esophageal reflux disease without esophagitis (8) Acute on chronic renal failure Acute renal failure type: unspecified Chronic kidney disease stage: stage 3 (moderate) Qualified Code(s): N17.9 - Acute kidney failure, unspecified; N18.3 - Chronic kidney disease, stage 3 (moderate) (9) Hypertension Hypertension type: essential hypertension Qualified Code(s): I10 - Essential (primary) hypertension
[2019-03-31] MEDS: ATORVASTATIN 20 MG TAB PO SCH (21:35)
[2019-03-31] MEDS: cephALEXin 500 MG CAP PO SCH (21:35)
[2019-04-01] MEDS: CHECK FENTANYL PATCH PLACEMENT SCH ×2 (00:35→08:08)
[2019-04-01 05:26] LABS: Hematocrit (blood only) 30.5 % (42-52); Hemoglobin 9.7 g/dL (14.0-18.0); Mean Corpuscular Hemoglobin 31.7 pg (25-34); Mean Corpuscular Hgb Conc 31.8 g/dL (32-36); Mean Corpuscular Volume 99.7 fL (80-100); Mean Platelet Volume 8.8 fL (7.4-10.4); Nucleated RBC # (auto) 0.05 K/uL (0-0); Nucleated RBC % (auto) 0.9 %; Platelet Count 172 K/uL (130-400); RDW Coefficient of Variation 16.9 % (11.5-14.5); RDW Standard Deviation 60.4 fL (36.4-46.3); Red Blood Count 3.06 M/uL (4.7-6.1); White Blood Count 5.53 K/uL (4.8-10.8)
[2019-04-01 06:01] LABS: Creatinine Clr Calc Pharmacy 48.7 ml/min; Est GFR (African American) 64.4; Est GFR (Non-African American) 55.5
[2019-04-01] MEDS: AMIODARONE / D5W 360 MG/200 ML BAG IV SCH (06:03)
[2019-04-01] MEDS: cephALEXin 500 MG CAP PO SCH (08:06)
[2019-04-01] MEDS: DOXYCYCLINE HYCLATE 100 MG CAP PO SCH (08:06)
[2019-04-01] MEDS: DICLOFENAC SOD 1% GEL 100 GM TUBE EXT SCH ×2 (08:06→12:38)
[2019-04-01] MEDS: CARBIDOPA/LEVODOPA 25/100MG TAB PO SCH ×2 (08:06→14:17)
[2019-04-01] MEDS: PANTOprazole 40 MG TAB PO SCH (08:06)
[2019-04-01] MEDS: dexAMETHasone 4 MG TAB PO SCH (08:07)
[2019-04-01] MEDS: ARTIFICIAL TEARS OPB SCH (08:07)
[2019-04-01] MEDS: FUROSEMIDE 40 MG TAB PO SCH (08:07)
[2019-04-01] MEDS: SENNA 8.6 MG TAB PO SCH (08:07)
[2019-04-01] MEDS ORDERED: METOPROLOL TARTRATE 50 MG TAB PO SCH (11:30)
[2019-04-01] MEDS: ENOXAPARIN INJ 40 MG/0.4 ML SYR SQ SCH (12:38)
--- NOTE | 2019-04-01 13:49 | Cardiology Progress Note ---
Date of Service April 01, 2019 Assessment & Plan (1) PAT (paroxysmal atrial tachycardia): Review of his telemetry records suggest that this is a paroxysmal atrial tachycardia. Although it might be a multifocal atrial tachycardia it is hard to determine whether he has 3 P wave morphologies and for the most part it does not appear to be that irregular although at times it is somewhat irregular. At other times it is very regular but still appears to be an atrial tachycardia. It does not appear to be a reentrant rhythm. It is relatively new based on prior electrocardiograms, it has not been identified before and given the frequency of it this admission I suspect it is a relatively new finding. He is unaware of it so we cannot determine when it started based on his symptoms. Despite the negative echo I remain concerned that this may represent metastatic disease to his pericardium, although it may just be idiopathic but it would be unusual to suddenly start at his age without a specific cause. Given the rapid heart rate and the frequency of this arrhythmia I think we shoul d continue to treat it. It seems that the amiodarone has been somewhat beneficial, I would therefore recommend continuing amiodarone orally (400 mg daily for 6 weeks and then 200 mg daily) and agree with addition of beta- blockade as before. (2) Metastatic disease: He has metastatic melanoma, I would not be surprised if this has xxtended into his pericardium and may be causing atrial irritation, even if we cannot see it on echo. He does not have an effusion so there is nothing to do. (3) CAD (coronary artery disease) of artery bypass graft: He has significant coronary artery disease including bypass surgery in the past, he does not have symptoms of angina but it is worrisome with his heart rate as fast as it is. I think we should make some attempt to control it. With activity here in the hospital he has not been having angina. Subjective He tells me that he is feeling better today, as well as stronger. Yesterday he was short of breath with a walker but today he was able to walk with much less difficulty. He is in good spirits and feels that he would like to go home where he could be more active. He has no sensation of palpitations or chest discomfort. Physical Exam Physical Exam: Constitutional: Alert, cooperative and in no distress. Pulmonary: Clear to auscultation bilaterally. Cardiac: Regular rhythm with no murmur, gallop or rub. Abdomen: Soft, nontender with normal bowel sounds. Extremities: No edema. Skin: No rash, ecchymoses or petechiae. Results & Data Vital Signs (Past 12 Hours) Vital Signs Temp Pulse Pulse Resp BP BP Pulse Ox 04/01/19 12:14 36.4 C L 105 H 16 110/68 04/01/19 08:00 79 04/01/19 07:50 36.4 C L 72 16 125/72 04/01/19 03:51 36.5 C 83 21 121/84 97 Laboratory Results Abnormal lab results 04/01/19 Range/Units 05:14 RBC 3.06 L (4.7-6.1) M/uL Hgb 9.7 L (14.0-18.0) g/dL Hct 30.5 L (42-52) % MCHC 31.8 L (32-36) g/dL RDW Std Deviation 60.4 H (36.4-46.3) fL RDW Coeff of Shiva 16.9 H (11.5-14.5) % Absolute Nucleated RBC 0.05 H (0-0) K/uL Diagnostic Findings Telemetry: For most of the day his heart rate is very well controlled with only occasional premature atrial beats, especially at night. With activity he still has increased atrial ectopy, overall the heart rate is better controlled than it was several days ago. PG Care Time/CCT Total # of Minutes Spent Total Time Spent with Patient: Total time spent is greater than 50% in coordination of care (as documented) at patient's floor/unit and/or counseling patient: (1) CAD (coronary artery disease) of artery bypass graft [place] vs. transplanted heart: [place] heart Associated angina: without angina Qualified Code(s): I25.810 - Atherosclerosis of coronary artery bypass graft(s) without angina pectoris
[2019-04-01] MEDS ORDERED: AMIODARONE 200 MG TAB PO ONE (14:45)
[2019-04-01] MEDS ORDERED: dexAMETHasone 1 MG TAB PO SCH (21:00)
--- NOTE | 2019-04-10 13:50 | Discharge Summary ---
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 Pt notes he was getting into a truck and slipped on the foot bench when getting up and scraped his legs about 4-5 weeks ago. He notes that since that time abrasion has just not healed. Last seen patient noticed increased redness, warmth and swelling. He had difficulty putting any weight on it today and presented to the ER due to pain. He admits to fevers and chills which started last night. He did not take any Tylenol. He has not been putting anything on the wound topically at home. Patient is from [facility]. He has not taken any of his morning medications. The patient has been enrolled in hospice at [facility]. Patient was slightly hypotensive upon presentation and required volume resuscitation with IV fluids. He has been started on IV daptomycin and imipenem/cilastatin. Principal Diagnosis LLE cellulitis Discharge Exam Constitutional no acute distress and no altered mental status ENMT external ear and nose normal, oropharynx normal Respiratory normal respiratory effort, lungs clear to auscultation large mass protruding from left posterior hemithorax Cardiovascular Rate/Rhythm: regular rate and + irregularly irregular Heart Sounds: normal S1 and normal S2 Vessels: posterior tibial pulses present and dorsalis pedis pulses present; no JVD Extremities: + edema (<1+ on right, 2+ on left) Gastrointestinal (Abdomen) normal bowel sounds, soft, nontender, no hepatosplenomegaly Skin abrasion/ulceration left leg burdick - serous drainage only; minimal erythema anterior left burdick - much improved from prior exams Psychiatric A+Ox3, euthymic affect Discharge Data Allergies Allergy/AdvReac Type Severity Reaction Status Date / Time Iodinated Contrast- Oral and Allergy Intermediate HIVES Verified 04/08/19 11:00 IV Dye promethazine Allergy Unknown unknown Verified 04/08/19 11:00 Consultations cardiology - Law Killian MD PT, OT Ordered Studies left leg venous doppler negative for DVT Hospital Course (1) Cellulitis of left leg: IMPROVED/RESOLVING with use of IV daptomycin/oral antibiotics. Received 3 days of IV daptomycin then was transitioned to po keflex/doxycycline. plan 7 days of each oral antibiotics to complete the course. interestingly his wound culture from the left burdick ulceration grew pseudomonas but the cellulitis improved quickly WITHOUT pseudomonas coverage calling into question if the pseudomonas was contributing to the infection. At discharge he will complete keflex/doxycycline. (2) PAT (paroxysmal atrial tachycardia): Patient had numerous runs of PAT during this hospitalization. He was largely NOT symptomatic from such. He was seen in consult by [facility]. Echo showed preserved EF. He was initiated on amiodarone infusion. He had less runs of the PAT on the amiodarone. He will transition to oral amiodarone at discharge as follows - amiodarone 400mg once daily for 6 weeks THEN lower the dose to 200mg once daily thereafter. He remains on low-dose beta brandyn as well. (3) Degenerative joint disease: right shoulder. pain improved w/ voltaren gel QID. x-rays w/ severe DJD and evidence of rotator cuff tear. clinically has rotator cuff tear as well given the atrophy of supraspinatus muscle, weakness, etc. no mets on x-rays. (4) CAD (coronary artery disease) of artery bypass graft: S/P CABG x 4 vessel years ago no ischemic sx's while here (5) Hypertension: cont lasix and metoprolol controlled while hospitalized (6) Hypercholesterolemia: since going back on hospice at discharge would d/c the statin (7) Malignant melanoma: Originally diagnosed 2014 stage 4 with mets to Lung, left kidney, multiple regions in the abdomen, back, lymph nodes Status post multiple surgeries and resections including a left nephrectomy, left lung wedge resection, R axillary lymph node dissection Continue fentanyl patch, oxycodone for pain relief On dexamethasone at home chronically received "stress dose" steroids during the stay (8) Metastatic disease: as above (9) Peripheral edema: Chronic Continue lasix (10) Acute on chronic renal failure: acute kidney injury resolved with treatment of his cellulitis. baseline CrCl <60 c/w CKD stage 3. (11) GERD (gastroesophageal reflux disease): Continue pantoprazole 40 mg BID and ranitidine 150 every morning (12) Alzheimers disease: noted no complicating delirium during this stay (13) Parkinsonism: Continue carbidopa levodopa 1 tab p.o. TID (14) Chronic anemia: hemoglobin at baseline (1112) (15) BPH (benign prostatic hypertrophy): no issues while hospitalized (16) Hospice care patient: the patient had been enrolled in hospice up until this stay. he rescinded the hospice at time of admission, then went BACK ON HOSPICE at time of discharge. efforts should be made to avoid re-hospitalization unless it is for palliative care purposes. Total Time Total Time Spent Total Time Spent (In Minutes): 40 Total Time Includes: Examination of the Patient, Discharge Planning and Medication Reconciliation Discharge Plan Discharge Items Patient Disposition: [facility] Reason For Visit: CELLULITIS of left leg Discharge Diagnosis: 1. cellulitis of left leg - improving. 2. atrial tachycardia - improving. 3. metastatic melanoma - returning to [facility] with hospice. Discharge Goals: Diagnostic testing and Therapeutic intervention Activity: Resume your previous activity Non-emergency contact: Primary Care Provider Call non-emergency contact if: you have any medication questions, your symptoms worsen, your pain is not controlled, your pain is worsening, your pain is unusual for you, your pain is concerning for you, your wound has increased redness, your wound has increased drainage and your wound pain has increased Follow-up/Referrals: [employer] [Primary Care Provider] - Diet: Regular Addtl Provider Instructions: You were treated for cellulitis (skin infection) of the left leg. You likely got this as a result of a scrape on the left leg several weeks ago. You improved with IV antibiotics. We also discovered an abnormal heart rhythm called 'atrial tachycardia.' The captain of guards saw you and recommended a medication called amiodarone for it. This medication seems to be helping the atrial tachycardia. Recommendations - 1. left leg cellulitis - * take cephalexin antibiotic 1 capsule twice daily for 6 more days. * take doxycycline 100mg twice daily for 6 more days; the doxycycline can cause heartburn; it can also cause a rash if you go out in the sun so please cover up and use sunscreen while taking it. * start both antibiotics TONIGHT. 2. left burdick ulcer - place an optifoam dressing to the ulcer daily; change the optifoam daily and as needed; the hospice nurse can look at the wound during their visits with you. You may want to wear a light compression stocking on the left leg to help get fluid out; this will help heal the ulcer faster and get rid of the skin infection faster. 3. take amiodarone 400mg once daily for 6 weeks THEN lower the dose to 200mg once daily thereafter. This is for the atrial tachycardia. Start the amiodarone TOMORROW on 04/02/19. 4. when you are sitting in your chair at home please prop your legs to help with swelling. 5. stop your lipitor. follow-up -- please call the [facility] for ANY needs, concerns, questions or problems; always call them first; they will be able to handle the majority of your concerns Prescriptions: Continued ondansetron HCl 8 mg tablet 8 mg PO Q8H PRN (Reason: Nausea) Qty: 90 RF: 3 pantoprazole 40 mg tablet,delayed release (DR/EC) 40 mg PO BID Qty: 180 RF: 3 polyethylene glycol 3350 [Miralax] 17 gram Powder In Packet 17 g PO QAM RF: 0 dexamethasone 4 mg Tablet 2 mg PO QAM RF: 0 hydroxyzine HCl 25 mg Tablet 25 mg PO BID PRN (Reason: Anxiety) RF: 0 Systane (PF) 0.4-0.3 % Dropperette 1 drp OPB QAM RF: 0 sennosides 8.6 mg Tablet 8.6 mg PO DAILY PRN (Reason: Constipation) RF: 0 fentanyl 25 mcg/hr patch 72 hour 1 patch Transdermal Q3D Qty: 10 RF: 0 oxycodone 5 mg Tablet 5 mg PO Q6H PRN (Reason: Breakthrough Pain) Qty: 30 RF: 0 ranitidine HCl 150 mg Tablet 150 mg PO QAM RF: 0 metoprolol tartrate 50 mg tablet 50 mg PO BID RF: 0 carbidopa-levodopa 25-100 mg tablet 1 tab PO TID RF: 0 Discontinued atorvastatin [Lipitor] 20 mg tablet 20 mg PO QPM RF: 0 No Action furosemide 40 mg tablet 80 mg PO QAM RF: 0 ketoconazole 2 % Cream 1 applic TOPICAL DAILY RF: 0 calcium carbonate [Calcium Antacid] 200 mg calcium (500 mg) Tablet,Chewable 500 mg PO DIRECTED PRN (Reason: Indigestion) RF: 0 bisacodyl 10 mg Suppository 10 mg NH DAILY PRN (Reason: Constipation) RF: 0 acetaminophen 325 mg Suppository 650 mg NH Q4H PRN (Reason: Fever) RF: 0 Morphine Sulfate 0.5 - 10 mg sublingual Q2H PRN (Reason: Pain) RF: 0 lorazepam [Ativan] 2 mg/mL Solution 0.5 - 1 mg SUBLINGUAL Q4H PRN (Reason: Anxiety) RF: 0 magnesium hydroxide [Milk of Magnesia] 400 mg/5 mL Suspension 30 ml PO DIRECTED PRN (Reason: Constipation) RF: 0 acetaminophen [Acetaminophen Extra Strength] 500 mg Tablet 1,000 mg PO Q8H PRN (Reason: pain/fever) RF: 0 nitroglycerin 0.4 mg Tablet, Sublingual 0.4 mg sublingual DIRECTED PRN (Reason: Chest Pain) RF: 0 cephalexin 500 mg Capsule 500 mg PO BID RF: 0 doxycycline hyclate 100 mg Capsule 100 mg PO BID RF: 0 amiodarone 200 mg tablet 400 mg PO DIRECTED RF: 0 diclofenac sodium 1 % Gel 4 g TOPICAL QID PRN (Reason: Pain) RF: 0 Stand-Alone Forms: [facility]/Other Patient Handouts: Cephalexin Monohydrate Oral tablet, Fentanyl Transdermal patch - 72 hour, Doxycycline Monohydrate Oral capsule extended- release, Amiodarone Hydrochloride Oral tablet, Oxycodone Hydrochloride Oral tablet extended-release, Cellulitis Dc Discharge Orders: Discharge Order (Routine); Ordered 04/01/19 Ordered By: Shubham Vigil Admission Data Admit Date/Time: 03/27/19 07:41 Attending Provider: Shubham Vigil Admit Provider: Robert Alves Primary Care Provider: [employer] Other Providers: Robert Alves ; Law Killian Service: Telemetry Other Interventions: Discharge Summary Assessment (RN) Last Done: 04/01/19 14:58 Pending Studies at Discharge: No DC Date/Time DO NOT enter until pt leaves facility: 04/01/19 15:54
== END 2019-04-01 15:54 | disposition home or self-care (01) | DRG 603 ==
LOC: ED 05:02 → 2W 07:41 → SUATTDRO 07:41 → 2W 09:40 → 2S 03-30 12:02
DX: D53.9 Nutritional anemia, unspecified; M19.011 Primary osteoarthritis, right shoulder; Z66 Do not resuscitate; I47.9 Paroxysmal tachycardia, unspecified; G30.9 Alzheimer's disease, unspecified; E87.2 Acidosis; N40.0 Benign prostatic hyperplasia without lower urinary tract symptoms; Z98.42 Cataract extraction status, left eye; I12.9 Hypertensive chronic kidney disease with stage 1 through stage 4 chronic kidney disease, or unspecified chronic kidney disease; E78.00 Pure hypercholesterolemia, unspecified; N18.3 Chronic kidney disease, stage 3 (moderate); C49.9 Malignant neoplasm of connective and soft tissue, unspecified; G20 Parkinson's disease; I25.10 Atherosclerotic heart disease of native coronary artery without angina pectoris; L03.116 Cellulitis of left lower limb; F02.80 Dementia in other diseases classified elsewhere, unspecified severity, without behavioral disturbance, psychotic disturbance, mood disturbance, and anxiety; E86.0 Dehydration; C79.89 Secondary malignant neoplasm of other specified sites; I95.9 Hypotension, unspecified; N17.9 Acute kidney failure, unspecified